=== PATIENT | female | born 1985 | race Caucasian/White ===

== ENCOUNTER 2016-07-15 11:30 | Emergency (ER) | payer SELFPAY ==
[2016-07-15 12:57] VITALS: RESP 16
[2016-07-15] MEDS ORDERED: HYDROcodone/APAP 5-325MG 1 EACH TAB PO STA (14:14)
--- NOTE | 2016-07-15 14:15 | ED ---
ENT HPI - General Chief complaint: ENT Stated complaint: face swelling Time Seen by Provider: 07/15/16 12:42 Source: patient, RN notes reviewed Mode of arrival: ambulatory Limitations: no limitations - History of Present Illness Initial comments: Patient is a 31-year-old female presents to the emergency room for evaluation of facial pain. Patient states yesterday she began having left ear pain. Patient states she woke up this morning with pain on the left side of her face that radiates into her jaw. Patient states she's never had pain like this before. Patient denies, fevers, chills weakness. Patient denies any changes in vision. Patient states she's having severe pain. Patient states her face feels sensitive to touch. Patient ringing in her ears or changes in hearing. Patient states she took ibuprofen for symptoms with no relief. Patient does admit that she cleans her ears out all the time, after getting out of the shower. Patient is not sure if she accidentally scratched the inside of her ear. - Related Data Home Medications Medication Instructions Recorded Confirmed ALPRAZolam [Xanax] 1 mg PO Q8HR PRN 10/11/14 07/15/16 Cyclobenzaprine [Flexeril] 10 mg PO TID 12/09/14 07/15/16 Acetaminophen Tab [Tylenol Tab] 500 - 1,000 mg PO BID PRN 03/11/16 07/15/16 Ibuprofen [Motrin] 400 - 800 mg PO Q6HR PRN 07/15/16 07/15/16 Melatonin 10 mg PO HS 07/15/16 07/15/16 Previous Rx's Medication Instructions Recorded Orphenadrine [Norflex] 100 mg PO Q12H PRN #12 tablet.er 07/15/16 carBAMazepine [carBAMazepine ER] 200 mg PO DAILY PRN #10 07/15/16 Allergies Allergy/AdvReac Type Severity Reaction Status Date / Time lorazepam [From Ativan] AdvReac Severe altered Verified 07/15/16 13:48 mental status diazepam [From Valium] AdvReac paradoxical Verified 07/15/16 13:48 reaction (anxiety) diphenhydramine HCl AdvReac paradoxical Verified 07/15/16 13:48 [From Benadryl] reaction (anxiety) Doles Fruit Cup Allergy Rash/Hives Uncoded 07/15/16 11:38 steroids AdvReac Severe Hallucinati Uncoded 07/15/16 11:38 ons Review of Systems ROS Statement: Those systems with pertinent positive or pertinent negative responses have been documented in the HPI. ROS Other: All systems not noted in ROS Statement are negative. Past Medical History Past Medical History: Asthma, Fibromyalgia, Seizure Disorder Additional Past Medical History / Comment(s): endometriosis, migraines History of Any Multi-Drug Resistant Organisms: None Reported Additional Past Surgical History / Comment(s): endometrial ablation, sinus surgery, D&C Past Anesthesia/Blood Transfusion Reactions: Postoperative Nausea & Vomiting ( PONV) Past Psychological History: Anxiety, Panic Disorder Smoking Status: Never smoker Past Alcohol Use History: Occasional Past Drug Use History: None Reported General Exam - General Exam Comments Initial Comments: Sitting in exam room in no distress. Limitations: no limitations General appearance: alert, in no apparent distress Head exam: Present: normocephalic Eye exam: Present: normal appearance, PERRL, EOMI Pupils: Present: normal accommodation ENT exam: Present: normal exam, other (Patient complaining of tenderness and pain on palpating over the left side of the face. No rashes or unusual lesions noted.) Expanded TM/Canal exam: Canal Tenderness: Left TM (Small excoriation noted in ear canal, no bleeding noted) Mouth exam: Present: normal external inspection Teeth exam: Present: normal inspection Throat exam: normal inspection Neck exam: Present: normal inspection, full ROM Respiratory exam: Present: normal lung sounds bilaterally. Absent: respiratory distress Cardiovascular Exam: Present: regular rate, normal rhythm, normal heart sounds Extremities exam: Present: normal inspection Back exam: Present: normal inspection Neurological exam: Present: alert, oriented X3, CN II-XII intact, normal gait Psychiatric exam: Present: normal affect, normal mood Skin exam: Present: warm, dry, intact, normal color. Absent: rash Course Vital Signs 07/15/16 07/15/16 07/15/16 11:35 12:43 14:36 Temperature 98.0 F 97.8 F 97.6 F Pulse Rate 102 H 106 H 101 H Respiratory 20 16 16 Rate Blood Pressure 143/106 133/79 125/78 O2 Sat by Pulse 98 99 98 Oximetry Medical Decision Making - Medical Decision Making Patient is a 31-year-old female presents to the emergency room for evaluation of left-sided facial pain. Symptoms appear consistent with trigeminal neuralgia. Will place patient on carbamazepine and have her follow-up with ear, nose and throat specialist. Patient states she understands everything that was discussed with her. Return parameters discussed. Case discussed with Dr. Chandler. Disposition Clinical Impression: Trigeminal neuralgia of left side of face Disposition: HOME SELF-CARE Condition: Good Instructions: Trigeminal Neuralgia (ED) Additional Instructions: Take medications as needed. Follow up with ear, nose and throat specialist. If any new symptom arises or symptoms worsen, return to ER as soon as possible. Prescriptions: Orphenadrine [Norflex] 100 mg PO Q12H PRN #12 tablet.er PRN Reason: Pain carBAMazepine [carBAMazepine ER] 200 mg PO DAILY PRN #10 PRN Reason: Pain Referrals: Paulo Macdonald MD [STAFF PHYSICIAN] - 1-2 days Time of Disposition: 14:11
[2016-07-15 14:37] VITALS: BP 125/78; PULSE 101; TEMP 97.6
== END 2016-07-15 14:37 | disposition home or self-care (01) ==
LOC: EC 11:30
DX: G50.0 Trigeminal neuralgia (principal); G40.909 Epilepsy, unspecified, not intractable, without status epilepticus; M79.7 Fibromyalgia; F41.9 Anxiety disorder, unspecified; F41.0 Panic disorder [episodic paroxysmal anxiety]; Z79.899 Other long term (current) drug therapy
CPT/HCPCS: 99283

== ENCOUNTER 2017-08-14 09:10 | Emergency (ER) | payer OTHER ==
[2017-08-14 09:16] VITALS: BP 164/91; PULSE 98; RESP 17
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
[2017-08-14 10:03] VITALS: TEMP 99.2
== END 2017-08-14 10:02 | disposition home or self-care (01) ==
LOC: EC 09:10
DX: H66.92 Otitis media, unspecified, left ear (principal); R05 Cough; M79.7 Fibromyalgia; Z79.899 Other long term (current) drug therapy; Z88.8 Allergy status to other drugs, medicaments and biological substances; Z91.018 Allergy to other foods
CPT/HCPCS: 99283

== ENCOUNTER 2018-08-03 13:53 | Emergency (ER) | payer BC, OTHER ==
--- NOTE | 2018-08-03 15:40 | ED ---
Female Urogenital HPI - General Chief complaint: Vaginal Bleeding Stated complaint: IUD, abd pain and pressure Time Seen by Provider: 08/03/18 15:02 Source: patient, RN notes reviewed, old records reviewed Mode of arrival: ambulatory Limitations: no limitations - History of Present Illness Initial comments: Patient is a 53-year-old female presents emergency department today with heavy vaginal bleeding for the past month. Patient reports that she's had an IUD, Mirena for the past 10 years. She reports that it's been X Try[place] for the past 2 months. She states that she has had pain over cervix and vagina. She reports a history of cervical dyspasia 8 weeks ago, she has not seen OBGYN. Last Menstrual Period: 07/15/18 - Related Data Home Medications Medication Instructions Recorded Confirmed Naproxen Sodium [Aleve] 220 mg PO DAILY 08/03/18 08/03/18 Previous Rx's Medication Instructions Recorded HYDROcodone/APAP 5-325MG [[place] 1 tab PO Q6HR PRN #10 tab 08/03/18 5-325] Ibuprofen 600 mg PO TID #30 tablet 08/03/18 Allergies Allergy/AdvReac Type Severity Reaction Status Date / Time aspirin Allergy Unknown Verified 08/03/18 15:13 lorazepam [From Ativan] AdvReac Severe altered Verified 08/03/18 15:13 mental status diazepam [From Valium] AdvReac paradoxical Verified 08/03/18 15:13 reaction (anxiety) diphenhydramine HCl AdvReac paradoxical Verified 08/03/18 15:13 [From Benadryl] reaction (anxiety) Doles Fruit Cup Allergy Rash/Hives Uncoded 08/03/18 14:24 steroids AdvReac Severe Hallucinati Uncoded 08/03/18 14:24 ons Review of Systems ROS Statement: Those systems with pertinent positive or pertinent negative responses have been documented in the HPI. ROS Other: All systems not noted in ROS Statement are negative. Past Medical History Past Medical History: Asthma, Fibromyalgia, Seizure Disorder Additional Past Medical History / Comment(s): endometriosis, migraines History of Any Multi-Drug Resistant Organisms: None Reported Additional Past Surgical History / Comment(s): endometrial ablation, sinus surgery, D&C Past Anesthesia/Blood Transfusion Reactions: Postoperative Nausea & Vomiting ( PONV) Past Psychological History: Anxiety, Panic Disorder Smoking Status: Never smoker Past Alcohol Use History: Occasional Past Drug Use History: None Reported General Exam - General Exam Comments Initial Comments: 33 year old female, moderate discomfort. Limitations: no limitations General appearance: alert, in no apparent distress Head exam: Present: atraumatic, normocephalic, normal inspection Eye exam: Present: normal appearance, PERRL, EOMI. Absent: scleral icterus, conjunctival injection, periorbital swelling ENT exam: Present: normal exam, mucous membranes moist Neck exam: Present: normal inspection. Absent: tenderness, meningismus, lymphadenopathy Respiratory exam: Present: normal lung sounds bilaterally. Absent: respiratory distress, wheezes, rales, rhonchi, stridor Cardiovascular Exam: Present: regular rate, normal rhythm, normal heart sounds. Absent: systolic murmur, diastolic murmur, rubs, gallop, clicks GI/Abdominal exam: Present: soft, normal bowel sounds. Absent: distended, tenderness, guarding, rebound, rigid External exam: Present: normal external exam Speculum exam: Present: vaginal bleeding, other (friable erythematous and bulging cervix. Patient IUD strings are intact. ). Absent: normal speculum exam By manual exam: Present: normal by manual exam Extremities exam: Present: normal inspection, full ROM, normal capillary refill. Absent: tenderness, pedal edema, joint swelling, calf tenderness Back exam: Present: normal inspection Neurological exam: Present: alert, oriented X3, CN II-XII intact Psychiatric exam: Present: normal affect, normal mood Course Vital Signs 08/03/18 08/03/18 08/03/18 14:20 16:24 18:26 Temperature 98.5 F 98.1 F Pulse Rate 74 88 60 Respiratory 16 20 18 Rate Blood Pressure 145/77 121/56 124/88 O2 Sat by Pulse 100 99 96 Oximetry Medical Decision Making - Medical Decision Making 33 year old female presents with pelvic pain for one day, and vaginal bleeding for one month. Patient has IUD placed 10 years ago. Pelvic exam shows friable and erythematous cervix. She has a history of dysplasia and no papsmears in 8 years. Concern for possiblitity of cancer. Patient UA was normal, no infection. Patient CBC is normal. Strings of IUD visible. Patient Transvaginal US is normal. Discussed case with Dr. Morales whom agrees to see patient for cervix abnormaltiy and return parameters discussed. - Lab Data Result diagrams: 08/03/18 15:30 Lab Results 08/03/18 08/03/18 08/03/18 Range/Units 15:30 15:30 15:30 WBC 6.6 (3.8-10.6) k/uL RBC 4.51 (3.80-5.40) m/uL Hgb 13.1 (11.4-16.0) gm/dL Hct 40.3 (34.0-46.0) % MCV 89.5 (80.0-100.0) fL MCH 29.0 (25.0-35.0) pg MCHC 32.4 (31.0-37.0) g/dL RDW 12.9 (11.5-15.5) % Plt Count 301 (150-450) k/uL Neutrophils % 71 % Lymphocytes % 22 % Monocytes % 4 % Eosinophils % 1 % Basophils % 1 % Neutrophils # 4.7 (1.3-7.7) k/uL Lymphocytes # 1.4 (1.0-4.8) k/uL Monocytes # 0.3 (0-1.0) k/uL Eosinophils # 0.1 (0-0.7) k/uL Basophils # 0.0 (0-0.2) k/uL Urine Color Colorless Urine Appearance Clear (Clear) Urine pH 6.0 (5.0-8.0) Ur Specific [place] 1.007 (1.001-1.035) Urine Protein Negative (Negative) Urine Glucose (UA) Negative (Negative) Urine Ketones Negative (Negative) Urine Blood Small H (Negative) Urine Nitrite Negative (Negative) Urine Bilirubin Negative (Negative) Urine Urobilinogen <2.0 (<2.0) mg/dL Ur Leukocyte Esterase Negative (Negative) Urine RBC 3 (0-5) /hpf Urine WBC 1 (0-5) /hpf Ur Squamous Epith Cells 3 (0-4) /hpf Amorphous Sediment Rare H (None) /hpf Urine Bacteria Occasional H (None) /hpf Urine Mucus Many H (None) /hpf Urine HCG, Qual Not Detected (Not Detectd) Trichomonas Ag (Rapid) (Negative) 08/03/18 Range/Units 16:00 WBC (3.8-10.6) k/uL RBC (3.80-5.40) m/uL Hgb (11.4-16.0) gm/dL Hct (34.0-46.0) % MCV (80.0-100.0) fL MCH (25.0-35.0) pg MCHC (31.0-37.0) g/dL RDW (11.5-15.5) % Plt Count (150-450) k/uL Neutrophils % % Lymphocytes % % Monocytes % % Eosinophils % % Basophils % % Neutrophils # (1.3-7.7) k/uL Lymphocytes # (1.0-4.8) k/uL Monocytes # (0-1.0) k/uL Eosinophils # (0-0.7) k/uL Basophils # (0-0.2) k/uL Urine Color Urine Appearance (Clear) Urine pH (5.0-8.0) Ur Specific [place] (1.001-1.035) Urine Protein (Negative) Urine Glucose (UA) (Negative) Urine Ketones (Negative) Urine Blood (Negative) Urine Nitrite (Negative) Urine Bilirubin (Negative) Urine Urobilinogen (<2.0) mg/dL Ur Leukocyte Esterase (Negative) Urine RBC (0-5) /hpf Urine WBC (0-5) /hpf Ur Squamous Epith Cells (0-4) /hpf Amorphous Sediment (None) /hpf Urine Bacteria (None) /hpf Urine Mucus (None) /hpf Urine HCG, Qual (Not Detectd) Trichomonas Ag (Rapid) Negative (Negative) - Radiology Data Radiology results: report reviewed IUD appears in good position. Normal uterus and endometrium. No adnexal mass. No evidence of ovarian torsion. Disposition Clinical Impression: Dysmenorrhea, IUD complication, Pain on movement of cervix Disposition: HOME SELF-CARE Condition: Good Instructions (If sedation given, give patient instructions): Pelvic Pain in Women (ED) Additional Instructions: Patient advised and close follow-up with her primary care physician and [employer]. Take medication for pain. Return to the emergency department if any alarming signs or symptoms occur. Prescriptions: HYDROcodone/APAP 5-325MG [[place] 5-325] 1 tab PO Q6HR PRN #10 tab PRN Reason: Pain Ibuprofen 600 mg PO TID #30 tablet Is patient prescribed a controlled substance at d/c from ED?: Yes If prescribed controlled substance>3 days was MAPS reviewed?: Prescribed <3 Days If opioid is for acute pain is fill amount 7 days or less?: Yes If Rx opioid, was Start Talking consent form obtained?: Yes Referrals: None,Stated [Primary Care Provider] - 1-2 days Dipti Morales DO [Doctor of Osteopathic Medicine] - 1-2 days Time of Disposition: 17:54
[2018-08-03 15:54] LABS: Basophils % (A) 1 %; Eosinophils # (A) 0.1 k/uL (0-0.7); Eosinophils % (A) 1 %; HCT 40.3 % (34.0-46.0); HGB 13.1 gm/dL (11.4-16.0); Lymphocytes # (A) 1.4 k/uL (1.0-4.8); Lymphocytes % (A) 22 %; MCHC 32.4 g/dL (31.0-37.0); MCV 89.5 fL (80.0-100.0); Mean Platelet Volume 7.4; Monocytes # (A) 0.3 k/uL (0-1.0); Monocytes % (A) 4 %; Neutrophils # (A) 4.7 k/uL (1.3-7.7); Neutrophils % (A) 71 %; Platelet Count 301 k/uL (150-450); RBC 4.51 m/uL (3.80-5.40); RDW 12.9 % (11.5-15.5); WBC 6.6 k/uL (3.8-10.6)
[2018-08-03] MEDS ORDERED: HYDROcodone/APAP 5-325MG 1 EACH TAB PO STA (15:55)
[2018-08-03 15:58] LABS: Amorphous Sediment,Urine Rare /hpf; Appearance,Urine Clear (Clear); Bacteria,Urine Occasional /hpf; Bilirubin,Urine Negative (Negative); Blood,Urine Small (Negative); Color,Urine Colorless; Glucose,Urine (UA) Negative (Negative); Ketones,Urine Negative (Negative); Leukocyte Esterase,Urine Negative (Negative); Mucus,Urine Many /hpf; Nitrite,Urine Negative (Negative); Protein,Urine Negative (Negative); RBC,Urine 3 /hpf (0-5); Specific Gravity,Urine 1.007 (1.001-1.035); Squamous Epithelial Cell,Urine 3 /hpf (0-4); Urobilinogen,Urine <2.0 mg/dL (<2.0); WBC,Urine 1 /hpf (0-5)
[2018-08-03] MEDS ORDERED: MORPHINE SULFATE 4 MG/ML SYRINGE IM STA (17:25)
--- NOTE | 2018-08-03 17:27 | US ---
EXAMINATION TYPE: US transvaginal DATE OF EXAM: 08/03/2018 COMPARISON: NONE CLINICAL HISTORY: Pain. Pelvic pain, IUD x 10 years ago TECHNIQUE: Transvaginal (TV). Date of LMP: 07/17/2018, EXAM MEASUREMENTS: Uterus: 7.7 x 4.8 x 4.2 cm Endometrial Stripe: 0.4 cm Right Ovary: 2.3 x 1.8 x 1.6 cm Left Ovary: 2.6 x 1.8 x 1.6 cm 1. Uterus: Anteverted wnl 2. Endometrium: wnl, IUD seen 3. Right Ovary: follicles 4. Left Ovary: cystic appearing lesion seen adjacent to ovary- 0.7 x 0.7 x 0.8 cm Spectral, color and waveform doppler imaging shows good arterial and venous flow within the ovaries ; there is no evidence for ovarian torsion. 5. Bilateral Adnexa: wnl 6. Posterior cul-de-sac: no free fluid Cervix- wnl IMPRESSION: IUD appears in good position. Normal uterus and endometrium. No adnexal mass. No evidence of ovarian torsion.
[2018-08-03 18:28] VITALS: BP 124/88; PULSE 60; RESP 18; TEMP 98.1
[2018-08-04 13:41] LABS: N. gonorrhoeae,PCR Negative (Neg,Equiv); Neisseria Source Vagina
[2018-08-04 13:43] LABS: C. trachomatis,PCR Negative (Neg,Equiv); Chlamydia trachomatis Source Vagina
== END 2018-08-03 18:10 | disposition home or self-care (01) ==
LOC: EC 13:53
DX: T83.9XXA Unspecified complication of genitourinary prosthetic device, implant and graft, initial encounter (principal); N94.6 Dysmenorrhea, unspecified; M79.7 Fibromyalgia; Z87.42 Personal history of other diseases of the female genital tract; Z98.890 Other specified postprocedural states; Z79.1 Long term (current) use of non-steroidal anti-inflammatories (NSAID); Z88.6 Allergy status to analgesic agent; Z88.8 Allergy status to other drugs, medicaments and biological substances; Z91.018 Allergy to other foods
CPT/HCPCS: 36415; 85025; 81001; 81025; 87808; 87491; 87591; 87070; 87205; 93975; 76830; 99285; 96372; J2270

== ENCOUNTER 2018-08-04 17:40 | Inpatient (IN) | payer BC ==
[2018-08-04] MEDS ORDERED: MORPHINE SULFATE 4 MG/ML SYRINGE IM STA (18:34)
[2018-08-04] MEDS ORDERED: MORPHINE SULFATE 2 MG/ML SYRINGE IM STA (19:00)
--- NOTE | 2018-08-04 19:01 | ED ---
Female Urogenital HPI - General Chief complaint: Vaginal Bleeding Stated complaint: abdominal pain, bleeding Time Seen by Provider: 08/04/18 17:54 Source: patient Mode of arrival: ambulatory Limitations: no limitations - History of Present Illness Initial comments: 33-year-old female presented today for chief complaint of pelvic pain 2 days. Patient states that she was evaluated on Wednesday by practitioner in the emergency department where laboratory studies as well as ultrasound and pelvic exam are performed. Physical examination was concerning for possible cervical abnormality. Patient also states she had an IUD and states she is unsure if this is the cause of the pain. Patient states that she has been bleeding consistently for the past 3 weeks, she states it varies from bright red to darker brown. Patient states this is irregular for her. Juanita Ferro spoke with Dr. Morales to ensure patient follow-up. Patient called office upon discharge, however was told she could not make an appointment and presented to the ER when pain persisted/intensified this evening. Upon arrival patient appears uncomfortable. Remaining ROS (-), patient denies any recent fever, chills, shortness of breath, chest pain, back pain, upper abdominal pain, nausea or vomiting, numbness or tingling, dysuria or hematuria, constipation or diarrhea, headaches or visual changes, or any other complaints. Pt states she has had multiple abnormal paps in the past with 3 cryo therapy treatments, but states her insurance lapsed and patient was unable to f/u in the last 10 years. P. - Related Data Previous Rx's Medication Instructions Recorded HYDROcodone/APAP 5-325MG [[place] 1 tab PO Q6HR PRN #10 tab 08/03/18 5-325] Ibuprofen 600 mg PO TID #30 tablet 08/03/18 Allergies Allergy/AdvReac Type Severity Reaction Status Date / Time aspirin Allergy Unknown Verified 08/04/18 18:26 lorazepam [From Ativan] AdvReac Severe altered Verified 08/04/18 18:26 mental status diazepam [From Valium] AdvReac paradoxical Verified 08/04/18 18:26 reaction (anxiety) diphenhydramine HCl AdvReac paradoxical Verified 08/04/18 18:26 [From Benadryl] reaction (anxiety) Doles Fruit Cup Allergy Rash/Hives Uncoded 08/03/18 14:24 steroids AdvReac Severe Hallucinati Uncoded 08/03/18 14:24 ons Review of Systems ROS Statement: Those systems with pertinent positive or pertinent negative responses have been documented in the HPI. ROS Other: All systems not noted in ROS Statement are negative. Past Medical History Past Medical History: Asthma, Fibromyalgia, Seizure Disorder Additional Past Medical History / Comment(s): endometriosis, migraines History of Any Multi-Drug Resistant Organisms: None Reported Additional Past Surgical History / Comment(s): endometrial ablation, sinus surgery, D&C Past Anesthesia/Blood Transfusion Reactions: Postoperative Nausea & Vomiting (PONV) Past Psychological History: Anxiety, Panic Disorder Smoking Status: Never smoker Past Alcohol Use History: Occasional Past Drug Use History: None Reported - Past Family History Mother Family Medical History: Cancer Additional Family Medical History / Comment(s): cervical, uterine, and ovarian CA. Complete hysterectomy. Father Family Medical History: Hypertension General Exam - General Exam Comments Initial Comments: General: The patient is awake and alert, in no distress, and does not appear acutely ill. Eye: Pupils are equal, round and reactive to light, extra-ocular movements are intact. No nystagmus. There is normal conjunctiva bilaterally. No signs of icterus. Ears, nose, mouth and throat: There are moist mucous membranes and no oral lesions. Neck: The neck is supple, there is no tenderness or JVD. Cardiovascular: There is a regular rate and rhythm. No murmur, rub or gallop is appreciated. Respiratory: Lungs are clear to auscultation, respirations are non-labored, breath sounds are equal. No wheezes, stridor, rales, or rhonchi. Gastrointestinal: Soft, non-distended, non-tender abdomen without masses or organomegaly noted. There is no rebound or guarding present. No CVA tenderness. Bowel sounds are unremarkable. Pelvic exam: No external lesions. Vaginal mucosa pink moist well rugated. Cervix is enlarged, eyes open, IUD strings in place--cervix erythematous, abnormal cervix with tissue that appears to be coming out of os (possible fungating). Cervical motion and adnexal tenderness. Musculoskeletal: Normal ROM, no tenderness. Strength 5/5. Sensation intact. Radial pulses equal bilaterally 2+. Neurological: A&O x 3. CN II-XII intact, There are no obvious motor or sensory deficits. Coordination appears grossly intact. Speech is normal. Skin: Skin is warm and dry and no rashes or lesions are noted. Psychiatric: Cooperative, appropriate mood & affect, normal judgment. Limitations: no limitations Course Vital Signs 08/04/18 08/04/18 08/04/18 17:49 19:53 20:00 Temperature 98.2 F 98.4 F Pulse Rate 75 77 Pulse Rate [ 72 Left] Respiratory 18 16 14 Rate Blood Pressure 160/90 145/81 Blood Pressure 122/91 [Left Arm] O2 Sat by Pulse 100 98 98 Oximetry Medical Decision Making - Medical Decision Making US the day prior no abnormalities. Laboratory studies unremarkable. Chlamydia and gonorrhea testing negative that was obtained by Juanita Ferro. Exam revealed an abnormal cervix, concerning for possible cancer/precancerous cells--discussed concern with patient. IUD was removed after case is discussed in detail with Dr. De Jesus, who recommended removal. Patient has cervical motion tenderness. No discharge. Small amount of red/brown blood in vault. Patient admitted for intractable pain to Dr. De Jesus. No further orders at this time. Patient transferred to the floor in stable condition after receiving pain medications emergency department. Continue provider Dr. Sweet spoke with Dr. De Jesus prior to patient admission. Pt agreeable with admission denies questions at this time. - Lab Data Result diagrams: 08/05/18 09:29 Disposition Clinical Impression: Intractable pain, Pelvic pain, Abnormal vaginal bleeding, Abnormal cervix finding Disposition: ADMITTED IP TO THIS [facility] Condition: Stable Is patient prescribed a controlled substance at d/c from ED?: No Time of Disposition: 19:05 Decision to Admit Reason: Admit from EC Decision Date: 08/04/18 Decision Time: 19:05
[2018-08-04] MEDS ORDERED: ONDANSETRON 4 MG/2 ML VIAL IVP PRN (19:02)
[2018-08-04] MEDS ORDERED: NALOXONE 0.4 MG/ML 1 ML VIAL IV PRN (19:02)
[2018-08-04] MEDS: SODIUM CHLORIDE 0.9% 1,000 ML IV SCH (19:52)
[2018-08-04] MEDS: MORPHINE SULFATE 4 MG/ML SYRINGE IV PRN (23:07)
[2018-08-05] MEDS: MELATONIN 5 MG TABLET PO SCH ×2 (00:51→21:43)
[2018-08-05] MEDS: IBUPROFEN 400 MG TAB PO PRN ×2 (02:36→08:05)
[2018-08-05] MEDS: MORPHINE SULFATE 4 MG/ML SYRINGE IV PRN ×5 (04:08→20:18)
[2018-08-05] MEDS ORDERED: SENNOSIDES-DOCUSATE SODIUM 1 EACH TAB PO PRN (08:37)
[2018-08-05] MEDS ORDERED: IBUPROFEN 600 MG TAB PO PRN ×2 (08:37→08:49)
[2018-08-05] MEDS ORDERED: ZOLPIDEM 5 MG TAB PO PRN (08:37)
--- NOTE | 2018-08-05 08:59 | P.HPOB ---
History of Present Illness H&P Date: 08/05/18 Chief Complaint: Pelvic pain This is a 33-year-old female 3 para 2011 who presented to the emergency room with complaints of severe pelvic pain for the last 2 days. She was seen in the emergency room on Wednesday night and lab work and pelvic ultrasound were performed. Pelvic ultrasound showed a IUD in position with no other abnormalities noted. Her white count was normal and her gonorrhea and chlamydia cultures were negative. She states the IUD has been in for approximate 10 years and at that time had told the emergency room doctor that it was a Mirena IUD. She was advised to follow up with Dr. Morales when the ER doctor talk to Dr. Morales on Wednesday night. When she called the office on , Dr. Morales was out of the office until Wednesday. She returned to the emergency room when her pain continued and did not improve with the Motrin and [place] that she was given from the emergency room. She states she has been having regular periods occurring monthly lasting 6-7 days. Her last normal period was on July 08 and lasted for about a week. She then stopped for a few days and started having spotting for about a week and then started into a heavy period-like flow after that. The patient states she does have a history of endometriosis and this did not feel like any of the endometriosis pain that she has had in the past. She is still bleeding but it is slowing down at this time. The IUD was removed by Dr. Sweet in the ER last night per my request since it could be the source of her pain. Her pain has not improved significantly since removing the IUD and therefore she was admitted for observation and pain control last night. This morning her pain is about the same and it lies in the left lower quadrant and suprapubic area. She states it also goes down into her vaginal area. The pain is so significant that she has to lay on one side or another and keep her legs bent. She states she has always had a history with bowel issues including constipation since she was born. She stated her last bowel movement was yesterday and she did feel like it was harder to expel through the rectal area. She felt like she had to push on her vaginal area to get the rectum to evacuate her stool. Her last gynecologic exam was at least [address] Covarrubias. She states she does have histories of colposcopies and cryocautery surgery. Her genital vaginal culture from the ER on 36 is still pending at this time. In light of her severe pain despite removing the IUD, I am presumptively admitting her for treatment of pelvic inflammatory disease even though she does not meet all the normal criteria. Past obstetrical history: . History of 2 vaginal deliveries and 1 miscarriage. Gynecologic history: No history of sexual transmitted diseases. She does have a history of abnormal Pap smears in the past. Review of Systems Constitutional: Denies chills, Denies fever Eyes: denies blurred vision, denies pain Ears, nose, mouth and throat: Denies headache, Denies sore throat Cardiovascular: Denies chest pain, Denies shortness of breath Respiratory: Denies cough Gastrointestinal: Reports abdominal pain (Suprapubic and left lower quadrant), Reports constipation Genitourinary: Reports abnormal vaginal bleeding, Reports pelvic pain Menstruation: Reports menses 1-7 days Musculoskeletal: Denies myalgias Integumentary: Denies pruritus, Denies rash Neurological: Denies numbness, Denies weakness Psychiatric: Reports anxiety Endocrine: Denies fatigue, Denies weight change Past Medical History Past Medical History: Asthma, Fibromyalgia, Seizure Disorder Additional Past Medical History / Comment(s): endometriosis, migraines History of Any Multi-Drug Resistant Organisms: None Reported Additional Past Surgical History / Comment(s): Ablation of endometriosis via lap aroscopy at age 14, sinus surgery, D&C Past Anesthesia/Blood Transfusion Reactions: Postoperative Nausea & Vomiting (PONV) Past Psychological History: Anxiety, Panic Disorder Smoking Status: Never smoker Past Alcohol Use History: Occasional Past Drug Use History: None Reported - Past Family History Mother Family Medical History: Cancer Additional Family Medical History / Comment(s): cervical, uterine, and ovarian CA. Complete hysterectomy. Father Family Medical History: Hypertension Medications and Allergies Home Medications Medication Instructions Recorded Confirmed Type HYDROcodone/APAP 5-325MG [[place] 1 tab PO Q6HR PRN #10 tab 08/03/18 08/04/18 Rx 5-325] Ibuprofen 600 mg PO TID #30 tablet 08/03/18 08/04/18 Rx Allergies Allergy/AdvReac Type Severity Reaction Status Date / Time aspirin Allergy Unknown Verified 08/04/18 18:26 lorazepam [From Ativan] AdvReac Severe altered Verified 08/04/18 18:26 mental status diazepam [From Valium] AdvReac paradoxical Verified 08/04/18 18:26 reaction (anxiety) diphenhydramine HCl AdvReac paradoxical Verified 08/04/18 18:26 [From Benadryl] reaction (anxiety) Doles Fruit Cup Allergy Rash/Hives Uncoded 08/03/18 14:24 steroids AdvReac Severe Hallucinati Uncoded 08/03/18 14:24 ons Exam Osteopathic Statement: *. No significant issues noted on an osteopathic structural exam other than those noted in the History and Physical/Consult. Vital Signs Temp Pulse Pulse Pulse Resp BP BP 08/05/18 08:00 18 08/05/18 07:21 97.7 F 63 18 112/69 08/05/18 03:40 75 16 08/04/18 23:51 75 16 08/04/18 23:13 97.9 F 75 16 125/78 08/04/18 20:00 98.4 F 72 14 122/91 08/04/18 19:53 77 16 145/81 08/04/18 17:49 98.2 F 75 18 160/90 Pulse Ox 08/05/18 08:00 08/05/18 07:21 97 08/05/18 03:40 08/04/18 23:51 08/04/18 23:13 98 08/04/18 20:00 98 08/04/18 19:53 98 08/04/18 17:49 100 Intake and Output 08/04/18 08/05/18 08/05/18 22:59 06:59 14:59 Intake Total 240 Balance 240 Intake: Oral 240 Other: Voiding Method Toilet Toilet Toilet # Voids 1 2 Weight 65.771 kg Gen.: Well-developed well-nourished female in mild distress HEENT: Within normal limits Heart: Regular rate and rhythm Lungs: Clear to auscultation bilaterally Abdomen: Soft, tender suprapubically and in the left lower quadrant with some guarding but no rebound. Pelvic exam: Cervix is palpated smooth with no palpable lesions. Positive cervical motion tenderness is noted and significant guarding is noted on pelvic exam to the point that I cannot feel the uterus or ovaries on either side. The tenderness is located more midline into the left, but I'm unable to fully palpate the uterus or ovaries due to the patient guarding. Minimal vaginal bleeding is noted on the glove. Extremities: Negative Homans Assessment and Plan (1) Pelvic inflammatory disease, acute Current Visit: Yes Status: Acute Code(s): N73.0 - ACUTE PARAMETRITIS AND PELVIC CELLULITIS SNOMED Code(s): 352937768 (2) Intractable pain Current Visit: Yes Status: Acute Code(s): R52 - PAIN, UNSPECIFIED SNOMED Code(s): 40822720 Plan: I am presumptively admitting and treating for pelvic inflammatory disease since the patient does have severe pelvic pain along with cervical motion tenderness and abnormal vaginal bleeding despite removal of IUD. I will presumptively treat with cefoxitin and doxycycline. We'll repeat CBC today and tomorrow. If no improvement in 24-48 hours, possible consultation with general surgery to rule out any other causes of her pain. If she does improve, Dr. Morales will be able to see her in the office on Wednesday. I am not here this weekend, therefore Dr. Wilson will be covering this weekend.
[2018-08-05] MEDS ORDERED: DOXYCYCLINE 100 MG CAP PO SCH (09:00)
[2018-08-05 09:51] LABS: Basophils % (A) 0 %; Eosinophils # (A) 0.1 k/uL (0-0.7); Eosinophils % (A) 2 %; HCT 40.9 % (34.0-46.0); HGB 12.6 gm/dL (11.4-16.0); Lymphocytes # (A) 1.7 k/uL (1.0-4.8); Lymphocytes % (A) 26 %; MCH 28.1 pg (25.0-35.0); MCHC 30.8 g/dL (31.0-37.0); MCV 91.2 fL (80.0-100.0); Mean Platelet Volume 7.1; Monocytes # (A) 0.3 k/uL (0-1.0); Monocytes % (A) 5 %; Neutrophils # (A) 4.2 k/uL (1.3-7.7); Neutrophils % (A) 65 %; Platelet Count 271 k/uL (150-450); RBC 4.48 m/uL (3.80-5.40); RDW 12.9 % (11.5-15.5); WBC 6.4 k/uL (3.8-10.6)
[2018-08-05] MEDS: SODIUM CHLORIDE 0.9% 1,000 ML IV SCH ×2 (13:37→22:29)
[2018-08-05] MEDS ORDERED: metroNIDAZOLE-NS PMX 500 MG in SALINE 1 100ML.BAG IVPB SCH (16:00)
--- NOTE | 2018-08-05 21:18 | CT ---
EXAMINATION TYPE: CT abdomen pelvis wo con DATE OF EXAM: 08/05/2018 COMPARISON: None HISTORY: 33-year-old patient with lower abdominal pain. CT DLP: 361.5 mGycm Automated exposure control for dose reduction was used. TECHNIQUE: Helical acquisition of images was performed from the lung bases through the pelvis. FINDINGS: Within the limits of noncontrast CT the following observations are made. LUNG BASES: No significant abnormality is appreciated. LIVER/GB: No significant abnormality is appreciated. PANCREAS: No significant abnormality is seen. SPLEEN: No significant abnormality is seen. Multifocal calcifications are noted, consistent with heal ed granulomatous process. ADRENALS: No significant abnormality is seen. KIDNEYS: No significant abnormality is seen. FREE AIR: No free air is visualized RETROPERITONEAL ADENOPATHY: None visualized REPRODUCTIVE ORGANS: No significant abnormality is seen URINARY BLADDER: No significant abnormality is seen. PELVIC ADENOPATHY: None visualized. OSSEOUS STRUCTURES: No significant abnormality is seen. BOWEL: No significant abnormality is seen. However, prominent stool is seen throughout the colon. IMPRESSION: CONSTIPATION PATTERN.
[2018-08-05] MEDS ORDERED: BISACODYL 5 MG TABLET.DR PO PRN (21:38)
--- NOTE | 2018-08-05 21:52 | P.PN ---
Progress Note - Text Progress Note Date: 08/05/18 Patient seen and evaluated this evening. I did see her on multiple occasions through the evening to try and better assess her symptoms and pain. She was transferred from os unit to labor and delivery at my request that I could perform a pelvic exam and do more thorough examination. In discussing patient symptomatology, she relates that she has had initiation of the pain starting on Wednesday morning and it started is very crampy pain and had progressed to more of a stabbing pain. The pain seems to gotten worse over the last 2 days and despite a normal ultrasound there was concern that she could have some type of gynecologic pathology. It is also noted that Dr. Desir saw her and felt that based on her symptoms and cervical motion tenderness and pain in her vagina that she could have PID. Antibiotics were initiated for PID. Review of cultures that have returned were all negative and she has no fever or white count. I did spend at least 30-45 minutes in the initial evaluation with her during that time she related that she has always had constipation due to some type of intestinal issues since she was a baby. She does state that she did have a bowel movement yesterday but it was small and very hard. She denies any urinary complaints, however there was some small blood in her urine and some bacteria based on a UA from 2 days ago. We did discuss her other symptoms that had been occurring earlier, she had a normal period about 3 weeks ago and then some intermittent spotting and bleeding over the last 3 weeks. On physical exam her vital signs were stable and afebrile. I did perform another pelvic exam with some darkish brownish discharge and a small amount of blood in the vagina on speculum exam. Otherwise cervix appeared normal. With bimanual exam there was a nabothian cyst noted on her cervix. Also she has a slightly angled uterus to the left-hand side with palpable nodular tissues anterior to the uterus and lateral to the uterus that are very tender and most likely represented bowel. Once this exam was done due to the significant discomfort she had with the exam I did order a stat CAT scan please see CAT scan results from radiology, however the only abnormal finding was significant stool. Unfortunately I suspect that her symptomatology may be relat ed to severe constipation and we are only making matters worse by providing narcotics which will further slow down her capacity to have a bowel movement. During the course of my interview with her she related very little to no pain and she was not acutely in any distress her abdomen was otherwise soft but it was globally tender across all quadrants. Assessment suspect significant constipation Plan discontinue narcotics, trial of laxative and increase fluids through IV for the next few hours to see if we can't get her stool softened and passing to see if that will resolve her symptoms.
[2018-08-05] MEDS: KETOROLAC 30 MG/ML 1 ML VIAL IVP SCH (23:58)
[2018-08-06] MEDS: KETOROLAC 30 MG/ML 1 ML VIAL IVP SCH ×2 (06:04→12:29)
[2018-08-06 07:05] LABS: Basophils % (A) 1 %; Eosinophils # (A) 0.2 k/uL (0-0.7); Eosinophils % (A) 3 %; HCT 38.1 % (34.0-46.0); HGB 12.1 gm/dL (11.4-16.0); Lymphocytes # (A) 1.3 k/uL (1.0-4.8); Lymphocytes % (A) 28 %; MCH 28.9 pg (25.0-35.0); MCHC 31.7 g/dL (31.0-37.0); MCV 91.4 fL (80.0-100.0); Mean Platelet Volume 7.5; Monocytes # (A) 0.3 k/uL (0-1.0); Monocytes % (A) 6 %; Neutrophils # (A) 2.9 k/uL (1.3-7.7); Neutrophils % (A) 61 %; Platelet Count 242 k/uL (150-450); RBC 4.17 m/uL (3.80-5.40); RDW 12.9 % (11.5-15.5); WBC 4.7 k/uL (3.8-10.6)
[2018-08-06 08:08] VITALS: RESP 17
--- NOTE | 2018-08-06 10:56 | P.PN ---
Progress Note - Text Progress Note Date: 08/06/18 Overall patient is doing better this morning. She does relate she still has some burning but is much improved over even yesterday. She is did bowel sounds and does feel her stomach rumbling. However, she is not passing flatus and has not had a bowel movement. We'll plan to change to MiraLAX to try and increase the fluid into her colon to try and help her have a bowel movement she may shower and we'll try hopefully some coffee or other caffeine product to hopefully get her to have little more motility and have a bowel movement this morning. Her vital signs are stable and afebrile. She is laying in bed overall very comfortable. Her pain does not seem to be nearly as much as it has been the last day or 2 and there are no other signs or symptoms or issues that I can elicit from her. We will make these minor changes and hopefully try and discharge her later today should she continue to improve.
[2018-08-06] MEDS ORDERED: POLYETHYLENE GLYCOL 3350 17 GM POWD.PACK PO SCH (11:00)
[2018-08-06] MEDS ORDERED: ACETAMINOPHEN TAB 325 MG TAB PO STA (11:16)
--- NOTE | 2018-08-06 13:14 | P.PN ---
Progress Note - Text Progress Note Date: 08/06/18 Patient has again began spotting. This procedure and she had had 2-3 weeks of irregular bleeding prior to her at [place] to the hospital. However she is again spotting and there is unclear etiology. We'll check female hormones including FSH, LH, prolactin, estradiol, and TSH. These labs can be obtained and reviewed with her on her appointment with Dr. Morales in 2 days. Otherwise she is stable but having an increase in her cramping most likely due to additional MiraLAX and likely getting ready to have a bowel movement
--- NOTE | 2018-08-06 14:39 | P.DS ---
Providers Date of admission: 08/05/18 08:38 Expected date of discharge: 08/06/18 Attending physician: Tigist De Jesus Primary care physician: Stated None Hospital Course: Patient seen and evaluated again this afternoon. Her pain is much more tolerable and labs are pending for female hormones and distal uterine bleeding. She did have a small bowel movement earlier and we'll therefore discharged patient home with instructions to follow up with Dr. Morales on Wednesday and return to the emergency room should she have recurrence of severe pain. At this time the only source for her pain that I been able to elucidate is her constipation and will therefore treat as same. All the questions were answered for her at this time and she will again follow up with our office next week. Patient Condition at Discharge: Good Plan - Discharge Summary Discharge Rx Participant: Yes New Discharge Prescriptions: New Cephalexin [Keflex] 500 mg PO Q6HR #20 cap No Action Ibuprofen 600 mg PO TID #30 tablet HYDROcodone/APAP 5-325MG [[place] 5-325] 1 tab PO Q6HR PRN #10 tab PRN Reason: Pain Discharge Medication List HYDROcodone/APAP 5-325MG [[place] 5-325] 1 tab PO Q6HR PRN #10 tab 08/03/18 [Rx] Ibuprofen 600 mg PO TID #30 tablet 08/03/18 [Rx] Cephalexin [Keflex] 500 mg PO Q6HR #20 cap 08/06/18 [Rx] Follow up Appointment(s)/Referral(s): None,Stated [Primary Care Provider] - 1-2 days Dipti Morales DO [Doctor of Osteopathic Medicine] - 08/08/18 Activity/Diet/Wound Care/Special Instructions: Return to the emergency room if symptoms recur Discharge Disposition: HOME SELF-CARE
[2018-08-06 15:45] VITALS: BP 100/62; PULSE 68; TEMP 98.3
== END 2018-08-06 16:03 | disposition home or self-care (01) | DRG 759 ==
LOC: EC 17:40 → 1SOBS 19:05 → OBSVTOIN 08-05 08:38 → 4FBP 08-05 19:38
PROVIDERS: ADMIT Obstetrics & Gynecology; ATTEND Obstetrics & Gynecology
DX: N73.9 Female pelvic inflammatory disease, unspecified (principal); K59.09 Other constipation; N93.8 Other specified abnormal uterine and vaginal bleeding; F41.0 Panic disorder [episodic paroxysmal anxiety]; G40.909 Epilepsy, unspecified, not intractable, without status epilepticus; J45.909 Unspecified asthma, uncomplicated; M79.7 Fibromyalgia; N88.8 Other specified noninflammatory disorders of cervix uteri; G43.909 Migraine, unspecified, not intractable, without status migrainosus; N80.9 Endometriosis, unspecified; Z30.432 Encounter for removal of intrauterine contraceptive device; Z80.41 Family history of malignant neoplasm of ovary; Z82.49 Family history of ischemic heart disease and other diseases of the circulatory system; Z80.49 Family history of malignant neoplasm of other genital organs; Z88.6 Allergy status to analgesic agent; Z88.8 Allergy status to other drugs, medicaments and biological substances
CPT/HCPCS: 58301; 74176; 82670; 83001; 83002; 84146; 84443; 85025; 96372; 99285

== ENCOUNTER → 2018-09-29 | Outpatient (CLI) | payer OTHER ==
--- NOTE | 2018-09-29 08:08 | US ---
EXAMINATION TYPE: Transabdominal DATE OF EXAM: 09/29/2018 7:20 AM COMPARISON: NONE CLINICAL HISTORY: Z36 confirm dates. confirm dates EXAM PERFORMED: Transabdominal (TA) EXAM MEASUREMENTS: GESTATIONAL AGE / DATING Physician Established: Not yet established Dates by LMP: (9 weeks/1 days) EDC: 05/03/19 Dates by First Scan: no prior Dates by Current Scan for: ( 8 weeks/6 days) EDC: 05/05/19 MATERNAL ANATOMY Uterus: 12.0 x 6.7 x 8.5cm Right Ovary: 3.2 x 2.6 x 2.7cm Left Ovary: 3.0 x 1.4 x 2.9cm Post CDS / Adnexa: trace amount of free fluid posterior cul-de-sac Presence of free fluid: yes GESTATION / SURVEY CRL: 2.1cm (8 weeks/6 days) Yolk Sac (normal less than 6mm): 0.4cm Heart Rate: 165 bpm Rhythm: Normal IUP: Live IUP Date of LMP: 07/27/18 Beta HcG (if available): Not available at this time Single live intrauterine with LENCHO of 05/05/19 IMPRESSION: Single live intrauterine with a sonographic age of 8 weeks and 6 days, concordant with mens trual age. Estimated date of delivery of 05/05/2019.
== END ==
LOC: RADUSWWP 07:02
PROVIDERS: ATTEND Obstetrics & Gynecology
DX: Z36.9 Encounter for antenatal screening, unspecified (principal); Z3A.08 8 weeks gestation of pregnancy
CPT/HCPCS: 76801

== ENCOUNTER → 2019-02-27 | Outpatient (CLI) | payer OTHER | LOC: LABWHC1 15:48 | PROVIDERS: ATTEND Obstetrics & Gynecology | DX: Z34.83 Encounter for supervision of other normal pregnancy, third trimester (principal); Z98.82 Breast implant status | CPT/HCPCS: 36415; 82175; 82570; 83655; 83825 ==

== ENCOUNTER 2019-12-06 18:29 | Emergency (ER) | payer BC, OTHER ==
--- NOTE | 2019-12-06 20:00 | XR ---
EXAMINATION TYPE: XR chest 2V DATE OF EXAM: 12/06/2019 COMPARISON: 12/09/2014 HISTORY: Weakness TECHNIQUE: 2 views FINDINGS: Heart and mediastinum are normal. Lungs are clear. Diaphragm is normal. Bony thorax appears normal. IMPRESSION: Normal chest. No change.
[2019-12-06 20:21] LABS: Basophils # (A) 0.1 k/uL (0-0.2); Basophils % (A) 1 %; Eosinophils # (A) 0.1 k/uL (0-0.7); Eosinophils % (A) 2 %; HCT 45.1 % (34.0-46.0); HGB 14.5 gm/dL (11.4-16.0); Lymphocytes # (A) 1.4 k/uL (1.0-4.8); Lymphocytes % (A) 19 %; MCH 28.2 pg (25.0-35.0); MCHC 32.1 g/dL (31.0-37.0); MCV 87.9 fL (80.0-100.0); Mean Platelet Volume 8.1; Monocytes # (A) 0.3 k/uL (0-1.0); Monocytes % (A) 4 %; Neutrophils # (A) 5.4 k/uL (1.3-7.7); Neutrophils % (A) 73 %; Platelet Count 267 k/uL (150-450); RBC 5.13 m/uL (3.80-5.40); RDW 12.4 % (11.5-15.5); WBC 7.4 k/uL (3.8-10.6)
[2019-12-06 20:29] LABS: ALT 18 U/L (4-34); AST 25 U/L (14-36); African American GFR (CKD) >90 (>60 ml/min/1.73 sqM); Albumin 4.7 g/dL (3.5-5.0); Alkaline Phosphatase 115 U/L (38-126); Anion Gap 10 mmol/L; Blood Urea Nitrogen 21 mg/dL (7-17); Calcium 10.1 mg/dL (8.4-10.2); Carbon Dioxide 23 mmol/L (22-30); Chloride 104 mmol/L (98-107); Glucose 95 mg/dL (74-99); Magnesium 1.8 mg/dL (1.6-2.3); Non-African American GFR(CKD) >90 (>60 ml/min/1.73 sqM); Potassium 4.4 mmol/L (3.5-5.1); Sodium 137 mmol/L (137-145); Total Bilirubin 0.5 mg/dL (0.2-1.3); Total Protein 7.6 g/dL (6.3-8.2)
[2019-12-06 20:31] LABS: INR 0.9 (<1.2); Partial Thromboplastin Time 22.7 sec (22.0-30.0); Prothrombin Time 9.8 sec (9.0-12.0)
[2019-12-06] MEDS ORDERED: SODIUM CHLORIDE 0.9% 1,500 ML IV STA (20:59)
[2019-12-06] MEDS ORDERED: SODIUM CHLORIDE 0.9% 500 ML 500 ML IV ONE (21:01)
[2019-12-06] MEDS ORDERED: SODIUM CHLORIDE 0.9% 1,000 ML IV ONE (21:01)
[2019-12-06] MEDS ORDERED: SODIUM CHLORIDE 0.9% 1,000 ML IV SCH (21:15)
[2019-12-06] MEDS ORDERED: ACETAMINOPHEN TAB 325 MG TAB PO STA (21:16)
--- NOTE | 2019-12-06 21:31 | CT ---
EXAMINATION TYPE: CT brain wo con DATE OF EXAM: 12/06/2019 COMPARISON: 05/14/2014 HISTORY: [place]KE[place], dehydration CT DLP: 1074.4 mGycm Automated exposure control for dose reduction was used. Ventricles and sulci appear normal. There is no mass effect nor midline shift. There is no sign of in tracranial hemorrhage. The calvarium is intact. There is no evidence of cerebral edema. Skull base is intact. IMPRESSION: Negative CT scan of the brain. No change.
[2019-12-06 22:27] LABS: Appearance,Urine Clear (Clear); Bilirubin,Urine Negative (Negative); Blood,Urine Negative (Negative); Color,Urine Colorless; Glucose,Urine (UA) Negative (Negative); Ketones,Urine Negative (Negative); Leukocyte Esterase,Urine Negative (Negative); Nitrite,Urine Negative (Negative); Protein,Urine Negative (Negative); Specific Gravity,Urine 1.007 (1.001-1.035); Urobilinogen,Urine <2.0 mg/dL (<2.0)
--- NOTE | 2019-12-06 22:36 | ED ---
Chest Pain HPI - General Chief Complaint: Dizziness Stated Complaint: lightheaded Time Seen by Provider: 12/06/19 19:23 Source: patient Mode of arrival: wheelchair Limitations: no limitations - History of Present Illness Initial Comments: 34-year-old female presenting for lightheadedness. Patient states that yesterday she was working in her garden in the hot weather when it was over 90 she states she was out there for 3 hours when she came in she states that she felt lightheaded as if she was going to pass out she states that she felt dizzy and lightheaded. Patient states that she was slight headache shortly after. She states she has history of chronic migraines as a vision loss which is the upper or lower extremities she denies being off balance. Patient states that today she will sign the warm weather again developed a lightheaded sensation and had a slight discomfort in the chest she states it is difficult to describe her heart felt like she was racing at that time. Denies any crushing chest pressure or pain denies any ripping tearing sensation she states that she was more so worried about the presyncope. Patient states she has been drinking water but is breast feeding. Denies shortness of breath, leg swelling history of DVT/PE, denies calf or leg swelling, denies surgeries recently, denies . Patient denies pain with deep inspiration or hemoptysis. Patient upon arrival appears well no signs of acute distress. - Related Data Previous Rx's Medication Instructions Recorded HYDROcodone/APAP 5-325MG [[place] 1 tab PO Q6HR PRN #10 tab 08/03/18 5-325] Ibuprofen 600 mg PO TID #30 tablet 08/03/18 Cephalexin [Keflex] 500 mg PO Q6HR #20 cap 08/06/18 Allergies Allergy/AdvReac Type Severity Reaction Status Date / Time aspirin Allergy Unknown Verified 12/06/19 18:37 lorazepam [From Ativan] AdvReac Severe altered Verified 12/06/19 18:37 mental status diazepam [From Valium] AdvReac paradoxical Verified 12/06/19 18:37 reaction (anxiety) diphenhydramine HCl AdvReac paradoxical Verified 12/06/19 18:37 [From Benadryl] reaction (anxiety) Doles Fruit Cup Allergy Rash/Hives Uncoded 12/06/19 18:37 steroids AdvReac Severe Hallucinati Uncoded 12/06/19 18:37 ons Review of Systems ROS Statement: Those systems with pertinent positive or pertinent negative responses have been documented in the HPI. ROS Other: All systems not noted in ROS Statement are negative. EKG Findings - EKG Comments: EKG Findings:: Ventricular rate 70 bpm, UT interval 164 ms, QRS duration 96 ms, QT/QTC 390/427 ms. This is normal sinus there is no ST elevation or depression no significant findings appreciated. Past Medical History Past Medical History: Asthma, Fibromyalgia, Seizure Disorder Additional Past Medical History / Comment(s): endometriosis, migraines History of Any Multi-Drug Resistant Organisms: None Reported Additional Past Surgical History / Comment(s): endometrial ablation, sinus surgery, D&C Past Anesthesia/Blood Transfusion Reactions: Postoperative Nausea & Vomiting (PONV) Past Psychological History: Anxiety, Panic Disorder Smoking Status: Never smoker Past Alcohol Use History: Occasional Past Drug Use History: None Reported - Past Family History Mother Family Medical History: Cancer Additional Family Medical History / Comment(s): cervical, uterine, and ovarian CA. Complete hysterectomy. Father Family Medical History: Hypertension General Exam - General Exam Comments Initial Comments: General: The patient is awake and alert, in no distress Eye: +3 mm pupils are equal, round and reactive to light, extra-ocular movements are intact. No nystagmus. There is normal conjunctiva bilaterally. No signs of icterus. Ears, nose, mouth and throat: There are moist mucous membranes and no oral lesions. Neck: The neck is supple, there is no tenderness or JVD. Cardiovascular: There is a regular rate and rhythm. No murmur, rub or gallop is appreciated. Respiratory: Lungs are clear to auscultation, respirations are non-labored, breath sounds are equal. No wheezes, stridor, rales, or rhonchi. Gastrointestinal: Soft, non-distended, non-tender abdomen without masses or organomegaly noted. There is no rebound or guarding present. Musculoskeletal: Normal ROM, no tenderness. Strength 5/5 of the UE and LE b/l. Sensation intact of the UE and LE b/l. Radial pulses equal bilaterally 2+. Neurological: A&O x 3. CN II-XII intact, There are no obvious motor or sensory deficits. Coordination appears grossly intact. Speech is normal. Finger to nose, heel to henry smooth and coordinated. Patient gait without ataxia. No nuchal rigidity Skin: Skin is warm and dry and no rashes or lesions are noted. No LE swelling, no edema or calf tenderness. Psychiatric: Cooperative, appropriate mood & affect, normal judgment. Limitations: no limitations Course Vital Signs 12/06/19 12/06/19 12/06/19 18:34 19:07 20:16 Temperature 98.0 F Pulse Rate 77 84 Respiratory 16 16 16 Rate Blood Pressure 144/83 124/74 O2 Sat by Pulse 100 97 Oximetry 12/06/19 12/06/19 12/06/19 21:20 22:21 23:03 Temperature 98.0 F Pulse Rate 79 68 68 Respiratory 18 18 18 Rate Blood Pressure 105/59 123/66 123/66 O2 Sat by Pulse 98 97 97 Oximetry Chest Pain MDM - MDM 34-year-old female presented for lightheadedness BEGAN after working outside in hot conditions. Occurred when standing up and walking. No syncopal episode. Chest x-ray clear. No peripheral findings. Denies shortness of breath. Vital signs within acceptable limits. Patient appears dry she is breast-feeding. Temperature outside has been the 90s for the past week. Troponin (-). No chest pain/pressure at this time. CT brain obtained due to 'dizziness' however is more so felt to be described as a presyncope. (-) orthostatics. NO ataxia. or focal neurological findings. Pt BUN elevated. I feel patient is dehydrated and may be cause of symptoms. Patient case discsussed with Dr. Allan who is agreeable to discharge with PCP f/u. Return for worsening symptoms Patient is to increase fluids. Discussed case with him provider Dr. Allan was agreeable with my impression care plan to discharge Patient is agreeable to discharge with timely f/u and return parameters. Disposition Clinical Impression: Lightheaded, Dehydration Disposition: HOME SELF-CARE Condition: Good Instructions (If sedation given, give patient instructions): Dehydration (ED), Near Syncope (ED) Additional Instructions: Please use medication as discussed. Please follow-up with family doctor in the next 2 days. Please return to emergency room if the symptoms increase or worsen or for any other concerns. Is patient prescribed a controlled substance at d/c from ED?: No Referrals: None,Stated [Primary Care Provider] - 1-2 days Time of Disposition: 22:36
[2019-12-08 09:39] VITALS: BP 123/66; PULSE 68; RESP 18; TEMP 98
== END 2019-12-06 23:04 | disposition home or self-care (01) ==
LOC: EC 18:29
DX: E86.0 Dehydration (principal); R42 Dizziness and giddiness; Z88.6 Allergy status to analgesic agent; Z88.8 Allergy status to other drugs, medicaments and biological substances; Z91.018 Allergy to other foods
CPT/HCPCS: 36415; 70450; 71046; 80053; 81003; 81025; 83735; 84484; 85025; 85610; 85730; 93005; 99284

== ENCOUNTER 2020-02-07 10:56 | Emergency (ER) | payer OTHER ==
[2020-02-07 11:15] VITALS: RESP 18
[2020-02-07] MEDS ORDERED: SODIUM CHLORIDE 0.9% 1,000 ML IV STA (11:25)
[2020-02-07] MEDS ORDERED: ONDANSETRON 4 MG/2 ML VIAL IVP STA (11:25)
--- NOTE | 2020-02-07 11:36 | ED ---
General Adult HPI - General Chief complaint: Dizziness Stated complaint: Dehydration [facility] Time Seen by Provider: 02/07/20 11:16 Source: patient Mode of arrival: ambulatory Limitations: no limitations - History of Present Illness Initial comments: 34-year-old female patient presents to the emergency department today for evaluation of nausea and dizziness. Patient states she's been feeling this way since waking up this morning. Patient states that she was quite busy yesterday and didn't drink as much water as usual. Sensation is currently following a ketogenic diet and breast-feeding. Patient states that she has been able to drink water today and had some fruit but she is unable to eat anything more substantial. She denies any abdominal pain, chest pain, shortness of breath, headache, blurred vision, double vision. Patient states that she has felt similar in the past when she has been dehydrated. [facility] and was instructed to come here for IV fluids. She denies any current chance of . Patient denies any recent rash, cough, diarrhea, constipation, back pain, numbness, tingling, dizziness, weakness, hematuria, dysuria, urinary urgency, urinary frequency, or any other complaints. - Related Data Previous Rx's Medication Instructions Recorded HYDROcodone/APAP 5-325MG [[place] 1 tab PO Q6HR PRN #10 tab 08/03/18 5-325] Ibuprofen 600 mg PO TID #30 tablet 08/03/18 Cephalexin [Keflex] 500 mg PO Q6HR #20 cap 08/06/18 Allergies Allergy/AdvReac Type Severity Reaction Status Date / Time aspirin Allergy Unknown Verified 02/07/20 11:10 lorazepam [From Ativan] AdvReac Severe altered Verified 02/07/20 11:10 mental status diazepam [From Valium] AdvReac paradoxical Verified 02/07/20 11:10 reaction (anxiety) diphenhydramine HCl AdvReac paradoxical Verified 02/07/20 11:10 [From Benadryl] reaction (anxiety) Doles Fruit Cup Allergy Rash/Hives Uncoded 12/06/19 18:37 steroids AdvReac Severe Hallucinati Uncoded 12/06/19 18:37 ons Review of Systems ROS Statement: Those systems with pertinent positive or pertinent negative responses have been documented in the HPI. ROS Other: All systems not noted in ROS Statement are negative. Past Medical History Past Medical History: Asthma, Fibromyalgia, Seizure Disorder Additional Past Medical History / Comment(s): endometriosis, migraines History of Any Multi-Drug Resistant Organisms: None Reported Additional Past Surgical History / Comment(s): endometrial ablation, sinus surgery, D&C Past Anesthesia/Blood Transfusion Reactions: Postoperative Nausea & Vomiting (PONV) Past Psychological History: Anxiety, Panic Disorder Smoking Status: Never smoker Past Alcohol Use History: Occasional Past Drug Use History: None Reported - Past Family History Mother Family Medical History: Cancer Additional Family Medical History / Comment(s): cervical, uterine, and ovarian CA. Complete hysterectomy. Father Family Medical History: Hypertension General Exam Limitations: no limitations General appearance: alert, in no apparent distress, other (This is a well- developed, well-nourished adult female patient in no acute distress. Vital signs upon presentation are pulse 78, respirations 18, blood pressure 136/89, pulse ox 96% on room air.) Eye exam: Present: normal appearance, PERRL, EOMI. Absent: scleral icterus, c onjunctival injection, nystagmus, periorbital swelling ENT exam: Present: normal exam, normal oropharynx, mucous membranes moist Respiratory exam: Present: normal lung sounds bilaterally. Absent: respiratory distress, wheezes, rales, rhonchi, stridor Cardiovascular Exam: Present: regular rate, normal rhythm, normal heart sounds. Absent: systolic murmur, diastolic murmur, rubs, gallop, clicks GI/Abdominal exam: Present: soft, normal bowel sounds. Absent: distended, tenderness, guarding, rebound, rigid Neurological exam: Present: alert, oriented X3, CN II-XII intact, other (Strength in all 4 extremities is 5/5.) Psychiatric exam: Present: normal affect, normal mood Skin exam: Present: warm, dry, intact, normal color. Absent: rash Course Vital Signs 02/07/20 02/07/20 11:10 12:32 Pulse Rate 78 70 Respiratory 18 18 Rate Blood Pressure 136/89 101/67 O2 Sat by Pulse 96 96 Oximetry EKG Findings - EKG Comments: EKG Findings:: EKG obtained at 11:30 shows normal sinus rhythm with a low voltage QRS. Ventricular 76, OH interval 166, QRS duration 78, QT 358, QTC 402. No evidence of ST elevation or depression. Medical Decision Making - Medical Decision Making 34-year-old female patient presents to the emergency department today for evaluation of dizziness and nausea. Patient believes she is dehydrated. Physical examination is unremarkable. She is neurologically intact no deficits. Abdomen soft and nontender. She is afebrile normal vital signs. EKG shows normal sinus rhythm. Patient is currently doing a ketogenic diet and breast- feeding. Labs reviewed and did reveal mildly elevated potassium of 5.4. She also had low blood sugar is 72. She is given IV fluids and nausea medication. Upon reevaluation shows report improvement in symptoms or we did give her food. She will be discharged. The primary care physician for recheck in 1-2 days. Return parameters were discussed in detail. She verbalizes understanding and agrees with this plan. - Lab Data Result diagrams: 02/07/20 11:37 02/07/20 11:37 Lab Results 02/07/20 02/07/20 02/07/20 Range/Units 11:37 11:37 11:37 WBC 5.7 (3.8-10.6) k/uL RBC 5.45 H (3.80-5.40) m/uL Hgb 15.1 (11.4-16.0) gm/dL Hct 47.4 H (34.0-46.0) % MCV 86.8 (80.0-100.0) fL MCH 27.7 (25.0-35.0) pg MCHC 31.9 (31.0-37.0) g/dL RDW 12.9 (11.5-15.5) % Plt Count 245 (150-450) k/uL Neutrophils % 71 % Lymphocytes % 22 % Monocytes % 4 % Eosinophils % 1 % Basophils % 1 % Neutrophils # 4.0 (1.3-7.7) k/uL Lymphocytes # 1.2 (1.0-4.8) k/uL Monocytes # 0.2 (0-1.0) k/uL Eosinophils # 0.1 (0-0.7) k/uL Basophils # 0.1 (0-0.2) k/uL Sodium 139 (137-145) mmol/L Potassium 5.4 H (3.5-5.1) mmol/L Chloride 102 (98-107) mmol/L Carbon Dioxide 22 (22-30) mmol/L Anion Gap 15 mmol/L BUN 13 (7-17) mg/dL Creatinine 0.51 L (0.52-1.04) mg/dL Est GFR (CKD-EPI)AfAm >90 (>60 ml/min/1.73 sqM) Est GFR (CKD-EPI)NonAf >90 (>60 ml/min/1.73 sqM) Glucose 72 L (74-99) mg/dL Calcium 10.2 (8.4-10.2) mg/dL Total Bilirubin 0.9 (0.2-1.3) mg/dL AST 35 (14-36) U/L ALT 17 (4-34) U/L Alkaline Phosphatase 99 (38-126) U/L Total Protein 8.2 (6.3-8.2) g/dL Albumin 5.0 (3.5-5.0) g/dL Urine Color Colorless Urine Appearance Clear (Clear) Urine pH 5.5 (5.0-8.0) Ur Specific [place] 1.002 (1.001-1.035) Urine Protein Negative (Negative) Urine Glucose (UA) Negative (Negative) Urine Ketones 2+ H (Negative) Urine Blood Negative (Negative) Urine Nitrite Negative (Negative) Urine Bilirubin Negative (Negative) Urine Urobilinogen <2.0 (<2.0) mg/dL Ur Leukocyte Esterase Negative (Negative) Urine HCG, Qual (Not Detectd) 02/07/20 Range/Units 11:37 WBC (3.8-10.6) k/uL RBC (3.80-5.40) m/uL Hgb (11.4-16.0) gm/dL Hct (34.0-46.0) % MCV (80.0-100.0) fL MCH (25.0-35.0) pg MCHC (31.0-37.0) g/dL RDW (11.5-15.5) % Plt Count (150-450) k/uL Neutrophils % % Lymphocytes % % Monocytes % % Eosinophils % % Basophils % % Neutrophils # (1.3-7.7) k/uL Lymphocytes # (1.0-4.8) k/uL Monocytes # (0-1.0) k/uL Eosinophils # (0-0.7) k/uL Basophils # (0-0.2) k/uL Sodium (137-145) mmol/L Potassium (3.5-5.1) mmol/L Chloride (98-107) mmol/L Carbon Dioxide (22-30) mmol/L Anion Gap mmol/L BUN (7-17) mg/dL Creatinine (0.52-1.04) mg/dL Est GFR (CKD-EPI)AfAm (>60 ml/min/1.73 sqM) Est GFR (CKD-EPI)NonAf (>60 ml/min/1.73 sqM) Glucose (74-99) mg/dL Calcium (8.4-10.2) mg/dL Total Bilirubin (0.2-1.3) mg/dL AST (14-36) U/L ALT (4-34) U/L Alkaline Phosphatase (38-126) U/L Total Protein (6.3-8.2) g/dL Albumin (3.5-5.0) g/dL Urine Color Urine Appearance (Clear) Urine pH (5.0-8.0) Ur Specific [place] (1.001-1.035) Urine Protein (Negative) Urine Glucose (UA) (Negative) Urine Ketones (Negative) Urine Blood (Negative) Urine Nitrite (Negative) Urine Bilirubin (Negative) Urine Urobilinogen (<2.0) mg/dL Ur Leukocyte Esterase (Negative) Urine HCG, Qual Not Detected (Not Detectd) Disposition Clinical Impression: Dizziness, Hypoglycemia Disposition: HOME SELF-CARE Condition: Good Instructions (If sedation given, give patient instructions): Dehydration (ED), Non-diabetic Hypoglycemia (ED), Dizziness (ED) Additional Instructions: Rest. Increase fluids. Follow-up with the primary care physician for recheck in 1-2 days. Return to the emergency department immediately for any new, worsening, or concerning symptoms. Is patient prescribed a controlled substance at d/c from ED?: No Referrals: None,Stated [Primary Care Provider] - 1-2 days Time of Disposition: 12:53
[2020-02-07 12:04] LABS: Basophils # (A) 0.1 k/uL (0-0.2); Basophils % (A) 1 %; Eosinophils # (A) 0.1 k/uL (0-0.7); Eosinophils % (A) 1 %; HCT 47.4 % (34.0-46.0); HGB 15.1 gm/dL (11.4-16.0); Lymphocytes # (A) 1.2 k/uL (1.0-4.8); Lymphocytes % (A) 22 %; MCH 27.7 pg (25.0-35.0); MCHC 31.9 g/dL (31.0-37.0); MCV 86.8 fL (80.0-100.0); Mean Platelet Volume 7.9; Monocytes # (A) 0.2 k/uL (0-1.0); Monocytes % (A) 4 %; Neutrophils % (A) 71 %; Platelet Count 245 k/uL (150-450); RBC 5.45 m/uL (3.80-5.40); RDW 12.9 % (11.5-15.5); WBC 5.7 k/uL (3.8-10.6)
[2020-02-07 12:15] LABS: ALT 17 U/L (4-34); AST 35 U/L (14-36); African American GFR (CKD) >90 (>60 ml/min/1.73 sqM); Alkaline Phosphatase 99 U/L (38-126); Anion Gap 15 mmol/L; Blood Urea Nitrogen 13 mg/dL (7-17); Calcium 10.2 mg/dL (8.4-10.2); Carbon Dioxide 22 mmol/L (22-30); Chloride 102 mmol/L (98-107); Glucose 72 mg/dL (74-99); Non-African American GFR(CKD) >90 (>60 ml/min/1.73 sqM); Sodium 139 mmol/L (137-145); Total Bilirubin 0.9 mg/dL (0.2-1.3); Total Protein 8.2 g/dL (6.3-8.2)
[2020-02-07 12:24] LABS: Appearance,Urine Clear (Clear); Bilirubin,Urine Negative (Negative); Blood,Urine Negative (Negative); Color,Urine Colorless; Glucose,Urine (UA) Negative (Negative); Ketones,Urine 2+ (Negative); Leukocyte Esterase,Urine Negative (Negative); Nitrite,Urine Negative (Negative); PH, Urine 5.5 (5.0-8.0); Protein,Urine Negative (Negative); Specific Gravity,Urine 1.002 (1.001-1.035); Urobilinogen,Urine <2.0 mg/dL (<2.0)
[2020-02-07 12:25] LABS: Potassium 5.4 mmol/L (3.5-5.1)
[2020-02-07 12:33] VITALS: BP 101/67; PULSE 70
== END 2020-02-07 13:39 | disposition home or self-care (01) ==
LOC: EC 10:56
DX: R42 Dizziness and giddiness (principal); E16.2 Hypoglycemia, unspecified; Z88.6 Allergy status to analgesic agent; Z88.7 Allergy status to serum and vaccine; Z88.8 Allergy status to other drugs, medicaments and biological substances; Z91.018 Allergy to other foods
CPT/HCPCS: 36415; 93005; 80053; 85025; 81003; 81025; 99284; 96374; 96361 ×2; J2405

== ENCOUNTER 2020-07-02 11:53 | Emergency (ER) | payer OTHER ==
[2020-07-02 12:16] VITALS: RESP 18
[2020-07-02] MEDS ORDERED: SODIUM CHLORIDE 0.9% 1,000 ML IV STA (12:27)
[2020-07-02] MEDS ORDERED: ONDANSETRON 4 MG/2 ML VIAL IVP STA (12:27)
[2020-07-02 13:09] LABS: Basophils # (A) 0.1 k/uL (0-0.2); Basophils % (A) 1 %; Eosinophils # (A) 0.2 k/uL (0-0.7); Eosinophils % (A) 2 %; HGB 15.2 gm/dL (11.4-16.0); Lymphocytes # (A) 1.6 k/uL (1.0-4.8); Lymphocytes % (A) 19 %; MCH 29.3 pg (25.0-35.0); MCHC 33.7 g/dL (31.0-37.0); Mean Platelet Volume 7.6; Monocytes # (A) 0.3 k/uL (0-1.0); Monocytes % (A) 4 %; Neutrophils # (A) 6.1 k/uL (1.3-7.7); Neutrophils % (A) 73 %; Platelet Count 289 k/uL (150-450); RBC 5.17 m/uL (3.80-5.40); RDW 12.8 % (11.5-15.5); WBC 8.4 k/uL (3.8-10.6)
[2020-07-02 13:13] LABS: Appearance,Urine Clear (Clear); Bilirubin,Urine Negative (Negative); Blood,Urine Negative (Negative); Color,Urine Colorless; Glucose,Urine (UA) Negative (Negative); Ketones,Urine Negative (Negative); Leukocyte Esterase,Urine Negative (Negative); Nitrite,Urine Negative (Negative); PH, Urine 6.5 (5.0-8.0); Protein,Urine Negative (Negative); Specific Gravity,Urine 1.002 (1.001-1.035); Urobilinogen,Urine <2.0 mg/dL (<2.0)
[2020-07-02 13:31] LABS: ALT 18 U/L (4-34); AST 22 U/L (14-36); African American GFR (CKD) >90 (>60 ml/min/1.73 sqM); Albumin 4.8 g/dL (3.5-5.0); Alkaline Phosphatase 92 U/L (38-126); Anion Gap 10 mmol/L; Blood Urea Nitrogen 18 mg/dL (7-17); Calcium 9.6 mg/dL (8.4-10.2); Carbon Dioxide 25 mmol/L (22-30); Chloride 105 mmol/L (98-107); Glucose 85 mg/dL (74-99); Non-African American GFR(CKD) >90 (>60 ml/min/1.73 sqM); Potassium 4.6 mmol/L (3.5-5.1); Sodium 140 mmol/L (137-145); Total Bilirubin 0.5 mg/dL (0.2-1.3)
[2020-07-02] MEDS ORDERED: ACETAMINOPHEN TAB 325 MG TAB PO STA (13:34)
[2020-07-02] MEDS ORDERED: ONDANSETRON 4 MG ODT STARTER PACK 2 TAB BTL PO STA (14:19)
--- NOTE | 2020-07-02 14:20 | ED ---
General Adult HPI - General Chief complaint: Dizziness Stated complaint: dehydration Time Seen by Provider: 07/02/20 12:17 Source: patient Mode of arrival: ambulatory Limitations: no limitations - History of Present Illness Initial comments: Patient is a 35-year-old female presenting to the emergency Department with complaints of feeling dehydrated. States she's been here in the ER before for the same thing. She is currently breast-feeding and feels like that is contributing. Patient is complaining of some lightheadedness, intermittent heart racing and a mild headache. She states she try to drink a lot of water today however still feeling the same symptoms. She states over the last few days she does not drink a lot of water and has been drinking on a coffee instead. She denies any abdominal pain, nausea or vomiting, no fever or chills. She denies history of blood clots, no chest pain or shortness of breath. She is no further complaints. Upon arrival to the ER, her vitals are stable. - Related Data Home Medications Medication Instructions Recorded Confirmed No Known Home Medications 07/02/20 07/02/20 Allergies Allergy/AdvReac Type Severity Reaction Status Date / Time aspirin Allergy Unknown Verified 07/02/20 13:01 lorazepam [From Ativan] AdvReac Severe altered Verified 07/02/20 13:01 mental status diazepam [From Valium] AdvReac paradoxical Verified 07/02/20 13:01 reaction (anxiety) diphenhydramine HCl AdvReac paradoxical Verified 07/02/20 13:01 [From Benadryl] reaction (anxiety) Doles Fruit Cup Allergy Rash/Hives Uncoded 07/02/20 12:15 steroids AdvReac Severe Hallucinati Uncoded 07/02/20 12:15 ons Review of Systems ROS Statement: Those systems with pertinent positive or pertinent negative responses have been documented in the HPI. ROS Other: All systems not noted in ROS Statement are negative. Past Medical History Past Medical History: Asthma, Fibromyalgia, Seizure Disorder Additional Past Medical History / Comment(s): endometriosis, migraines History of Any Multi-Drug Resistant Organisms: None Reported Additional Past Surgical History / Comment(s): endometrial ablation, sinus surgery, D&C Past Anesthesia/Blood Transfusion Reactions: Postoperative Nausea & Vomiting (PONV) Past Psychological History: Anxiety, Panic Disorder Smoking Status: Never smoker Past Alcohol Use History: Occasional Past Drug Use History: None Reported - Past Family History Mother Family Medical History: Cancer Additional Family Medical History / Comment(s): cervical, uterine, and ovarian CA. Complete hysterectomy. Father Family Medical History: Hypertension General Exam - General Exam Comments Initial Comments: GENERAL: Patient is well-developed and well-nourished. Patient is nontoxic and in no acute distress. HEAD: Atraumatic, normocephalic. EYES: Pupils equal round and reactive to light, extraocular movements intact, sclera anicteric, conjunctiva are normal. Eyelids were unremarkable. ENT: TMs normal, nares patent, oropharynx clear without exudates. Moist mucous membranes. NECK: Normal range of motion, supple without lymphadenopathy or JVD. LUNGS: Unlabored respirations. Breath sounds clear to auscultation bilaterally and equal. No wheezes rales or rhonchi. HEART: Regular rate and rhythm without murmurs, rubs or gallops. ABDOMEN: Soft, nontender, normoactive bowel sounds. No guarding, no rebound. No masses appreciated. : Deferred MUSCULOSKELETAL: Normal extremities with adequate strength and normal range of motion, no pitting or edema. No clubbing or cyanosis. NEUROLOGICAL: Patient is alert and oriented x 3. Motor and sensory are also intact. Cranial nerves II through XII grossly intact. Symmetrical smile. Normal speech, normal gait. PSYCH: Normal mood, normal affect. SKIN: Warm, Dry, normal turgor, no rashes or lesions noted. Limitations: no limitations Course Vital Signs 07/02/20 07/02/20 12:12 14:30 Temperature 98.5 F 98.0 F Pulse Rate 81 79 Respiratory 18 18 Rate Blood Pressure 119/78 136/78 O2 Sat by Pulse 98 99 Oximetry EKG Findings - EKG Comments: EKG Findings:: Normal sinus rhythm, normal ECG, similar to previous EKG a . Ventricular rate 71, OR interval 160, QT 384. Medical Decision Making - Medical Decision Making Patient is a 35-year-old female here for feeling of dehydration. Feeling lightheaded, intermittent palpitations. His EKG shows no acute process. Labs are unremarkable including a normal THS. Urine shows no acute process, and urine hCG is not detected. She was given fluids, she reports improvement in his symptoms. Patient is stable for discharge. Patient is in agreement with this plan of care. Return parameters were discussed with the patient and they verbalized understanding. Case discussed with Dr. guzman. - Lab Data Result diagrams: 07/02/20 12:44 07/02/20 12:44 Lab Results 07/02/20 07/02/20 07/02/20 Range/Units 12:44 12:44 12:44 WBC 8.4 (3.8-10.6) k/uL RBC 5.17 (3.80-5.40) m/uL Hgb 15.2 (11.4-16.0) gm/dL Hct 45.0 (34.0-46.0) % MCV 87.0 (80.0-100.0) fL MCH 29.3 (25.0-35.0) pg MCHC 33.7 (31.0-37.0) g/dL RDW 12.8 (11.5-15.5) % Plt Count 289 (150-450) k/uL MPV 7.6 Neutrophils % 73 % Lymphocytes % 19 % Monocytes % 4 % Eosinophils % 2 % Basophils % 1 % Neutrophils # 6.1 (1.3-7.7) k/uL Lymphocytes # 1.6 (1.0-4.8) k/uL Monocytes # 0.3 (0-1.0) k/uL Eosinophils # 0.2 (0-0.7) k/uL Basophils # 0.1 (0-0.2) k/uL Sodium (137-145) mmol/L Potassium (3.5-5.1) mmol/L Chloride (98-107) mmol/L Carbon Dioxide (22-30) mmol/L Anion Gap mmol/L BUN (7-17) mg/dL Creatinine (0.52-1.04) mg/dL Est GFR (CKD-EPI)AfAm (>60 ml/min/1.73 sqM) Est GFR (CKD-EPI)NonAf (>60 ml/min/1.73 sqM) Glucose (74-99) mg/dL Calcium (8.4-10.2) mg/dL Total Bilirubin (0.2-1.3) mg/dL AST (14-36) U/L ALT (4-34) U/L Alkaline Phosphatase (38-126) U/L Total Protein (6.3-8.2) g/dL Albumin (3.5-5.0) g/dL TSH (0.465-4.680) mIU/L Urine Color Colorless Urine Appearance Clear (Clear) Urine pH 6.5 (5.0-8.0) Ur Specific [place] 1.002 (1.001-1.035) Urine Protein Negative (Negative) Urine Glucose (UA) Negative (Negative) Urine Ketones Negative (Negative) Urine Blood Negative (Negative) Urine Nitrite Negative (Negative) Urine Bilirubin Negative (Negative) Urine Urobilinogen <2.0 (<2.0) mg/dL Ur Leukocyte Esterase Negative (Negative) Urine HCG, Qual Not Detected (Not Detectd) 07/02/20 Range/Units 12:44 WBC (3.8-10.6) k/uL RBC (3.80-5.40) m/uL Hgb (11.4-16.0) gm/dL Hct (34.0-46.0) % MCV (80.0-100.0) fL MCH (25.0-35.0) pg MCHC (31.0-37.0) g/dL RDW (11.5-15.5) % Plt Count (150-450) k/uL MPV Neutrophils % % Lymphocytes % % Monocytes % % Eosinophils % % Basophils % % Neutrophils # (1.3-7.7) k/uL Lymphocytes # (1.0-4.8) k/uL Monocytes # (0-1.0) k/uL Eosinophils # (0-0.7) k/uL Basophils # (0-0.2) k/uL Sodium 140 (137-145) mmol/L Potassium 4.6 (3.5-5.1) mmol/L Chloride 105 (98-107) mmol/L Carbon Dioxide 25 (22-30) mmol/L Anion Gap 10 mmol/L BUN 18 H (7-17) mg/dL Creatinine 0.63 (0.52-1.04) mg/dL Est GFR (CKD-EPI)AfAm >90 (>60 ml/min/1.73 sqM) Est GFR (CKD-EPI)NonAf >90 (>60 ml/min/1.73 sqM) Glucose 85 (74-99) mg/dL Calcium 9.6 (8.4-10.2) mg/dL Total Bilirubin 0.5 (0.2-1.3) mg/dL AST 22 (14-36) U/L ALT 18 (4-34) U/L Alkaline Phosphatase 92 (38-126) U/L Total Protein 8.0 (6.3-8.2) g/dL Albumin 4.8 (3.5-5.0) g/dL TSH 1.650 (0.465-4.680) mIU/L Urine Color Urine Appearance (Clear) Urine pH (5.0-8.0) Ur Specific [place] (1.001-1.035) Urine Protein (Negative) Urine Glucose (UA) (Negative) Urine Ketones (Negative) Urine Blood (Negative) Urine Nitrite (Negative) Urine Bilirubin (Negative) Urine Urobilinogen (<2.0) mg/dL Ur Leukocyte Esterase (Negative) Urine HCG, Qual (Not Detectd) Disposition Clinical Impression: Dehydration, Lightheadedness Disposition: HOME SELF-CARE Condition: Stable Instructions (If sedation given, give patient instructions): Dizziness (ED) Additional Instructions: Please return to the Emergency Department if symptoms worsen or any other concerns. Use Zofran for additional nausea. Please follow-up with your regular doctor. Is patient prescribed a controlled substance at d/c from ED?: No Referrals: None,Stated [Primary Care Provider] - 1-2 days
[2020-07-02 14:32] VITALS: BP 136/78; PULSE 79; TEMP 98
== END 2020-07-02 14:31 | disposition home or self-care (01) ==
LOC: EC 11:53
DX: E86.0 Dehydration (principal); R00.2 Palpitations; R51.9 Headache, unspecified; Z88.6 Allergy status to analgesic agent; Z88.8 Allergy status to other drugs, medicaments and biological substances; Z91.018 Allergy to other foods
CPT/HCPCS: 99284 ×2; 96374 ×2; 96361 ×2; 96376; 96375; 99283; 36415; 93005; 80053; 84443; 85025; 81003; 81025; J2360; J2405; S0119; J1170

== ENCOUNTER 2020-07-02 21:13 | Emergency (ER) | payer OTHER ==
[2020-07-02 21:17] VITALS: BP 121/78; PULSE 82; RESP 16; TEMP 98.8
[2020-07-02] MEDS ORDERED: SODIUM CHLORIDE 0.9% 1,000 ML IV STA (21:36)
[2020-07-02] MEDS ORDERED: ORPHENADRINE 30 MG/ML 2 ML VIAL IVP STA (21:36)
[2020-07-02] MEDS ORDERED: HYDROmorphone 0.5 MG/0.5 ML SYRINGE IVP STA ×2 (21:36→22:41)
--- NOTE | 2020-07-02 21:42 | ED ---
General Adult HPI - General Chief complaint: Headache Stated complaint: dehydration Source: patient Mode of arrival: ambulatory Limitations: no limitations - History of Present Illness Initial comments: 35-year-old female with a past medical history of fibromyalgia, seizure disorder, endometriosis, migraines presents to the emergency room for a chief complaint of headache. Patient was previously in the emergency room for dehydration today. After she went home she developed a migraine. Patient states this is directly consistent with previous migraines. She admits to naus ea and light sensitivity. She states it starts in her forehead and goes down through the back of her head to her neck. Patient denies any thunderclap or sudden onset pain. Gradually came on for the afternoon after she was seen in the ER. This is not the worst [place] of her life. Patient reports when he gets like this she needs IV pain medication. Patient reports that Toradol and Benadryl make her anxious and causes a panic attack. She cannot take steroids. She states she is normally given a muscle relaxer and a pain medication.Patient has no other complaints at this time including shortness of breath, chest pain, abdominal pain, vomiting, or visual changes. - Related Data Home Medications Medication Instructions Recorded Confirmed No Known Home Medications 07/02/20 07/02/20 Allergies Allergy/AdvReac Type Severity Reaction Status Date / Time aspirin Allergy Unknown Verified 07/02/20 22:47 lorazepam [From Ativan] AdvReac Severe altered Verified 07/02/20 22:47 mental status diazepam [From Valium] AdvReac paradoxical Verified 07/02/20 22:47 reaction (anxiety) diphenhydramine HCl AdvReac paradoxical Verified 07/02/20 22:47 [From Benadryl] reaction (anxiety) steroids AdvReac Severe Hallucinati Uncoded 07/02/20 22:47 ons Doles Fruit Cup AdvReac Rash/Hives Uncoded 07/02/20 22:47 Review of Systems ROS Statement: Those systems with pertinent positive or pertinent negative responses have been documented in the HPI. ROS Other: All systems not noted in ROS Statement are negative. Past Medical History Past Medical History: Asthma, Fibromyalgia, Seizure Disorder Additional Past Medical History / Comment(s): endometriosis, migraines, History of Any Multi-Drug Resistant Organisms: None Reported Additional Past Surgical History / Comment(s): endometrial ablation, sinus surgery, D&C Past Anesthesia/Blood Transfusion Reactions: Postoperative Nausea & Vomiting (PONV) Past Psychological History: Anxiety, Panic Disorder Smoking Status: Never smoker Past Alcohol Use History: Occasional Past Drug Use History: None Reported - Past Family History Mother Family Medical History: Cancer Additional Family Medical History / Comment(s): cervical, uterine, and ovarian CA. Complete hysterectomy. Father Family Medical History: Hypertension General Exam Limitations: no limitations General appearance: alert, in no apparent distress Head exam: Present: atraumatic Eye exam: Present: normal appearance, PERRL, EOMI. Absent: scleral icterus, conjunctival injection ENT exam: Present: normal exam, mucous membranes moist Neck exam: Present: normal inspection, full ROM. Absent: tenderness Respiratory exam: Present: normal lung sounds bilaterally. Absent: respiratory distress, wheezes Cardiovascular Exam: Present: regular rate, normal rhythm, normal heart sounds GI/Abdominal exam: Present: soft, normal bowel sounds. Absent: distended, tenderness, guarding, rebound, rigid Neurological exam: Present: alert, oriented X3, normal gait Expanded Patient oriented to: Present: person, place, time Cranial nerves: EOM's Intact: Normal, Nystagmus: Normal, Facial Sensation: Normal Sensory exam: Upper Extremity Light Touch: Normal, Upper Extremity Pin Prick: Normal, Lower Extremity Light Touch: Normal, Lower Extremity Pin Prick: Normal Motor strength exam: RUE: 5, LUE: 5, RLE: 5, LLE: 5 Course Vital Signs 07/02/20 21:14 Temperature 98.8 F Pulse Rate 82 Respiratory 16 Rate Blood Pressure 121/78 O2 Sat by Pulse 99 Oximetry Medical Decision Making - Medical Decision Making Patient well-appearing. No focal neurologic deficits. Patient was given pain medication and had significant improvement in pain. She'll be given an additional dose before she leaves. She'll follow up with her doctor. She'll return for any worsening symptoms. Disposition Clinical Impression: Cephalgia Disposition: HOME SELF-CARE Condition: Good Instructions (If sedation given, give patient instructions): Acute Headache (ED) Additional Instructions: Please follow up with your doctor in one to 2 days. If you develop worsening pain return to the emergency room. Is patient prescribed a controlled substance at d/c from ED?: No Referrals: Sylvia Hopkins MD [REFERRING] - 1-2 days Time of Disposition: 22:49
== END 2020-07-02 23:18 | disposition home or self-care (01) ==
LOC: EC 21:13
DX: R51.9 Headache, unspecified (principal); R11.0 Nausea; Z88.6 Allergy status to analgesic agent; Z88.8 Allergy status to other drugs, medicaments and biological substances; Z91.018 Allergy to other foods
CPT/HCPCS: 99283; 96374; 96375; 96376; 96361; J2360; J1170

== ENCOUNTER 2020-08-08 | Emergency (ER) | payer OTHER ==
[2020-08-08 00:06] VITALS: TEMP 97.8
[2020-08-08] MEDS ORDERED: SODIUM CHLORIDE 0.9% 2,000 ML IV ONE (00:28)
[2020-08-08] MEDS ORDERED: ONDANSETRON 4 MG/2 ML VIAL IVP STA (00:29)
[2020-08-08 00:53] LABS: Basophils % (A) 1 %; Eosinophils # (A) 0.3 k/uL (0-0.7); Eosinophils % (A) 4 %; HCT 39.5 % (34.0-46.0); HGB 13.5 gm/dL (11.4-16.0); Lymphocytes # (A) 1.9 k/uL (1.0-4.8); Lymphocytes % (A) 26 %; MCH 29.1 pg (25.0-35.0); MCHC 34.1 g/dL (31.0-37.0); MCV 85.5 fL (80.0-100.0); Mean Platelet Volume 7.6; Monocytes # (A) 0.3 k/uL (0-1.0); Monocytes % (A) 4 %; Neutrophils # (A) 4.8 k/uL (1.3-7.7); Neutrophils % (A) 65 %; Platelet Count 256 k/uL (150-450); RBC 4.62 m/uL (3.80-5.40); RDW 12.6 % (11.5-15.5); WBC 7.4 k/uL (3.8-10.6)
[2020-08-08] MEDS ORDERED: KETOROLAC 15 MG/ML 1 ML VIAL IVP STA (01:08)
[2020-08-08] MEDS ORDERED: ORPHENADRINE 30 MG/ML 2 ML VIAL IVP STA (01:08)
--- NOTE | 2020-08-08 01:09 | ED ---
General Adult HPI - General Chief complaint: Dizziness Stated complaint: Dehydrated Time Seen by Provider: 08/08/20 00:12 Source: patient, RN notes reviewed Mode of arrival: wheelchair Limitations: no limitations - History of Present Illness Initial comments: This a 35-year-old female presents emergency Department with concerns of possible dehydration. Patient states that she's been having recurrent episodes of dehydration. 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 Patient states though since that she's been increasing her activity states his exercise daily and has been taking some supplements. Patient states that she is more cardio workout than anything. Patient states that she tries he drinks much water she can but states over the last few days she's not drinks much usual. She complains of muscle cramps, aches, lightheadedness, slight nausea. No chest pain or shortness breath no focal weakness. - Related Data Home Medications Medication Instructions Recorded Confirmed No Known Home Medications 07/02/20 07/02/20 Allergies Allergy/AdvReac Type Severity Reaction Status Date / Time aspirin Allergy Unknown Verified 08/08/20 00:06 lorazepam [From Ativan] AdvReac Severe altered Verified 08/08/20 00:06 mental status diazepam [From Valium] AdvReac paradoxical Verified 08/08/20 00:06 reaction (anxiety) diphenhydramine HCl AdvReac paradoxical Verified 08/08/20 00:06 [From Benadryl] reaction (anxiety) steroids AdvReac Severe Hallucinati Uncoded 08/08/20 00:06 ons Doles Fruit Cup AdvReac Rash/Hives Uncoded 08/08/20 00:06 Review of Systems ROS Statement: Those systems with pertinent positive or pertinent negative responses have been documented in the HPI. ROS Other: All systems not noted in ROS Statement are negative. Past Medical History Past Medical History: Asthma, Fibromyalgia, Seizure Disorder Additional Past Medical History / Comment(s): endometriosis, migraines, History of Any Multi-Drug Resistant Organisms: None Reported Additional Past Surgical History / Comment(s): endometrial ablation, sinus surgery, D&C Past Anesthesia/Blood Transfusion Reactions: Postoperative Nausea & Vomiting (PONV) Past Psychological History: Anxiety, Panic Disorder Smoking Status: Never smoker Past Alcohol Use History: Occasional Past Drug Use History: None Reported - Past Family History Mother Family Medical History: Cancer Additional Family Medical History / Comment(s): cervical, uterine, and ovarian CA. Complete hysterectomy. Father Family Medical History: Hypertension General Exam Limitations: no limitations General appearance: alert, in no apparent distress Head exam: Present: atraumatic, normocephalic, normal inspection Eye exam: Present: normal appearance, PERRL, EOMI. Absent: scleral icterus, conjunctival injection, periorbital swelling ENT exam: Present: normal exam, normal oropharynx, mucous membranes moist Neck exam: Present: normal inspection, full ROM. Absent: tenderness, meningismus, lymphadenopathy Respiratory exam: Present: normal lung sounds bilaterally. Absent: respiratory distress, wheezes, rales, rhonchi, stridor Cardiovascular Exam: Present: regular rate, normal rhythm, normal heart sounds. Absent: systolic murmur, diastolic murmur, rubs, gallop, clicks GI/Abdominal exam: Present: soft, normal bowel sounds. Absent: distended, tenderness, guarding, rebound, rigid Extremities exam: Present: normal inspection, full ROM, normal capillary refill. Absent: tenderness, pedal edema, joint swelling, calf tenderness Back exam: Present: normal inspection, full ROM. Absent: tenderness Neurological exam: Present: alert, oriented X3, CN II-XII intact, reflexes normal. Absent: motor sensory deficit Skin exam: Present: warm, dry, intact, normal color. Absent: rash Course Vital Signs 08/08/20 00:02 Temperature 97.8 F Pulse Rate 74 Respiratory 16 Rate Blood Pressure 130/81 O2 Sat by Pulse 96 Oximetry Medical Decision Making - Medical Decision Making Labs were reviewed no acute mallet. Patient states that she went bathroom canno t provide a urine states she has no urinary symptoms. Patient is improved at 2 L of fluids. Patient discharged in stable condition. - Lab Data Result diagrams: 08/08/20 00:46 08/08/20 00:46 Lab Results 08/08/20 08/08/20 08/08/20 Range/Units 00:46 00:46 00:46 WBC 7.4 (3.8-10.6) k/uL RBC 4.62 (3.80-5.40) m/uL Hgb 13.5 (11.4-16.0) gm/dL Hct 39.5 (34.0-46.0) % MCV 85.5 (80.0-100.0) fL MCH 29.1 (25.0-35.0) pg MCHC 34.1 (31.0-37.0) g/dL RDW 12.6 (11.5-15.5) % Plt Count 256 (150-450) k/uL MPV 7.6 Neutrophils % 65 % Lymphocytes % 26 % Monocytes % 4 % Eosinophils % 4 % Basophils % 1 % Neutrophils # 4.8 (1.3-7.7) k/uL Lymphocytes # 1.9 (1.0-4.8) k/uL Monocytes # 0.3 (0-1.0) k/uL Eosinophils # 0.3 (0-0.7) k/uL Basophils # 0.0 (0-0.2) k/uL Sodium 138 (137-145) mmol/L Potassium 3.8 (3.5-5.1) mmol/L Chloride 102 (98-107) mmol/L Carbon Dioxide 25 (22-30) mmol/L Anion Gap 11 mmol/L BUN 18 H (7-17) mg/dL Creatinine 0.62 (0.52-1.04) mg/dL Est GFR (CKD-EPI)AfAm >90 (>60 ml/min/1.73 sqM) Est GFR (CKD-EPI)NonAf >90 (>60 ml/min/1.73 sqM) Glucose 88 (74-99) mg/dL Calcium 9.7 (8.4-10.2) mg/dL Magnesium 1.7 (1.6-2.3) mg/dL Total Bilirubin 0.4 (0.2-1.3) mg/dL AST 26 (14-36) U/L ALT 15 (4-34) U/L Alkaline Phosphatase 77 (38-126) U/L Troponin I <0.012 (0.000-0.034) ng/mL Total Protein 7.2 (6.3-8.2) g/dL Albumin 4.6 (3.5-5.0) g/dL Disposition Clinical Impression: Muscle cramps, Dehydration, Dizziness Disposition: HOME SELF-CARE Condition: Stable Instructions (If sedation given, give patient instructions): Dizziness (ED) Additional Instructions: Please return to the Emergency Department if symptoms worsen or any other concerns. Is patient prescribed a controlled substance at d/c from ED?: No Referrals: None,Stated [Primary Care Provider] - 1-2 days Time of Disposition: 02:18
[2020-08-08 01:13] LABS: ALT 15 U/L (4-34); AST 26 U/L (14-36); African American GFR (CKD) >90 (>60 ml/min/1.73 sqM); Albumin 4.6 g/dL (3.5-5.0); Alkaline Phosphatase 77 U/L (38-126); Anion Gap 11 mmol/L; Blood Urea Nitrogen 18 mg/dL (7-17); Calcium 9.7 mg/dL (8.4-10.2); Carbon Dioxide 25 mmol/L (22-30); Chloride 102 mmol/L (98-107); Glucose 88 mg/dL (74-99); Magnesium 1.7 mg/dL (1.6-2.3); Non-African American GFR(CKD) >90 (>60 ml/min/1.73 sqM); Potassium 3.8 mmol/L (3.5-5.1); Sodium 138 mmol/L (137-145); Total Bilirubin 0.4 mg/dL (0.2-1.3); Total Protein 7.2 g/dL (6.3-8.2)
[2020-08-08 02:29] VITALS: BP 112/70; PULSE 62; RESP 18
== END 2020-08-08 02:27 | disposition home or self-care (01) ==
LOC: EC
DX: E86.0 Dehydration (principal); M79.7 Fibromyalgia; G40.909 Epilepsy, unspecified, not intractable, without status epilepticus; J45.909 Unspecified asthma, uncomplicated; G43.909 Migraine, unspecified, not intractable, without status migrainosus; F41.0 Panic disorder [episodic paroxysmal anxiety]; F41.9 Anxiety disorder, unspecified; Z88.6 Allergy status to analgesic agent; Z88.8 Allergy status to other drugs, medicaments and biological substances; Z91.018 Allergy to other foods; Z80.41 Family history of malignant neoplasm of ovary; Z80.49 Family history of malignant neoplasm of other genital organs; Z82.49 Family history of ischemic heart disease and other diseases of the circulatory system
CPT/HCPCS: 36415; 93005; 80053; 83735; 84484; 85025; J2360; J2405; J1885; 96361; 96374; 96375; 99283

== ENCOUNTER → 2020-09-06 | Outpatient (CLI) | payer OTHER ==
[2020-09-06 23:00] LABS: HCT 44.1 % (37.2-46.3); HGB 14.2 g/dL (12.0-15.0); MCH 28.1 pg (27.0-32.0); MCHC 32.2 g/dL (32.0-37.0); MCV 87.3 fL (80.0-97.0); Mean Platelet Volume 10.7 fL (9.5-12.2); Platelet Count 378 X 10*3/uL (140-440); RBC 5.05 X 10*6/uL (4.10-5.20); RDW 12.3 % (11.5-14.5); WBC 9.75 X 10*3/uL (4.50-10.00)
[2020-09-07 02:32] LABS: African American GFR (CKD) 109.9 (60.0-200.0); Anion Gap 9.9 mmol/L (4.00-12.00); BUN/Creat Ratio 18.75 Ratio (12.00-20.00); Calcium 9.6 mg/dL (8.7-10.3); Carbon Dioxide 26.1 mmol/L (21.6-31.8); Non-African American GFR(CKD) 94.8 (60.0-200.0); Potassium 4.2 mmol/L (3.5-5.5)
== END | disposition home or self-care (01) ==
LOC: LABWHC1 15:05
PROVIDERS: ATTEND Plastic Surgery
DX: Z01.818 Encounter for other preprocedural examination (principal)
CPT/HCPCS: 36415; 80048; 81291; 85027; 93005

== ENCOUNTER 2020-12-26 10:54 | Emergency (ER) | payer OTHER ==
[2020-12-26 11:05] VITALS: RESP 18
[2020-12-26] MEDS ORDERED: SODIUM CHLORIDE 0.9% 1,000 ML IV STA (11:23)
[2020-12-26] MEDS ORDERED: ALPRAZolam 1 MG TAB PO STA (11:24)
--- NOTE | 2020-12-26 11:32 | ED ---
General Adult HPI - General Chief complaint: Recheck/Abnormal Lab/Rx Stated complaint: Dehydration Time Seen by Provider: 12/26/20 11:06 Source: patient, RN notes reviewed Mode of arrival: ambulatory Limitations: no limitations - History of Present Illness Initial comments: 35-year-old female with a past medical history fibromyalgia, asthma presents to the emergency room for chief complaint of dehydration. Patient states her panties and she gets dehydrated. States that she does is not feeling well because of this. This has happened in the past. States it is causing her to have anxiety as well. Patient reports she usually has Xanax at home for anxiety but has not been taken out also did not have any prescription.Patient has no other complaints at this time including shortness of breath, chest pain, abdominal pain, nausea or vomiting, headache, or visual changes. - Related Data Home Medications Medication Instructions Recorded Confirmed Cla 1 tab PO DAILY 12/26/20 12/26/20 L.acidoph,Paracasei, B.lactis 1 cap PO DAILY 12/26/20 12/26/20 [Probiotic] Multivitamins, Thera [Multivitamin 1 tab PO DAILY 12/26/20 12/26/20 (formulary)] Hanna-3 Fatty Acids/Fish Oil [Fish 1 cap PO DAILY 12/26/20 12/26/20 Oil 1,000 mg Softgel] Allergies Allergy/AdvReac Type Severity Reaction Status Date / Time aspirin Allergy Unknown Verified 12/26/20 11:35 lorazepam [From Ativan] AdvReac Severe altered Verified 12/26/20 11:35 mental status diazepam [From Valium] AdvReac paradoxical Verified 12/26/20 11:35 reaction (anxiety) diphenhydramine HCl AdvReac paradoxical Verified 12/26/20 11:35 [From Benadryl] reaction (anxiety) steroids AdvReac Severe Hallucinati Uncoded 12/26/20 11:05 ons Doles Fruit Cup AdvReac Rash/Hives Uncoded 12/26/20 11:05 Review of Systems ROS Statement: Those systems with pertinent positive or pertinent negative responses have been documented in the HPI. ROS Other: All systems not noted in ROS Statement are negative. Past Medical History Past Medical History: Asthma, Fibromyalgia, Seizure Disorder Additional Past Medical History / Comment(s): endometriosis, migraines, History of Any Multi-Drug Resistant Organisms: None Reported Additional Past Surgical History / Comment(s): endometrial ablation, sinus surgery, D&C Past Anesthesia/Blood Transfusion Reactions: Postoperative Nausea & Vomiting (PONV) Past Psychological History: Anxiety, Panic Disorder Smoking Status: Never smoker Past Alcohol Use History: Occasional Past Drug Use History: None Reported - Past Family History Mother Family Medical History: Cancer Additional Family Medical History / Comment(s): cervical, uterine, and ovarian CA. Complete hysterectomy. Father Family Medical History: Hypertension General Exam Limitations: no limitations General appearance: alert, in no apparent distress Head exam: Present: atraumatic, normocephalic, normal inspection Eye exam: Present: normal appearance, PERRL, EOMI. Absent: scleral icterus, conjunctival injection, periorbital swelling ENT exam: Present: normal exam Neck exam: Present: normal inspection, full ROM. Absent: tenderness, meningismus, lymphadenopathy Respiratory exam: Present: normal lung sounds bilaterally. Absent: respiratory distress, wheezes, rales, rhonchi, stridor Cardiovascular Exam: Present: regular rate, normal rhythm, normal heart sounds. Absent: systolic murmur, diastolic murmur, rubs, gallop, clicks GI/Abdominal exam: Present: soft, normal bowel sounds. Absent: distended, t enderness, guarding, rebound, rigid Course Vital Signs 12/26/20 12/26/20 11:01 12:48 Temperature 98 F Pulse Rate 78 78 Respiratory 18 18 Rate Blood Pressure 133/86 117/76 O2 Sat by Pulse 99 98 Oximetry Medical Decision Making - Medical Decision Making vitals stable. CBC CMP unremarkable. Urinalysis does show 2+ ketones, patient was given a liter of fluid. HCG is negative. Patient felt much better after anxiolytic and IV fluids. Patient will be discharged home to follow up with primary care. She'll return here for any worsening symptoms. - Lab Data Result diagrams: 12/26/20 11:48 12/26/20 11:48 Lab Results 12/26/20 12/26/20 12/26/20 Range/Units 11:48 11:48 11:48 WBC 5.3 (3.8-10.6) k/uL RBC 4.90 (3.80-5.40) m/uL Hgb 14.3 (11.4-16.0) gm/dL Hct 42.9 (34.0-46.0) % MCV 87.5 (80.0-100.0) fL MCH 29.3 (25.0-35.0) pg MCHC 33.5 (31.0-37.0) g/dL RDW 12.9 (11.5-15.5) % Plt Count 241 (150-450) k/uL MPV 8.1 Neutrophils % 64 % Lymphocytes % 25 % Monocytes % 5 % Eosinophils % 3 % Basophils % 1 % Neutrophils # 3.4 (1.3-7.7) k/uL Lymphocytes # 1.3 (1.0-4.8) k/uL Monocytes # 0.3 (0-1.0) k/uL Eosinophils # 0.2 (0-0.7) k/uL Basophils # 0.0 (0-0.2) k/uL Sodium 140 (137-145) mmol/L Potassium 4.3 (3.5-5.1) mmol/L Chloride 104 (98-107) mmol/L Carbon Dioxide 24 (22-30) mmol/L Anion Gap 12 mmol/L BUN 11 (7-17) mg/dL Creatinine 0.46 L (0.52-1.04) mg/dL Est GFR (CKD-EPI)AfAm >90 (>60 ml/min/1.73 sqM) Est GFR (CKD-EPI)NonAf >90 (>60 ml/min/1.73 sqM) Glucose 93 (74-99) mg/dL Calcium 10.0 (8.4-10.2) mg/dL Total Bilirubin 0.2 (0.2-1.3) mg/dL AST 21 (14-36) U/L ALT 12 (4-34) U/L Alkaline Phosphatase 81 (38-126) U/L Total Protein 7.2 (6.3-8.2) g/dL Albumin 4.5 (3.5-5.0) g/dL Urine Color Light Yellow Urine Appearance Clear (Clear) Urine pH 6.0 (5.0-8.0) Ur Specific [place] 1.005 (1.001-1.035) Urine Protein Negative (Negative) Urine Glucose (UA) Negative (Negative) Urine Ketones 2+ H (Negative) Urine Blood Negative (Negative) Urine Nitrite Negative (Negative) Urine Bilirubin Negative (Negative) Urine Urobilinogen <2.0 (<2.0) mg/dL Ur Leukocyte Esterase Negative (Negative) Urine HCG, Qual (Not Detectd) 12/26/20 Range/Units 11:48 WBC (3.8-10.6) k/uL RBC (3.80-5.40) m/uL Hgb (11.4-16.0) gm/dL Hct (34.0-46.0) % MCV (80.0-100.0) fL MCH (25.0-35.0) pg MCHC (31.0-37.0) g/dL RDW (11.5-15.5) % Plt Count (150-450) k/uL MPV Neutrophils % % Lymphocytes % % Monocytes % % Eosinophils % % Basophils % % Neutrophils # (1.3-7.7) k/uL Lymphocytes # (1.0-4.8) k/uL Monocytes # (0-1.0) k/uL Eosinophils # (0-0.7) k/uL Basophils # (0-0.2) k/uL Sodium (137-145) mmol/L Potassium (3.5-5.1) mmol/L Chloride (98-107) mmol/L Carbon Dioxide (22-30) mmol/L Anion Gap mmol/L BUN (7-17) mg/dL Creatinine (0.52-1.04) mg/dL Est GFR (CKD-EPI)AfAm (>60 ml/min/1.73 sqM) Est GFR (CKD-EPI)NonAf (>60 ml/min/1.73 sqM) Glucose (74-99) mg/dL Calcium (8.4-10.2) mg/dL Total Bilirubin (0.2-1.3) mg/dL AST (14-36) U/L ALT (4-34) U/L Alkaline Phosphatase (38-126) U/L Total Protein (6.3-8.2) g/dL Albumin (3.5-5.0) g/dL Urine Color Urine Appearance (Clear) Urine pH (5.0-8.0) Ur Specific [place] (1.001-1.035) Urine Protein (Negative) Urine Glucose (UA) (Negative) Urine Ketones (Negative) Urine Blood (Negative) Urine Nitrite (Negative) Urine Bilirubin (Negative) Urine Urobilinogen (<2.0) mg/dL Ur Leukocyte Esterase (Negative) Urine HCG, Qual Not Detected (Not Detectd) Disposition Clinical Impression: Dehydration, Anxiety Disposition: HOME SELF-CARE Condition: Good Instructions (If sedation given, give patient instructions): Dehydration (ED) Additional Instructions: Please follow-up with your doctor in one to 2 days. Return to the emergency room for any worsening symptoms. Is patient prescribed a controlled substance at d/c from ED?: No Referrals: Sylvia Hopkins MD [REFERRING] - 1-2 days Time of Disposition: 13:07
[2020-12-26 12:09] LABS: Basophils % (A) 1 %; Eosinophils # (A) 0.2 k/uL (0-0.7); Eosinophils % (A) 3 %; HCT 42.9 % (34.0-46.0); HGB 14.3 gm/dL (11.4-16.0); Lymphocytes # (A) 1.3 k/uL (1.0-4.8); Lymphocytes % (A) 25 %; MCH 29.3 pg (25.0-35.0); MCHC 33.5 g/dL (31.0-37.0); MCV 87.5 fL (80.0-100.0); Mean Platelet Volume 8.1; Monocytes # (A) 0.3 k/uL (0-1.0); Monocytes % (A) 5 %; Neutrophils # (A) 3.4 k/uL (1.3-7.7); Neutrophils % (A) 64 %; Platelet Count 241 k/uL (150-450); RDW 12.9 % (11.5-15.5); WBC 5.3 k/uL (3.8-10.6)
[2020-12-26 12:12] LABS: Appearance,Urine Clear (Clear); Bilirubin,Urine Negative (Negative); Blood,Urine Negative (Negative); Color,Urine Light Yellow; Glucose,Urine (UA) Negative (Negative); Ketones,Urine 2+ (Negative); Leukocyte Esterase,Urine Negative (Negative); Nitrite,Urine Negative (Negative); Protein,Urine Negative (Negative); Specific Gravity,Urine 1.005 (1.001-1.035); Urobilinogen,Urine <2.0 mg/dL (<2.0)
[2020-12-26 12:21] LABS: ALT 12 U/L (4-34); AST 21 U/L (14-36); African American GFR (CKD) >90 (>60 ml/min/1.73 sqM); Albumin 4.5 g/dL (3.5-5.0); Alkaline Phosphatase 81 U/L (38-126); Anion Gap 12 mmol/L; Blood Urea Nitrogen 11 mg/dL (7-17); Carbon Dioxide 24 mmol/L (22-30); Chloride 104 mmol/L (98-107); Glucose 93 mg/dL (74-99); Non-African American GFR(CKD) >90 (>60 ml/min/1.73 sqM); Potassium 4.3 mmol/L (3.5-5.1); Sodium 140 mmol/L (137-145); Total Bilirubin 0.2 mg/dL (0.2-1.3); Total Protein 7.2 g/dL (6.3-8.2)
[2020-12-26 13:25] VITALS: BP 117/58; PULSE 70; TEMP 98.5
== END 2020-12-26 13:21 | disposition home or self-care (01) ==
LOC: EC 10:54
DX: E86.0 Dehydration (principal); F41.9 Anxiety disorder, unspecified; Z88.6 Allergy status to analgesic agent; Z88.8 Allergy status to other drugs, medicaments and biological substances; Z82.49 Family history of ischemic heart disease and other diseases of the circulatory system
CPT/HCPCS: 36415; 80053; 81003; 81025; 85025; 96360; 99284

== ENCOUNTER 2021-01-05 23:33 | Emergency (ER) | payer OTHER ==
[2021-01-05] MEDS ORDERED: SODIUM CHLORIDE 0.9% 1,000 ML IV STA (23:52)
[2021-01-06 00:22] LABS: Basophils # (A) 0.1 k/uL (0-0.2); Basophils % (A) 1 %; Eosinophils # (A) 0.2 k/uL (0-0.7); Eosinophils % (A) 3 %; HCT 42.2 % (34.0-46.0); Lymphocytes # (A) 2.1 k/uL (1.0-4.8); Lymphocytes % (A) 29 %; MCH 28.9 pg (25.0-35.0); MCV 87.5 fL (80.0-100.0); Mean Platelet Volume 7.4; Monocytes # (A) 0.3 k/uL (0-1.0); Monocytes % (A) 4 %; Neutrophils # (A) 4.5 k/uL (1.3-7.7); Neutrophils % (A) 62 %; Platelet Count 253 k/uL (150-450); RBC 4.83 m/uL (3.80-5.40); RDW 13.2 % (11.5-15.5); WBC 7.2 k/uL (3.8-10.6)
[2021-01-06 00:23] LABS: Appearance,Urine Clear (Clear); Bacteria,Urine Occasional /hpf; Bilirubin,Urine Negative (Negative); Blood,Urine Large (Negative); Color,Urine Colorless; Glucose,Urine (UA) Negative (Negative); Ketones,Urine 1+ (Negative); Leukocyte Esterase,Urine Negative (Negative); Mucus,Urine Rare /hpf; Nitrite,Urine Negative (Negative); PH, Urine 6.5 (5.0-8.0); Protein,Urine Negative (Negative); RBC,Urine 1 /hpf (0-5); Specific Gravity,Urine 1.002 (1.001-1.035); Squamous Epithelial Cell,Urine <1 /hpf (0-4); Urobilinogen,Urine <2.0 mg/dL (<2.0); WBC,Urine 1 /hpf (0-5)
[2021-01-06 00:29] LABS: ALT 13 U/L (4-34); AST 19 U/L (14-36); African American GFR (CKD) >90 (>60 ml/min/1.73 sqM); Albumin 4.5 g/dL (3.5-5.0); Alkaline Phosphatase 84 U/L (38-126); Anion Gap 13 mmol/L; Blood Urea Nitrogen 14 mg/dL (7-17); Carbon Dioxide 22 mmol/L (22-30); Chloride 102 mmol/L (98-107); Glucose 102 mg/dL (74-99); Magnesium 1.7 mg/dL (1.6-2.3); Non-African American GFR(CKD) >90 (>60 ml/min/1.73 sqM); Potassium 4.2 mmol/L (3.5-5.1); Sodium 137 mmol/L (137-145); Total Bilirubin <0.1 mg/dL (0.2-1.3); Total Protein 7.1 g/dL (6.3-8.2)
[2021-01-06] MEDS ORDERED: KETOROLAC 15 MG/ML 1 ML VIAL IVP STA (00:32)
[2021-01-06] MEDS ORDERED: ALPRAZolam 0.5 MG TAB PO STA ×2 (00:32→01:23)
[2021-01-06] MEDS ORDERED: MORPHINE SULFATE 2 MG/ML SYRINGE IVP STA ×2 (00:32→03:17)
[2021-01-06 01:50] VITALS: RESP 18
--- NOTE | 2021-01-06 02:04 | ED ---
General Adult HPI - General Chief complaint: Anxiety Stated complaint: Uncontrolled shaking Time Seen by Provider: 01/05/21 23:45 Source: patient Mode of arrival: wheelchair - History of Present Illness Initial comments: 35 year-old female patient presents to the emergency department for evaluation of generalized shaking and muscle pain. Patient states that she is unable to control the shaking. States she thought maybe it was anxiety so she took a half xanax tablet. States that it started about 30 minutes prior to arrival. She reports mild nausea no vomiting. She reports headache. States she did fast for 24 hours yesterday and broke her fast today. She denies any dizziness, blurred vision, or double vision. She reports numbness to her face bilaterally. States she was breathing heavy when this first started. Did have a similar episode about a week ago but states the shaking was on the inside of her body. She does have history of panic attacks but this feels different. Patient denies any recent rash, fever, chills, cough, shortness of breath, chest pain, abdominal p ain, diarrhea, constipation, back pain, hematuria, dysuria, urinary urgency, urinary frequency, or any other complaints. - Related Data Home Medications Medication Instructions Recorded Confirmed Cla 1 tab PO DAILY 12/26/20 12/26/20 L.acidoph,Paracasei, B.lactis 1 cap PO DAILY 12/26/20 12/26/20 [Probiotic] Multivitamins, Thera [Multivitamin 1 tab PO DAILY 12/26/20 12/26/20 (formulary)] [place]-3 Fatty Acids/Fish Oil [Fish 1 cap PO DAILY 12/26/20 12/26/20 Oil 1,000 mg Softgel] Previous Rx's Medication Instructions Recorded ALPRAZolam [Xanax] 1 mg PO ONCE PRN 1 Days #1 tab 12/26/20 ALPRAZolam [Xanax] 1 mg PO DAILY #3 tab 01/06/21 Allergies Allergy/AdvReac Type Severity Reaction Status Date / Time aspirin Allergy Unknown Verified 01/05/21 23:41 lorazepam [From Ativan] AdvReac Severe altered Verified 01/05/21 23:41 mental status cyclobenzaprine AdvReac Rapid Verified 01/05/21 23:41 [From Flexeril] Heart Rate diazepam [From Valium] AdvReac paradoxical Verified 01/05/21 23:41 reaction (anxiety) diphenhydramine HCl AdvReac paradoxical Verified 01/05/21 23:41 [From Benadryl] reaction (anxiety) steroids AdvReac Severe Hallucinati Uncoded 01/05/21 23:41 ons Doles Fruit Cup AdvReac Rash/Hives Uncoded 01/05/21 23:41 Review of Systems ROS Statement: Those systems with pertinent positive or pertinent negative responses have been documented in the HPI. ROS Other: All systems not noted in ROS Statement are negative. Past Medical History Past Medical History: Asthma, Fibromyalgia, Seizure Disorder Additional Past Medical History / Comment(s): endometriosis, migraines, History of Any Multi-Drug Resistant Organisms: None Reported Additional Past Surgical History / Comment(s): endometrial ablation, sinus surgery, D&C, breast implants removed 9 weeks ago (from 01/05/21) Past Anesthesia/Blood Transfusion Reactions: Postoperative Nausea & Vomiting (PONV) Past Psychological History: Anxiety, Panic Disorder Smoking Status: Never smoker Past Alcohol Use History: Occasional Past Drug Use History: None Reported - Past Family History Mother Family Medical History: Cancer Additional Family Medical History / Comment(s): cervical, uterine, and ovarian CA. Complete hysterectomy. Father Family Medical History: Hypertension General Exam General appearance: alert, in no apparent distress, other (This is a well- developed, well-nourished adult female patient in no acute distress. Vital signs upon presentation are temperature 98.0F, pulse 94, respirations 19, blood pressure 139/84, pulse ox 98% on room air.) Eye exam: Present: normal appearance, PERRL, EOMI. Absent: scleral icterus, conjunctival injection, periorbital swelling ENT exam: Present: normal exam, normal oropharynx, mucous membranes moist Respiratory exam: Present: normal lung sounds bilaterally. Absent: respiratory distress, wheezes, rales, rhonchi, stridor Cardiovascular Exam: Present: regular rate, normal rhythm, normal heart sounds. Absent: systolic murmur, diastolic murmur, rubs, gallop, clicks GI/Abdominal exam: Present: soft, normal bowel sounds. Absent: distended, tenderness, guarding, rebound, rigid Neurological exam: Present: alert, oriented X3, CN II-XII intact Expanded Speech: Present: fluid speech Cranial nerves: EOM's Intact: Normal, Nystagmus: Normal Motor strength exam: RUE: 5, LUE: 5, RLE: 5, LLE: 5 Psychiatric exam: Present: normal affect, normal mood Skin exam: Present: warm, dry, intact, normal color. Absent: rash Course Vital Signs 01/05/21 01/06/21 01/06/21 23:38 01:50 02:36 Temperature 98 F 97.9 F 98.0 F Pulse Rate 94 80 75 Respiratory 19 18 18 Rate Blood Pressure 139/84 114/67 O2 Sat by Pulse 98 97 Oximetry Medical Decision Making - Medical Decision Making 35 old female patient presented to the emergency department today for evaluation of uncontrollable shaking. Patient also reported some facial numbness. Physical examination is unremarkable. She is neurologically intact with no focal deficits. Lungs are clear to auscultation with good air movement. Labs reviewed and are unremarkable. She is given multiple doses of pain medication and Xanax. Upon reevaluation states she is feeling better. She'll be discharged. The primary care physician for recheck in 1-2 days. Return parameters were discussed in detail. She verbalizes understanding and agrees with this plan. Case discussed with my attending Dr. Chandler. - Lab Data Result diagrams: 01/06/21 00:03 01/06/21 00:03 Lab Results 01/06/21 01/06/21 01/06/21 Range/Units 00:03 00:03 00:03 WBC 7.2 (3.8-10.6) k/uL RBC 4.83 (3.80-5.40) m/uL Hgb 14.0 (11.4-16.0) gm/dL Hct 42.2 (34.0-46.0) % MCV 87.5 (80.0-100.0) fL MCH 28.9 (25.0-35.0) pg MCHC 33.0 (31.0-37.0) g/dL RDW 13.2 (11.5-15.5) % Plt Count 253 (150-450) k/uL MPV 7.4 Neutrophils % 62 % Lymphocytes % 29 % Monocytes % 4 % Eosinophils % 3 % Basophils % 1 % Neutrophils # 4.5 (1.3-7.7) k/uL Lymphocytes # 2.1 (1.0-4.8) k/uL Monocytes # 0.3 (0-1.0) k/uL Eosinophils # 0.2 (0-0.7) k/uL Basophils # 0.1 (0-0.2) k/uL Sodium 137 (137-145) mmol/L Potassium 4.2 (3.5-5.1) mmol/L Chloride 102 (98-107) mmol/L Carbon Dioxide 22 (22-30) mmol/L Anion Gap 13 mmol/L BUN 14 (7-17) mg/dL Creatinine 0.60 (0.52-1.04) mg/dL Est GFR (CKD-EPI)AfAm >90 (>60 ml/min/1.73 sqM) Est GFR (CKD-EPI)NonAf >90 (>60 ml/min/1.73 sqM) Glucose 102 H (74-99) mg/dL Calcium 10.0 (8.4-10.2) mg/dL Magnesium 1.7 (1.6-2.3) mg/dL Total Bilirubin <0.1 L (0.2-1.3) mg/dL AST 19 (14-36) U/L ALT 13 (4-34) U/L Alkaline Phosphatase 84 (38-126) U/L Creatine Kinase (30-135) U/L Total Protein 7.1 (6.3-8.2) g/dL Albumin 4.5 (3.5-5.0) g/dL TSH 6.940 H (0.465-4.680) mIU/L Free T4 1.14 (0.78-2.19) ng/dL Urine Color Colorless Urine Appearance Clear (Clear) Urine pH 6.5 (5.0-8.0) Ur Specific [place] 1.002 (1.001-1.035) Urine Protein Negative (Negative) Urine Glucose (UA) Negative (Negative) Urine Ketones 1+ H (Negative) Urine Blood Large H (Negative) Urine Nitrite Negative (Negative) Urine Bilirubin Negative (Negative) Urine Urobilinogen <2.0 (<2.0) mg/dL Ur Leukocyte Esterase Negative (Negative) Urine RBC 1 (0-5) /hpf Urine WBC 1 (0-5) /hpf Ur Squamous Epith Cells <1 (0-4) /hpf Urine Bacteria Occasional H (None) /hpf Urine Mucus Rare H (None) /hpf 08/09/21 Range/Units 00:03 WBC (3.8-10.6) k/uL RBC (3.80-5.40) m/uL Hgb (11.4-16.0) gm/dL Hct (34.0-46.0) % MCV (80.0-100.0) fL MCH (25.0-35.0) pg MCHC (31.0-37.0) g/dL RDW (11.5-15.5) % Plt Count (150-450) k/uL MPV Neutrophils % % Lymphocytes % % Monocytes % % Eosinophils % % Basophils % % Neutrophils # (1.3-7.7) k/uL Lymphocytes # (1.0-4.8) k/uL Monocytes # (0-1.0) k/uL Eosinophils # (0-0.7) k/uL Basophils # (0-0.2) k/uL Sodium (137-145) mmol/L Potassium (3.5-5.1) mmol/L Chloride (98-107) mmol/L Carbon Dioxide (22-30) mmol/L Anion Gap mmol/L BUN (7-17) mg/dL Creatinine (0.52-1.04) mg/dL Est GFR (CKD-EPI)AfAm (>60 ml/min/1.73 sqM) Est GFR (CKD-EPI)NonAf (>60 ml/min/1.73 sqM) Glucose (74-99) mg/dL Calcium (8.4-10.2) mg/dL Magnesium (1.6-2.3) mg/dL Total Bilirubin (0.2-1.3) mg/dL AST (14-36) U/L ALT (4-34) U/L Alkaline Phosphatase (38-126) U/L Creatine Kinase 34 (30-135) U/L Total Protein (6.3-8.2) g/dL Albumin (3.5-5.0) g/dL TSH (0.465-4.680) mIU/L Free T4 (0.78-2.19) ng/dL Urine Color Urine Appearance (Clear) Urine pH (5.0-8.0) Ur Specific [place] (1.001-1.035) Urine Protein (Negative) Urine Glucose (UA) (Negative) Urine Ketones (Negative) Urine Blood (Negative) Urine Nitrite (Negative) Urine Bilirubin (Negative) Urine Urobilinogen (<2.0) mg/dL Ur Leukocyte Esterase (Negative) Urine RBC (0-5) /hpf Urine WBC (0-5) /hpf Ur Squamous Epith Cells (0-4) /hpf Urine Bacteria (None) /hpf Urine Mucus (None) /hpf Disposition Clinical Impression: Shaking, Body aches Disposition: HOME SELF-CARE Condition: Good Instructions (If sedation given, give patient instructions): Pain Management (ED), Tremors (ED) Additional Instructions: Follow-up with the primary care physician for recheck as soon as possible. Return to the emergency department for any new, worsening, or concerning symptoms. Prescriptions: ALPRAZolam [Xanax] 1 mg PO DAILY #3 tab Is patient prescribed a controlled substance at d/c from ED?: No Referrals: None,Stated [Primary Care Provider] - 1-2 days Time of Disposition: 03:17
[2021-01-06 02:11] LABS: T4, Free (Free Thyroxine) 1.14 ng/dL (0.78-2.19)
[2021-01-06 02:37] VITALS: BP 114/67; PULSE 75; TEMP 98
[2021-01-06] MEDS ORDERED: MORPHINE SULFATE 4 MG/ML SYRINGE IVP STA (02:40)
== END 2021-01-06 03:37 | disposition home or self-care (01) ==
LOC: EC 23:33
DX: R25.1 Tremor, unspecified (principal); M79.10 Myalgia, unspecified site; F41.9 Anxiety disorder, unspecified; Z79.899 Other long term (current) drug therapy; Z82.49 Family history of ischemic heart disease and other diseases of the circulatory system; Z88.8 Allergy status to other drugs, medicaments and biological substances
CPT/HCPCS: 36415; 84439; 80053; 84443; 82550; 83735; 85025; 81001; 96374; 96376 ×2; 96361 ×2; 99283; J2270 ×2

== ENCOUNTER 2021-01-21 16:29 | Emergency (ER) | payer OTHER ==
[2021-01-21 16:50] VITALS: BP 167/97; PULSE 87; RESP 18; TEMP 98.5
[2021-01-21 17:44] LABS: Basophils % (A) 1 %; Eosinophils # (A) 0.1 k/uL (0-0.7); Eosinophils % (A) 2 %; HCT 42.2 % (34.0-46.0); HGB 14.1 gm/dL (11.4-16.0); Lymphocytes # (A) 1.5 k/uL (1.0-4.8); Lymphocytes % (A) 26 %; MCH 29.3 pg (25.0-35.0); MCHC 33.4 g/dL (31.0-37.0); MCV 87.7 fL (80.0-100.0); Mean Platelet Volume 7.6; Monocytes # (A) 0.3 k/uL (0-1.0); Monocytes % (A) 5 %; Neutrophils # (A) 3.6 k/uL (1.3-7.7); Neutrophils % (A) 64 %; Platelet Count 261 k/uL (150-450); RBC 4.81 m/uL (3.80-5.40); RDW 13.4 % (11.5-15.5); WBC 5.6 k/uL (3.8-10.6)
[2021-01-21 17:52] LABS: INR 0.9 (<1.2); Partial Thromboplastin Time 22.4 sec (22.0-30.0); Prothrombin Time 9.8 sec (9.0-12.0)
[2021-01-21 17:53] LABS: ALT 14 U/L (4-34); AST 21 U/L (14-36); African American GFR (CKD) >90 (>60 ml/min/1.73 sqM); Albumin 4.7 g/dL (3.5-5.0); Alkaline Phosphatase 80 U/L (38-126); Anion Gap 14 mmol/L; Blood Urea Nitrogen 13 mg/dL (7-17); Calcium 10.3 mg/dL (8.4-10.2); Carbon Dioxide 22 mmol/L (22-30); Chloride 104 mmol/L (98-107); Glucose 96 mg/dL (74-99); Non-African American GFR(CKD) >90 (>60 ml/min/1.73 sqM); Sodium 140 mmol/L (137-145); Total Bilirubin 0.2 mg/dL (0.2-1.3); Total Protein 7.3 g/dL (6.3-8.2)
[2021-01-21] MEDS ORDERED: ALPRAZolam 1 MG TAB PO STA (19:23)
[2021-01-21] MEDS ORDERED: SODIUM CHLORIDE 0.9% 1,000 ML IV STA (19:23)
[2021-01-21] MEDS ORDERED: ACETAMINOPHEN TAB 500 MG TAB PO STA (19:34)
--- NOTE | 2021-01-21 19:44 | ED ---
General Adult HPI - General Chief complaint: Chest Pain Stated complaint: chest & arm pain Time Seen by Provider: 01/21/21 19:05 Source: patient, RN notes reviewed, old records reviewed Mode of arrival: ambulatory Limitations: no limitations - History of Present Illness Initial comments: Patient is a 35 her old female with past medical history remarkable for endometriosis, migraines, asthma, seizure disorder, fibromyalgia, anxiety ,panic attacks who presents emergency Department complaining of intermittent episodes of "whole body shaking" with "muscle cramping". She states the symptoms are similar to prior episodes of anxiety and panic attacks, however she feels these are much more intense at this time. Patient has been seen multiple times this month for this similar complaint. Each time she states that she's been under more stress lately. She is to acute returning. She denies any shortness of breath, nausea, vomiting, abdominal pain. Denies any weakness or numbness. She does endorse some mild lightheadedness when the symptoms are onset. She states that she checks her heart rate under watch when the symptoms started, and her heart rate increases from 80 to 100 bpm. She is not sure what is causing this. She states she is under a lot more stress lately. She states that typically when she comes here she is given a Xanax and she feels better. She denies jarad chest pain, just endorses palpatations. She is no other acute complaint at this time. I evaluated the patient when she was placed in room, after laboratory studies were started by nursing staff.She denies any fevers, chills, cough. She is no other acute complaints at this time. She states she is not . - Related Data Home Medications Medication Instructions Recorded Confirmed Ashaletadha Root Extract 300 mg PO BID 01/21/21 01/21/21 Zer-Ctun-Khwwq Acid 3 cap PO DAILY 01/21/21 01/21/21 [-U Capsule (formulary)] Previous Rx's Medication Instructions Recorded Methocarbamol [Robaxin-750] 1,500 mg PO Q8HR PRN 7 Days #42 01/21/21 tablet Allergies Allergy/AdvReac Type Severity Reaction Status Date / Time aspirin Allergy Unknown Verified 01/21/21 19:56 ketorolac [From Toradol] Allergy Nausea & Verified 01/21/21 19:56 Vomiting lorazepam [From Ativan] AdvReac Severe altered Verified 01/21/21 19:56 mental status cyclobenzaprine AdvReac Rapid Verified 01/21/21 19:56 [From Flexeril] Heart Rate diazepam [From Valium] AdvReac paradoxical Verified 01/21/21 19:56 reaction (anxiety) diphenhydramine HCl AdvReac paradoxical Verified 01/21/21 19:56 [From Benadryl] reaction (anxiety) steroids AdvReac Severe Hallucinati Uncoded 01/21/21 19:56 ons Doles Fruit Cup AdvReac Rash/Hives Uncoded 01/21/21 19:56 Review of Systems ROS Statement: Those systems with pertinent positive or pertinent negative responses have been documented in the HPI. Review of Systems: CONST: Denies fever EYES: Denies blurry vision ENT: Denies nasal congestion C/V: Endorses palpitations RESP: Denies shortness of breath GI: Denies abdominal pain : Denies dysuria SKIN: Denies rash. MSK: Denies joint pain. NEURO: Denies headache ROS Other: All systems not noted in ROS Statement are negative. Past Medical History Past Medical History: Asthma, Fibromyalgia, Seizure Disorder Additional Past Medical History / Comment(s): endometriosis, migraines, History of Any Multi-Drug Resistant Organisms: None Reported Additional Past Surgical History / Comment(s): endometrial ablation, sinus surgery, D&C, breast implants removed 9 weeks ago (from 01/05/21) Past Anesthesia/Blood Transfusion Reactions: Postoperative Nausea & Vomiting (PONV) Past Psychological History: Anxiety, Panic Disorder Smoking Status: Never smoker Past Alcohol Use History: Occasional Past Drug Use History: None Reported - Past Family History Mother Family Medical History: Cancer Additional Family Medical History / Comment(s): cervical, uterine, and ovarian CA. Complete hysterectomy. Father Family Medical History: Hypertension General Exam - General Exam Comments Initial Comments: General: Appears in no acute distress. HEAD: Normal with no signs of head trauma. EYES: PERRLA, EOMI, conjunctiva normal, no discharge. ENT: Hearing grossly intact, normal oropharynx. RESPIRATORY: Clear breath sounds bilaterally. No wheezes, rales, or rhonchi. C/V: Regular rate and rhythm. S1 and S2 auscultated, no edema, peripheral pulses 2+ and intact throughout ABD: Abd is soft, nontender, nondistended EXT: Normal range of motion, no obvious deformity SKIN: No rashes or lesions observed on exposed skin. NEURO: Alert and oriented x 4. Cranial nerves II-XII intact. No focal sensory or strength deficits. Patient is able to ambulate without difficulty. Cerebellar function is normal as evident by normal finger to nose testing. Limitations: no limitations Course Vital Signs 01/21/21 16:47 Temperature 98.5 F Pulse Rate 87 Respiratory 18 Rate Blood Pressure 167/97 O2 Sat by Pulse 98 Oximetry Medical Decision Making - Medical Decision Making Based on the patient's presentation and physical exam, we will obtain a cardiac workup throughout ACS as a potential cause for current symptoms. Is likely anxiety. Laboratory studies were placed by nursing staff. The patient was in triage for a while. EKG was also obtained at that time. She was placed on continuous cardiac monitoring. Patient was in agreement this plan. Patient's lavatory studies returned prior to my evaluation of her. There were unremarkable, including a negative troponin. Patient's calcium is mildly elevated to 10.3. The remainder of her labs are unremarkable. EKG shows no signs of acute ischemia. When I evaluated the patient, she still complaining of some mild palpitations. She states she is under more stress lately. She states exam except typically improve her symptoms. She will be given the no 1 L fluid bolus, Xanax, Tylenol. She'll be reevaluated. She was in agreement this plan. We spoke at length regarding the patient's current symptoms and her history of anxiety. She does believe that anxiety may be playing a role in her symptoms. She is happy to know that her heart is normal. She is requesting Xanax, which I will provide. I do believe that she is follow-up with her PCP or psychiatrist/therapist which she was in agreement. On reevaluation, patient is feeling improved. Muscle spasms and "body shaking" are improved. I do believe it is safe for her to be discharged home at this time. She was in agreement with this plan. Patient had normal vital signs throughout her stay in the emergency department. I instructed the patient to follow up with their PCP in the next 3 days. I provided contact information for follow up with psychiatry, Dr. Leblanc. I explained that the patient should return to the emergency department if they experience any worsening symptoms. Strict return precautions were discussed with the patient. The patient expressed understanding of these instructions. I answered all questions that the patient had. The patient was discharged home in good condition with their prescriptions and follow up information. - Lab Data Result diagrams: 01/21/21 17:35 01/21/21 17:35 Lab Results 01/21/21 01/21/21 01/21/21 Range/Units 17:35 17:35 17:35 WBC 5.6 (3.8-10.6) k/uL RBC 4.81 (3.80-5.40) m/uL Hgb 14.1 (11.4-16.0) gm/dL Hct 42.2 (34.0-46.0) % MCV 87.7 (80.0-100.0) fL MCH 29.3 (25.0-35.0) pg MCHC 33.4 (31.0-37.0) g/dL RDW 13.4 (11.5-15.5) % Plt Count 261 (150-450) k/uL MPV 7.6 Neutrophils % 64 % Lymphocytes % 26 % Monocytes % 5 % Eosinophils % 2 % Basophils % 1 % Neutrophils # 3.6 (1.3-7.7) k/uL Lymphocytes # 1.5 (1.0-4.8) k/uL Monocytes # 0.3 (0-1.0) k/uL Eosinophils # 0.1 (0-0.7) k/uL Basophils # 0.0 (0-0.2) k/uL PT 9.8 (9.0-12.0) sec INR 0.9 (<1.2) APTT 22.4 (22.0-30.0) sec Sodium 140 (137-145) mmol/L Potassium 4.0 (3.5-5.1) mmol/L Chloride 104 (98-107) mmol/L Carbon Dioxide 22 (22-30) mmol/L Anion Gap 14 mmol/L BUN 13 (7-17) mg/dL Creatinine 0.55 (0.52-1.04) mg/dL Est GFR (CKD-EPI)AfAm >90 (>60 ml/min/1.73 sqM) Est GFR (CKD-EPI)NonAf >90 (>60 ml/min/1.73 sqM) Glucose 96 (74-99) mg/dL Calcium 10.3 H (8.4-10.2) mg/dL Total Bilirubin 0.2 (0.2-1.3) mg/dL AST 21 (14-36) U/L ALT 14 (4-34) U/L Alkaline Phosphatase 80 (38-126) U/L Troponin I (0.000-0.034) ng/mL Total Protein 7.3 (6.3-8.2) g/dL Albumin 4.7 (3.5-5.0) g/dL 01/21/21 Range/Units 17:35 WBC (3.8-10.6) k/uL RBC (3.80-5.40) m/uL Hgb (11.4-16.0) gm/dL Hct (34.0-46.0) % MCV (80.0-100.0) fL MCH (25.0-35.0) pg MCHC (31.0-37.0) g/dL RDW (11.5-15.5) % Plt Count (150-450) k/uL MPV Neutrophils % % Lymphocytes % % Monocytes % % Eosinophils % % Basophils % % Neutrophils # (1.3-7.7) k/uL Lymphocytes # (1.0-4.8) k/uL Monocytes # (0-1.0) k/uL Eosinophils # (0-0.7) k/uL Basophils # (0-0.2) k/uL PT (9.0-12.0) sec INR (<1.2) APTT (22.0-30.0) sec Sodium (137-145) mmol/L Potassium (3.5-5.1) mmol/L Chloride (98-107) mmol/L Carbon Dioxide (22-30) mmol/L Anion Gap mmol/L BUN (7-17) mg/dL Creatinine (0.52-1.04) mg/dL Est GFR (CKD-EPI)AfAm (>60 ml/min/1.73 sqM) Est GFR (CKD-EPI)NonAf (>60 ml/min/1.73 sqM) Glucose (74-99) mg/dL Calcium (8.4-10.2) mg/dL Total Bilirubin (0.2-1.3) mg/dL AST (14-36) U/L ALT (4-34) U/L Alkaline Phosphatase (38-126) U/L Troponin I <0.012 (0.000-0.034) ng/mL Total Protein (6.3-8.2) g/dL Albumin (3.5-5.0) g/dL - EKG Data -: EKG Interpreted by Me EKG Comments: 12-lead Electrocardiogram Interpretation Note EKG was reviewed and interpreted by myself. 12-lead ECG performed at 1725 is interpreted by me as revealing normal sinus rhythm at a rate of 83 beats per minute. [place] is normal. CT Intervals 170 ms, QRS duration is 80 ms, QTc is 437 ms.. There were no ST or T wave abnormalities to suggest myocardial ischemia or injury. R wave progression across the precordium was satisfactory. By my interpretation this EKG is non-diagnostic for acute ischemia. Disposition Clinical Impression: Muscle cramps, Anxiety, Heart palpitations Disposition: HOME SELF-CARE Condition: Good Instructions (If sedation given, give patient instructions): Heart Palpitations (ED) Prescriptions: Methocarbamol [Robaxin-750] 1,500 mg PO Q8HR PRN 7 Days #42 tablet PRN Reason: Muscle Spasm Is patient prescribed a controlled substance at d/c from ED?: No Referrals: None,Stated [Primary Care Provider] - 1-2 days Liz Mendez DO [Doctor of Osteopathic Medicine] - 1-2 days Jaren Leblanc MD [Medical Doctor] - 1-2 days
== END 2021-01-21 21:40 | disposition home or self-care (01) ==
LOC: EC 16:29
DX: R25.2 Cramp and spasm (principal); F41.9 Anxiety disorder, unspecified; R00.2 Palpitations; Z88.5 Allergy status to narcotic agent; Z88.1 Allergy status to other antibiotic agents; J45.909 Unspecified asthma, uncomplicated; G40.909 Epilepsy, unspecified, not intractable, without status epilepticus
CPT/HCPCS: 36415; 80053; 84484; 85025; 85610; 85730; 93005; 96360; 99285

== ENCOUNTER 2021-04-26 20:28 | Emergency (ER) | payer OTHER ==
[2021-04-26 21:38] VITALS: RESP 20; TEMP 98.3
[2021-04-26] MEDS ORDERED: HYDROcodone/APAP 5-325MG 1 EACH TAB PO STA (22:27)
[2021-04-26] MEDS ORDERED: ONDANSETRON ODT 4 MG TAB PO STA (22:27)
[2021-04-26 23:02] VITALS: BP 123/73; PULSE 74
--- NOTE | 2021-04-26 23:07 | CT ---
EXAMINATION TYPE: CT facial bones wo con DATE OF EXAM: 04/26/2021 COMPARISON: None HISTORY: Head-butted dog. Laceration to nose. CT DLP: 1348.4 mGycm Automated exposure control for dose reduction was used. Images obtained from the bottom of the mandible to the top of the frontal sinuses without contrast. The mandibular ring is intact. Temporomandibular joints are intact. Zygomatic arches appear normal. M axilla is intact. Nasal bone appears intact. There is fairly normal aeration of the maxillary sinuses . There is no evidence of orbital blowout fracture. Orbital margins are intact. There is no retro-orb ital mass. Frontal and ethmoid sinuses appear normal. There is normal aeration of the mastoid sinuses . IMPRESSION: Negative CT scan of the facial bones. No fracture.
--- NOTE | 2021-04-26 23:09 | CT ---
EXAMINATION TYPE: CT brain wo con DATE OF EXAM: 04/26/2021 COMPARISON: 12/06/2019 HISTORY: Head-butted dog. Laceration to nose. CT DLP: 1348.4 mGycm Automated exposure control for dose reduction was used. Ventricles and sulci appear normal. There is no mass effect nor midline shift. There is no sign of in tracranial hemorrhage. Calvarium is intact. There is normal aeration of the mastoid sinuses. Skull ba se is intact. IMPRESSION: Negative unenhanced head CT scan.
[2021-04-26] MEDS ORDERED: HYDROmorphone 1 MG/ML 1 ML SYRINGE IM STA (23:23)
[2021-04-26] MEDS ORDERED: TOPICAL SKIN ADHESIVE 1 EACH AMP TOPICAL STA (23:23)
[2021-04-27] MEDS ORDERED: ACET/COD 300 MG/30 MG STARTER PACK 6 TAB BTL PO STA
--- NOTE | 2021-04-27 | ED ---
Head Injury HPI - General Chief complaint: Head Injury Stated complaint: Headbutted Dog Time Seen by Provider: 04/26/21 21:44 Source: patient, RN notes reviewed, old records reviewed Mode of arrival: ambulatory Limitations: no limitations - History of Present Illness Initial comments: 36 female to the emergency department today.. Patient presents today for evaluation in regards to head butting her dog. Patient was wearing glasses at the time. She was resting with the dog when the injury occurred. No other is noted the patient currently has significant headache migraine. No nose bleeding no blood thinners no other complaints MD Complaint: head injury, head pain -: hour(s) Mechanism of Injury: animal related injury Location: frontal, face Loss of Consciousness: no Previous Trauma to this Area: No Place: home Radiation: none Severity: mild Severity scale (1-10): 1 Consistency: constant Provoking factors: none known Other Injuries: laceration Associated Symptoms: denies other symptoms - Related Data Home Medications Medication Instructions Recorded Confirmed Neo Root Extract 300 mg PO BID 01/21/21 01/21/21 Aai-Kznt-Gujdr Acid 3 cap PO DAILY 01/21/21 01/21/21 [-U Capsule (formulary)] Previous Rx's Medication Instructions Recorded Methocarbamol [Robaxin-750] 1,500 mg PO Q8HR PRN 7 Days #42 01/21/21 tablet Allergies/Adverse reactions: Allergies Allergy/AdvReac Type Severity Reaction Status Date / Time aspirin Allergy Unknown Verified 04/26/21 21:38 ketorolac [From Toradol] Allergy Nausea & Verified 04/26/21 21:38 Vomiting lorazepam [From Ativan] AdvReac Severe altered Verified 04/26/21 21:38 mental status cyclobenzaprine AdvReac Rapid Verified 04/26/21 21:38 [From Flexeril] Heart Rate diazepam [From Valium] AdvReac paradoxical Verified 04/26/21 21:38 reaction (anxiety) diphenhydramine HCl AdvReac paradoxical Verified 04/26/21 21:38 [From Benadryl] reaction (anxiety) steroids AdvReac Severe Hallucinati Uncoded 04/26/21 21:38 ons Doles Fruit Cup AdvReac Rash/Hives Uncoded 04/26/21 21:38 Review of Systems ROS Statement: Those systems with pertinent positive or pertinent negative responses have been documented in the HPI. ROS Other: All systems not noted in ROS Statement are negative. Past Medical History Past Medical History: Asthma, Fibromyalgia, Seizure Disorder Additional Past Medical History / Comment(s): endometriosis, migraines, History of Any Multi-Drug Resistant Organisms: None Reported Additional Past Surgical History / Comment(s): endometrial ablation, sinus surgery, D&C, breast implants removed 9 weeks ago (from 01/05/21) Past Anesthesia/Blood Transfusion Reactions: Postoperative Nausea & Vomiting (PONV) Past Psychological History: Anxiety, Panic Disorder Smoking Status: Never smoker Past Alcohol Use History: Occasional Past Drug Use History: None Reported - Past Family History Mother Family Medical History: Cancer Additional Family Medical History / Comment(s): cervical, uterine, and ovarian CA. Complete hysterectomy. Father Family Medical History: Hypertension General Exam Limitations: no limitations General appearance: alert, in no apparent distress Head exam: Present: normocephalic, normal inspection. Absent: atraumatic (Small laceration to the bridge of the nose) Eye exam: Present: normal appearance, PERRL, EOMI. Absent: scleral icterus, conjunctival injection, periorbital swelling ENT exam: Present: normal exam, mucous membranes moist Neck exam: Present: normal inspection. Absent: tenderness, meningismus, lymphadenopathy Respiratory exam: Present: normal lung sounds bilaterally. Absent: respiratory distress, wheezes, rales, rhonchi, stridor Cardiovascular Exam: Present: regular rate, normal rhythm, normal heart sounds. Absent: systolic murmur, diastolic murmur, rubs, gallop, clicks GI/Abdominal exam: Present: soft, normal bowel sounds. Absent: distended, tenderness, guarding, rebound, rigid Extremities exam: Present: normal inspection, full ROM, normal capillary refill. Absent: tenderness, pedal edema, joint swelling, calf tenderness Back exam: Present: normal inspection Neurological exam: Present: alert, oriented X3, CN II-XII intact Psychiatric exam: Present: normal affect, normal mood Skin exam: Present: warm, dry, intact, normal color. Absent: rash Course Vital Signs 04/26/21 04/26/21 21:36 23:00 Temperature 98.3 F Pulse Rate 73 74 Respiratory 20 20 Rate Blood Pressure 122/83 123/73 O2 Sat by Pulse 98 97 Oximetry - Reevaluation(s) Reevaluation #1: 04/27/21 04:38 Medical record is reviewed Reevaluation #2: 04/27/21 04:38 Patient informed results and questions answered Reevaluation #3: 04/27/21 04:39 Patient feels improved and can be discharged Procedures - Laceration Laceration #1 Consent Obtained: verbal consent Indication: laceration Site: face (Bridge of nose) Size (cm): 1 Description: linear Pre-repair: wound explored Type of Sutures: other (Dermabond) Patient Tolerated Procedure: well Medical Decision Making - Medical Decision Making 36 female DF for evaluation after headbutting her dog. Patient did sustain injury to her nose from her glasses. There is repaired with Dermabond, imaging is negative and patient can be discharged home - Radiology Data Radiology results: report reviewed (CT brain and facial bones is negative for traumatic injury), image reviewed Disposition Clinical Impression: Nasal laceration, Facial contusion Disposition: HOME SELF-CARE Condition: Good Instructions (If sedation given, give patient instructions): Skin Adhesive Care (ED) Is patient prescribed a controlled substance at d/c from ED?: No Referrals: None,Stated [Primary Care Provider] - 1-2 days
== END 2021-04-27 00:28 | disposition home or self-care (01) ==
LOC: EC 20:28
DX: S01.21XA Laceration without foreign body of nose, initial encounter (principal); S00.93XA Contusion of unspecified part of head, initial encounter; W54.0XXA Bitten by dog, initial encounter; J45.909 Unspecified asthma, uncomplicated; G40.909 Epilepsy, unspecified, not intractable, without status epilepticus; G43.909 Migraine, unspecified, not intractable, without status migrainosus; F41.0 Panic disorder [episodic paroxysmal anxiety]; Z72.89 Other problems related to lifestyle
CPT/HCPCS: 70486; 70450; 99283; 96372; 12011; J1170

== ENCOUNTER 2021-05-07 23:51 | Emergency (ER) | payer OTHER ==
[2021-05-07 23:56] VITALS: RESP 18; TEMP 98.2
[2021-05-08] MEDS ORDERED: SODIUM CHLORIDE 0.9% 1,000 ML IV STA (02:47)
--- NOTE | 2021-05-08 02:52 | ED ---
Headache HPI - General Chief Complaint: Headache Stated Complaint: Headache, heart racing Time Seen by Provider: 05/08/21 02:36 Source: RN notes reviewed, old records reviewed Mode of arrival: ambulatory Limitations: no limitations - History of Present Illness Initial Comments: This is a 36-year-old female to the results are today. Patient presents today for evaluation of headache headache with nausea chills shakes rigors dizziness. Symptoms of been really episodic ever since she had coronavirus. Patient has no other complaints she does not get fevers coronavirus at this time was about 7 months ago. No new medications to change in medications. No significant recent travel history sick contacts patient has no medical history MD Complaint: headache, other (Chills, shaking, dizziness) -: month(s) Onset Description: gradual Location: frontal Severity: mild Severity scale (1-10): 4 Quality: throbbing Consistency: intermittent Improves With: nothing Worsens With: none Context: occurred at rest Associated Symptoms: fever, weakness Other Symptoms: cough, other (Dizziness) Treatments Prior to Arrival: none - Related Data Home Medications Medication Instructions Recorded Confirmed Neo Root Extract 300 mg PO BID 01/21/21 01/21/21 Vpv-Glwz-Cdlob Acid 3 cap PO DAILY 01/21/21 01/21/21 [-U Capsule (formulary)] Previous Rx's Medication Instructions Recorded Methocarbamol [Robaxin-750] 1,500 mg PO Q8HR PRN 7 Days #42 01/21/21 tablet Allergies Allergy/AdvReac Type Severity Reaction Status Date / Time aspirin Allergy Unknown Verified 05/07/21 23:56 ketorolac [From Toradol] Allergy Nausea & Verified 05/07/21 23:56 Vomiting lorazepam [From Ativan] AdvReac Severe altered Verified 05/07/21 23:56 mental status cyclobenzaprine AdvReac Rapid Verified 05/07/21 23:56 [From Flexeril] Heart Rate diazepam [From Valium] AdvReac paradoxical Verified 05/07/21 23:56 reaction (anxiety) diphenhydramine HCl AdvReac paradoxical Verified 05/07/21 23:56 [From Benadryl] reaction (anxiety) steroids AdvReac Severe Hallucinati Uncoded 05/07/21 23:56 ons Doles Fruit Cup AdvReac Rash/Hives Uncoded 05/07/21 23:56 Review of Systems ROS Statement: Those systems with pertinent positive or pertinent negative responses have been documented in the HPI. ROS Other: All systems not noted in ROS Statement are negative. Past Medical History Past Medical History: Asthma, Fibromyalgia, Seizure Disorder Additional Past Medical History / Comment(s): endometriosis, migraines, History of Any Multi-Drug Resistant Organisms: None Reported Additional Past Surgical History / Comment(s): endometrial ablation, sinus surgery, D&C, breast implants removed 9 weeks ago (from 01/05/21) Past Anesthesia/Blood Transfusion Reactions: Postoperative Nausea & Vomiting (PONV) Past Psychological History: Anxiety, Panic Disorder Smoking Status: Never smoker Past Alcohol Use History: Occasional Past Drug Use History: None Reported - Past Family History Mother Family Medical History: Cancer Additional Family Medical History / Comment(s): cervical, uterine, and ovarian CA. Complete hysterectomy. Father Family Medical History: Hypertension General Exam Limitations: no limitations General appearance: alert, in no apparent distress Head exam: Present: atraumatic, normocephalic, normal inspection Eye exam: Present: normal appearance, PERRL, EOMI. Absent: scleral icterus, conjunctival injection, periorbital swelling ENT exam: Present: normal exam, mucous membranes moist Neck exam: Present: normal inspection. Absent: tenderness, meningismus, lymphadenopathy Respiratory exam: Present: normal lung sounds bilaterally. Absent: respiratory distress, wheezes, rales, rhonchi, stridor Cardiovascular Exam: Present: regular rate, normal rhythm, normal heart sounds. Absent: systolic murmur, diastolic murmur, rubs, gallop, clicks GI/Abdominal exam: Present: soft, normal bowel sounds. Absent: distended, tenderness, guarding, rebound, rigid Extremities exam: Present: normal inspection, full ROM, normal capillary refill. Absent: tenderness, pedal edema, joint swelling, calf tenderness Back exam: Present: normal inspection Neurological exam: Present: alert, oriented X3, CN II-XII intact Psychiatric exam: Present: normal affect, normal mood Skin exam: Present: warm, dry, intact, normal color. Absent: rash Course Vital Signs 05/07/21 23:53 Temperature 98.2 F Pulse Rate 80 Respiratory 18 Rate Blood Pressure 134/85 O2 Sat by Pulse 99 Oximetry - Reevaluation(s) Reevaluation #1: 05/08/21 02:51 Medical record is reviewed Reevaluation #2: 05/08/21 02:51 patient symptoms are improved here in the emergency department Reevaluation #3: 05/08/21 04:21 Taken anxiolysis here in the ER feels improved Medical Decision Making - Medical Decision Making 36 female to the emergency department for evaluation. Seizure-type reaction. Rigors and chills. No significant cause found. Patient can be discharged home - Lab Data Result diagrams: 05/08/21 03:21 05/08/21 03:21 Lab Results 05/08/21 1205/08/21 Range/Units 03:21 03:21 03:21 WBC 7.7 (3.8-10.6) k/uL RBC 4.95 (3.80-5.40) m/uL Hgb 14.1 (11.4-16.0) gm/dL Hct 44.2 (34.0-46.0) % MCV 89.2 (80.0-100.0) fL MCH 28.6 (25.0-35.0) pg MCHC 32.0 (31.0-37.0) g/dL RDW 11.8 (11.5-15.5) % Plt Count 296 (150-450) k/uL MPV 7.6 Neutrophils % 62 % Lymphocytes % 29 % Monocytes % 4 % Eosinophils % 3 % Basophils % 1 % Neutrophils # 4.8 (1.3-7.7) k/uL Lymphocytes # 2.3 (1.0-4.8) k/uL Monocytes # 0.3 (0-1.0) k/uL Eosinophils # 0.2 (0-0.7) k/uL Basophils # 0.1 (0-0.2) k/uL PT 10.0 (9.0-12.0) sec INR 0.9 (<1.2) APTT 22.4 (22.0-30.0) sec Sodium 139 (137-145) mmol/L Potassium 4.0 (3.5-5.1) mmol/L Chloride 102 (98-107) mmol/L Carbon Dioxide 24 (22-30) mmol/L Anion Gap 13 mmol/L BUN 20 H (7-17) mg/dL Creatinine 0.74 (0.52-1.04) mg/dL Est GFR (CKD-EPI)AfAm >90 (>60 ml/min/1.73 sqM) Est GFR (CKD-EPI)NonAf >90 (>60 ml/min/1.73 sqM) Glucose 96 (74-99) mg/dL Plasma Lactic Acid Anant (0.7-2.0) mmol/L Calcium 10.2 (8.4-10.2) mg/dL Phosphorus 5.0 H (2.5-4.5) mg/dL Magnesium 1.8 (1.6-2.3) mg/dL Total Bilirubin 0.3 (0.2-1.3) mg/dL AST 152 H (14-36) U/L ALT 49 H (4-34) U/L Alkaline Phosphatase 76 (38-126) U/L Lactate Dehydrogenase 584 (313-618) U/L Troponin I (0.000-0.034) ng/mL C-Reactive Protein <0.5 (<1.0) mg/dL NT-Pro-B Natriuret Pep pg/mL Total Protein 8.3 H (6.3-8.2) g/dL Albumin 4.9 (3.5-5.0) g/dL TSH 2.960 (0.465-4.680) mIU/L Serum Alcohol <10 mg/dL 05/08/21 05/08/21 05/08/21 Range/Units 03:21 03:21 03:21 WBC (3.8-10.6) k/uL RBC (3.80-5.40) m/uL Hgb (11.4-16.0) gm/dL Hct (34.0-46.0) % MCV (80.0-100.0) fL MCH (25.0-35.0) pg MCHC (31.0-37.0) g/dL RDW (11.5-15.5) % Plt Count (150-450) k/uL MPV Neutrophils % % Lymphocytes % % Monocytes % % Eosinophils % % Basophils % % Neutrophils # (1.3-7.7) k/uL Lymphocytes # (1.0-4.8) k/uL Monocytes # (0-1.0) k/uL Eosinophils # (0-0.7) k/uL Basophils # (0-0.2) k/uL PT (9.0-12.0) sec INR (<1.2) APTT (22.0-30.0) sec Sodium (137-145) mmol/L Potassium (3.5-5.1) mmol/L Chloride (98-107) mmol/L Carbon Dioxide (22-30) mmol/L Anion Gap mmol/L BUN (7-17) mg/dL Creatinine (0.52-1.04) mg/dL Est GFR (CKD-EPI)AfAm (>60 ml/min/1.73 sqM) Est GFR (CKD-EPI)NonAf (>60 ml/min/1.73 sqM) Glucose (74-99) mg/dL Plasma Lactic Acid Anant 0.6 L (0.7-2.0) mmol/L Calcium (8.4-10.2) mg/dL Phosphorus (2.5-4.5) mg/dL Magnesium (1.6-2.3) mg/dL Total Bilirubin (0.2-1.3) mg/dL AST (14-36) U/L ALT (4-34) U/L Alkaline Phosphatase (38-126) U/L Lactate Dehydrogenase (313-618) U/L Troponin I 0.015 (0.000-0.034) ng/mL C-Reactive Protein (<1.0) mg/dL NT-Pro-B Natriuret Pep 25 pg/mL Total Protein (6.3-8.2) g/dL Albumin (3.5-5.0) g/dL TSH (0.465-4.680) mIU/L Serum Alcohol mg/dL - EKG Data -: EKG Interpreted by Me (EKG shows sinus rhythm 67 MO 176 QRS 88 QTc 431) Disposition Clinical Impression: Paresthesia, Rigors Disposition: HOME SELF-CARE Condition: Good Instructions (If sedation given, give patient instructions): Paresthesia (ED), Opioid Withdrawal (ED), Tremors (ED) Is patient prescribed a controlled substance at d/c from ED?: No Referrals: None,Stated [Primary Care Provider] - 1-2 days
[2021-05-08 03:31] LABS: Basophils # (A) 0.1 k/uL (0-0.2); Basophils % (A) 1 %; Eosinophils # (A) 0.2 k/uL (0-0.7); Eosinophils % (A) 3 %; HCT 44.2 % (34.0-46.0); HGB 14.1 gm/dL (11.4-16.0); Lymphocytes # (A) 2.3 k/uL (1.0-4.8); Lymphocytes % (A) 29 %; MCH 28.6 pg (25.0-35.0); MCV 89.2 fL (80.0-100.0); Mean Platelet Volume 7.6; Monocytes # (A) 0.3 k/uL (0-1.0); Monocytes % (A) 4 %; Neutrophils # (A) 4.8 k/uL (1.3-7.7); Neutrophils % (A) 62 %; Platelet Count 296 k/uL (150-450); RBC 4.95 m/uL (3.80-5.40); RDW 11.8 % (11.5-15.5); WBC 7.7 k/uL (3.8-10.6)
[2021-05-08 03:48] LABS: INR 0.9 (<1.2); Partial Thromboplastin Time 22.4 sec (22.0-30.0)
[2021-05-08 03:49] LABS: ALT 49 U/L (4-34); AST 152 U/L (14-36); African American GFR (CKD) >90 (>60 ml/min/1.73 sqM); Albumin 4.9 g/dL (3.5-5.0); Alkaline Phosphatase 76 U/L (38-126); Anion Gap 13 mmol/L; Blood Urea Nitrogen 20 mg/dL (7-17); C Reactive Protein <0.5 mg/dL (<1.0); Calcium 10.2 mg/dL (8.4-10.2); Carbon Dioxide 24 mmol/L (22-30); Chloride 102 mmol/L (98-107); Glucose 96 mg/dL (74-99); LDH 584 U/L (313-618); Magnesium 1.8 mg/dL (1.6-2.3); Non-African American GFR(CKD) >90 (>60 ml/min/1.73 sqM); Sodium 139 mmol/L (137-145); Total Bilirubin 0.3 mg/dL (0.2-1.3); Total Protein 8.3 g/dL (6.3-8.2)
[2021-05-08] MEDS ORDERED: ALPRAZolam 1 MG TAB PO STA (03:52)
[2021-05-08 03:56] LABS: Alcohol <10 mg/dL
[2021-05-08 04:52] LABS: Appearance,Urine Clear (Clear); Bilirubin,Urine Negative (Negative); Blood,Urine Negative (Negative); Color,Urine Light Yellow; Glucose,Urine (UA) Negative (Negative); Ketones,Urine Negative (Negative); Leukocyte Esterase,Urine Negative (Negative); Nitrite,Urine Negative (Negative); Protein,Urine Negative (Negative); Specific Gravity,Urine 1.018 (1.001-1.035); Urobilinogen,Urine <2.0 mg/dL (<2.0)
[2021-05-08] MEDS ORDERED: DEXAMETHASONE SOD PHOSPHATE 10 MG/ML 1 ML VIAL IVP STA (04:53)
[2021-05-08 05:24] VITALS: BP 130/84; PULSE 84
== END 2021-05-08 05:24 | disposition home or self-care (01) ==
LOC: EC 23:51
DX: R20.2 Paresthesia of skin (principal); R68.89 Other general symptoms and signs; J45.909 Unspecified asthma, uncomplicated; F41.9 Anxiety disorder, unspecified; Z88.1 Allergy status to other antibiotic agents
CPT/HCPCS: 99284; 96374; 36415; 93005; 85379; 83880; 80053; 84443; 83605; 83615; 83735; 84100; 84484; 85025; 85610; 85730; 86140; 81003; G0480; J1100; 80320

== ENCOUNTER 2021-07-10 19:00 | Emergency (ER) | payer OTHER ==
[2021-07-10 19:21] VITALS: PULSE 75; RESP 19; TEMP 99.1
[2021-07-10 19:41] LABS: Appearance,Urine Clear (Clear); Bilirubin,Urine Negative (Negative); Blood,Urine Negative (Negative); Color,Urine Light Yellow; Glucose,Urine (UA) Negative (Negative); Ketones,Urine Negative (Negative); Leukocyte Esterase,Urine Negative (Negative); Nitrite,Urine Negative (Negative); PH, Urine 6.5 (5.0-8.0); Protein,Urine Negative (Negative); Specific Gravity,Urine 1.002 (1.001-1.035); Urobilinogen,Urine <2.0 mg/dL (<2.0)
[2021-07-10 21:59] LABS: Basophils % (A) 1 %; Eosinophils # (A) 0.2 k/uL (0-0.7); Eosinophils % (A) 2 %; HCT 40.5 % (34.0-46.0); HGB 13.4 gm/dL (11.4-16.0); Lymphocytes # (A) 2.4 k/uL (1.0-4.8); Lymphocytes % (A) 31 %; MCH 29.2 pg (25.0-35.0); MCHC 33.2 g/dL (31.0-37.0); Mean Platelet Volume 7.8; Monocytes # (A) 0.3 k/uL (0-1.0); Monocytes % (A) 4 %; Neutrophils # (A) 4.7 k/uL (1.3-7.7); Neutrophils % (A) 61 %; Platelet Count 252 k/uL (150-450); RDW 12.1 % (11.5-15.5); WBC 7.6 k/uL (3.8-10.6)
[2021-07-10 22:27] LABS: ALT 29 U/L (4-34); AST 21 U/L (14-36); African American GFR (CKD) >90 (>60 ml/min/1.73 sqM); Albumin 4.7 g/dL (3.5-5.0); Alkaline Phosphatase 60 U/L (38-126); Amylase 55 U/L (30-110); Anion Gap 6 mmol/L; Blood Urea Nitrogen 12 mg/dL (7-17); Carbon Dioxide 28 mmol/L (22-30); Chloride 103 mmol/L (98-107); Glucose 97 mg/dL (74-99); Lipase 138 U/L (23-300); Non-African American GFR(CKD) >90 (>60 ml/min/1.73 sqM); Potassium 3.8 mmol/L (3.5-5.1); Sodium 137 mmol/L (137-145); Total Bilirubin 0.4 mg/dL (0.2-1.3)
--- NOTE | 2021-07-10 22:51 | ED ---
Abdominal Pain HPI - General Chief Complaint: Abdominal Pain Stated Complaint: Abd pain-6 weeks preg. Time Seen by Provider: 07/10/21 22:00 Source: patient Mode of arrival: ambulatory - History of Present Illness Initial Comments: 36 year-old female patient presents to the emergency department for evaluation of lower abdominal pain. States she is having a burning sensation from her belly button down to her suprapubic region. She does feel the pain in her back. States it started earlier today. She is 6 weeks 4 days , A1. Denies any abnormal vaginal bleeding or discharge. Denies any hematuria, dysuria, urinary frequency, or urgency. States she does feel constipated. Denies fever or chills. Did have a laparoscopic surgery as a teenager for endometriosis. Patient denies any recent rash, cough, shortness of breath, chest pain, numbness, tingling, dizziness, weakness, headache, visual changes, or any other complaints. - Related Data Home Medications Medication Instructions Recorded Confirmed Neo Root Extract 300 mg PO BID 01/21/21 01/21/21 Ipq-Rhpx-Ybfgm Acid 3 cap PO DAILY 01/21/21 01/21/21 [-U Capsule (formulary)] Previous Rx's Medication Instructions Recorded Methocarbamol [Robaxin-750] 1,500 mg PO Q8HR PRN 7 Days #42 01/21/21 tablet ALPRAZolam [Xanax] 1 mg PO Q8H PRN 3 Days #9 tab 05/08/21 predniSONE 50 mg PO DAILY #5 tab 05/08/21 Allergies Allergy/AdvReac Type Severity Reaction Status Date / Time aspirin Allergy Unknown Verified 07/10/21 19:21 ketorolac [From Toradol] Allergy Nausea & Verified 07/10/21 19:21 Vomiting lorazepam [From Ativan] AdvReac Severe altered Verified 07/10/21 19:21 mental status cyclobenzaprine AdvReac Rapid Verified 07/10/21 19:21 [From Flexeril] Heart Rate diazepam [From Valium] AdvReac paradoxical Verified 07/10/21 19:21 reaction (anxiety) diphenhydramine HCl AdvReac paradoxical Verified 07/10/21 19:21 [From Benadryl] reaction (anxiety) steroids AdvReac Severe Hallucinati Uncoded 07/10/21 19:21 ons Doles Fruit Cup AdvReac Rash/Hives Uncoded 07/10/21 19:21 Review of Systems ROS Statement: Those systems with pertinent positive or pertinent negative responses have been documented in the HPI. ROS Other: All systems not noted in ROS Statement are negative. Past Medical History Past Medical History: Asthma, Fibromyalgia, Seizure Disorder Additional Past Medical History / Comment(s): endometriosis, migraines, History of Any Multi-Drug Resistant Organisms: None Reported Additional Past Surgical History / Comment(s): endometrial ablation, sinus surgery, D&C, breast implants removed 9 weeks ago (from 01/05/21) Past Anesthesia/Blood Transfusion Reactions: Postoperative Nausea & Vomiting (PONV) Past Psychological History: Anxiety, Panic Disorder Smoking Status: Never smoker Past Alcohol Use History: Occasional Past Drug Use History: None Reported - Past Family History Mother Family Medical History: Cancer Additional Family Medical History / Comment(s): cervical, uterine, and ovarian CA. Complete hysterectomy. Father Family Medical History: Hypertension General Exam General appearance: alert, in no apparent distress, other (This is a well- developed, well-nourished adult female in no acute distress.) ENT exam: Present: normal exam, normal oropharynx, mucous membranes moist Respiratory exam: Present: normal lung sounds bilaterally. Absent: respiratory distress, wheezes, rales, rhonchi, stridor Cardiovascular Exam: Present: regular rate, normal rhythm, normal heart sounds. Absent: systolic murmur, diastolic murmur, rubs, gallop, clicks GI/Abdominal exam: Present: soft, tenderness (Suprapubic, left lower quadrant), normal bowel sounds. Absent: distended, guarding, rebound, rigid Back exam: Present: normal inspection. Absent: CVA tenderness (R), CVA tenderness (L) Neurological exam: Present: alert, oriented X3, CN II-XII intact Psychiatric exam: Present: normal affect, normal mood Skin exam: Present: warm, dry, intact, normal color. Absent: rash Course Vital Signs 07/10/21 19:18 Temperature 99.1 F Pulse Rate 75 Respiratory 19 Rate O2 Sat by Pulse 98 Oximetry Medical Decision Making - Medical Decision Making 36-year-old female patient, 6 weeks 4 days , A1, presents for evalua tion of lower abdominal pain. No vaginal bleeding or discharge. Physical examination did reveal suprapubic tenderness. Labs reviewed and were unremarkable. Serum hCG is 42,000. Ultrasound was obtained and did show a viable intrauterine measuring 6 weeks with heart rate of 117, no comp licating process was seen. I did discuss findings and results with the patient. She will be discharged follow up with her PHOTOGRAPH FINISHER/optical glass sawyer for further evaluation as soon as possible. Return parameters were discussed in detail. She verbalizes understanding and is discharged in stable condition. My attending is Dr. Roland. - Lab Data Result diagrams: 07/10/21 21:50 07/10/21 21:50 Lab Results 07/10/21 07/10/21 07/10/21 Range/Units 19:32 19:32 21:50 WBC 7.6 (3.8-10.6) k/uL RBC 4.60 (3.80-5.40) m/uL Hgb 13.4 (11.4-16.0) gm/dL Hct 40.5 (34.0-46.0) % MCV 88.0 (80.0-100.0) fL MCH 29.2 (25.0-35.0) pg MCHC 33.2 (31.0-37.0) g/dL RDW 12.1 (11.5-15.5) % Plt Count 252 (150-450) k/uL MPV 7.8 Neutrophils % 61 % Lymphocytes % 31 % Monocytes % 4 % Eosinophils % 2 % Basophils % 1 % Neutrophils # 4.7 (1.3-7.7) k/uL Lymphocytes # 2.4 (1.0-4.8) k/uL Monocytes # 0.3 (0-1.0) k/uL Eosinophils # 0.2 (0-0.7) k/uL Basophils # 0.0 (0-0.2) k/uL Sodium (137-145) mmol/L Potassium (3.5-5.1) mmol/L Chloride (98-107) mmol/L Carbon Dioxide (22-30) mmol/L Anion Gap mmol/L BUN (7-17) mg/dL Creatinine (0.52-1.04) mg/dL Est GFR (CKD-EPI)AfAm (>60 ml/min/1.73 sqM) Est GFR (CKD-EPI)NonAf (>60 ml/min/1.73 sqM) Glucose (74-99) mg/dL Calcium (8.4-10.2) mg/dL Total Bilirubin (0.2-1.3) mg/dL AST (14-36) U/L ALT (4-34) U/L Alkaline Phosphatase (38-126) U/L Total Protein (6.3-8.2) g/dL Albumin (3.5-5.0) g/dL Amylase (30-110) U/L Lipase (23-300) U/L HCG, Quant mIU/mL Urine Color Light Yellow Urine Appearance Clear (Clear) Urine pH 6.5 (5.0-8.0) Ur Specific [place] 1.002 (1.001-1.035) Urine Protein Negative (Negative) Urine Glucose (UA) Negative (Negative) Urine Ketones Negative (Negative) Urine Blood Negative (Negative) Urine Nitrite Negative (Negative) Urine Bilirubin Negative (Negative) Urine Urobilinogen <2.0 (<2.0) mg/dL Ur Leukocyte Esterase Negative (Negative) Urine HCG, Qual Detected (Not Detectd) 07/10/21 Range/Units 21:50 WBC (3.8-10.6) k/uL RBC (3.80-5.40) m/uL Hgb (11.4-16.0) gm/dL Hct (34.0-46.0) % MCV (80.0-100.0) fL MCH (25.0-35.0) pg MCHC (31.0-37.0) g/dL RDW (11.5-15.5) % Plt Count (150-450) k/uL MPV Neutrophils % % Lymphocytes % % Monocytes % % Eosinophils % % Basophils % % Neutrophils # (1.3-7.7) k/uL Lymphocytes # (1.0-4.8) k/uL Monocytes # (0-1.0) k/uL Eosinophils # (0-0.7) k/uL Basophils # (0-0.2) k/uL Sodium 137 (137-145) mmol/L Potassium 3.8 (3.5-5.1) mmol/L Chloride 103 (98-107) mmol/L Carbon Dioxide 28 (22-30) mmol/L Anion Gap 6 mmol/L BUN 12 (7-17) mg/dL Creatinine 0.65 (0.52-1.04) mg/dL Est GFR (CKD-EPI)AfAm >90 (>60 ml/min/1.73 sqM) Est GFR (CKD-EPI)NonAf >90 (>60 ml/min/1.73 sqM) Glucose 97 (74-99) mg/dL Calcium 10.0 (8.4-10.2) mg/dL Total Bilirubin 0.4 (0.2-1.3) mg/dL AST 21 (14-36) U/L ALT 29 (4-34) U/L Alkaline Phosphatase 60 (38-126) U/L Total Protein 8.0 (6.3-8.2) g/dL Albumin 4.7 (3.5-5.0) g/dL Amylase 55 (30-110) U/L Lipase 138 (23-300) U/L HCG, Quant 23744.6 mIU/mL Urine Color Urine Appearance (Clear) Urine pH (5.0-8.0) Ur Specific [place] (1.001-1.035) Urine Protein (Negative) Urine Glucose (UA) (Negative) Urine Ketones (Negative) Urine Blood (Negative) Urine Nitrite (Negative) Urine Bilirubin (Negative) Urine Urobilinogen (<2.0) mg/dL Ur Leukocyte Esterase (Negative) Urine HCG, Qual (Not Detectd) - Radiology Data Radiology results: report reviewed, image reviewed Ultrasound of the fetus is obtained. Report was reviewed in its entirety. Impression by Dr. Ford shows ultrasound gestational age of 6 weeks and 2 days. No Acute process seen. Heart rate is 117. Disposition Clinical Impression: Abdominal pain Disposition: HOME SELF-CARE Condition: Good Instructions (If sedation given, give patient instructions): Abdominal Pain in (ED) Additional Instructions: Increase fluids. Follow-up with optical glass sawyer/PHOTOGRAPH FINISHER for further evaluation as soon as possible. Return to the emergency department for any new, worsening, or concerning symptoms. Is patient prescribed a controlled substance at d/c from ED?: No Referrals: None,Stated [Primary Care Provider] - 1-2 days Time of Disposition: 00:13
[2021-07-10 23:12] LABS: HCG,Quantitative Serum 42205.6 mIU/mL
--- NOTE | 2021-07-10 23:39 | US ---
EXAMINATION TYPE: Transabdominal DATE OF EXAM: 07/10/2021 11:19 PM COMPARISON: NONE CLINICAL HISTORY: Abd pain; 6 weeks. Patient states feeling a burning sensation below her umbilical r egion. EXAM PERFORMED: Transvaginal (TV) and Transabdominal (TA) EXAM MEASUREMENTS: GESTATIONAL AGE / DATING Physician Established: (6 weeks/3 days) EDC: 03/02/22 Dates by LMP: (6 weeks/3 days) EDC: 05/26/21 Dates by First Scan: No previous this is first scan Dates by Current Scan for: (6 weeks/2 days) EDC: 03/03/22 MATERNAL ANATOMY Uterus: 9.7 x 6.1 x 7.4 cm Right Ovary: 3.9 x 2.3 x 2.9 cm Left Ovary: 2.4 x 1.6 x 2.3 cm Post CDS / Adnexa: wnl Presence of free fluid: no Presence of corpus luteal cyst: right 1.9 x 1.3 x 2.3 cm Presence of subchorionic bleed: no GESTATION / SURVEY CRL: (6 weeks/2 days) MSD: appears wnl Yolk Sac (normal less than 6mm): 0.30 Heart Rate: 117 bpm Rhythm: Normal IUP: Viable IUP Date of LMP: 05/26/21 Beta HcG (if available): 40869.6 IMPRESSION: The ultrasound gestational age is 6 weeks and 2 days. No complicating process seen.
== END 2021-07-11 00:35 | disposition home or self-care (01) ==
LOC: EC 19:00
DX: O26.891 Other specified pregnancy related conditions, first trimester (principal); J45.909 Unspecified asthma, uncomplicated; F41.9 Anxiety disorder, unspecified; Z3A.01 Less than 8 weeks gestation of pregnancy; Z88.1 Allergy status to other antibiotic agents
CPT/HCPCS: 36415; 76801; 76817; 80053; 81003; 81025; 82150; 83690; 84702; 85025; 99284

== ENCOUNTER 2021-07-27 22:11 | Emergency (ER) | payer OTHER ==
[2021-07-27 22:24] VITALS: RESP 18
--- NOTE | 2021-07-27 23:24 | US ---
EXAMINATION TYPE: Transabdominal DATE OF EXAM: 07/27/2021 11:08 PM COMPARISON: US CLINICAL HISTORY: vaginal spotting, 9 weeks . EC patient stated had lifted 2 year old yesterd ay and felt pulling sensation EXAM PERFORMED: Transabdominal (TA) EXAM MEASUREMENTS: GESTATIONAL AGE / DATING Physician Established: Not yet established Dates by LMP: (8 weeks/6 days) EDC: 03/02/2022 Dates by First Scan: (8 weeks/5 days) EDC: 03/03/2022 Dates by Current Scan for: (9 weeks/0 days) EDC: 03/01/2022 MATERNAL ANATOMY Uterus: 12.1 x 8.2 x 6.9cm Right Ovary: 2.5 x 2.6 x 2.2cm Left Ovary: 1.9 x 1.7 x 1.3cm Post CDS / Adnexa: wnl Presence of free fluid: no Presence of corpus luteal cyst: in right ovary = 2.3 x 2.2 x 1.7cm Presence of subchorionic bleed: yes, lateral and inferior to chorion and size = 1.3 x 1.4 x 1.7cm as hypoechoic complex area. GESTATION / SURVEY CRL: 2.3cm (9 weeks/0 days) Yolk Sac (normal less than 6mm): 3.9mm Heart Rate: 159 bpm Rhythm: Normal IUP: single Date of LMP: 05/26/2021 Beta HcG (if available): NA at time of US Single, live IUP, 9 weeks/0 days, EDC 03/01/2022, HR 159bpm; presence of subchorionic hemorrhage late ral and inferior to chorion and size = 1.3 x 1.4 x 1.7cm seen as hypoechoic complex area. IMPRESSION: There is small subchorionic hemorrhage. The ultrasound gestational age is 9 weeks.
[2021-07-28 00:18] LABS: Appearance,Urine Clear (Clear); Bilirubin,Urine Negative (Negative); Blood,Urine Negative (Negative); Color,Urine Colorless; Glucose,Urine (UA) Negative (Negative); Ketones,Urine Negative (Negative); Leukocyte Esterase,Urine Negative (Negative); Nitrite,Urine Negative (Negative); PH, Urine 6.5 (5.0-8.0); Protein,Urine Negative (Negative); Specific Gravity,Urine 1.002 (1.001-1.035); Urobilinogen,Urine <2.0 mg/dL (<2.0)
[2021-07-28 00:39] LABS: HCT 37.2 % (34.0-46.0); HGB 12.5 gm/dL (11.4-16.0); MCH 29.7 pg (25.0-35.0); MCHC 33.6 g/dL (31.0-37.0); MCV 88.2 fL (80.0-100.0); Platelet Count 234 k/uL (150-450); RBC 4.22 m/uL (3.80-5.40); RDW 12.5 % (11.5-15.5); WBC 6.7 k/uL (3.8-10.6)
--- NOTE | 2021-07-28 01:14 | ED ---
General Adult HPI - General Chief complaint: Vaginal Bleeding Stated complaint: Vaginal Bleeding, 9 weeks Time Seen by Provider: 07/27/21 23:08 Source: patient, RN notes reviewed, old records reviewed Mode of arrival: ambulatory - History of Present Illness Initial comments: Patient is a 36-year-old female presents emergency Department complaining of vaginal spotting concerned for possible miscarriage. Patient is who presents emergency Department with prior miscarriage. Was concerned at home and presents for further evaluation. States she had an episode earlier tonight of 1 mucus C red/bloody discharge from her vagina. Denies any further discharge. Denies any abdominal cramping. Denies any urinary complaints. Hasn't chest pain, abdominal pain, shortness of breath. No other acute complaints at this time otherwise. With her history miscarriage, she did want to be evaluated. 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 Is on vitamins. I evaluated patient after ultrasound was completed. Believes she is approximately 9 weeks . - Related Data Home Medications Medication Instructions Recorded Confirmed Andersa Root Extract 300 mg PO BID 01/21/21 01/21/21 [id number] Acid 3 cap PO DAILY 01/21/21 01/21/21 [-U Capsule (formulary)] Previous Rx's Medication Instructions Recorded Methocarbamol [Robaxin-750] 1,500 mg PO Q8HR PRN 7 Days #42 01/21/21 tablet ALPRAZolam [Xanax] 1 mg PO Q8H PRN 3 Days #9 tab 05/08/21 predniSONE 50 mg PO DAILY #5 tab 05/08/21 Allergies Allergy/AdvReac Type Severity Reaction Status Date / Time aspirin Allergy Unknown Verified 07/27/21 22:24 ketorolac [From Toradol] Allergy Nausea & Verified 07/27/21 22:24 Vomiting lorazepam [From Ativan] AdvReac Severe altered Verified 07/27/21 22:24 mental status cyclobenzaprine AdvReac Rapid Verified 07/27/21 22:24 [From Flexeril] Heart Rate diazepam [From Valium] AdvReac paradoxical Verified 07/27/21 22:24 reaction (anxiety) diphenhydramine HCl AdvReac paradoxical Verified 07/27/21 22:24 [From Benadryl] reaction (anxiety) steroids AdvReac Severe Hallucinati Uncoded 07/27/21 22:24 ons Doles Fruit Cup AdvReac Rash/Hives Uncoded 07/27/21 22:24 Review of Systems ROS Statement: Those systems with pertinent positive or pertinent negative responses have been documented in the HPI. Review of Systems: CONST: Denies fever EYES: Denies blurry vision ENT: Denies nasal congestion C/V: Denies Chest pain RESP: Denies shortness of breath GI: Denies abdominal pain : Denies dysuria SKIN: Denies rash. MSK: Denies joint pain. NEURO: Denies headache ROS Other: All systems not noted in ROS Statement are negative. Past Medical History Past Medical History: Asthma, Fibromyalgia, Seizure Disorder Additional Past Medical History / Comment(s): endometriosis, migraines, History of Any Multi-Drug Resistant Organisms: None Reported Additional Past Surgical History / Comment(s): endometrial ablation, sinus surgery, D&C, breast implants removed 9 weeks ago (from 01/05/21) Past Anesthesia/Blood Transfusion Reactions: Postoperative Nausea & Vomiting (PONV) Past Psychological History: Anxiety, Panic Disorder Smoking Status: Never smoker Past Alcohol Use History: Occasional Past Drug Use History: None Reported - Past Family History Mother Family Medical History: Cancer Additional Family Medical History / Comment(s): cervical, uterine, and ovarian CA. Complete hysterectomy. Father Family Medical History: Hypertension General Exam - General Exam Comments Initial Comments: General: Appears in no acute distress. HEAD: Normal with no signs of head trauma. EYES: PERRLA, EOMI, conjunctiva normal, no discharge. ENT: Hearing grossly intact, normal oropharynx. RESPIRATORY: Clear breath sounds bilaterally. No wheezes, rales, or rhonchi. C/V: Regular rate and rhythm. S1 and S2 auscultated, no edema, peripheral pulses 2+ and intact throughout ABD: Abd is soft, nontender, nondistended EXT: Normal range of motion, no obvious deformity SKIN: No rashes or lesions observed on exposed skin. NEURO: Alert and oriented 4. Course Vital Signs 07/27/21 22:21 Temperature 97.7 F Pulse Rate 77 Respiratory 18 Rate Blood Pressure 150/80 O2 Sat by Pulse 98 Oximetry Medical Decision Making - Medical Decision Making Based on the patient's presentation and physical exam, I'm concerned for threatened miscarriage for the patient. I did discuss this with her and she was in agreement. She is on vitamins. She is uncertain what her blood type is. Ultrasound was already obtained and is pending at this time read. We will obtain basic labs including CBC, urinalysis, quantitative beta hCG in jean tion to type and screen. She was in agreement this plan. She does not recall receiving rhogam last time she had a miscarriage. Patient's ultrasound shows a definitive IUP approximately 9 weeks with a heart rate of 159 bpm. There is a small subchorionic hemorrhage present. Laboratory studies are remarkable for a normal CBC and urinalysis. Type and screen was Rh+. On reevaluation, I believe is safe for the patient be discharged home at this time with close follow-up. We did discuss that miscarriage as well as subchorionic hemorrhage. Answered all questions that they had. She already is vitamins at home. She was in agreement this plan. I instructed the patient to follow up with their PCP in the next 3 days. I provided contact information for follow up with [employer] Dr. De Jesus. I explained that the patient should return to the emergency department if they experience any worsening symptoms. Strict return precautions were discussed with the patient. The patient expressed understanding of these instructions. I answered all questions that the patient had. The patient was discharged home in good condition with their prescriptions and follow up information. - Lab Data Result diagrams: 07/28/21 00:11 Lab Results 07/28/21 07/28/21 07/28/21 Range/Units 00:11 00:11 00:23 WBC 6.7 (3.8-10.6) k/uL RBC 4.22 (3.80-5.40) m/uL Hgb 12.5 (11.4-16.0) gm/dL Hct 37.2 (34.0-46.0) % MCV 88.2 (80.0-100.0) fL MCH 29.7 (25.0-35.0) pg MCHC 33.6 (31.0-37.0) g/dL RDW 12.5 (11.5-15.5) % Plt Count 234 (150-450) k/uL MPV 8.0 Urine Color Colorless Urine Appearance Clear (Clear) Urine pH 6.5 (5.0-8.0) Ur Specific [place] 1.002 (1.001-1.035) Urine Protein Negative (Negative) Urine Glucose (UA) Negative (Negative) Urine Ketones Negative (Negative) Urine Blood Negative (Negative) Urine Nitrite Negative (Negative) Urine Bilirubin Negative (Negative) Urine Urobilinogen <2.0 (<2.0) mg/dL Ur Leukocyte Esterase Negative (Negative) Blood Type B Positive Blood Type Recheck B Pos Bld Type Recheck Status No Antibody Screen NEGATIVE Spec Expiration Date 07/30/2021 - 2330 Disposition Clinical Impression: Threatened miscarriage, Subchorionic hematoma Disposition: HOME SELF-CARE Condition: Good Instructions (If sedation given, give patient instructions): Threatened Miscarriage (ED) Is patient prescribed a controlled substance at d/c from ED?: No Referrals: None,Stated [Primary Care Provider] - 1-2 days Tigist De Jesus DO [Doctor of Osteopathic Medicine] - 1-2 days
[2021-07-28 02:02] VITALS: BP 146/78; PULSE 78; TEMP 97.2
== END 2021-07-28 02:01 | disposition home or self-care (01) ==
LOC: EC 22:11
DX: O20.0 Threatened abortion (principal); O09.91 Supervision of high risk pregnancy, unspecified, first trimester; O99.511 Diseases of the respiratory system complicating pregnancy, first trimester; J45.909 Unspecified asthma, uncomplicated; O99.891 Other specified diseases and conditions complicating pregnancy; M79.7 Fibromyalgia; O99.351 Diseases of the nervous system complicating pregnancy, first trimester; G40.909 Epilepsy, unspecified, not intractable, without status epilepticus; O99.341 Other mental disorders complicating pregnancy, first trimester; F41.9 Anxiety disorder, unspecified; Z88.6 Allergy status to analgesic agent; Z88.8 Allergy status to other drugs, medicaments and biological substances; Z79.899 Other long term (current) drug therapy; Z3A.09 9 weeks gestation of pregnancy
CPT/HCPCS: 36415; 76801; 81003; 84702; 85027; 86850; 86900; 86901; 99284

== ENCOUNTER 2021-11-19 10:15 | Emergency (ER) | payer OTHER ==
[2021-11-19 10:41] VITALS: RESP 18; TEMP 97.6
[2021-11-19 11:53] LABS: Basophils % (A) 0 %; Eosinophils # (A) 0.1 k/uL (0-0.7); Eosinophils % (A) 1 %; HCT 36.4 % (34.0-46.0); HGB 12.3 gm/dL (11.4-16.0); Lymphocytes # (A) 1.1 k/uL (1.0-4.8); Lymphocytes % (A) 12 %; MCH 30.4 pg (25.0-35.0); MCHC 33.7 g/dL (31.0-37.0); MCV 90.1 fL (80.0-100.0); Mean Platelet Volume 8.3; Monocytes # (A) 0.4 k/uL (0-1.0); Monocytes % (A) 4 %; Neutrophils # (A) 7.7 k/uL (1.3-7.7); Neutrophils % (A) 82 %; Platelet Count 222 k/uL (150-450); RBC 4.04 m/uL (3.80-5.40); WBC 9.4 k/uL (3.8-10.6)
[2021-11-19 11:54] LABS: Appearance,Urine Clear (Clear); Bilirubin,Urine Negative (Negative); Blood,Urine Negative (Negative); Color,Urine Light Yellow; Glucose,Urine (UA) Negative (Negative); Ketones,Urine Negative (Negative); Leukocyte Esterase,Urine Negative (Negative); Nitrite,Urine Negative (Negative); Protein,Urine Negative (Negative); Specific Gravity,Urine 1.006 (1.001-1.035); Urobilinogen,Urine <2.0 mg/dL (<2.0)
[2021-11-19 12:04] LABS: INR 0.8 (<1.2); Prothrombin Time 9.5 sec (9.0-12.0)
[2021-11-19 12:05] LABS: ALT 10 U/L (4-34); AST 19 U/L (14-36); African American GFR (CKD) >90 (>60 ml/min/1.73 sqM); Albumin 3.7 g/dL (3.5-5.0); Alkaline Phosphatase 81 U/L (38-126); Anion Gap 5 mmol/L; Blood Urea Nitrogen 12 mg/dL (7-17); Calcium 8.8 mg/dL (8.4-10.2); Carbon Dioxide 21 mmol/L (22-30); Chloride 108 mmol/L (98-107); Glucose 84 mg/dL (74-99); Non-African American GFR(CKD) >90 (>60 ml/min/1.73 sqM); Potassium 4.5 mmol/L (3.5-5.1); Sodium 134 mmol/L (137-145); Total Bilirubin 0.2 mg/dL (0.2-1.3); Total Protein 6.8 g/dL (6.3-8.2)
[2021-11-19 12:12] LABS: Partial Thromboplastin Time 21.7 sec (22.0-30.0)
--- NOTE | 2021-11-19 12:35 | ED ---
General Adult HPI - General Chief complaint: Syncope Stated complaint: near syncope Time Seen by Provider: 11/19/21 11:00 Source: patient Mode of arrival: ambulatory Limitations: no limitations - History of Present Illness Initial comments: 36-year-old female who is presents to the emergency room and 25 weeks . States that she was taking a shower this morning when she felt like she was going to pass out. She was able to exit the shower and go sit on a chair in her bedroom. States that it took approximately 15 minutes to start feeling better. She checked her glucose level and vitals which were normal. She called her fuel efficient aircraft designer recommended that she come into the emergency room for evaluation. Denies issues with preeclampsia or hyperglycemia. She denies having any chest pain or shortness of breath. No recent illnesses. Denies any vaginal bleeding or cramping. The patient did not fall. No other alleviating, precipitating or modifying factors - Related Data Home Medications Medication Instructions Recorded Confirmed [id number]-[id number] Acid 1 cap PO DAILY 01/21/21 11/19/21 [-U Capsule (formulary)] Cholecalciferol [Vitamin D3 (25 25 mcg PO DAILY 11/19/21 11/19/21 Mcg = 1000 Iu)] Magnesium 200 mg PO DAILY 11/19/21 11/19/21 Allergies Allergy/AdvReac Type Severity Reaction Status Date / Time aspirin Allergy Unknown Verified 11/19/21 12:12 ketorolac [From Toradol] Allergy Nausea & Verified 11/19/21 12:12 Vomiting lorazepam [From Ativan] AdvReac Severe altered Verified 11/19/21 12:12 mental status cyclobenzaprine AdvReac Rapid Verified 11/19/21 12:12 [From Flexeril] Heart Rate diazepam [From Valium] AdvReac paradoxical Verified 11/19/21 12:12 reaction (anxiety) diphenhydramine HCl AdvReac paradoxical Verified 11/19/21 12:12 [From Benadryl] reaction (anxiety) steroids AdvReac Severe Hallucinati Uncoded 11/19/21 10:41 ons Doles Fruit Cup AdvReac Rash/Hives Uncoded 11/19/21 10:41 Review of Systems ROS Statement: Those systems with pertinent positive or pertinent negative responses have been documented in the HPI. ROS Other: All systems not noted in ROS Statement are negative. Past Medical History Past Medical History: Asthma, Fibromyalgia, Seizure Disorder Additional Past Medical History / Comment(s): endometriosis, migraines, History of Any Multi-Drug Resistant Organisms: None Reported Additional Past Surgical History / Comment(s): endometrial ablation, sinus surgery, D&C, breast implants removed 9 weeks ago (from 01/05/21) Past Anesthesia/Blood Transfusion Reactions: Postoperative Nausea & Vomiting (PONV) Past Psychological History: Anxiety, Panic Disorder Smoking Status: Never smoker Past Alcohol Use History: Occasional Past Drug Use History: None Reported - Past Family History Mother Family Medical History: Cancer Additional Family Medical History / Comment(s): cervical, uterine, and ovarian CA. Complete hysterectomy. Father Family Medical History: Hypertension General Exam Limitations: no limitations General appearance: alert, in no apparent distress Head exam: Present: atraumatic, normocephalic, normal inspection Eye exam: Present: normal appearance, PERRL, EOMI. Absent: scleral icterus, conjunctival injection, periorbital swelling ENT exam: Present: normal exam, mucous membranes moist Neck exam: Present: normal inspection. Absent: tenderness, meningismus, lymphadenopathy Respiratory exam: Present: normal lung sounds bilaterally. Absent: respiratory distress, wheezes, rales, rhonchi, stridor Cardiovascular Exam: Present: regular rate, normal rhythm, normal heart sounds. Absent: systolic murmur, diastolic murmur, rubs, gallop, clicks GI/Abdominal exam: Present: soft, normal bowel sounds. Absent: distended, tenderness, guarding, rebound, rigid Extremities exam: Present: normal inspection, full ROM, normal capillary refill. Absent: tenderness, pedal edema, joint swelling, calf tenderness Back exam: Present: normal inspection Neurological exam: Present: alert, oriented X3, CN II-XII intact Psychiatric exam: Present: normal affect, normal mood Skin exam: Present: warm, dry, intact, normal color. Absent: rash Course Vital Signs 11/19/21 11/19/21 10:36 13:10 Temperature 97.6 F Pulse Rate 87 89 Respiratory 18 18 Rate Blood Pressure 128/79 127/81 O2 Sat by Pulse 97 95 Oximetry EKG Findings - EKG Comments: EKG Findings:: EKG demonstrates sinus rhythm with a rate of 82. IN interval 168. QRS 85. QTC is 366. No acute ST segment elevations or depressions Procedures - Procedures Initial comment: Limited bedside ultrasound performed - transabdominal probe utilized showing an intrauterine with a heart rate of 157. Positive movement. 4 extremities noted. Placenta anterior implantation. No complicating factors Medical Decision Making - Medical Decision Making Upon arrival patient was placed into room 17. A thorough history and physical exam was performed. Bedside ultrasound was performed which demonstrates activity with a heart rate of 157. Labs are obtained and an EKG is performed. Results are discussed with the patient. Patient feels comfortable with discharge home. Recommended follow-up with her primary care doctor. May benefit from an echo for further workup. Increase fluid intake and return for any new or worsening symptoms. Patient agreed to treatment plan and was discharged home in stable condition - Lab Data Result diagrams: 11/19/21 11:34 11/19/21 11:34 Lab Results 11/19/21 11/19/21 11/19/21 Range/Units 11:34 11:34 11:34 WBC 9.4 (3.8-10.6) k/uL RBC 4.04 (3.80-5.40) m/uL Hgb 12.3 (11.4-16.0) gm/dL Hct 36.4 (34.0-46.0) % MCV 90.1 (80.0-100.0) fL MCH 30.4 (25.0-35.0) pg MCHC 33.7 (31.0-37.0) g/dL RDW 13.0 (11.5-15.5) % Plt Count 222 (150-450) k/uL MPV 8.3 Neutrophils % 82 % Lymphocytes % 12 % Monocytes % 4 % Eosinophils % 1 % Basophils % 0 % Neutrophils # 7.7 (1.3-7.7) k/uL Lymphocytes # 1.1 (1.0-4.8) k/uL Monocytes # 0.4 (0-1.0) k/uL Eosinophils # 0.1 (0-0.7) k/uL Basophils # 0.0 (0-0.2) k/uL PT 9.5 (9.0-12.0) sec INR 0.8 (<1.2) APTT 21.7 L (22.0-30.0) sec Sodium (137-145) mmol/L Potassium (3.5-5.1) mmol/L Chloride (98-107) mmol/L Carbon Dioxide (22-30) mmol/L Anion Gap mmol/L BUN (7-17) mg/dL Creatinine (0.52-1.04) mg/dL Est GFR (CKD-EPI)AfAm (>60 ml/min/1.73 sqM) Est GFR (CKD-EPI)NonAf (>60 ml/min/1.73 sqM) Glucose (74-99) mg/dL Calcium (8.4-10.2) mg/dL Total Bilirubin (0.2-1.3) mg/dL AST (14-36) U/L ALT (4-34) U/L Alkaline Phosphatase (38-126) U/L Troponin I (0.000-0.034) ng/mL Total Protein (6.3-8.2) g/dL Albumin (3.5-5.0) g/dL Urine Color Light Yellow Urine Appearance Clear (Clear) Urine pH 7.0 (5.0-8.0) Ur Specific [place] 1.006 (1.001-1.035) Urine Protein Negative (Negative) Urine Glucose (UA) Negative (Negative) Urine Ketones Negative (Negative) Urine Blood Negative (Negative) Urine Nitrite Negative (Negative) Urine Bilirubin Negative (Negative) Urine Urobilinogen <2.0 (<2.0) mg/dL Ur Leukocyte Esterase Negative (Negative) 11/19/21 11/19/21 Range/Units 11:34 11:34 WBC (3.8-10.6) k/uL RBC (3.80-5.40) m/uL Hgb (11.4-16.0) gm/dL Hct (34.0-46.0) % MCV (80.0-100.0) fL MCH (25.0-35.0) pg MCHC (31.0-37.0) g/dL RDW (11.5-15.5) % Plt Count (150-450) k/uL MPV Neutrophils % % Lymphocytes % % Monocytes % % Eosinophils % % Basophils % % Neutrophils # (1.3-7.7) k/uL Lymphocytes # (1.0-4.8) k/uL Monocytes # (0-1.0) k/uL Eosinophils # (0-0.7) k/uL Basophils # (0-0.2) k/uL PT (9.0-12.0) sec INR (<1.2) APTT (22.0-30.0) sec Sodium 134 L (137-145) mmol/L Potassium 4.5 (3.5-5.1) mmol/L Chloride 108 H (98-107) mmol/L Carbon Dioxide 21 L (22-30) mmol/L Anion Gap 5 mmol/L BUN 12 (7-17) mg/dL Creatinine 0.39 L (0.52-1.04) mg/dL Est GFR (CKD-EPI)AfAm >90 (>60 ml/min/1.73 sqM) Est GFR (CKD-EPI)NonAf >90 (>60 ml/min/1.73 sqM) Glucose 84 (74-99) mg/dL Calcium 8.8 (8.4-10.2) mg/dL Total Bilirubin 0.2 (0.2-1.3) mg/dL AST 19 (14-36) U/L ALT 10 (4-34) U/L Alkaline Phosphatase 81 (38-126) U/L Troponin I <0.012 (0.000-0.034) ng/mL Total Protein 6.8 (6.3-8.2) g/dL Albumin 3.7 (3.5-5.0) g/dL Urine Color Urine Appearance (Clear) Urine pH (5.0-8.0) Ur Specific [place] (1.001-1.035) Urine Protein (Negative) Urine Glucose (UA) (Negative) Urine Ketones (Negative) Urine Blood (Negative) Urine Nitrite (Negative) Urine Bilirubin (Negative) Urine Urobilinogen (<2.0) mg/dL Ur Leukocyte Esterase (Negative) Disposition Clinical Impression: Near syncope, Second trimester Disposition: HOME SELF-CARE Condition: Stable Instructions (If sedation given, give patient instructions): Near Syncope (ED) Additional Instructions: Please follow-up with your doctor in 2-4 days and return for any new or worsening symptoms Is patient prescribed a controlled substance at d/c from ED?: No Referrals: None,Stated [Primary Care Provider] - 1-2 days Time of Disposition: 12:41
[2021-11-19 13:10] VITALS: BP 127/81; PULSE 89
== END 2021-11-19 13:10 | disposition home or self-care (01) ==
LOC: EC 10:15
DX: O26.892 Other specified pregnancy related conditions, second trimester (principal); O99.512 Diseases of the respiratory system complicating pregnancy, second trimester; O99.342 Other mental disorders complicating pregnancy, second trimester; J45.909 Unspecified asthma, uncomplicated; Z88.6 Allergy status to analgesic agent; Z88.8 Allergy status to other drugs, medicaments and biological substances; Z88.2 Allergy status to sulfonamides; Z91.018 Allergy to other foods; Z3A.25 25 weeks gestation of pregnancy
CPT/HCPCS: 36415; 80053; 81003; 84484; 85025; 85610; 85730; 93005; 99284

== ENCOUNTER 2021-12-02 22:27 | Outpatient (CLI) | payer OTHER ==
[2021-12-02 23:30] LABS: Basophils # (A) 0.1 k/uL (0-0.2); Basophils % (A) 1 %; Eosinophils # (A) 0.1 k/uL (0-0.7); Eosinophils % (A) 1 %; HCT 36.4 % (34.0-46.0); HGB 12.2 gm/dL (11.4-16.0); Lymphocytes # (A) 1.5 k/uL (1.0-4.8); Lymphocytes % (A) 18 %; MCH 30.1 pg (25.0-35.0); MCHC 33.5 g/dL (31.0-37.0); MCV 89.9 fL (80.0-100.0); Monocytes # (A) 0.3 k/uL (0-1.0); Monocytes % (A) 4 %; Neutrophils # (A) 6.3 k/uL (1.3-7.7); Neutrophils % (A) 75 %; Platelet Count 198 k/uL (150-450); RBC 4.05 m/uL (3.80-5.40); RDW 12.8 % (11.5-15.5); WBC 8.4 k/uL (3.8-10.6)
[2021-12-02 23:31] LABS: Amylase 71 U/L (30-110); Lipase 181 U/L (23-300)
[2021-12-03 00:48] VITALS: BP 138/71; PULSE 89; RESP 16; TEMP 97.2
--- NOTE | 2021-12-19 10:43 | P.MSEPDOC ---
Presenting Problems - Arrival Data Date of Arrival on Unit: 12/02/21 Time of Arrival on Unit: 22:27 Mode of Transport: Wheelchair - Complaint OB-Reason for Admission/Chief Complaint: Pain Comment: Patient arrives to triage with complaints of mid abdominal pain that radiates. to her left side. Pain started a few days ago but has gotten worse today. Eating and. standing up makes the pain worse. Patient states that the pain gets so bad she feels. like "passing out". Patient is seeing air motor repairer Ashanti Pardo who sent her in because she. thinks the patient may have pancreatitis. Patient rates pain 12/07 Medical History - Information : 5 Para: 4 Term: 4 : 0 Abortions: Spontaneous or Elective: 0 Number of Living Children: 4 - Gestational Age Gestational Age by LENCHO (wks/days): 27 Weeks and 6 Days Review of Systems - Review of Systems Constitutional: No problems Breast: No problems ENT: No problems Cardiovascular: No problems Respiratory: No problems Gastrointestinal: Pain Genitourinary: No problems Musculoskeletal: No problems Neurological: No problems Skin: No problems Vital Signs - Temperature Temperature: 97.2 F Temperature Source: Temporal Artery Scan - Pulse Right Brachial Pulse Rate: 89 Pulse Assessment Method: Automatic Cuff - Respirations Respiratory Rate: 16 Oxygen Delivery Method: Room Air O2 Sat by Pulse Oximetry: 98 - Blood Pressure Right Arm Blood Pressure: 138/71 Blood Pressure Mean: 93 Blood Pressure Source: Automatic Cuff Medical Screen Scoring - Cervical Exam Membranes: Intact - Assessment - Baby A Baseline FHR: 135 Heart Rate - NICHD Category: Category I (Normal) Physician Notification - Physician Notified Physician Notified Date: 12/03/21 Physician Notified Time: 22:47 Physician: Teto Flores New Order Received: Yes - Notification Comment Comment: RN spoke with Dr. Flores. Dr. Flores would like for RN to draw a CBC and. amylase and lipase. Dr. Flores states patient could also try pepcid as he believes it. may be gastritis. Patient updated on plan of care. Patient states she would like to see. what labs reveal before taking pepcid. Labs drawn and sent to lab by RN. Labs all normal. Patient discharged. Maternal Triage Index - Maternal Triage Index Presenting for scheduled procedure w/no complaint: No - Stat/Priority 1 Stat Priority 1: No - Urgent/Priority 2 Urgent Priority 2: No - Prompt/Priority 3 Prompt Priority 3: No - Non-Urgent/Priority 4 Non-Urgent Priority 4: Yes Criteria Met for Priority 4: Common discomforts of - epigastric pain radiating to left side worse after eating Disposition - Disposition OB Disposition: Discharge to home Discharge Date: 12/03/21 Discharge Time: 00:00 I agree with the RN Medical Screening Exam: Yes Physician's MSE Comment: I have neither seen nor examined the patient. Case reviewed; plan agreed upon as documented in EMR&OBIX.: Yes Diagnosis: RELATED CONDITIONS, UNSPECIFIED, SECOND TRIMESTER
== END 2021-12-03 | disposition home or self-care (01) ==
LOC: FBPOP 22:27
PROVIDERS: ATTEND Obstetrics & Gynecology
DX: O26.892 Other specified pregnancy related conditions, second trimester (principal); R10.9 Unspecified abdominal pain; Z3A.27 27 weeks gestation of pregnancy; Z88.6 Allergy status to analgesic agent; Z88.5 Allergy status to narcotic agent; Z88.8 Allergy status to other drugs, medicaments and biological substances
CPT/HCPCS: 36415; 82150; 83690; 85025; G0463; 99213

== ENCOUNTER 2022-04-12 14:07 | Inpatient (IN) | payer OTHER ==
--- NOTE | 2022-04-12 14:24 | ED ---
Chest Pain HPI - General Chief Complaint: Chest Pain Stated Complaint: Chest Pain,SOB Time Seen by Provider: 04/12/22 14:13 Source: patient, RN notes reviewed Mode of arrival: ambulatory Limitations: no limitations - History of Present Illness Initial Comments: Patient is a 37-year-old female presents today and to the emergency room via private vehicle with family member with complaints of chest pain which feels as though someone has knocked the wind out of her. She reports the pain is substernal with radiation into her abdomen and posterior between her shoulder blades. She reports that the pain began yesterday and has progressively worsened today. She reports the inability to take in a deep breath. In addition to her chest pain and inability to take in a deep breath she reports some increase in sweating that began today as well. She denies any cough, abdominal pain not related to chest pain radiation, nausea, vomiting, lower extremity edema, headaches, dizziness, fevers or chills. She is 6 weeks and currently breast-feeding. She is a past medical history significant for asthma, endometriosis, migraines, febrile myalgia, seizures, anxiety and panic disorder. She has a family history significant for stroke but denies any family history of CAD less than age of 55. - Related Data Home Medications Medication Instructions Recorded Confirmed Lex-Lhsb-Ftkbt Acid 1 cap PO DAILY 01/21/21 12/20/21 [-U Capsule (formulary)] Cholecalciferol [Vitamin D3 (25 25 mcg PO BID 11/19/21 12/20/21 Mcg = 1000 Iu)] Magnesium 200 mg PO BID 11/19/21 12/20/21 Villard-3 Fatty Acids [Villard-3] 1,000 mg PO BID 12/02/21 12/20/21 Allergies Allergy/AdvReac Type Severity Reaction Status Date / Time aspirin Allergy Unknown Verified 04/12/22 14:12 ketorolac [From Toradol] Allergy Nausea & Verified 04/12/22 14:12 Vomiting lorazepam [From Ativan] AdvReac Severe altered Verified 04/12/22 14:12 mental status cyclobenzaprine AdvReac Rapid Verified 04/12/22 14:12 [From Flexeril] Heart Rate diazepam [From Valium] AdvReac paradoxical Verified 04/12/22 14:12 reaction (anxiety) diphenhydramine HCl AdvReac paradoxical Verified 04/12/22 14:12 [From Benadryl] reaction (anxiety) steroids AdvReac Severe Hallucinati Uncoded 04/12/22 14:12 ons Doles Fruit Cup AdvReac Rash/Hives Uncoded 04/12/22 14:12 Review of Systems ROS Statement: Those systems with pertinent positive or pertinent negative responses have been documented in the HPI. ROS Other: All systems not noted in ROS Statement are negative. EKG Findings - EKG Comments: EKG Findings:: EKG completed at 1418 interpreted by me shows sinus tachycardia, ventricular rate 116 bpm, UT interval 156 ms, QRS duration 97 ms, QT/QTC 301/370 ms, PRT axes 49, 76, 15 Past Medical History Past Medical History: No Reported History, Asthma, Fibromyalgia, Seizure Disorder Additional Past Medical History / Comment(s): endometriosis, migraines, History of Any Multi-Drug Resistant Organisms: None Reported Additional Past Surgical History / Comment(s): endometrial ablation, sinus surgery, D&C, breast implants removed 9 weeks ago (from 01/05/21) Past Anesthesia/Blood Transfusion Reactions: Postoperative Nausea & Vomiting (PONV) Past Psychological History: Anxiety, Panic Disorder Smoking Status: Never smoker Past Alcohol Use History: None Reported Past Drug Use History: None Reported - Past Family History Mother Family Medical History: Cancer Additional Family Medical History / Comment(s): cervical, uterine, and ovarian CA. Complete hysterectomy. Father Family Medical History: Hypertension General Exam Limitations: no limitations General appearance: alert, in no apparent distress Head exam: Present: atraumatic, normocephalic, normal inspection Eye exam: Present: normal appearance, PERRL, EOMI. Absent: scleral icterus, conjunctival injection, periorbital swelling ENT exam: Present: normal exam, mucous membranes moist Neck exam: Present: normal inspection. Absent: tenderness, meningismus, lymphadenopathy Respiratory exam: Present: decreased breath sounds. Absent: respiratory distress, wheezes, rales, rhonchi, stridor, chest wall tenderness, accessory muscle use Cardiovascular Exam: Present: normal rhythm, tachycardia, normal heart sounds. Absent: systolic murmur, diastolic murmur, rubs, gallop, clicks GI/Abdominal exam: Present: soft, normal bowel sounds. Absent: distended, tenderness, guarding, rebound, rigid Rectal exam: Present: deferred Extremities exam: Present: normal inspection. Absent: pedal edema, joint swelling Back exam: Present: normal inspection Neurological exam: Present: alert, oriented X3, CN II-XII intact Psychiatric exam: Present: normal affect, normal mood Skin exam: Present: warm, dry, intact, normal color. Absent: rash Course Vital Signs 04/12/22 04/12/22 14:09 16:42 Temperature 98.6 F Pulse Rate 117 H 101 H Respiratory 22 20 Rate Blood Pressure 130/69 112/72 O2 Sat by Pulse 98 97 Oximetry - Reevaluation(s) Reevaluation #1: Call from Dr. Jimenes current radiologist on notifying of bilateral lower pulmonary emboli without right-sided heart strain at 1620. Notified [facility] provider, vascular Dr. Marcum regarding bilateral pulmonary emboli's and heparin initiation along with echocardiogram order at 1634 with no further orders at this time. Medical team Dr. Hussein contacted regarding need for admission regarding bilateral pulmonary emboli's notification; he was notified regarding heparin order, current pain medication order along with recommendations by consult and vascular provider. He is accepting of admission will place admission orders. CT chest results discussed with Dr. Rodriguez previous attending Dr. Jacinto discussing case with the longer available. Time: 16:56 - Consultations Consultation #1: [facility], vascular Dr Marcum. No further intervention or orders at this time. Time: 16:34 Chest Pain MDM - MDM 37-year-old female presenting with chest pain with radiation posteriorly between the shoulders and inability to take in a deep breath onset 6 weeks high risk for pulmonary emboli and ACS. Will obtain EKG, chest x-ray, CBC, CMP, magnesium, coags, troponin along with Covid and influenza swabs. Once renal function resulted will obtain CT of chest to rule out PE. Patient refused Covid and influenza swabs. Attempted to give morphine for pain along with assistance in breathing and declined medication as she reports she is currently breast-feeding and does not want to inhibit her ability to be able to breast-feed. Encourage medication to help reduce cardiovascular stress however she continues to decline. Patient is currently refusing to have CT contrast dye administered due to her breast-feeding status. Patient was educated regarding the fact that contrast dye is considered safe for lactating mothers and that there is not a contraindication to the contrast dye while breast-feeding. She is also advised that there is no ability to visualize pulmonary emboli or dissections without contrast dye due to the need to visualize vasculature and these are currently high concerning differential diagnosis is that need to be evaluated and failure to evaluate these could result lack of treatment for her condition and possibly result in . Again long discussion with patient regarding CT dye and risks benefits including exposure to radiation and contrast indications for breast-feeding. D-dimer elevated at 9.26. Patient agreeable to proceed forward with computed tomography scan. Will give IV hydration post contrast. Patient agreeable to pain medication as well. Will give IV morphine. Computed tomography scan chest for pulmonary emboli positive. Please see course and consults as above regarding orders and contacts for plan of care. Troponin negative. No electrolyte abnormalities. Hemoglobin and white count normal. Will admit patient to medical team with consult to vascular on high-dose heparin drip with continued pain control. Long discussion with patient regarding treatment plan and typical disease progression for pulmonary emboli. Patient resting comfortably with no further questions at this time. Case discussed with Dr. Jacinto. Disposition Clinical Impression: Pulmonary emboli Disposition: ADMITTED IP TO THIS HOSP Condition: Stable Is patient prescribed a controlled substance at d/c from ED?: No Referrals: None,Stated [Primary Care Provider] - 1-2 days Time of Disposition: 17:04
[2022-04-12 14:50] LABS: Basophils % (A) 0 %; Eosinophils # (A) 0.1 k/uL (0-0.7); Eosinophils % (A) 1 %; HCT 42.3 % (34.0-46.0); HGB 14.4 gm/dL (11.4-16.0); Lymphocytes % (A) 10 %; MCH 29.3 pg (25.0-35.0); MCV 86.4 fL (80.0-100.0); Mean Platelet Volume 7.9; Monocytes # (A) 0.5 k/uL (0-1.0); Monocytes % (A) 5 %; Neutrophils # (A) 8.1 k/uL (1.3-7.7); Neutrophils % (A) 82 %; Platelet Count 234 k/uL (150-450); RDW 12.5 % (11.5-15.5); WBC 9.9 k/uL (3.8-10.6)
[2022-04-12 15:00] LABS: ALT 31 U/L (4-34); AST 30 U/L (14-36); African American GFR (CKD) >90 (>60 ml/min/1.73 sqM); Albumin 4.7 g/dL (3.5-5.0); Alkaline Phosphatase 145 U/L (38-126); Anion Gap 11 mmol/L; Blood Urea Nitrogen 16 mg/dL (7-17); Calcium 9.5 mg/dL (8.4-10.2); Carbon Dioxide 23 mmol/L (22-30); Chloride 105 mmol/L (98-107); Glucose 173 mg/dL (74-99); Magnesium 1.7 mg/dL (1.6-2.3); Non-African American GFR(CKD) >90 (>60 ml/min/1.73 sqM); Potassium 4.3 mmol/L (3.5-5.1); Sodium 139 mmol/L (137-145); Total Bilirubin 0.3 mg/dL (0.2-1.3); Total Protein 7.7 g/dL (6.3-8.2)
--- NOTE | 2022-04-12 15:06 | XR ---
EXAMINATION TYPE: XR chest 2V DATE OF EXAM: 04/12/2022 COMPARISON: 12/06/2019 HISTORY: Chest pain TECHNIQUE: 2 views FINDINGS: There is some mild pleural reaction lateral left lung base. Heart size is normal. There is atelectasis left lung base. No heart failure. There are no hilar masses. IMPRESSION: There is some pleural reaction and atelectasis left lung base which is new compared to ol d exam.
[2022-04-12 15:08] LABS: INR 0.9 (<1.2)
[2022-04-12 15:09] LABS: Partial Thromboplastin Time 24.2 sec (22.0-30.0); Prothrombin Time 9.8 sec (9.0-12.0)
[2022-04-12] MEDS ORDERED: MORPHINE SULFATE 4 MG/ML SYRINGE IVP STA (15:30)
[2022-04-12] MEDS ORDERED: SODIUM CHLORIDE 0.9% 1,000 ML IV STA (16:14)
--- NOTE | 2022-04-12 16:24 | CT ---
EXAMINATION TYPE: CT angio chest DATE OF EXAM: 04/12/2022 COMPARISON: None HISTORY: chest pain and SOB. pt [address] DLP: 604 mGycm Automated exposure control for dose reduction was used. CONTRAST: Performed with IV Contrast, patient injected with 91 mL of Isovue 370. Images obtained from the thoracic inlet to the diaphragm with the IV contrast. There are Three-D post processed images. There is coarse interstitial infiltrate in both lung dyson. There is some atelectasis at the lung ba ses. There are multiple filling defects in the right lower lobe pulmonary artery. There are filling defect s to lesser extent in the posterior left lower lobe pulmonary artery. There is no mediastinal adenopathy. There are no hilar masses. Thoracic aorta is intact. No aneurysm or dissection. The bony thorax is intact. IMPRESSION: Bilateral lower lobe pulmonary emboli. Mild infiltrate and atelectasis at the lung bases. No evidence of right heart strain. Exam was discussed with attending staff at 4:20 PM.
[2022-04-12] MEDS ORDERED: HEPARIN SODIUM 1,000 UN/ML (10ML VL) IV PRN (16:29)
[2022-04-12] MEDS ORDERED: HEPARIN SODIUM 1,000 UN/ML (10ML VL) IV ONE (16:29)
[2022-04-12] MEDS ORDERED: ACETAMINOPHEN TAB 325 MG TAB PO PRN (16:30)
[2022-04-12] MEDS ORDERED: MORPHINE SULFATE 4 MG/ML SYRINGE IV PRN (16:30)
[2022-04-12] MEDS ORDERED: NALOXONE 0.4 MG/ML 1 ML VIAL IV PRN (16:30)
[2022-04-12] MEDS: HEPARIN SOD,PORK IN 0.45% NACL 25,000 UNIT in 0.45% NACL 1 250ML.BAG IV SCH (16:37)
--- NOTE | 2022-04-12 17:42 | P.HPIM ---
History of Present Illness H&P Date: 04/12/22 Patient is a 37-year-old female who is 6 weeks , history of anxiety and panic disorder, fibromyalgia, migraine and endometriosis presents the ED for chest pain. She reports sudden onset chest pain while grocery shopping yesterday. Chest pain is sharp and stabbing in nature radiating to the left shoulder. Pain is 10 out of 10 in severity. Chest pain is associated with shortness of breath. Pain is aggravated with deep inspiration. This constellation of symptoms prompted her to come to the ED. Patient denies smoking. She denies any family history of clotting disorders. She denies any headache, lower extremity edema, nausea or vomiting, fever or chills, cough, palpitations, changes in urination or bowel habits. No changes in appetite or weight. She denies any dizziness, numbness/weakness/tingling of the extremities. In the ED, patient was noted to be tachycardic with heart rate in the 110s. Laboratory analysis was significant for d-dimer of 9.26. CTA chest showed bilateral lower lobe pulmonary embolus with no evidence of right heart strain. Patient was admitted for further management. Pertinent positives and negatives as discussed in HPI, a complete review of sy stems was performed and all other systems are negative. General: non toxic, no distress, appears at stated age Derm: warm, dry Head: atraumatic, normocephalic, symmetric Eyes: EOMI, no lid lag, anicteric sclera Mouth: no lip lesion, mucus membranes moist Cardiovascular: Tachycardic, no murmur Lungs: CTA bilateral, no rhonchi, no rales , no accessory muscle use Abdominal: soft, nontender to palpation, no guarding, no appreciable organomegaly Ext: no gross muscle atrophy, no edema, no contractures Neuro: CN II-XI grossly intact, no focal neuro deficits Psych: Alert, oriented, appropriate affect #Chest pain #Pulmonary embolus # Her symptoms are related to her diagnosis of PE. This is provoked as she is 6 weeks . Patient is placed on a heparin drip. Pain will be controlled with Morphine, Strawberry and Toradol as needed. Patient plans to continue breast feeding so she should not use a NOAC. Coumadin or Lovenox is probably her best choice on discharge. She will be placed on telemetry monitoring. Echocardiogram will be ordered. Vascular surgery has also been consulted by the ED. #Obesity Patient would benefit from a structured weight loss program. DVT prophylaxis: Heparin drip Discussed with: Patient, ED physician, nurse Anticipated discharge: [address]: Home A total of 30 minutes was spent on the care of this complex patient more than 50% of the time was spent in counseling and care coordination. Patient would like to be FULL CODE. Past Medical History Past Medical History: No Reported History, Asthma, Fibromyalgia, Seizure Disorder Additional Past Medical History / Comment(s): endometriosis, migraines, History of Any Multi-Drug Resistant Organisms: None Reported Additional Past Surgical History / Comment(s): endometrial ablation, sinus surgery, D&C, breast implants removed 9 weeks ago (from 01/05/21) Past Anesthesia/Blood Transfusion Reactions: Postoperative Nausea & Vomiting (PONV) Past Psychological History: Anxiety, Panic Disorder Smoking Status: Never smoker Past Alcohol Use History: None Reported Past Drug Use History: None Reported - Past Family History Mother Family Medical History: Cancer Additional Family Medical History / Comment(s): cervical, uterine, and ovarian CA. Complete hysterectomy. Father Family Medical History: Hypertension Medications and Allergies Home Medications Medication Instructions Recorded Confirmed Type Duj-Ytxv-Gkrut Acid 1 cap PO DAILY 01/21/21 04/12/22 History [-U Capsule (formulary)] Magnesium 200 mg PO BID 11/19/21 04/12/22 History Ascorbic Acid [Vitamin C] 500 mg PO BID 04/12/22 04/12/22 History Allergies Allergy/AdvReac Type Severity Reaction Status Date / Time aspirin Allergy Unknown Verified 04/12/22 17:34 ketorolac [From Toradol] Allergy Nausea & Verified 04/12/22 17:34 Vomiting lorazepam [From Ativan] AdvReac Severe altered Verified 04/12/22 17:34 mental status cyclobenzaprine AdvReac Rapid Verified 04/12/22 17:34 [From Flexeril] Heart Rate diazepam [From Valium] AdvReac paradoxical Verified 04/12/22 17:34 reaction (anxiety) diphenhydramine HCl AdvReac paradoxical Verified 04/12/22 17:34 [From Benadryl] reaction (anxiety) steroids AdvReac Severe Hallucinati Uncoded 04/12/22 14:12 ons Doles Fruit Cup AdvReac Rash/Hives Uncoded 04/12/22 14:12 Physical Exam Vitals: Vital Signs Temp Pulse Resp BP Pulse Ox 04/12/22 16:42 101 H 20 112/72 97 04/12/22 14:09 98.6 F 117 H 22 130/69 98 Intake and Output 04/12/22 04/12/22 04/12/22 06:59 14:59 22:59 Other: Weight 99.79 kg Results CBC & Chem 7: 04/12/22 14:18 04/12/22 14:18 Labs: Abnormal Lab Results - Last 24 Hours (Table) 04/12/22 04/12/22 04/12/22 Range/Units 14:18 14:18 14:18 Neutrophils # 8.1 H (1.3-7.7) k/uL D-Dimer 9.26 H (<0.60) mg/L FEU Glucose 173 H (74-99) mg/dL Alkaline Phosphatase 145 H (38-126) U/L
[2022-04-12] MEDS: KETOROLAC 15 MG/ML 1 ML VIAL IVP SCH (18:24)
[2022-04-12] MEDS: HYDROmorphone 1 MG/ML 1 ML SYRINGE IVP PRN ×2 (18:33→21:38)
[2022-04-12] MEDS: ONDANSETRON 4 MG/2 ML VIAL IVP PRN (21:39)
[2022-04-12 23:02] LABS: Basophils % (A) 0 %; Eosinophils % (A) 0 %; HCT 40.6 % (34.0-46.0); HGB 13.6 gm/dL (11.4-16.0); Lymphocytes # (A) 1.5 k/uL (1.0-4.8); Lymphocytes % (A) 13 %; MCHC 33.5 g/dL (31.0-37.0); MCV 86.7 fL (80.0-100.0); Mean Platelet Volume 8.7; Monocytes # (A) 0.5 k/uL (0-1.0); Monocytes % (A) 5 %; Neutrophils # (A) 9.1 k/uL (1.3-7.7); Neutrophils % (A) 80 %; Platelet Count 202 k/uL (150-450); RBC 4.69 m/uL (3.80-5.40); RDW 12.9 % (11.5-15.5); WBC 11.4 k/uL (3.8-10.6)
[2022-04-12 23:15] LABS: INR 0.9 (<1.2); Partial Thromboplastin Time 49.7 sec (22.0-30.0); Prothrombin Time 10.3 sec (9.0-12.0)
[2022-04-13] MEDS: HYDROmorphone 1 MG/ML 1 ML SYRINGE IVP PRN ×6 (00:49→22:00)
[2022-04-13] MEDS: KETOROLAC 15 MG/ML 1 ML VIAL IVP SCH ×2 (03:14→05:02)
[2022-04-13] MEDS ORDERED: ALPRAZolam 0.25 MG TAB PO STA (03:44)
[2022-04-13] MEDS: ONDANSETRON 4 MG/2 ML VIAL IVP PRN ×3 (03:50→19:02)
[2022-04-13] MEDS: HEPARIN SOD,PORK IN 0.45% NACL 25,000 UNIT in 0.45% NACL 1 250ML.BAG IV SCH ×2 (06:41→18:27)
--- NOTE | 2022-04-13 11:31 | US ---
EXAMINATION TYPE: US venous doppler duplex LE DATE OF EXAM: 04/13/2022 11:02 AM COMPARISON: NONE CLINICAL HISTORY: PE. 6 weeks, chest pain, PE's, no leg symptoms SIDE PERFORMED: Bilateral TECHNIQUE: The lower extremity deep venous system is examined utilizing real time linear array sonog marcie with graded compression, doppler sonography and color-flow sonography. VESSELS IMAGED: Common Femoral Vein Deep Femoral Vein Greater Saphenous Vein * Femoral Vein Popliteal Vein Small Saphenous Vein * Proximal Calf Veins (* superficial vessels) Right Leg: Negative for DVT Left Leg: Negative for DVT Grayscale, color doppler, spectral doppler imaging performed of the deep veins of the bilateral lower extremities. There is normal flow, compressibility, vascular waveforms. IMPRESSION: No ultrasound evidence for acute DVT in either lower extremity.
[2022-04-13 11:32] LABS: Basophils % (A) 0 %; Eosinophils # (A) 0.1 k/uL (0-0.7); Eosinophils % (A) 2 %; HCT 37.9 % (34.0-46.0); HGB 12.6 gm/dL (11.4-16.0); Lymphocytes # (A) 1.6 k/uL (1.0-4.8); Lymphocytes % (A) 22 %; MCH 29.3 pg (25.0-35.0); MCHC 33.2 g/dL (31.0-37.0); MCV 88.2 fL (80.0-100.0); Mean Platelet Volume 7.9; Monocytes # (A) 0.4 k/uL (0-1.0); Monocytes % (A) 6 %; Neutrophils # (A) 4.7 k/uL (1.3-7.7); Neutrophils % (A) 68 %; Platelet Count 197 k/uL (150-450); RBC 4.29 m/uL (3.80-5.40); RDW 12.7 % (11.5-15.5); WBC 6.9 k/uL (3.8-10.6)
--- NOTE | 2022-04-13 12:13 | P.GSCN ---
History of Present Illness Consult date: 04/13/22 Reason for Consult: Pulmonary embolism Requesting physician: Cristina Weeks History of present illness: This is a pleasant 29-year-old female who presented to the emergency department with complaints of shortness of breath and chest pain radiating into her back. Patient is 6 weeks from vaginal delivery. Her initial workup showed elevated d-dimer. They did a CT angiogram of the chest that reported bilateral lower lobe pulmonary emboli, mild infiltrate and atelectasis at the lung bases. No evidence of right heart strain. Vascular surgery was consulted for bilateral pulmonary emboli. He shouldn't denies any previous history of DVT or pulmonary embolism. She denies any recent travel or surgery. She did have a vaginal delivery approximately 6 weeks ago. She also states she believes her father has a bleeding disorder, she believes she may have had workup in the past. She states about a week ago she did have some redness and pain in her right lower extremity. She currently denies any significant shortness of breath but still continues to have pain under her left breast and into her back. Oxygen 93-94% on room air. Patient was started on heparin drip. Echocardiogram is pending. Troponins were negative. Review of Systems A 14 point review systems was completed all pertinent positives and negatives as stated in the HPI. Past Medical History Past Medical History: No Reported History, Asthma, Fibromyalgia, Seizure Disorder Additional Past Medical History / Comment(s): endometriosis, migraines, History of Any Multi-Drug Resistant Organisms: None Reported Additional Past Surgical History / Comment(s): endometrial ablation, sinus surgery, D&C, breast implants removed 9 weeks ago (from 01/05/21) Past Anesthesia/Blood Transfusion Reactions: Postoperative Nausea & Vomiting (PONV) Past Psychological History: Anxiety, Panic Disorder Smoking Status: Never smoker Past Alcohol Use History: None Reported Past Drug Use History: None Reported - Past Family History Mother Family Medical History: Cancer Additional Family Medical History / Comment(s): cervical, uterine, and ovarian CA. Complete hysterectomy. Father Family Medical History: Hypertension Medications and Allergies Home Medications Medication Instructions Recorded Confirmed Type Fxb-Ajfe-Dbjvt Acid 1 cap PO DAILY 01/21/21 04/12/22 History [-U Capsule (formulary)] Magnesium 200 mg PO BID 11/19/21 04/12/22 History Ascorbic Acid [Vitamin C] 500 mg PO BID 04/12/22 04/12/22 History Enoxaparin [Lovenox] 100 mg SQ Q12H #60 each 04/13/22 Rx Allergies Allergy/AdvReac Type Severity Reaction Status Date / Time aspirin Allergy Unknown Verified 04/12/22 17:34 ketorolac [From Toradol] Allergy Nausea & Verified 04/12/22 17:34 Vomiting lorazepam [From Ativan] AdvReac Severe altered Verified 04/12/22 17:34 mental status cyclobenzaprine AdvReac Rapid Verified 04/12/22 17:34 [From Flexeril] Heart Rate diazepam [From Valium] AdvReac paradoxical Verified 04/12/22 17:34 reaction (anxiety) diphenhydramine HCl AdvReac paradoxical Verified 04/12/22 17:34 [From Benadryl] reaction (anxiety) steroids AdvReac Severe Hallucinati Uncoded 04/12/22 14:12 ons Doles Fruit Cup AdvReac Rash/Hives Uncoded 04/12/22 14:12 Surgical - Exam Vital Signs Temp Pulse Resp BP Pulse Ox 98.6 F 117 H 22 130/69 98 04/12/22 14:09 04/12/22 14:09 04/12/22 14:09 04/12/22 14:09 04/12/22 14:09 General appearance: The patient is alert, oriented, appears in no acute distress. HET: Head is normocephalic and atraumatic. Pupils are equal and reactive. Neck: Supple without lymphadenopathy. Trachea midline. Heart: Regular. Lungs: Equal expansion, normal respiratory effort. Abdomen: Soft, nontender, nondistended. Extremities: Normal skin color and turgor. No cyanosis, rash, ulceration, clubbing, or edema. Radial and pedal pulses are 2/4 bilaterally. Neurological: No focal deficits. Strength and sensation are grossly intact. Results - Labs 04/13/22 11:11 04/12/22 14:18 Abnormal Lab Results - Last 24 Hours (Table) 04/12/22 04/12/22 04/12/22 Range/Units 14:18 14:18 14:18 WBC (3.8-10.6) k/uL Neutrophils # 8.1 H (1.3-7.7) k/uL APTT (22.0-30.0) sec D-Dimer 9.26 H (<0.60) mg/L FEU Glucose 173 H (74-99) mg/dL Alkaline Phosphatase 145 H (38-126) U/L 04/12/22 04/12/22 Range/Units 22:47 22:47 WBC 11.4 H (3.8-10.6) k/uL Neutrophils # 9.1 H (1.3-7.7) k/uL APTT 49.7 H (22.0-30.0) sec D-Dimer (<0.60) mg/L FEU Glucose (74-99) mg/dL Alkaline Phosphatase (38-126) U/L Diabetes panel 04/12/22 Range/Units 14:18 Sodium 139 (137-145) mmol/L Potassium 4.3 (3.5-5.1) mmol/L Chloride 105 (98-107) mmol/L Carbon Dioxide 23 (22-30) mmol/L BUN 16 (7-17) mg/dL Creatinine 0.52 (0.52-1.04) mg/dL Glucose 173 H (74-99) mg/dL Calcium 9.5 (8.4-10.2) mg/dL AST 30 (14-36) U/L ALT 31 (4-34) U/L Alkaline Phosphatase 145 H (38-126) U/L Total Protein 7.7 (6.3-8.2) g/dL Albumin 4.7 (3.5-5.0) g/dL Calcium panel 04/12/22 Range/Units 14:18 Calcium 9.5 (8.4-10.2) mg/dL Albumin 4.7 (3.5-5.0) g/dL Pituitary panel 04/12/22 Range/Units 14:18 Sodium 139 (137-145) mmol/L Potassium 4.3 (3.5-5.1) mmol/L Chloride 105 (98-107) mmol/L Carbon Dioxide 23 (22-30) mmol/L BUN 16 (7-17) mg/dL Creatinine 0.52 (0.52-1.04) mg/dL Glucose 173 H (74-99) mg/dL Calcium 9.5 (8.4-10.2) mg/dL Adrenal panel 04/12/22 Range/Units 14:18 Sodium 139 (137-145) mmol/L Potassium 4.3 (3.5-5.1) mmol/L Chloride 105 (98-107) mmol/L Carbon Dioxide 23 (22-30) mmol/L BUN 16 (7-17) mg/dL Creatinine 0.52 (0.52-1.04) mg/dL Glucose 173 H (74-99) mg/dL Calcium 9.5 (8.4-10.2) mg/dL Total Bilirubin 0.3 (0.2-1.3) mg/dL AST 30 (14-36) U/L ALT 31 (4-34) U/L Alkaline Phosphatase 145 H (38-126) U/L Total Protein 7.7 (6.3-8.2) g/dL Albumin 4.7 (3.5-5.0) g/dL - Imaging Comments: See HPI for report Assessment and Plan Assessment: 1. Bilateral pulmonary emboli 2. , vaginal delivery 6 weeks ago 3. Possible family history of clotting disorder Plan: 1. Continue with heparin drip 2. Echocardiogram ordered 3. Bilateral lower extremity duplex ordered 4. Further recommendations forthcoming based on clinical course Thank you for this consultation, we will continue to follow. The impression and plan of care has been dictated as directed. Dr. Hutchins I performed a history and examination of this patient, discussed the same with the dictator. I agree with the dictator's note ,documented as a scribe. Any additional findings or plans will be noted. Reviewed imaging- distal emboli noted bilaterally. Await ECHO results- if positive then recommend intervention.
[2022-04-13] MEDS: HYDROcodone/APAP 5-325MG 1 EACH TAB PO PRN ×2 (14:48→21:13)
--- NOTE | 2022-04-13 16:51 | P.PN ---
Subjective Progress Note Date: 04/13/22 Patient is a 37-year-old female who is 6 weeks from her fourth child, with known anxiety and panic disorder, fibromyalgia, migraine headaches, and endometriosis who initially presented to the ER for chest pain. She is on have bilateral lower lobe pulmonary emboli. Started on a heparin drip and arrangements were made for admission. She was seen by vascular surgery who did not recommend any burning urgent intervention at this time. Oncology was consulted. Lower extremity venous Dopplers were negative. Echocardiogram pending Patient seen and examined at bedside. She does report she would like to continue breast-feeding if at all possible. This is her fourth child she was breast-fed all of her others. She has a pumping and dumping. She continues to have some chest pain. She had home childbirth X 4 but states that this pain is so severe she is requiring Dilaudid. General: nontoxic, no distress, appears at stated age Derm: warm, dry Head: atraumatic, normocephalic, symmetric Eyes: EOMI, no lid lag, anicteric sclera Mouth: no lip lesion, mucus membranes moist Cardiovascular: S1S2 reg, no murmur, positive posterior tibial pulse bilateral, Lungs: Decreased breath sounds bilateral, no rhonchi, no rales , no accessory muscle use Abdominal: soft, nontender to palpation, no guarding, no appreciable organomegaly Ext: no gross muscle atrophy, no edema, no contractures Neuro: CN II-XI grossly intact, no focal neuro deficits Psych: Alert, oriented, appropriate affect Assessment/plan: Bilateral lower lobe pulmonary emboli, provoked childbirth -Await Heme/onc recommendations - vascular recs apprecaited -She'll be unable to have DOAC secondary to breast-feeding likely will need Lovenox -Await ECHO Post state - conitnued follow-up with direct entry midwife Chronic: Asthma Fibromyalgia Seizure disorder Endometriosis Migraines Likely home in a.m. once echo available. Objective - Vital Signs Vital signs: Vital Signs Temp 98.1 F 04/13/22 14:45 Pulse 96 04/13/22 14:45 Resp 18 04/13/22 14:45 BP 104/79 04/13/22 14:45 Pulse Ox 94 L 04/13/22 14:45 FiO2 Intake & Output 04/12/22 04/13/22 04/13/22 18:59 06:59 18:59 Intake Total 250.00 Balance 250.00 Weight 99.79 kg Intake: Intake, IV Titration 250.00 Amount Heparin Sod,Pork in 0.45% 250.00 NaCl 25,000 unit In 0.45 % NaCl 1 250ml.bag @ 18 UNITS/KG/HR 17.962 mls/hr IV .[id number] [facility] Rx#: [id number] Other: Voiding Method Toilet - Labs CBC & Chem 7: 04/13/22 11:11 04/12/22 14:18 Labs: Abnormal Lab Results - Last 24 Hours (Table) 04/12/22 04/12/22 04/13/22 Range/Units 22:47 22:47 11:11 WBC 11.4 H (3.8-10.6) k/uL Neutrophils # 9.1 H (1.3-7.7) k/uL APTT 49.7 H 48.0 H (22.0-30.0) sec
--- NOTE | 2022-04-13 21:03 | P.CONS ---
History of Present Illness - Reason for Consult Consult date: 04/13/22 PE Requesting physician: Liz Mendez - Chief Complaint chest pain with inspiration - History of Present Illness Mrs. Hagan is a very pleasant 37 yo female who is post about 6 weeks. She has no other medical Hx, she reports that her father has a genetic disorder of the blood and is on coumdin, mother has Hx of CVA. She states she thinks she was worked up for a blood disorder when she was in her teens. This is her 4 , all babies>10lbs, no history of blood clots previously, she did relay excessive wt gain with this and decreased activity recently. 1 week ago she noted RLE calf pain and swelling with a "knot" and redness, this has dec reased. Over the last several days she noted lt chest pain, radiating through to the back, worse with laying flat, deep inspiration and laying on the lt side. It worsened to the point that she thought she should be seen. Initially she didn't want to have contrast for imaging as she is breast feeding but, she relented. CTA showed bilateral lower lobe PE. She has been started on heparin drip, she is using narcotics for the pain in her chest. VS are stable, she has no other physical c/o. Review of Systems 10 point ROS is neg except as stated in HPI Past Medical History Past Medical History: No Reported History, Asthma, Fibromyalgia, Pulmonary Embolus (PE) (04/13/22), Seizure Disorder Additional Past Medical History / Comment(s): endometriosis, migraines, History of Any Multi-Drug Resistant Organisms: None Reported Additional Past Surgical History / Comment(s): endometrial ablation, sinus surgery, D&C, breast implants removed 9 weeks ago (from 01/05/21) Past Anesthesia/Blood Transfusion Reactions: Postoperative Nausea & Vomiting (PONV) Past Psychological History: Anxiety, Panic Disorder Smoking Status: Never smoker Past Alcohol Use History: None Reported Past Drug Use History: None Reported - Past Family History Mother Family Medical History: Cancer Additional Family Medical History / Comment(s): cervical, uterine, and ovarian CA. Complete hysterectomy. Father Family Medical History: Hypertension Medications and Allergies Home Medications Medication Instructions Recorded Confirmed Type Aao-Uzof-Keuba Acid 1 cap PO DAILY 01/21/21 04/12/22 History [-U Capsule (formulary)] Magnesium 200 mg PO BID 11/19/21 04/12/22 History Ascorbic Acid [Vitamin C] 500 mg PO BID 04/12/22 04/12/22 History Enoxaparin [Lovenox] 100 mg SQ Q12H #60 each 04/13/22 Rx Allergies Allergy/AdvReac Type Severity Reaction Status Date / Time aspirin Allergy Unknown Verified 04/12/22 17:34 ketorolac [From Toradol] Allergy Nausea & Verified 04/12/22 17:34 Vomiting lorazepam [From Ativan] AdvReac Severe altered Verified 04/12/22 17:34 mental status cyclobenzaprine AdvReac Rapid Verified 04/12/22 17:34 [From Flexeril] Heart Rate diazepam [From Valium] AdvReac paradoxical Verified 04/12/22 17:34 reaction (anxiety) diphenhydramine HCl AdvReac paradoxical Verified 04/12/22 17:34 [From Benadryl] reaction (anxiety) steroids AdvReac Severe Hallucinati Uncoded 04/12/22 14:12 ons Doles Fruit Cup AdvReac Rash/Hives Uncoded 04/12/22 14:12 Physical Exam Vitals: Vital Signs Temp Pulse Pulse Resp BP BP Pulse Ox 04/13/22 09:00 18 04/13/22 08:12 98.0 F 92 18 101/60 94 L 04/13/22 05:13 16 04/13/22 02:00 90 04/12/22 21:30 98.6 F 91 18 119/68 93 L 04/12/22 20:20 97.9 F 99 16 117/71 95 04/12/22 16:42 101 H 20 112/72 97 04/12/22 14:09 98.6 F 117 H 22 130/69 98 Intake and Output 04/12/22 04/13/22 04/13/22 22:59 06:59 14:59 Intake Total 250.00 Balance 250.00 Intake: Intake, IV Titration 250.00 Amount Heparin Sod,Pork in 0.45% 250.00 NaCl 25,000 unit In 0.45 % NaCl 1 250ml.bag @ 18 UNITS/KG/HR 17.962 mls/hr IV .[id number] [facility] Rx#: [id number] Other: Voiding Method Toilet Toilet - Constitutional General appearance: cooperative, no acute distress, obese - EENT Eyes: anicteric sclerae, EOMI ENT: hearing grossly normal, normal oropharynx - Neck Neck: no lymphadenopathy - Respiratory Respiratory: bilateral: CTA, other (restricted inspiration 2/2 pain) - Cardiovascular Rhythm: regular Heart sounds: normal: S1, S2 Abnormal Heart Sounds: no systolic murmur, no diastolic murmur, no rub, no S3 Gallop, no S4 Gallop, no click, no other leg Peripheral Edema: right: Trace, left: None - Gastrointestinal General gastrointestinal: no absent bowel sounds, no decreased bowel sounds, no distended, no hepatomegaly, no hyperactive bowel sounds, normal bowel sounds, no organomegaly, no rigid, no scaphoid, soft, no splenomegaly, no tenderness, no umbilical hernia, no ventral hernia - Integumentary Integumentary: normal - Neurologic Neurologic: CNII-XII intact - Musculoskeletal Musculoskeletal: strength equal bilaterally - Psychiatric Psychiatric: A&O x's 3, appropriate affect, intact judgment & insight Results CBC & Chem 7: 04/13/22 11:11 04/12/22 14:18 Labs: Abnormal Lab Results - Last 24 Hours (Table) 04/12/22 04/12/22 04/12/22 Range/Units 14:18 14:18 14:18 WBC (3.8-10.6) k/uL Neutrophils # 8.1 H (1.3-7.7) k/uL APTT (22.0-30.0) sec D-Dimer 9.26 H (<0.60) mg/L FEU Glucose 173 H (74-99) mg/dL Alkaline Phosphatase 145 H (38-126) U/L 04/12/22 04/12/22 Range/Units 22:47 22:47 WBC 11.4 H (3.8-10.6) k/uL Neutrophils # 9.1 H (1.3-7.7) k/uL APTT 49.7 H (22.0-30.0) sec D-Dimer (<0.60) mg/L FEU Glucose (74-99) mg/dL Alkaline Phosphatase (38-126) U/L Chest x-ray: report reviewed CT scan - chest: report reviewed Assessment and Plan (1) Pulmonary emboli Current Visit: Yes Status: Acute Priority: High Code(s): I26.99 - OTHER PULMONARY EMBOLISM WITHOUT ACUTE COR PULMONALE SNOMED Code(s): 33910674 Plan: 37 yo female with provoked crystal PE 6 weeks with rt calf pain 1 week ago, chest pain last several days that has been persistent and progressive. Doppler of BLE for baseline and c/o rt calf pain 1 week ago Pt is breast feeding. Lovenox is able to be used during . Lovenox Rx sent. Edu of pt. Consult Case Mgmt for copay verification. Provoked blood clot. With pt family Hx, would be reasonable to consider hypercoagulable work up outpt. Being this is first clot and provoked, duration of anticoagulation 3-6 mo. Agree with continuing heparin drip for at least 24 hours as pt is symptomatic ECHO was ordered Dr. Monacoests: I have seen and examined pt, performed H&P, developed impression and plan of care. Discussed with dictator. STEPHANIEgree with documentation, dictated as a scribe.
[2022-04-14] MEDS: HYDROmorphone 1 MG/ML 1 ML SYRINGE IVP PRN ×3 (03:01→14:11)
[2022-04-14] MEDS: ONDANSETRON 4 MG/2 ML VIAL IVP PRN ×3 (03:04→14:11)
[2022-04-14] MEDS: HYDROcodone/APAP 5-325MG 1 EACH TAB PO PRN ×2 (06:30→11:16)
[2022-04-14 07:36] LABS: HCT 38.7 % (34.0-46.0); HGB 12.7 gm/dL (11.4-16.0); MCH 29.2 pg (25.0-35.0); MCHC 32.7 g/dL (31.0-37.0); MCV 89.2 fL (80.0-100.0); Mean Platelet Volume 8.2; Platelet Count 187 k/uL (150-450); RBC 4.34 m/uL (3.80-5.40); RDW 12.6 % (11.5-15.5); WBC 5.7 k/uL (3.8-10.6)
[2022-04-14 07:53] LABS: ALT 32 U/L (4-34); AST 27 U/L (14-36); African American GFR (CKD) >90 (>60 ml/min/1.73 sqM); Albumin 3.9 g/dL (3.5-5.0); Alkaline Phosphatase 130 U/L (38-126); Anion Gap 5 mmol/L; Blood Urea Nitrogen 13 mg/dL (7-17); Calcium 8.6 mg/dL (8.4-10.2); Carbon Dioxide 28 mmol/L (22-30); Chloride 106 mmol/L (98-107); Glucose 99 mg/dL (74-99); Non-African American GFR(CKD) >90 (>60 ml/min/1.73 sqM); Potassium 4.7 mmol/L (3.5-5.1); Sodium 139 mmol/L (137-145); Total Bilirubin 0.4 mg/dL (0.2-1.3); Total Protein 6.4 g/dL (6.3-8.2)
[2022-04-14] MEDS: HEPARIN SOD,PORK IN 0.45% NACL 25,000 UNIT in 0.45% NACL 1 250ML.BAG IV SCH (08:20)
--- NOTE | 2022-04-14 09:04 | P.PN ---
Subjective Progress Note Date: 04/14/22 Principal diagnosis: Bilateral pulmonary emboli The patient is seen and examined at the bedside. States she was up and showered she did have some dyspnea with exertion and still complains of pain especially with deep breathing. She is still using pain medication regularly around the clock. She's been afebrile.on admission patient also had a chest x-ray that showed pleural reaction and atelectasis at the left lung base.oxygen saturation 96% on room air. echocardiogram completed yesterday evening according to patient however results are pending. Venous duplex bilateral lower extremities negative for DVT. Hematology has seen patient and recommends Lovenox due to patient breast-feeding Objective - Vital Signs Vital signs: Vital Signs Temp 98.1 F 04/14/22 08:26 Pulse 80 04/14/22 08:26 Resp 17 04/14/22 08:26 BP 124/84 04/14/22 08:26 Pulse Ox 96 04/14/22 08:26 FiO2 Intake & Output 04/13/22 04/14/22 04/14/22 18:59 06:59 18:59 Intake Total 211.353 249.805 Balance 211.353 249.805 Weight 99.79 kg Intake: Intake, IV Titration 211.353 249.805 Amount Heparin Sod,Pork in 0.45% 211.353 249.805 NaCl 25,000 unit In 0.45 % NaCl 1 250ml.bag @ 18 UNITS/KG/HR 17.962 mls/hr IV .[id number] [facility] Rx#: [id number] Other: Voiding Method Toilet # Voids 2 1 - Exam General appearance: The patient is alert, oriented, appears in no acute distress. HET: Head is normocephalic and atraumatic. Pupils are equal and reactive. Neck: Supple without lymphadenopathy. Trachea midline. Heart: S1 S2. Regular rate and rhythm. Lungs: : Equal entry, normal expansion. Abdomen: Soft, nontender, nondistended. Extremities: Normal skin color and turgor. No cyanosis, rash, ulceration, clubbing, or edema. Neurological: No focal deficits. Strength and sensation are grossly intact. - Labs CBC & Chem 7: 04/14/22 06:57 04/14/22 06:57 Labs: Abnormal Lab Results - Last 24 Hours (Table) 11/04/14/22 04/14/22 Range/Units 11:11 06:57 06:57 APTT 48.0 H 40.1 H (22.0-30.0) sec Alkaline Phosphatase 130 H (38-126) U/L Assessment and Plan Assessment: 1. Bilateral pulmonary emboli 2. , vaginal delivery 6 weeks ago 3. Possible family history of clotting disorder 4. Atelectasis left lung base per Plan: 1. Continue with heparin drip until echocardiogram resulted 2. Echocardiogram ordered, results pending 3. Bilateral lower extremity duplex ordered and reviewed. Negative for DVT 4. Further recommendations forthcoming based on clinical course Thank you for this consultation, we will continue to follow. The impression and plan of care has been dictated as directed. Dr. Hutchins I performed a history and examination of this patient, discussed the same with the dictator. I agree with the dictator's note ,documented as a scribe. Any additional findings or plans will be noted.
--- NOTE | 2022-04-14 12:28 | P.PN ---
Subjective Progress Note Date: 04/14/22 Principal diagnosis: Acute pulmonary embolism Patient states that she spoke with a physician this morning she does not know the name who told her that she is not ready to go home. Patient states that she still having chest pain. She states that she believes in holistic medicine however due to severe the pain she has to take Dilaudid to control pain. Objective - Vital Signs Vital signs: Vital Signs Temp 98.1 F 04/14/22 08:26 Pulse 80 04/14/22 08:26 Resp 17 04/14/22 08:26 BP 124/84 04/14/22 08:26 Pulse Ox 96 04/14/22 11:15 FiO2 Intake & Output 04/13/22 04/14/22 04/14/22 18:59 06:59 18:59 Intake Total 211.353 249.805 Balance 211.353 249.805 Weight 99.79 kg Intake: Intake, IV Titration 211.353 249.805 Amount Heparin Sod,Pork in 0.45% 211.353 249.805 NaCl 25,000 unit In 0.45 % NaCl 1 250ml.bag @ 18 UNITS/KG/HR 17.962 mls/hr IV .[id number] [facility] Rx#: [id number] Oral 0 Other: Voiding Method Toilet Toilet # Voids 2 1 - Exam General examination - Alert and Oriented 3 in NAD Heart - + S1S2 no murmurs Lungs - Clear to auscultation Abdomen soft NT ND +ve BS Extremities - No edema PORTRAIT ARTIST - Moving all 4 extremities spontaneously Psych - Calm and cooperative - Labs CBC & Chem 7: 04/14/22 06:57 04/14/22 06:57 Labs: Abnormal Lab Results - Last 24 Hours (Table) 04/14/22 04/14/22 Range/Units 06:57 06:57 APTT 40.1 H (22.0-30.0) sec Alkaline Phosphatase 130 H (38-126) U/L Assessment and Plan Assessment: Bilateral lower lobe pulmonary emboli, provoked childbirth -Await Heme/onc recommendations - vascular recs apprecaited - She'll be unable to have DOAC secondary to breast-feeding - Hematology recommending Lovenox. I checked with case loader operator who said that it is covered by her insurance. - Echocardiogram pending Post state - conitnued follow-up with senior water/wastewater engineer Chronic: Asthma Fibromyalgia Seizure disorder Endometriosis Migraines Once patient cleared by all consults and services she'll be deemed stable for discharge
--- NOTE | 2022-04-14 12:30 | CA ---
Transthoracic Echo Report Name: Ghazal Hagan Age: 37 Gender: F : 1985 Exam Date: 04/13/2022 16:21 Exam Location: [facility] Ht (in): 64 Wt (lb): 220 Ordering Physician: Cristina Weeks Attending/Referring Phys: Environmental Services Aide Lisa Mckoy RDCS Procedure CPT: Indications: PE Cardiac Hx: Technical Quality: Fair Contrast 1: Total Dose (mL): Contrast 2: Total Dose (mL): MEASUREMENTS (Male / Female) Normal Values 2D ECHO LV Diastolic Diameter PLAX 4.5 cm 4.2 - 5.9 / 3.9 - 5.3 cm LV Systolic Diameter PLAX 3.0 cm IVS Diastolic Thickness 1.2 cm 0.6 - 1.0 / 0.6 - 0.9 cm LVPW Diastolic Thickness 1.4 cm 0.6 - 1.0 / 0.6 - 0.9 cm LV Relative Wall Thickness 0.6 RV Internal Dim ED PLAX 3.2 cm LA Volume 57.6 cm??? 18 - 58 / 22 - 52 cm??? M-MODE Aortic Root Diameter MM 3.2 cm LA Systolic Diameter MM 3.6 cm LA Ao Ratio MM 1.1 AV Cusp Separation MM 1.9 cm DOPPLER AV Peak Velocity 133.2 cm/s AV Peak Gradient 7.1 mmHg AV Mean Velocity 99.8 cm/s AV Mean Gradient 4.3 mmHg AV Velocity Time Integral 30.9 cm LVOT Peak Velocity 107.8 cm/s LVOT Peak Gradient 4.7 mmHg MV Area PHT 4.4 cm??? Mitral E Point Velocity 69.3 cm/s Mitral A Point Velocity 51.9 cm/s Mitral E to A Ratio 1.3 MV Deceleration Time 172.9 ms MV E' Velocity 9.5 cm/s Mitral E to MV E' Ratio 7.3 TR Peak Velocity 239.5 cm/s TR Peak Gradient 22.9 mmHg Right Ventricular Systolic Press 27.9 mmHg FINDINGS Left Ventricle Mildly increased left ventricular wall thickness. Left ventricular ejection fraction is estimated at 55-60 %. Normal left ventricular diastolic filling pattern. Right Ventricle Normal right ventricular size. Right ventricular systolic pressure within normal limits. No RV strain noted. TAPSE is 27mm. Right Atrium Normal right atrial size. Left Atrium Mildly increased left atrial volume. Mildly increased left atrial area. Mitral Valve Structurally normal mitral valve. No mitral stenosis. Mild mitral regurgitation. Aortic Valve Trileaflet aortic valve. No aortic valve stenosis or regurgitation. Tricuspid Valve Structurally normal tricuspid valve. Mild tricuspid regurgitation. Pulmonic Valve Structurally normal pulmonic valve.Trace pulmonic regurgitation. Pericardium No pericardial effusion. Aorta Normal size aortic root and proximal ascending aorta. CONCLUSIONS 1. Normal left ventricle size and systolic function 2. Mild mitral and tricuspid regurgitation 3. Normal right ventricular systolic function and no evidence of pulmonary hypertension. Previewed by: Dr. Rhonda Pennington MD (Electronically Signed) Final Date: 14 April 2022 12:29
[2022-04-14] MEDS: HYDROcodone/APAP 7.5-325MG 1 EACH TAB PO PRN ×2 (15:45→20:58)
--- NOTE | 2022-04-14 18:09 | P.PN ---
Subjective Progress Note Date: 04/14/22 Principal diagnosis: PE In f/u today pt cont on heparin drip, no unusual bleeding. It still hurts the lungs to take a deep breath. No DVT Objective - Vital Signs Vital signs: Vital Signs Temp 98.8 F 04/14/22 16:00 Pulse 85 04/14/22 16:00 Resp 17 04/14/22 16:00 BP 121/77 04/14/22 16:00 Pulse Ox 99 04/14/22 16:00 FiO2 Intake & Output 04/13/22 04/14/22 04/14/22 18:59 06:59 18:59 Intake Total 211.353 249.805 Balance 211.353 249.805 Weight 99.79 kg Intake: Intake, IV Titration 211.353 249.805 Amount Heparin Sod,Pork in 0.45% 211.353 249.805 NaCl 25,000 unit In 0.45 % NaCl 1 250ml.bag @ 18 UNITS/KG/HR 17.962 mls/hr IV .[id number] [facility] Rx#: [id number] Oral 0 Other: Voiding Method Toilet Toilet # Voids 2 1 3 # Bowel Movements 1 - Constitutional General appearance: Present: cooperative, no acute distress, obese - EENT Eyes: Present: anicteric sclerae, EOMI ENT: Present: hearing grossly normal - Respiratory Respiratory: bilateral: CTA (pain with deep inspiration) - Cardiovascular Rhythm: regular Heart sounds: normal: S1, S2 Abnormal Heart Sounds: Absent: systolic murmur, diastolic murmur, rub, S3 Gallop, S4 Gallop, click, other - Peripheral edema leg Peripheral Edema: bilateral: None - Gastrointestinal General gastrointestinal: Present: normal bowel sounds, soft - Integumentary Integumentary: Present: normal - Neurologic Neurologic: Present: CNII-XII intact - Musculoskeletal Musculoskeletal: Present: strength equal bilaterally - Psychiatric Psychiatric: Present: A&O x's 3, appropriate affect, intact judgment & insight - Labs CBC & Chem 7: 04/14/22 06:57 04/14/22 06:57 Labs: Abnormal Lab Results - Last 24 Hours (Table) 04/14/22 04/14/22 04/14/22 Range/Units 06:57 06:57 14:13 APTT 40.1 H 49.6 H (22.0-30.0) sec Alkaline Phosphatase 130 H (38-126) U/L - Imaging and Cardiology Venous US: report reviewed Assessment and Plan (1) Pulmonary emboli Current Visit: Yes Status: Acute Priority: High Code(s): I26.99 - OTHER PULMONARY EMBOLISM WITHOUT ACUTE COR PULMONALE SNOMED Code(s): 26092441 Plan: 37 yo female with provoked crystal PE 6 weeks with rt calf pain 1 week ago, chest pain last several days that has been persistent and progressive. Doppler of BLE for baseline neg for DVT Pt is breast feeding. Lovenox is able to be used during . Lovenox Rx sent, copay $1. Provoked blood clot. With pt family Hx, would be reasonable to consider hypercoagulable work up outpt. Being this is first clot and provoked, duration of anticoagulation 3-6 mo. Agree with continuing heparin drip for at least 24 hours as pt is symptomatic. IM is working on pain control ECHO complete, no unusual findings
[2022-04-15] MEDS: HYDROcodone/APAP 7.5-325MG 1 EACH TAB PO PRN ×2 (02:04→08:01)
[2022-04-15] MEDS: HEPARIN SOD,PORK IN 0.45% NACL 25,000 UNIT in 0.45% NACL 1 250ML.BAG IV SCH ×2 (02:04→06:45)
[2022-04-15] MEDS ORDERED: MORPHINE SULFATE 2 MG/ML SYRINGE IVP STA (06:23)
[2022-04-15] MEDS: ONDANSETRON 4 MG/2 ML VIAL IVP PRN (06:44)
[2022-04-15 08:06] LABS: HCT 38.7 % (34.0-46.0); HGB 12.9 gm/dL (11.4-16.0); MCH 29.3 pg (25.0-35.0); MCHC 33.2 g/dL (31.0-37.0); MCV 88.1 fL (80.0-100.0); Mean Platelet Volume 8.2; Platelet Count 187 k/uL (150-450); RDW 12.7 % (11.5-15.5); WBC 4.5 k/uL (3.8-10.6)
[2022-04-15 08:20] LABS: African American GFR (CKD) >90 (>60 ml/min/1.73 sqM); Anion Gap 3 mmol/L; Blood Urea Nitrogen 14 mg/dL (7-17); Calcium 9.1 mg/dL (8.4-10.2); Carbon Dioxide 32 mmol/L (22-30); Chloride 104 mmol/L (98-107); Glucose 90 mg/dL (74-99); Non-African American GFR(CKD) >90 (>60 ml/min/1.73 sqM); Potassium 4.7 mmol/L (3.5-5.1); Sodium 139 mmol/L (137-145)
[2022-04-15] MEDS ORDERED: ENOXAPARIN 100 MG/ML SYRINGE SQ SCH (09:00)
[2022-04-15 10:19] VITALS: BP 126/75; RESP 17; TEMP 98
--- NOTE | 2022-04-15 11:26 | P.PN ---
Subjective Progress Note Date: 04/15/22 Principal diagnosis: Bilateral pulmonary emboli Patient was seen and examined resting comfortably in bed. She has been transitioned to Lovenox. Echocardiogram resulted with no evidence of right heart strain. Patient's symptoms improving. She's been afebrile, oxygen saturation 97-98% on room air. Objective - Vital Signs Vital signs: Vital Signs Temp 97.8 F 04/15/22 03:00 Pulse 82 04/15/22 06:18 Resp 18 04/15/22 03:00 BP 107/69 04/15/22 03:00 Pulse Ox 98 04/15/22 06:18 FiO2 Intake & Output 04/14/22 04/15/22 04/15/22 18:59 06:59 18:59 Intake Total 249.805 343.47 Balance 249.805 343.47 Intake: Intake, IV Titration 249.805 343.47 Amount Heparin Sod,Pork in 0.45% 249.805 343.47 NaCl 25,000 unit In 0.45 % NaCl 1 250ml.bag @ 18 UNITS/KG/HR 17.962 mls/hr IV .[id number] [facility] Rx#: [id number] Oral 0 Other: Voiding Method Toilet Toilet # Voids 3 1 # Bowel Movements 1 - Exam General appearance: The patient is alert, oriented, appears in no acute distress. Resting at this time. HET: Head is normocephalic and atraumatic. Neck: Supple. Heart: Regular. Lungs: : Equal entry, normal expansion. Extremities: Normal skin color and turgor. No cyanosis, rash, ulceration, clubbing, or edema. Neurological: No focal deficits. - Labs CBC & Chem 7: 04/15/22 07:12 04/15/22 07:12 Labs: Abnormal Lab Results - Last 24 Hours (Table) 04/14/22 04/15/22 04/15/22 Range/Units 14:13 07:12 07:12 APTT 49.6 H 44.6 H (22.0-30.0) sec Carbon Dioxide 32 H (22-30) mmol/L Assessment and Plan Assessment: 1. Bilateral pulmonary emboli 2. , vaginal delivery 6 weeks ago 3. Possible family history of clotting disorder 4. Atelectasis left lung base per Plan: 1. Patient has been transposition to Lovenox per recommendations from hematology 2. Echocardiogram reviewed 3. Bilateral lower extremity duplex ordered and reviewed. Negative for DVT 4. Patient is cleared from vascular surgery for discharge Thank you for this consultation, we'll sign off at this time. The impression and plan of care has been dictated as directed. Dr. Marcum. I performed a history and examination of this patient, discussed the same with the dictator. I agree with the dictator's note ,documented as a scribe. Any additional findings or plans will be noted.
[2022-04-15 12:05] VITALS: PULSE 70
== END 2022-04-15 12:24 | disposition home or self-care (01) | DRG 776 ==
LOC: EC 14:07 → 3SCARD 17:19
PROVIDERS: ADMIT Family Medicine; ATTEND Family Medicine
DX: O88.23 Thromboembolism in the puerperium (principal); I26.99 Other pulmonary embolism without acute cor pulmonale; J98.11 Atelectasis; Z28.310 Unvaccinated for COVID-19; E66.9 Obesity, unspecified; Z68.37 Body mass index [BMI] 37.0-37.9, adult; O99.215 Obesity complicating the puerperium; O99.53 Diseases of the respiratory system complicating the puerperium; J45.909 Unspecified asthma, uncomplicated; O99.345 Other mental disorders complicating the puerperium; F41.0 Panic disorder [episodic paroxysmal anxiety]; M79.7 Fibromyalgia; N80.9 Endometriosis, unspecified; Z79.899 Other long term (current) drug therapy; Z88.6 Allergy status to analgesic agent; Z88.8 Allergy status to other drugs, medicaments and biological substances; Z91.018 Allergy to other foods; Z83.2 Family history of diseases of the blood and blood-forming organs and certain disorders involving the immune mechanism
CPT/HCPCS: 36415; 71046; 71275; 80048; 80053; 83735; 84484; 85025; 85027; 85379; 85610; 85730; 93005; 93306; 93970; 94760; 96365; 96366; 96375; 96376; 99285

== ENCOUNTER 2022-04-16 22:15 | Emergency (ER) | payer OTHER ==
[2022-04-16 22:20] VITALS: TEMP 97.4
[2022-04-16] MEDS ORDERED: SODIUM CHLORIDE 0.9% 1,000 ML IV STA (22:33)
[2022-04-16] MEDS ORDERED: HYDROmorphone 1 MG/ML 1 ML SYRINGE IVP STA ×2 (22:33→23:41)
[2022-04-16] MEDS ORDERED: ONDANSETRON 4 MG/2 ML VIAL IVP STA (22:33)
--- NOTE | 2022-04-16 22:46 | ED ---
SOB HPI - General Chief Complaint: Shortness of Breath Stated Complaint: Chest pain,bilateral arm numbness Time Seen by Provider: 04/16/22 22:21 Source: patient, RN notes reviewed Mode of arrival: wheelchair Limitations: no limitations - History of Present Illness Initial Comments: This is a pleasant 37-year-old female presents to emergency department with chest discomfort, shortness of breath, bilateral arm numbness. Patient had similar symptoms on April 12 when she was admitted and subsequently diagnosed with bilateral pulmonary emboli. Patient was discharged yesterday after being started on anticoagulant medication. Patient is 6 weeks . Patient was started on Lovenox which she is injecting twice daily. She did take her evening dose already. Patient was evaluated by vascular surgery and hematology during her stay. No headache, no fever or chills, no changes in vision or hearing, no sore throat or difficulty with speech, no neck pain, no abdominal pain, no nausea or vomiting, no changes in urination or bowel movements, no extremity pain, no skin rashes or lesions. Past medical, surgical, social, and family history reviewed. - Related Data Home Medications Medication Instructions Recorded Confirmed Qoe-Ngcb-Teokm Acid 1 cap PO DAILY 01/21/21 04/12/22 [-U Capsule (formulary)] Magnesium 200 mg PO BID 11/19/21 04/12/22 Ascorbic Acid [Vitamin C] 500 mg PO BID 04/12/22 04/12/22 Previous Rx's Medication Instructions Recorded Enoxaparin [Lovenox] 100 mg SQ Q12H #60 each 04/13/22 HYDROcodone/APAP 7.5-325MG [Ogden 1 each PO Q6HR PRN 3 Days #12 tab 04/15/22 7.5-325] Allergies Allergy/AdvReac Type Severity Reaction Status Date / Time aspirin Allergy Unknown Verified 04/16/22 22:17 ketorolac [From Toradol] Allergy Nausea & Verified 04/16/22 22:17 Vomiting lorazepam [From Ativan] AdvReac Severe altered Verified 04/16/22 22:17 mental status cyclobenzaprine AdvReac Rapid Verified 04/16/22 22:17 [From Flexeril] Heart Rate diazepam [From Valium] AdvReac paradoxical Verified 04/16/22 22:17 reaction (anxiety) diphenhydramine HCl AdvReac paradoxical Verified 04/16/22 22:17 [From Benadryl] reaction (anxiety) steroids AdvReac Severe Hallucinati Uncoded 04/16/22 22:17 ons Doles Fruit Cup AdvReac Rash/Hives Uncoded 04/16/22 22:17 Review of Systems ROS Statement: Those systems with pertinent positive or pertinent negative responses have been documented in the HPI. ROS Other: All systems not noted in ROS Statement are negative. Past Medical History Past Medical History: No Reported History, Asthma, Fibromyalgia, Pulmonary Embolus (PE), Seizure Disorder Additional Past Medical History / Comment(s): endometriosis, migraines, History of Any Multi-Drug Resistant Organisms: None Reported Past Surgical History: Breast Surgery Additional Past Surgical History / Comment(s): endometrial ablation, sinus surgery, D&C, breast implants removed 9 weeks ago (from 01/05/21) Past Anesthesia/Blood Transfusion Reactions: Postoperative Nausea & Vomiting (PONV) Past Psychological History: Anxiety, Panic Disorder Smoking Status: Never smoker Past Alcohol Use History: None Reported Past Drug Use History: None Reported - Past Family History Mother Family Medical History: Cancer Additional Family Medical History / Comment(s): cervical, uterine, and ovarian CA. Complete hysterectomy. Father Family Medical History: Hypertension General Exam - General Exam Comments Initial Comments: Patient really in no distress. Vital signs stable, patient afebrile. Note that the patient hasn't oxygen saturation 99% on room air when I'm in the room. Limitations: no limitations General appearance: alert, in no apparent distress Head exam: Present: atraumatic, normocephalic, normal inspection Eye exam: Present: normal appearance, PERRL, EOMI. Absent: scleral icterus, conjunctival injection, periorbital swelling ENT exam: Present: normal exam, mucous membranes moist Neck exam: Present: normal inspection. Absent: tenderness, meningismus, lymphadenopathy Respiratory exam: Present: normal lung sounds bilaterally. Absent: respiratory distress, wheezes, rales, rhonchi, stridor Cardiovascular Exam: Present: regular rate, normal rhythm, normal heart sounds. Absent: systolic murmur, diastolic murmur, rubs, gallop, clicks GI/Abdominal exam: Present: soft, normal bowel sounds. Absent: distended, tenderness, guarding, rebound, rigid Extremities exam: Present: normal inspection, full ROM, normal capillary refill. Absent: tenderness, pedal edema, joint swelling, calf tenderness Back exam: Present: normal inspection Neurological exam: Present: alert, oriented X3, CN II-XII intact Psychiatric exam: Present: normal affect, normal mood Skin exam: Present: warm, dry, intact, normal color. Absent: rash Course Vital Signs 04/16/22 04/16/22 04/17/22 22:17 23:00 00:00 Temperature 97.4 F L Pulse Rate 85 88 77 Respiratory 18 16 14 Rate Blood Pressure 133/86 136/90 126/55 O2 Sat by Pulse 98 92 L 96 Oximetry - Reevaluation(s) Reevaluation #1: 04/17/22 01:14 Medical record is reviewed Symptoms are improved here in the emergency department Patient is informed of results and questions answered Patient in no distress Patient still complaining of pain. I will give 1 more dose of pain medication. Patient has [place] at home. I reemphasized the importance of continuing the Lovenox. Patient's troponin and BNP were negative. The case was discussed in detail with ED attending physician. Presentation, findings, treatment plan discussed in detail. Tawer Dr. Chandler Reevaluation #2: 04/17/22 01:24 Patient in no distress at discharge. Oxygen saturation 99% on room air. No tachypnea. Medical Decision Making - Medical Decision Making Patient has a known pulmonary embolism. It started being treated with Lovenox. We'll repeat the laboratory work, including troponin and BNP. Patient in no significant distress. I did interpret the chest x-ray myself. There is no significant change when compared to the previous study. Patient does have atelectasis and infiltrate without any significant change as read by the radiologist. I suspect this is not related to pneumonia this patient has had no fever. There is no change in appearance. A likely related to the bilateral lower lobe pulmonary emboli. Patient hemodynamically stable and in no distress at discharge. Patient is complaining of painful breathing. I did agree to give 1 more dose of hydromorphone. Patient has [place] at home. I did tell the patient that she can come back if any symptoms worsen at any time. The case was discussed in detail with ED attending physician. Presentation, findings, treatment plan discussed in detail. Tawer Dr. Chandler - Lab Data Result diagrams: 04/16/22 22:51 04/16/22 22:51 Lab Results 04/16/22 04/16/22 04/16/22 Range/Units 22:51 22:51 22:51 WBC 5.1 (3.8-10.6) k/uL RBC 4.87 (3.80-5.40) m/uL Hgb 14.2 (11.4-16.0) gm/dL Hct 42.0 (34.0-46.0) % MCV 86.1 (80.0-100.0) fL MCH 29.1 (25.0-35.0) pg MCHC 33.8 (31.0-37.0) g/dL RDW 12.4 (11.5-15.5) % Plt Count 281 (150-450) k/uL MPV 8.0 Neutrophils % 59 % Lymphocytes % 28 % Monocytes % 6 % Eosinophils % 4 % Basophils % 1 % Neutrophils # 3.0 (1.3-7.7) k/uL Lymphocytes # 1.4 (1.0-4.8) k/uL Monocytes # 0.3 (0-1.0) k/uL Eosinophils # 0.2 (0-0.7) k/uL Basophils # 0.0 (0-0.2) k/uL Sodium 140 (137-145) mmol/L Potassium 4.9 (3.5-5.1) mmol/L Chloride 101 (98-107) mmol/L Carbon Dioxide 31 H (22-30) mmol/L Anion Gap 8 mmol/L BUN 17 (7-17) mg/dL Creatinine 0.76 (0.52-1.04) mg/dL Est GFR (CKD-EPI)AfAm >90 (>60 ml/min/1.73 sqM) Est GFR (CKD-EPI)NonAf >90 (>60 ml/min/1.73 sqM) Glucose 91 (74-99) mg/dL Calcium 9.9 (8.4-10.2) mg/dL Magnesium 1.8 (1.6-2.3) mg/dL Total Bilirubin 0.3 (0.2-1.3) mg/dL AST 44 H (14-36) U/L ALT 56 H (4-34) U/L Alkaline Phosphatase 155 H (38-126) U/L Troponin I <0.012 (0.000-0.034) ng/mL NT-Pro-B Natriuret Pep pg/mL Total Protein 7.8 (6.3-8.2) g/dL Albumin 4.7 (3.5-5.0) g/dL Lipase 136 (23-300) U/L 04/16/22 Range/Units 22:51 WBC (3.8-10.6) k/uL RBC (3.80-5.40) m/uL Hgb (11.4-16.0) gm/dL Hct (34.0-46.0) % MCV (80.0-100.0) fL MCH (25.0-35.0) pg MCHC (31.0-37.0) g/dL RDW (11.5-15.5) % Plt Count (150-450) k/uL MPV Neutrophils % % Lymphocytes % % Monocytes % % Eosinophils % % Basophils % % Neutrophils # (1.3-7.7) k/uL Lymphocytes # (1.0-4.8) k/uL Monocytes # (0-1.0) k/uL Eosinophils # (0-0.7) k/uL Basophils # (0-0.2) k/uL Sodium (137-145) mmol/L Potassium (3.5-5.1) mmol/L Chloride (98-107) mmol/L Carbon Dioxide (22-30) mmol/L Anion Gap mmol/L BUN (7-17) mg/dL Creatinine (0.52-1.04) mg/dL Est GFR (CKD-EPI)AfAm (>60 ml/min/1.73 sqM) Est GFR (CKD-EPI)NonAf (>60 ml/min/1.73 sqM) Glucose (74-99) mg/dL Calcium (8.4-10.2) mg/dL Magnesium (1.6-2.3) mg/dL Total Bilirubin (0.2-1.3) mg/dL AST (14-36) U/L ALT (4-34) U/L Alkaline Phosphatase (38-126) U/L Troponin I (0.000-0.034) ng/mL NT-Pro-B Natriuret Pep 28 pg/mL Total Protein (6.3-8.2) g/dL Albumin (3.5-5.0) g/dL Lipase (23-300) U/L - EKG Data EKG Comments: EKG done at 2237 and reviewed by the ED attending physician reveals sinus rhythm with a rate of 81. Normal axis. No evidence of acute ST or T-wave changes. Patient does have a Q-wave noted in lead 3 with slight inversion of T-wave. This is somewhat improved from the previous EKG on April 12. Patient also has some poor R-wave progression noted. No evidence of acute changes otherwise. Normal intervals. - Radiology Data Radiology results: report reviewed, image reviewed Disposition Clinical Impression: Acute chest wall pain, Pulmonary embolism Narrative: Chest wall pain secondary to pulmonary embolibilateral lower lobe Disposition: HOME SELF-CARE Condition: Good Instructions (If sedation given, give patient instructions): Pulmonary Embolism (ED) Additional Instructions: Continue the Lovenox as instructed. Follow-up with your regular physician as directed. Return to the ER immediately if any symptoms worsen, new symptoms arise, or any other problems develop. Call or a gamma the morning to schedule a follow-up appointment with the provided primary care physician or a primary care doctor of your choice. Is patient prescribed a controlled substance at d/c from ED?: No Referrals: Rajendra Vaughn MD [REFERRING] - 1-2 days Time of Disposition: 01:16
[2022-04-16 22:58] LABS: Basophils % (A) 1 %; Eosinophils # (A) 0.2 k/uL (0-0.7); Eosinophils % (A) 4 %; HGB 14.2 gm/dL (11.4-16.0); Lymphocytes # (A) 1.4 k/uL (1.0-4.8); Lymphocytes % (A) 28 %; MCH 29.1 pg (25.0-35.0); MCHC 33.8 g/dL (31.0-37.0); MCV 86.1 fL (80.0-100.0); Monocytes # (A) 0.3 k/uL (0-1.0); Monocytes % (A) 6 %; Neutrophils % (A) 59 %; Platelet Count 281 k/uL (150-450); RBC 4.87 m/uL (3.80-5.40); RDW 12.4 % (11.5-15.5); WBC 5.1 k/uL (3.8-10.6)
[2022-04-16 23:25] LABS: ALT 56 U/L (4-34); AST 44 U/L (14-36); African American GFR (CKD) >90 (>60 ml/min/1.73 sqM); Albumin 4.7 g/dL (3.5-5.0); Alkaline Phosphatase 155 U/L (38-126); Anion Gap 8 mmol/L; Blood Urea Nitrogen 17 mg/dL (7-17); Calcium 9.9 mg/dL (8.4-10.2); Carbon Dioxide 31 mmol/L (22-30); Chloride 101 mmol/L (98-107); Glucose 91 mg/dL (74-99); Lipase 136 U/L (23-300); Magnesium 1.8 mg/dL (1.6-2.3); Non-African American GFR(CKD) >90 (>60 ml/min/1.73 sqM); Sodium 140 mmol/L (137-145); Total Bilirubin 0.3 mg/dL (0.2-1.3); Total Protein 7.8 g/dL (6.3-8.2)
--- NOTE | 2022-04-16 23:26 | XR ---
EXAMINATION TYPE: XR chest 2V DATE OF EXAM: 04/16/2022 COMPARISON: 04/12/2022 HISTORY: Chest pain TECHNIQUE: FINDINGS: There is mild blunting left cosmetic angle. No heart failure. Heart size is normal. There i s mild infiltrate left lung base. There are chest leads. IMPRESSION: There is some mild infiltrate and atelectasis and pleural reaction left lung base which i s unchanged compared to old exam.
[2022-04-16 23:48] LABS: Potassium 4.9 mmol/L (3.5-5.1)
[2022-04-17 00:10] VITALS: BP 126/55; PULSE 77; RESP 14
[2022-04-17] MEDS ORDERED: HYDROmorphone 1 MG/ML 1 ML SYRINGE IVP STA (01:15)
== END 2022-04-17 01:35 | disposition home or self-care (01) ==
LOC: EC 22:15
DX: R07.89 Other chest pain (principal); I26.99 Other pulmonary embolism without acute cor pulmonale; J45.909 Unspecified asthma, uncomplicated; Z88.6 Allergy status to analgesic agent; Z88.8 Allergy status to other drugs, medicaments and biological substances; Z91.018 Allergy to other foods
CPT/HCPCS: 99285; 96374; 96375 ×3; 96361 ×2; 36415; 93005; 83880; 80053; 83690; 83735; 84484; 85025; 71046; J2405; J1170

== ENCOUNTER 2022-06-08 03:17 | Emergency (ER) | payer OTHER ==
[2022-06-08] MEDS ORDERED: MORPHINE SULFATE 2 MG/ML SYRINGE IVP STA ×2 (03:52→06:52)
[2022-06-08] MEDS ORDERED: ONDANSETRON 4 MG/2 ML VIAL IVP STA (04:06)
[2022-06-08 04:11] LABS: Basophils % (A) 1 %; Eosinophils # (A) 0.2 k/uL (0-0.7); Eosinophils % (A) 3 %; HCT 41.9 % (34.0-46.0); Lymphocytes # (A) 1.8 k/uL (1.0-4.8); Lymphocytes % (A) 29 %; MCHC 33.5 g/dL (31.0-37.0); MCV 86.5 fL (80.0-100.0); Mean Platelet Volume 8.4; Monocytes # (A) 0.3 k/uL (0-1.0); Monocytes % (A) 5 %; Neutrophils # (A) 3.8 k/uL (1.3-7.7); Neutrophils % (A) 61 %; Platelet Count 228 k/uL (150-450); RBC 4.84 m/uL (3.80-5.40); RDW 12.9 % (11.5-15.5); WBC 6.2 k/uL (3.8-10.6)
--- NOTE | 2022-06-08 04:16 | ED ---
General Adult HPI - General Source: patient Mode of arrival: ambulatory Limitations: no limitations <Donald Dorado - Last Filed: 06/08/22 06:52> <Dallin Tovar - Last Filed: 06/08/22 07:55> - General Chief complaint: Arrhythmia/Palpitations Stated complaint: heart racing Time Seen by Provider: 06/08/22 03:32 - History of Present Illness Initial comments: This is a 37-year-old female with a past medical history including previous PE presented to the emergency department because she woke up from sleep and noted that she had a heart rate of 105 as well as some mild shortness of breath and pain all over her body. The patient stated that she also had pain in her right leg over the last 2 weeks and stated that she feels the same as when she had a PE previously. The patient has been seen 2 other times for the same complaints in the last several months. The patient on evaluation stated that she had some mild shortness of breath but could take a full deep breath without any pain or discomfort. The patient did state that she was in a significant amount of stress with her father who is an ICU after suffering from cardiac arrest as well as taking care of her children the same home. The patient however was resting in bed comfortable my evaluation and denied any fevers and chills. (Donald Dorado) - Related Data Home Medications Medication Instructions Recorded Confirmed No Known Home Medications 06/08/22 06/08/22 Allergies Allergy/AdvReac Type Severity Reaction Status Date / Time aspirin Allergy Unknown Verified 06/08/22 07:06 lorazepam [From Ativan] AdvReac Severe altered Verified 06/08/22 07:06 mental status cyclobenzaprine AdvReac Rapid Verified 06/08/22 07:06 [From Flexeril] Heart Rate diazepam [From Valium] AdvReac paradoxical Verified 06/08/22 07:06 reaction (anxiety) diphenhydramine HCl AdvReac paradoxical Verified 06/08/22 07:06 [From Benadryl] reaction (anxiety) ketorolac [From Toradol] AdvReac Nausea & Verified 06/08/22 07:06 Vomiting steroids AdvReac Severe Hallucinati Uncoded 06/08/22 03:23 ons Doles Fruit Cup AdvReac Rash/Hives Uncoded 06/08/22 03:23 Review of Systems ROS Other: All systems not noted in ROS Statement are negative. <Donald Dorado - Last Filed: 06/08/22 06:52> ROS Other: All systems not noted in ROS Statement are negative. <Dallin Tovar - Last Filed: 06/08/22 07:55> ROS Statement: Those systems with pertinent positive or pertinent negative responses have been documented in the HPI. Past Medical History Past Medical History: No Reported History, Asthma, Fibromyalgia, Pulmonary Embolus (PE), Seizure Disorder Additional Past Medical History / Comment(s): endometriosis, migraines, History of Any Multi-Drug Resistant Organisms: None Reported Past Surgical History: Breast Surgery Additional Past Surgical History / Comment(s): endometrial ablation, sinus surgery, D&C, breast implants removed 9 weeks ago (from 01/05/21) Past Anesthesia/Blood Transfusion Reactions: Postoperative Nausea & Vomiting (PONV) Past Psychological History: Anxiety, Panic Disorder Smoking Status: Never smoker Past Alcohol Use History: None Reported Past Drug Use History: None Reported - Past Family History Mother Family Medical History: Cancer Additional Family Medical History / Comment(s): cervical, uterine, and ovarian CA. Complete hysterectomy. Father Family Medical History: Hypertension <Donald Dorado - Last Filed: 06/08/22 06:52> General Exam Limitations: no limitations General appearance: alert, in no apparent distress, obese Head exam: Present: atraumatic, normocephalic Eye exam: Present: normal appearance, PERRL Pupils: Present: normal accommodation ENT exam: Present: normal exam, normal oropharynx, mucous membranes moist Neck exam: Present: normal inspection, full ROM Respiratory exam: Present: normal lung sounds bilaterally Cardiovascular Exam: Present: regular rate, normal rhythm, normal heart sounds GI/Abdominal exam: Present: soft, normal bowel sounds Extremities exam: Present: normal inspection, full ROM Back exam: Present: normal inspection, full ROM Neurological exam: Present: alert, oriented X3, CN II-XII intact Psychiatric exam: Present: normal affect, normal mood Skin exam: Present: warm, dry <Donald Dorado - Last Filed: 06/08/22 06:52> Course Vital Signs 06/08/22 06/08/22 03:23 07:49 Temperature 97.7 F Pulse Rate 75 54 L Respiratory 16 18 Rate Blood Pressure 162/80 132/75 O2 Sat by Pulse 98 95 Oximetry EKG Findings - EKG Comments: EKG Findings:: An EKG was obtained and was interpreted by myself showing a rate of 63, [place] interval of 182, QRS duration 93 and QTC of 402. This EKG showed a normal sinus rhythm with no ST segment elevation or depression noted. <Donald Dorado - Last Filed: 06/08/22 06:52> Medical Decision Making - Lab Data Result diagrams: 06/08/22 04:00 06/08/22 04:00 <Donald Dorado - Last Filed: 06/08/22 06:52> - Lab Data Result diagrams: 06/08/22 04:00 06/08/22 04:00 <Dallin Tovar - Last Filed: 06/08/22 07:55> - Medical Decision Making Was pt. sent in by a medical professional or institution (, PA, SALES PROMOTION REPRESENTATIVE, urgent care, hospital, or retirement...) When possible be specific @ -No Did you speak to anyone other than the patient for history (EMS, parent, family, police, friend...)? What history was obtained from this source @ -No Did you review nursing and triage notes (agree or disagree)? Why? @ -I reviewed and agree with nursing and triage notes Were old charts reviewed (outside hosp., previous admission, EMS record, old EKG, old radiological studies, urgent care reports/EKG's, retirement records)? Report findings @ -Yes, previous hospital admission was reviewed Differential Diagnosis (chest pain, altered mental status, abdominal pain women, abdominal pain men, vaginal bleeding, weakness, fever, dyspnea, syncope, headache, dizziness, GI bleed, back pain, seizure, CVA, palpatations, mental health)? @ -ACS, PE, right lower extremity DVT EKG interpreted by me (3pts min.). @ -As above X-rays interpreted by me (1pt min.). @ -Chest x-ray was obtained and was interpreted by myself showing no active cardiopulmonary disease. There was clearing of the mild infiltrate and pleural reaction of the left lung base compared to the old exam. CT interpreted by me (1pt min.). @ -CT of the chest was obtained and was interpreted by myself showing suboptimal study however there was no convincing CT evidence for acute PE. There is evidence of old granulomatous disease with deep and atelectasis. There was no suspicious acute coronary process. U/S interpreted by me (1pt. min.). @ -None done What testing was considered but not performed or refused? (CT, X-rays, U/S, lab s)? Why? @ -None What meds were considered but not given or refused? Why? @ -None Did you discuss the management of the patient with other professionals (professionals i.e. , PA, SALES PROMOTION REPRESENTATIVE, lab, RT, psych nurse, social problems specialist, crew mess attendant, teacher, immigration services officer, case packer)? Give summary @ -No Was smoking cessation discussed for >3mins.? @ -No Was critical care preformed (if so, how long)? @ -No Were there social determinants of health that impacted care today? How? (Homelessness, low income, unemployed, alcoholism, drug addiction, transportation, low edu. Level, literacy, decrease access to med. care, shelter, rehab)? @ -No Was there de-escalation of care discussed even if they declined (Discuss DNR or withdrawal of care, Hospice)? DNR status @ -No What co-morbidities impacted this encounter? (DM, HTN, Smoking, COPD, CAD, Cancer, CVA, ARF, Chemo, Hep., AIDS, mental health diagnosis, sleep apnea, morbid obesity)? @ -Previous pulmonary embolism Was patient admitted / discharged? Hospital course, mention meds given and route, prescriptions, significant lab abnormalities, going to OR and other pertinent info. @ -The patient was seen and evaluated emergency department. Physical exam, the patient was resting in bed complaining of mild shortness of breath associated wi th right lower leg pain. Laboratory workup was obtained and d-dimer was slightly elevated at 1.5 therefore a CTA of the chest was obtained however did not show a PE. The patient did receive morphine for pain and I reevaluation stated that it did help however the pain was recurring. When I told the patient that she had no PE, the patient stated that she had continued pain and soreness in the right lower extremity and was requesting an ultrasound to rule out a blood clot. The patient did have a duplex ultrasound of the right lower extremity ordered and will be signed out to Dr. Tovar pending these results. The patient did receive a second dose of 2 mg of morphine for pain. Undiagnosed new problem with uncertain prognosis? @ -No Drug Therapy requiring intensive monitoring for toxicity (Heparin, Nitro, Insulin, Cardizem)? @ -No Were any procedures done? @ -No Diagnosis/symptom? @ -Shortness of breath, NOS Acute, or Chronic, or Acute on Chronic? @ -Acute Uncomplicated (without systemic symptoms) or Complicated (systemic symptoms)? @ -Uncomplicated Side effects of treatment? @ -No Exacerbation, Progression, or Severe Exacerbation? @ -No Poses a threat to life or bodily function? How? (Chest pain, [place], [place], pneumonia, PE, COPD, DKA, ARF, appy, cholecystitis, CVA, Diverticulitis, Homicidal, Suicidal, threat to staff... and all critical care pts) @ -No Diagnosis/symptom? @ -Right lower extremity pain, swelling, rule out DVT Acute, or Chronic, or Acute on Chronic? @ -Acute Uncomplicated (without systemic symptoms) or Complicated (systemic symptoms)? @ -Uncomplicated Side effects of treatment? @ -none Exacerbation, Progression, or Severe Exacerbation] @ -no Poses a threat to life or bodily function? @ -no (Donald Dorado) Patient care sent out to me by previous shift physician, Dr. Dorado. Briefly, patient is a 37-year-old female past medical history of pulmonary embolism pre sents to the ER for palpitations and shortness of breath. Patient with stable medical condition. Laboratory evaluation is unremarkable. Imaging of the chest prior to sign out unremarkable for any acute processes. Sign out was to follow up with pending venous duplex ultrasound of the right lower extremity. Ultrasound was completed. No evidence of DVT in the right lower extremity. Patient reevaluated bedside at 7:55 AM found to be in stable medical condition. Patient is well-appearing and in no acute distress. Point patient be discharged. Advised to follow-up with primary care doctor. (Dallin Tovar) - Lab Data Lab Results 06/08/22 06/08/22 06/08/22 Range/Units 04:00 04:00 04:00 WBC 6.2 (3.8-10.6) k/uL RBC 4.84 (3.80-5.40) m/uL Hgb 14.0 (11.4-16.0) gm/dL Hct 41.9 (34.0-46.0) % MCV 86.5 (80.0-100.0) fL MCH 29.0 (25.0-35.0) pg MCHC 33.5 (31.0-37.0) g/dL RDW 12.9 (11.5-15.5) % Plt Count 228 (150-450) k/uL MPV 8.4 Neutrophils % 61 % Lymphocytes % 29 % Monocytes % 5 % Eosinophils % 3 % Basophils % 1 % Neutrophils # 3.8 (1.3-7.7) k/uL Lymphocytes # 1.8 (1.0-4.8) k/uL Monocytes # 0.3 (0-1.0) k/uL Eosinophils # 0.2 (0-0.7) k/uL Basophils # 0.0 (0-0.2) k/uL PT (9.0-12.0) sec INR (<1.2) APTT (22.0-30.0) sec D-Dimer (<0.60) mg/L FEU Sodium 140 (137-145) mmol/L Potassium 4.2 (3.5-5.1) mmol/L Chloride 105 (98-107) mmol/L Carbon Dioxide 27 (22-30) mmol/L Anion Gap 8 mmol/L BUN 14 (7-17) mg/dL Creatinine 0.69 (0.52-1.04) mg/dL Est GFR (CKD-EPI)AfAm >90 (>60 ml/min/1.73 sqM) Est GFR (CKD-EPI)NonAf >90 (>60 ml/min/1.73 sqM) Glucose 107 H (74-99) mg/dL Calcium 9.5 (8.4-10.2) mg/dL Magnesium 1.7 (1.6-2.3) mg/dL Total Bilirubin 0.3 (0.2-1.3) mg/dL AST 23 (14-36) U/L ALT 24 (4-34) U/L Alkaline Phosphatase 81 (38-126) U/L Troponin I <0.012 (0.000-0.034) ng/mL Total Protein 7.2 (6.3-8.2) g/dL Albumin 4.5 (3.5-5.0) g/dL 06/08/22 Range/Units 04:00 WBC (3.8-10.6) k/uL RBC (3.80-5.40) m/uL Hgb (11.4-16.0) gm/dL Hct (34.0-46.0) % MCV (80.0-100.0) fL MCH (25.0-35.0) pg MCHC (31.0-37.0) g/dL RDW (11.5-15.5) % Plt Count (150-450) k/uL MPV Neutrophils % % Lymphocytes % % Monocytes % % Eosinophils % % Basophils % % Neutrophils # (1.3-7.7) k/uL Lymphocytes # (1.0-4.8) k/uL Monocytes # (0-1.0) k/uL Eosinophils # (0-0.7) k/uL Basophils # (0-0.2) k/uL PT 11.1 (9.0-12.0) sec INR 1.1 (<1.2) APTT 25.0 (22.0-30.0) sec D-Dimer 1.58 H (<0.60) mg/L FEU Sodium (137-145) mmol/L Potassium (3.5-5.1) mmol/L Chloride (98-107) mmol/L Carbon Dioxide (22-30) mmol/L Anion Gap mmol/L BUN (7-17) mg/dL Creatinine (0.52-1.04) mg/dL Est GFR (CKD-EPI)AfAm (>60 ml/min/1.73 sqM) Est GFR (CKD-EPI)NonAf (>60 ml/min/1.73 sqM) Glucose (74-99) mg/dL Calcium (8.4-10.2) mg/dL Magnesium (1.6-2.3) mg/dL Total Bilirubin (0.2-1.3) mg/dL AST (14-36) U/L ALT (4-34) U/L Alkaline Phosphatase (38-126) U/L Troponin I (0.000-0.034) ng/mL Total Protein (6.3-8.2) g/dL Albumin (3.5-5.0) g/dL Disposition <Donald Dorado - Last Filed: 06/08/22 06:52> Is patient prescribed a controlled substance at d/c from ED?: No Time of Disposition: 07:55 <Dallin Tovar - Last Filed: 06/08/22 07:55> Clinical Impression: Dyspnea Disposition: HOME SELF-CARE Condition: Good Instructions (If sedation given, give patient instructions): Heart Palpitations (ED) Referrals: None,Stated [Primary Care Provider] - 1-2 days
--- NOTE | 2022-06-08 04:17 | XR ---
EXAMINATION TYPE: XR chest 2V DATE OF EXAM: 06/08/2022 COMPARISON: 04/16/2022 HISTORY: Short of breath TECHNIQUE: FINDINGS: Heart is normal. Lungs are clear. Diaphragm is normal. There are no hilar masses. IMPRESSION: No active cardiopulmonary disease. There is clearing of the mild infiltrate and pleural r eaction left lung base compared to the old exam.
[2022-06-08 04:27] LABS: ALT 24 U/L (4-34); AST 23 U/L (14-36); African American GFR (CKD) >90 (>60 ml/min/1.73 sqM); Albumin 4.5 g/dL (3.5-5.0); Alkaline Phosphatase 81 U/L (38-126); Anion Gap 8 mmol/L; Blood Urea Nitrogen 14 mg/dL (7-17); Calcium 9.5 mg/dL (8.4-10.2); Carbon Dioxide 27 mmol/L (22-30); Chloride 105 mmol/L (98-107); Glucose 107 mg/dL (74-99); Magnesium 1.7 mg/dL (1.6-2.3); Non-African American GFR(CKD) >90 (>60 ml/min/1.73 sqM); Potassium 4.2 mmol/L (3.5-5.1); Sodium 140 mmol/L (137-145); Total Bilirubin 0.3 mg/dL (0.2-1.3); Total Protein 7.2 g/dL (6.3-8.2)
[2022-06-08 04:59] LABS: INR 1.1 (<1.2); Prothrombin Time 11.1 sec (9.0-12.0)
--- NOTE | 2022-06-08 06:34 | CT ---
EXAMINATION TYPE: CT angio chest DATE OF EXAM: 06/08/2022 COMPARISON: Chest x-ray earlier today. CTA chest April 12, 2022 HISTORY: Shortness of breath CT DLP: 495.8 mGycm. Automated Exposure Control for Dose Reduction was Utilized. CONTRAST: CTA scan of the thorax is performed with IV Contrast, patient injected with 83 mL of Isovue 370, pulm onary embolism protocol. MIP Images are created on CT scanner and reviewed. FINDINGS: LUNGS: Dependent groundglass opacity bilaterally favors atelectatic change. No suspicious focal con solidation. No greater than 5 mm parenchymal nodules or masses. There is no pleural effusion or pneum othorax seen. The tracheobronchial tree is patent. MEDIASTINUM: There is a suboptimal study with most dense contrast in the SVC. There is contrast opaci fication of the aorta without aneurysm or dissection. There is no central pulmonary embolism. Heterog eneity in the periphery makes evaluation of segmental and subsegmental vessels suboptimal. No obvious pulmonary embolism. There are prominent but subcentimeter noncalcified bilateral hilar lymph nodes. No greater than 1 cm mediastinal lymph nodes. No cardiomegaly or pericardial effusion is seen. OTHER: Scattered punctate calcifications throughout the slightly enlarged spleen measuring 14.2 cm lo ng axis axial image 119. Finding on basis of old granulomatous disease. IMPRESSION: Suboptimal study, no convincing CT evidence for acute pulmonary embolism. Evidence of old granulomatous disease with dependent atelectasis. No suspicious acute pulmonary process.
--- NOTE | 2022-06-08 07:34 | US ---
EXAMINATION TYPE: US venous doppler duplex LE RT DATE OF EXAM: 06/08/2022 7:28 AM COMPARISON: US bilateral April 13, 2022 CLINICAL HISTORY: R/o DVT. Pt states right leg pain, h/o PE. SIDE PERFORMED: Right TECHNIQUE: The lower extremity deep venous system is examined utilizing real time linear array sonog marcie with graded compression, doppler sonography and color-flow sonography. VESSELS IMAGED: Common Femoral Vein Deep Femoral Vein Greater Saphenous Vein * Femoral Vein Popliteal Vein Small Saphenous Vein * Proximal Calf Veins (* superficial vessels) Right Leg: Negative for DVT Grayscale, color doppler, spectral doppler imaging performed of the deep veins of the right lower ext remity. There is normal flow, compressibility, vascular waveforms. IMPRESSION: No ultrasound evidence for acute DVT in the right lower extremity. No significant sutton e from prior.
[2022-06-08 07:50] VITALS: PULSE 54
[2022-06-08 08:12] VITALS: TEMP 98.2
[2022-06-08 08:32] VITALS: BP 102/59; RESP 20
== END 2022-06-08 08:32 | disposition home or self-care (01) ==
LOC: EC 03:17
DX: R06.00 Dyspnea, unspecified (principal); J45.909 Unspecified asthma, uncomplicated; I26.99 Other pulmonary embolism without acute cor pulmonale; F41.9 Anxiety disorder, unspecified; Z88.6 Allergy status to analgesic agent; Z88.8 Allergy status to other drugs, medicaments and biological substances; Z91.018 Allergy to other foods
CPT/HCPCS: 36415; 93005; 85379; 80053; 83735; 84484; 85025; 85610; 85730; 71046; 93971; 71275; 99285; 96374; 96375; 96376; J2405; J2270; Q9967

== ENCOUNTER 2022-06-30 16:42 | Observation (INO) | payer OTHER ==
[2022-06-30] MEDS ORDERED: SODIUM CHLORIDE 0.9% 1,000 ML IV STA (17:45)
--- NOTE | 2022-06-30 18:14 | XR ---
EXAMINATION TYPE: XR chest 2V DATE OF EXAM: 06/30/2022 COMPARISON: 06/08/2022 HISTORY: Chest pain TECHNIQUE: Frontal and lateral views of the chest are obtained. FINDINGS: There is no focal air space opacity. No evidence for pneumothorax. No pleural effusion. The cardiac silhouette size is within normal limits. The osseous structures are grossly intact. IMPRESSION: 1. No acute cardiopulmonary process.
[2022-06-30 18:29] LABS: Basophils % (A) 0 %; Eosinophils # (A) 0.1 k/uL (0-0.7); Eosinophils % (A) 2 %; HCT 45.7 % (34.0-46.0); HGB 14.9 gm/dL (11.4-16.0); Lymphocytes # (A) 1.4 k/uL (1.0-4.8); Lymphocytes % (A) 24 %; MCH 27.9 pg (25.0-35.0); MCHC 32.7 g/dL (31.0-37.0); MCV 85.2 fL (80.0-100.0); Mean Platelet Volume 9.6; Monocytes # (A) 0.3 k/uL (0-1.0); Monocytes % (A) 5 %; Neutrophils % (A) 67 %; Platelet Count 268 k/uL (150-450); RBC 5.36 m/uL (3.80-5.40); RDW 13.1 % (11.5-15.5)
[2022-06-30] MEDS ORDERED: ALPRAZolam 0.5 MG TAB PO STA (19:00)
[2022-06-30 19:10] LABS: ALT 21 U/L (4-34); AST 20 U/L (14-36); African American GFR (CKD) >90 (>60 ml/min/1.73 sqM); Albumin 4.4 g/dL (3.5-5.0); Alkaline Phosphatase 84 U/L (38-126); Anion Gap 6 mmol/L; Blood Urea Nitrogen 23 mg/dL (7-17); Calcium 9.1 mg/dL (8.4-10.2); Carbon Dioxide 27 mmol/L (22-30); Chloride 108 mmol/L (98-107); Glucose 101 mg/dL (74-99); Non-African American GFR(CKD) 88 (>60 ml/min/1.73 sqM); Potassium 3.9 mmol/L (3.5-5.1); Sodium 141 mmol/L (137-145); Total Bilirubin 0.2 mg/dL (0.2-1.3); Total Protein 7.3 g/dL (6.3-8.2)
[2022-06-30 19:31] LABS: INR 0.9 (<1.2); Partial Thromboplastin Time 22.9 sec (22.0-30.0); Prothrombin Time 9.7 sec (9.0-12.0)
[2022-06-30 20:45] LABS: Appearance,Urine Clear (Clear); Bilirubin,Urine Negative (Negative); Blood,Urine Negative (Negative); Color,Urine Colorless; Glucose,Urine (UA) Negative (Negative); Ketones,Urine Negative (Negative); Leukocyte Esterase,Urine Negative (Negative); Nitrite,Urine Negative (Negative); PH, Urine 6.5 (5.0-8.0); Protein,Urine Negative (Negative); Specific Gravity,Urine 1.007 (1.001-1.035); Urobilinogen,Urine <2.0 mg/dL (<2.0)
[2022-06-30] MEDS ORDERED: HYDROmorphone 1 MG/ML 1 ML SYRINGE IVP STA (20:59)
--- NOTE | 2022-06-30 21:25 | US ---
EXAMINATION TYPE: US venous doppler duplex LE BI DATE OF EXAM: 06/30/2022 9:08 PM COMPARISON: 04/13/22 CLINICAL HISTORY: hx dvt. hx of PE in March. Took blood thinners, and just got off. SIDE PERFORMED: Bilateral TECHNIQUE: The lower extremity deep venous system is examined utilizing real time linear array sonog marcie with graded compression, doppler sonography and color-flow sonography. VESSELS IMAGED: Common Femoral Vein Deep Femoral Vein Greater Saphenous Vein * Femoral Vein Popliteal Vein Small Saphenous Vein * Proximal Calf Veins (* superficial vessels) Right Leg: Negative for DVT Left Leg: Negative for DVT IMPRESSION: No evidence for DVT
--- NOTE | 2022-06-30 23:37 | ED ---
Arrhythmia/Palpitations HPI - General Chief Complaint: Arrhythmia/Palpitations Stated Complaint: palpitations, SOB Source: patient Mode of arrival: ambulatory Limitations: no limitations - History of Present Illness Initial Comments: 37-year-old female past history of provoked DVT, PE after who presents to the emergency department reporting chest pain and shortness of breath. Patient has been seen twice for similar complaint in the emergency department after her diagnosis of PE which was in March. She was on anticoagulation for 3 months before they took her off of anticoagulation. Reports that she will have intermittent episodes of heart racing with chest pain. The patient has had 2 CTs since her diagnosis, the last of which was on the ninth of this month for a similar complaints. Patient was negative for DVT and PE. She denies any fevers or chills. Admits nausea without vomiting. No ripping or tearing sensation to her back. States that her symptoms started while she was in class. She noted that her apple watch read high heart rate and she promptly left class to come to the emergency department. States that her father has significant cardiac history. Patient denies concern for . No alleviating, precipitating or modifying factors - Related Data Home Medications Medication Instructions Recorded Confirmed No Known Home Medications 06/08/22 06/30/22 Allergies Allergy/AdvReac Type Severity Reaction Status Date / Time aspirin Allergy Unknown Verified 06/30/22 19:26 lorazepam [From Ativan] AdvReac Severe altered Verified 06/30/22 19:26 mental status cyclobenzaprine AdvReac Rapid Verified 06/30/22 19:26 [From Flexeril] Heart Rate diazepam [From Valium] AdvReac paradoxical Verified 06/30/22 19:26 reaction (anxiety) diphenhydramine HCl AdvReac paradoxical Verified 06/30/22 19:26 [From Benadryl] reaction (anxiety) ketorolac [From Toradol] AdvReac Nausea & Verified 06/30/22 19:26 Vomiting steroids AdvReac Severe Hallucinati Uncoded 06/30/22 16:52 ons Doles Fruit Cup AdvReac Rash/Hives Uncoded 06/30/22 16:52 Review of Systems ROS Statement: Those systems with pertinent positive or pertinent negative responses have been documented in the HPI. ROS Other: All systems not noted in ROS Statement are negative. Past Medical History Past Medical History: No Reported History, Asthma, Fibromyalgia, Pulmonary Embolus (PE), Seizure Disorder Additional Past Medical History / Comment(s): endometriosis, migraines, History of Any Multi-Drug Resistant Organisms: None Reported Past Surgical History: Breast Surgery Additional Past Surgical History / Comment(s): endometrial ablation, sinus surgery, D&C, breast implants removed 9 weeks ago (from 01/05/21) Past Anesthesia/Blood Transfusion Reactions: Postoperative Nausea & Vomiting (PONV) Past Psychological History: Anxiety, Panic Disorder Smoking Status: Never smoker Past Alcohol Use History: None Reported Past Drug Use History: None Reported - Past Family History Mother Family Medical History: Cancer Additional Family Medical History / Comment(s): cervical, uterine, and ovarian CA. Complete hysterectomy. Father Family Medical History: Hypertension General Exam Limitations: no limitations Course Vital Signs 06/30/22 06/30/22 16:50 21:00 Temperature 97.9 F Pulse Rate 120 H 84 Respiratory 20 18 Rate Blood Pressure 126/73 O2 Sat by Pulse 100 100 Oximetry EKG Findings - EKG Comments: EKG Findings:: EKG demonstrates sinus rhythm with a rate of 85. WA interval 194. QRS 105. QTC is 374. No acute ST segment elevations or depressions Medical Decision Making - Medical Decision Making Was pt. sent in by a medical professional or institution (, PA, TERMITE CONTROL TECHNICIAN, urgent care, hospital, or usp...) When possible be specific @ -[No] Did you speak to anyone other than the patient for history (EMS, parent, family, police, friend...)? What history was obtained from this source @ -[No] Did you review nursing and triage notes (agree or disagree)? Why? @ -[I reviewed and agree with nursing and triage notes] Were old charts reviewed (outside hosp., previous admission, EMS record, old EKG, old radiological studies, urgent care reports/EKG's, usp records)? Report findings @ -[No old charts were reviewed] Differential Diagnosis (chest pain, altered mental status, abdominal pain women, abdominal pain men, vaginal bleeding, weakness, fever, dyspnea, syncope, headache, dizziness, GI bleed, back pain, seizure, CVA, palpatations, mental health)? @ -[not applicable] EKG interpreted by me (3pts min.). @ -[As above] X-rays interpreted by me (1pt min.). @ -[None done] CT interpreted by me (1pt min.). @ -[None done] U/S interpreted by me (1pt. min.). @ -[None done] What testing was considered but not performed or refused? (CT, X-rays, U/S, labs)? Why? @ -[None] What meds were considered but not given or refused? Why? @ -[None] Did you discuss the management of the patient with other professionals (ulises cook i.e. , PA, TERMITE CONTROL TECHNICIAN, lab, RT, psych nurse, web content & social media manager, pretzel cooker, teacher, aoc plans intelligence officer chief, disease case manager)? Give summary @ -[No] Was smoking cessation discussed for >3mins.? @ -[No] Was critical care preformed (if so, how long)? @ -[No] Were there social determinants of health that impacted care today? How? (Homelessness, low income, unemployed, alcoholism, drug addiction, tr ansportation, low edu. Level, literacy, decrease access to med. care, m[facility], rehab)? @ -[No] Was there de-escalation of care discussed even if they declined (Discuss DNR or withdrawal of care, Hospice)? DNR status @ -[No] What co-morbidities impacted this encounter? (DM, HTN, Smoking, COPD, CAD, Cancer, CVA, ARF, Chemo, Hep., AIDS, mental health diagnosis, sleep apnea, morbid obesity)? @ -[None] Was patient admitted / discharged? Hospital course, mention meds given and route, prescriptions, significant lab abnormalities, going to OR and other pertinent info. Upon arrival patient was placed into room 2. A thorough history and physical exam was performed. Patient does have elevated heart rate in triage however when she is hooked up to the pulse ox and cardiac monitoring, her heart rate has normalized. Oxygen is 9200%. Patient has no increased work of breathing. I did discuss the symptoms with the patient. Laboratory studies are obtained. Discussed CT of the chest with the patient as she has had 2 recent CAT scans of the chest. Patient understands the risks of radiation exposure and is not agreeable to CT at this time. D-dimer not ordered as there is suspicion that it will be elevated. I did perform ultrasounds of the lower extremities which demonstrated no DVT. Patient has had no tachycardia or hypoxia while within the emergency department. I did discuss results with the patient. [place] that the patient was stable for outpatient follow-up however she reports that due to recurrent nature of her symptoms that she feels unsafe going home. I did discuss the patient's care with Tyshawn from [facility] was agreeable to overnight overnight. I will consult cardiology for episodes of inappropriate tachycardia. Patient is awaiting a bed on the floor Undiagnosed new problem with uncertain prognosis? @ -[No] Drug Therapy requiring intensive monitoring for toxicity (Heparin, Nitro, Insulin, Cardizem)? @ -[No] Were any procedures done? @ -[No] Diagnosis/symptom? @ -[default] Acute, or Chronic, or Acute on Chronic? @ -[default] Uncomplicated (without systemic symptoms) or Complicated (systemic symptoms)? @ -[default] Side effects of treatment? @ -[No] Exacerbation, Progression, or Severe Exacerbation? @ -[No] Poses a threat to life or bodily function? How? (Chest pain, [place], [place], pneumonia, PE, COPD, DKA, ARF, appy, cholecystitis, CVA, Diverticulitis, Homicidal, Suicidal, threat to staff... and all critical care pts) @ -[No] - Lab Data Result diagrams: 06/30/22 17:35 06/30/22 18:40 Lab Results 06/30/22 06/30/22 06/30/22 Range/Units 17:35 17:35 18:40 WBC 6.0 (3.8-10.6) k/uL RBC 5.36 (3.80-5.40) m/uL Hgb 14.9 (11.4-16.0) gm/dL Hct 45.7 (34.0-46.0) % MCV 85.2 (80.0-100.0) fL MCH 27.9 (25.0-35.0) pg MCHC 32.7 (31.0-37.0) g/dL RDW 13.1 (11.5-15.5) % Plt Count 268 (150-450) k/uL MPV 9.6 Neutrophils % 67 % Lymphocytes % 24 % Monocytes % 5 % Eosinophils % 2 % Basophils % 0 % Neutrophils # 4.0 (1.3-7.7) k/uL Lymphocytes # 1.4 (1.0-4.8) k/uL Monocytes # 0.3 (0-1.0) k/uL Eosinophils # 0.1 (0-0.7) k/uL Basophils # 0.0 (0-0.2) k/uL PT (9.0-12.0) sec INR (<1.2) APTT (22.0-30.0) sec Sodium 141 (137-145) mmol/L Potassium 3.9 (3.5-5.1) mmol/L Chloride 108 H (98-107) mmol/L Carbon Dioxide 27 (22-30) mmol/L Anion Gap 6 mmol/L BUN 23 H (7-17) mg/dL Creatinine 0.85 (0.52-1.04) mg/dL Est GFR (CKD-EPI)AfAm >90 (>60 ml/min/1.73 sqM) Est GFR (CKD-EPI)NonAf 88 (>60 ml/min/1.73 sqM) Glucose 101 H (74-99) mg/dL Calcium 9.1 (8.4-10.2) mg/dL Magnesium 2.0 (1.6-2.3) mg/dL Total Bilirubin 0.2 (0.2-1.3) mg/dL AST 20 (14-36) U/L ALT 21 (4-34) U/L Alkaline Phosphatase 84 (38-126) U/L Troponin I <0.012 (0.000-0.034) ng/mL Total Protein 7.3 (6.3-8.2) g/dL Albumin 4.4 (3.5-5.0) g/dL TSH 2.370 (0.465-4.680) mIU/L Urine Color Urine Appearance (Clear) Urine pH (5.0-8.0) Ur Specific [place] (1.001-1.035) Urine Protein (Negative) Urine Glucose (UA) (Negative) Urine Ketones (Negative) Urine Blood (Negative) Urine Nitrite (Negative) Urine Bilirubin (Negative) Urine Urobilinogen (<2.0) mg/dL Ur Leukocyte Esterase (Negative) Urine HCG, Qual (Not Detectd) 06/30/22 06/30/22 06/30/22 Range/Units 19:15 20:15 20:15 WBC (3.8-10.6) k/uL RBC (3.80-5.40) m/uL Hgb (11.4-16.0) gm/dL Hct (34.0-46.0) % MCV (80.0-100.0) fL MCH (25.0-35.0) pg MCHC (31.0-37.0) g/dL RDW (11.5-15.5) % Plt Count (150-450) k/uL MPV Neutrophils % % Lymphocytes % % Monocytes % % Eosinophils % % Basophils % % Neutrophils # (1.3-7.7) k/uL Lymphocytes # (1.0-4.8) k/uL Monocytes # (0-1.0) k/uL Eosinophils # (0-0.7) k/uL Basophils # (0-0.2) k/uL PT 9.7 (9.0-12.0) sec INR 0.9 (<1.2) APTT 22.9 (22.0-30.0) sec Sodium (137-145) mmol/L Potassium (3.5-5.1) mmol/L Chloride (98-107) mmol/L Carbon Dioxide (22-30) mmol/L Anion Gap mmol/L BUN (7-17) mg/dL Creatinine (0.52-1.04) mg/dL Est GFR (CKD-EPI)AfAm (>60 ml/min/1.73 sqM) Est GFR (CKD-EPI)NonAf (>60 ml/min/1.73 sqM) Glucose (74-99) mg/dL Calcium (8.4-10.2) mg/dL Magnesium (1.6-2.3) mg/dL Total Bilirubin (0.2-1.3) mg/dL AST (14-36) U/L ALT (4-34) U/L Alkaline Phosphatase (38-126) U/L Troponin I (0.000-0.034) ng/mL Total Protein (6.3-8.2) g/dL Albumin (3.5-5.0) g/dL TSH (0.465-4.680) mIU/L Urine Color Colorless Urine Appearance Clear (Clear) Urine pH 6.5 (5.0-8.0) Ur Specific [place] 1.007 (1.001-1.035) Urine Protein Negative (Negative) Urine Glucose (UA) Negative (Negative) Urine Ketones Negative (Negative) Urine Blood Negative (Negative) Urine Nitrite Negative (Negative) Urine Bilirubin Negative (Negative) Urine Urobilinogen <2.0 (<2.0) mg/dL Ur Leukocyte Esterase Negative (Negative) Urine HCG, Qual Not Detected (Not Detectd) Disposition Clinical Impression: Chest pain, Palpitations Disposition: ADMITTED IP TO THIS [facility] Condition: Stable Is patient prescribed a controlled substance at d/c from ED?: No Time of Disposition: 23:39 Decision to Admit Reason: Admit from EC Decision Date: 06/30/22 Decision Time: 23:39
[2022-06-30] MEDS ORDERED: NALOXONE 0.4 MG/ML 1 ML VIAL IV PRN (23:40)
[2022-06-30] MEDS ORDERED: MORPHINE SULFATE 4 MG/ML SYRINGE IVP STA (23:44)
[2022-07-01] MEDS ORDERED: MORPHINE SULFATE 4 MG/ML SYRINGE IVP STA (02:48)
[2022-07-01 05:13] LABS: Basophils % (A) 1 %; Eosinophils # (A) 0.1 k/uL (0-0.7); Eosinophils % (A) 2 %; HCT 38.3 % (34.0-46.0); HGB 12.7 gm/dL (11.4-16.0); Lymphocytes # (A) 1.8 k/uL (1.0-4.8); Lymphocytes % (A) 33 %; MCH 28.5 pg (25.0-35.0); MCHC 33.2 g/dL (31.0-37.0); MCV 85.9 fL (80.0-100.0); Mean Platelet Volume 8.1; Monocytes # (A) 0.3 k/uL (0-1.0); Monocytes % (A) 5 %; Neutrophils # (A) 3.1 k/uL (1.3-7.7); Neutrophils % (A) 58 %; Platelet Count 241 k/uL (150-450); RBC 4.46 m/uL (3.80-5.40); RDW 12.6 % (11.5-15.5); WBC 5.4 k/uL (3.8-10.6)
[2022-07-01 05:20] LABS: African American GFR (CKD) >90 (>60 ml/min/1.73 sqM); Anion Gap 4 mmol/L; Blood Urea Nitrogen 17 mg/dL (7-17); Calcium 8.6 mg/dL (8.4-10.2); Carbon Dioxide 26 mmol/L (22-30); Chloride 109 mmol/L (98-107); Glucose 89 mg/dL (74-99); Non-African American GFR(CKD) >90 (>60 ml/min/1.73 sqM); Sodium 139 mmol/L (137-145)
[2022-07-01 07:30] VITALS: RESP 16
--- NOTE | 2022-07-01 10:10 | P.CRDCN ---
History of Present Illness History of present illness: HISTORY OF PRESENT ILLNESS: This is a 37-year-old female with a past medical history significant for bilateral pulmonary embolism in the phase. Patient does not follow with a desktop administrator. We have been asked to see the patient in consultation for chest pain and palpitations. Patient examined at the bedside. Patient states yesterday she was at school and just sitting in class when she noticed her heart rate on her apple watch ranging from 30-130. She states she was having palpitations at that time. She also reports having pain in the middle of her chest and both shoulder blades. She reports feeling short of breath as well. The patient reports that her dad had a recent cardiac arrest and required pacemaker implantation which concerned her so she came to the emergency room for further evaluation. * EKG reveals sinus mechanism with no signs of acute ischemia * Chest xray negative for acute process * Laboratory data: WBC 5.4. Hemoglobin 12.7. Platelet count 241. Sodium 139. Potassium 4.0. BUN 17. Creatinine 0.60. Troponin negative 3. TSH 2.370. * Current home cardiac medications include none * Most recent echocardiogram obtained in March 2022 revealed ejection fraction 55-60%, mild MR * Patient underwent venous Doppler which was negative for DVT REVIEW OF SYSTEMS: At the time of my exam: CONSTITUTIONAL: Denies fever or chills. HEENT: Denies blurred vision, vision changes, or eye pain. Denies hemoptysis CARDIOVASCULAR: Denies chest pain. Denies orthopnea. Denies PND. Denies palpitations RESPIRATORY: Denies shortness of breath. GASTROINTESTINAL: Denies abdominal pain. Denies nausea or vomiting. HEMATOLOGIC: Denies bleeding disorders. GENITOURINARY: Denies any blood in urine. SKIN: Denies pruitis. Denies rash. PHYSICAL EXAM: VITAL SIGNS: Reviewed. GENERAL: Well-developed in no acute distress. HEENT: Head is normocephalic. Pupils are equal, round. Sclerae anicteric. Mucous membranes of the mouth are moist. Neck supple. No JVD or thyromegaly LUNGS: Respirations even and unlabored. Lungs essentially clear to auscultation bilaterally. HEART: Regular rate and rhythm. S1 and S2 heard. ABDOMEN: Soft. Nondistended. Nontender. EXTREMITIES: Normal range of motion. No clubbing or cyanosis. Peripheral pulses intact. No lower extremity edema NEUROLOGIC: Awake and alert. Oriented x 3. ASSESSMENT: Palpitations Chest pain, troponins negative 3 History of bilateral pulmonary embolism, 6 weeks PLAN: An acute coronary event has been ruled out No need to repeat echocardiogram as this was recently performed in April 2022 Patient to undergo stress echocardiogram today to assess for ischemia Will plan for 30 day event monitor secondary to palpitations Patient to follow up on an outpatient basis with Dr. Darnell Further recommendations pending patient's course Nurse practitioner note has been reviewed by physician. Signing provider agrees with the documented findings, assessment, and plan of care. Past Medical History Past Medical History: No Reported History, Asthma, Fibromyalgia, Pulmonary Embolus (PE), Seizure Disorder Additional Past Medical History / Comment(s): endometriosis, migraines with aura, History of Any Multi-Drug Resistant Organisms: None Reported Past Surgical History: Breast Surgery Additional Past Surgical History / Comment(s): endometrial ablation, sinus surgery, D&C, breast implants removed 08/2019 Past Anesthesia/Blood Transfusion Reactions: Postoperative Nausea & Vomiting (PO [place]) Past Psychological History: Anxiety, Panic Disorder Smoking Status: Never smoker Past Alcohol Use History: None Reported Past Drug Use History: None Reported - Past Family History Mother Family Medical History: Cancer Additional Family Medical History / Comment(s): cervical, uterine, and ovarian CA. Complete hysterectomy. Father Family Medical History: Hypertension Medications and Allergies Home Medications Medication Instructions Recorded Confirmed Type No Known Home Medications 06/08/22 06/30/22 History Allergies Allergy/AdvReac Type Severity Reaction Status Date / Time aspirin Allergy Unknown Verified 06/30/22 19:26 lorazepam [From Ativan] AdvReac Severe altered Verified 06/30/22 19:26 mental status cyclobenzaprine AdvReac Rapid Verified 06/30/22 19:26 [From Flexeril] Heart Rate diazepam [From Valium] AdvReac paradoxical Verified 06/30/22 19:26 reaction (anxiety) diphenhydramine HCl AdvReac paradoxical Verified 06/30/22 19:26 [From Benadryl] reaction (anxiety) ketorolac [From Toradol] AdvReac Nausea & Verified 06/30/22 19:26 Vomiting steroids AdvReac Severe Hallucinati Uncoded 06/30/22 16:52 ons Doles Fruit Cup AdvReac Rash/Hives Uncoded 06/30/22 16:52 Physical Exam Vitals: Vital Signs Temp Pulse Pulse Resp BP BP Pulse Ox 07/01/22 07:29 97.6 F 63 16 101/69 95 07/01/22 00:40 78 12 122/82 97 06/30/22 21:00 84 18 100 06/30/22 16:50 97.9 F 120 H 20 126/73 100 Intake and Output 06/30/22 07/01/22 07/01/22 22:59 06:59 14:59 Other: Weight 100.698 kg 100.698 kg Results 07/01/22 04:47 07/01/22 04:47 Cardiac Enzymes 06/30/22 06/30/22 07/01/22 Range/Units 17:35 18:40 01:13 AST 20 (14-36) U/L Troponin I <0.012 <0.012 (0.000-0.034) ng/mL 07/01/22 Range/Units 04:47 AST (14-36) U/L Troponin I <0.012 (0.000-0.034) ng/mL Coagulation 06/30/22 Range/Units 19:15 PT 9.7 (9.0-12.0) sec APTT 22.9 (22.0-30.0) sec CBC 06/30/22 07/01/22 Range/Units 17:35 04:47 WBC 6.0 5.4 (3.8-10.6) k/uL RBC 5.36 4.46 (3.80-5.40) m/uL Hgb 14.9 12.7 (11.4-16.0) gm/dL Hct 45.7 38.3 (34.0-46.0) % Plt Count 268 241 (150-450) k/uL Comprehensive Metabolic Panel 06/30/22 07/01/22 Range/Units 18:40 04:47 Sodium 141 139 (137-145) mmol/L Potassium 3.9 4.0 (3.5-5.1) mmol/L Chloride 108 H 109 H (98-107) mmol/L Carbon Dioxide 27 26 (22-30) mmol/L BUN 23 H 17 (7-17) mg/dL Creatinine 0.85 0.60 (0.52-1.04) mg/dL Glucose 101 H 89 (74-99) mg/dL Calcium 9.1 8.6 (8.4-10.2) mg/dL AST 20 (14-36) U/L ALT 21 (4-34) U/L Alkaline Phosphatase 84 (38-126) U/L Total Protein 7.3 (6.3-8.2) g/dL Albumin 4.4 (3.5-5.0) g/dL Current Medications Generic Name Dose Route Start Last Admin Trade Name Freq PRN Reason Stop Dose Admin Naloxone HCl 0.2 mg 06/30/22 23:40 Naloxone 0.4 Mg/Ml 1 Ml Vial IV Q2M PRN Opioid Reversal Intake and Output 06/30/22 07/01/22 07/01/22 22:59 06:59 14:59 Other: Weight 100.698 kg 100.698 kg Patient Weight 07/02/22 06:59 Weight 100.698 kg 07/01/22 04:47 07/01/22 04:47
[2022-07-01] MEDS ORDERED: ACETAMINOPHEN TAB 325 MG TAB PO PRN (10:18)
[2022-07-01] MEDS ORDERED: MORPHINE SULFATE 2 MG/ML SYRINGE IVP PRN (10:18)
[2022-07-01] MEDS ORDERED: ONDANSETRON 4 MG/2 ML VIAL IVP PRN (10:19)
[2022-07-01] MEDS ORDERED: traMADol 50 MG TAB PO PRN (10:19)
--- NOTE | 2022-07-01 10:21 | P.HPIM ---
History of Present Illness H&P Date: 07/01/22 This is a pleasant 37 year old female with medical history of MTHFR mutation, pulmonary embolism 2 months ago, seizure disorder, fibromyalgia, migraine with aura, anxiety. Patient is and is currently 3 months post , she is not nursing at this time. Patient was found to have pulmonary embolism back in February of 2022 which was treated with oral anticoagulants. Most recent CTA in 06/08/2022 is negative for acute pulmonary embolism. States she has been seen in the ER 4 times since giving secondary to chest pain and heart racing. Patient presents to the emergency room with 1 day history of sharp midsternal chest pain which had radiated into the left chest, and bilateral shoulders. Patient reports yesterday morning waking up feeling dizzy and lightheaded. Thought maybe it was anxiety as she had an exam. Dizziness and lightheadedness persisted throughout the day. Later that afternoon while on campus, patient experienced nausea, became diaphoretic and developed chest pain. She also reports palpitations and states her heart rate was around 132 on Apple watch and was jumping around. She was sitting down at the time. Denies fever, chills. Denies syncopal episode. Chest xray is negative. Venous doppler negative bilaterally. Troponin level is negative x 2. TSH normal. Urinalysis is negative. Lab work is essentialy unremarkable with slightly elevated chloride at 109. Heart was 120 on admission. EKG showing normal sinus rhythm with no specific ST or T wave changes. Currently patient reports residual bilateral shoulder pain rated a 7/10 and feels like pressure. She received IV morphine which helped. Patient is admitted in observation and is scheduled to undergo stress ec hocardiogram today. Recommending 30 day event monitor on discharge. REVIEW OF SYSTEMS: CONSTITUTIONAL: No fever, no malaise, no fatigue. HEENT: No recent visual problems or hearing problems. Denied any sore throat. CARDIOVASCULAR: Reports chest pain and bilateral shoulder pain, orthopnea, PND, no palpitations, no syncope. PULMONARY: No shortness of breath, no cough, no hemoptysis. GASTROINTESTINAL: No diarrhea, no nausea, no vomiting, no abdominal pain. NEUROLOGICAL: No headaches, no weakness, no numbness. HEMATOLOGICAL: Denies any bleeding or petechiae. GENITOURINARY: Denies any burning micturition, frequency, or urgency. MUSCULOSKELETAL/RHEUMATOLOGICAL: Denies any joint pain, swelling, or any muscle pain. ENDOCRINE: Denies any polyuria or polydipsia. The rest of the 14-point review of systems is negative. PHYSICAL EXAMINATION: GENERAL: The patient is alert and oriented x3, not in any acute distress. Well developed, well nourished. HEENT: Pupils are round and equally reacting to light. EOMI. No scleral icterus. No conjunctival pallor. Normocephalic, atraumatic. No pharyngeal erythema. No thyromegaly. CARDIOVASCULAR: S1 and S2 present. No murmurs, rubs, or gallops. Regualar rate and rhythm. PULMONARY: Chest is clear to auscultation, no wheezing or crackles. ABDOMEN: Soft, nontender, nondistended, normoactive bowel sounds. No palpable organomegaly. MUSCULOSKELETAL: No joint swelling or deformity. EXTREMITIES: No cyanosis, clubbing, or pedal edema. NEUROLOGICAL: Gross neurological examination did not reveal any focal deficits. SKIN: No rashes. Assessment and Plan Assessment Chest pain rule out ACS Palpitations/tachycardia rule out underlying arrhythmia History of pulmonary embolism , off anticoagulation at this time History of migraine with aura takes fioricet at home Reported history of seizure disorder Fibromyalgia 3 months MTHFR gene mutation Anxiety/panic disorder GI prophylaxis DVT prophylaxis early ambulation Full Code Plan Cardiac monitoring Continue supportive care, pain management Avoid fioricet at this time which continues caffeine Echo stress test today Patient will need 30 day event monitor on discharge Pending further cardiac recommendations possible D/C home later today if stress test is negative and cleared by cardiology The impression and plan of care has been dictated by Domitila Childress Nurse Practitioner as directed. Dr. Rodolfo MD I have performed a history and physical examination and medical decision making of this patient, discussed the same with the dictator, and agree with the dictators assessment and plan as written, documented as a scribe. Based on total visit time, I have performed more than 50% of this visit. Past Medical History Past Medical History: No Reported History, Asthma, Fibromyalgia, Pulmonary Embolus (PE), Seizure Disorder Additional Past Medical History / Comment(s): endometriosis, migraines with aura, History of Any Multi-Drug Resistant Organisms: None Reported Past Surgical History: Breast Surgery Additional Past Surgical History / Comment(s): endometrial ablation, sinus marion rgery, D&C, breast implants removed 08/2019 Past Anesthesia/Blood Transfusion Reactions: Postoperative Nausea & Vomiting (PONV) Past Psychological History: Anxiety, Panic Disorder Smoking Status: Never smoker Past Alcohol Use History: None Reported Past Drug Use History: None Reported - Past Family History Mother Family Medical History: Cancer Additional Family Medical History / Comment(s): cervical, uterine, and ovarian CA. Complete hysterectomy. Father Family Medical History: Hypertension Medications and Allergies Home Medications Medication Instructions Recorded Confirmed Type No Known Home Medications 06/08/22 06/30/22 History Allergies Allergy/AdvReac Type Severity Reaction Status Date / Time aspirin Allergy Unknown Verified 06/30/22 19:26 lorazepam [From Ativan] AdvReac Severe altered Verified 06/30/22 19:26 mental status cyclobenzaprine AdvReac Rapid Verified 06/30/22 19:26 [From Flexeril] Heart Rate diazepam [From Valium] AdvReac paradoxical Verified 06/30/22 19:26 reaction (anxiety) diphenhydramine HCl AdvReac paradoxical Verified 06/30/22 19:26 [From Benadryl] reaction (anxiety) ketorolac [From Toradol] AdvReac Nausea & Verified 06/30/22 19:26 Vomiting steroids AdvReac Severe Hallucinati Uncoded 06/30/22 16:52 ons Doles Fruit Cup AdvReac Rash/Hives Uncoded 06/30/22 16:52 Physical Exam Vitals: Vital Signs Temp Pulse Pulse Resp BP BP Pulse Ox 07/01/22 07:29 97.6 F 63 16 101/69 95 07/01/22 00:40 78 12 122/82 97 06/30/22 21:00 84 18 100 06/30/22 16:50 97.9 F 120 H 20 126/73 100 Intake and Output 06/30/22 07/01/22 07/01/22 22:59 06:59 14:59 Other: Weight 100.698 kg 100.698 kg Results CBC & Chem 7: 07/01/22 04:47 07/01/22 04:47 Labs: Abnormal Lab Results - Last 24 Hours (Table) 06/30/22 07/01/22 Range/Units 18:40 04:47 Chloride 108 H 109 H (98-107) mmol/L BUN 23 H (7-17) mg/dL Glucose 101 H (74-99) mg/dL Thrombosis Risk Factor Assmnt - Choose All That Apply Any of the Below Risk Factors Present?: No Assessment and Plan Time with Patient: Less than 30
[2022-07-01] MEDS ORDERED: FAMOTIDINE 20 MG TAB PO SCH (10:30)
--- NOTE | 2022-07-01 13:51 | CA ---
Stress Echo Report Ghazal Hagan Age: 37 Gender: F : 1985 Exam Date: 07/01/2022 10:50 Exam Location: [facility] Ht (in): 64 Wt (lb): 222 Ordering Physician: Dior Orozco Referring Physician: [id number] Audit Control Clerk: REMINGTON Technologist Procedure CPT: Indication: CP ICD-9 Codes: Rhythm: Patient History: Cardiac Medications: Medications in past 24 hours: Contrast: Stress Results Protocol: Audie Total dose(mL): Exercise Duration (min:sec): 9:[address] Depression (mm): Angina Score: Delgado Score: METS: 10.5 Resting HR: 94 Resting BP: 143 / 90 Peak HR: 157 Peak BP: 192 / 68 Max Predicted HR: 182 86 % Max Predicted HR Target HR: 155 Double Product: [id number] Stress Summary: BP Response: Reason for Termination: MAX EXERTION/TARGET HR Cardiac Symptoms: NO SYMPTOMS ECG Analysis Resting ECG: Stress ECG: Arrhythmia: Echo Analysis Resting Echo: Peak Echo Analysis: MEASUREMENTS (Male/Female) Normal Values CONCLUSIONS Excellent exercise tolerance Normal EKG in response to exercise Normal echocardiogram in response to exercise Dr. Barry Darnell MD (Electronically Signed) Final Date: 01 July 2022 13:50
[2022-07-01 14:05] VITALS: BP 112/68; PULSE 65; TEMP 97.9
--- NOTE | 2022-07-04 12:52 | P.DS ---
Providers Date of admission: 06/30/22 23:44 Attending physician: Charissa Osuna Consults: 06/30/22 23:40 Consult Physician Urgent Consulting Provider: [facility] Consult Reason/Comments: acute chest pain, acute palpitations Do you want consulting provider notified?: Yes Primary care physician: Stated None Hospital Course: Final Diagnosis Chest pain rule out ACS Palpitations/tachycardia rule out underlying arrhythmia History of pulmonary embolism , off anticoagulation at this time History of migraine with aura takes fioricet at home Reported history of seizure disorder Fibromyalgia 3 months MTHFR gene mutation Anxiety/panic disorder Full Code Discharge Disposition Patient is stable for discharge home and recommended to establish care with Primary provider. Patient has an appointment with cardiology office today to received 30 day event monitor to rule out underlying cardiac arrhythmia. She will need to follow up with Dr. Darnell on discharge. Hospital Course This is a pleasant 37 year old female with medical history of MTHFR mutation, pulmonary embolism 2 months ago, seizure disorder, fibromyalgia, migraine with aura, anxiety. Patient is and is currently 3 months post , she is not nursing at this time. Patient was found to have pulmonary embolism back in February of 2022 which was treated with oral anticoagulants. Most recent CTA in 06/08/2022 is negative for acute pulmonary embolism. States she has been seen in the ER 4 times since giving secondary to chest pain and heart racing. Patient presents to the emergency room with 1 day history of sharp midsternal chest pain which had radiated into the left chest, and bilateral shoulders. Patient reports yesterday morning waking up feeling dizzy and lightheaded. Thought maybe it was anxiety as she had an exam. Dizziness and lightheadedness persisted throughout the day. Later that afternoon while on campus, patient experienced nausea, became diaphoretic and developed chest pain. She also reports palpitations and states her heart rate was around 132 on Apple watch and was jumping around. She was sitting down at the time. Denies fever, chills. Denies syncopal episode. Chest xray is negative. Venous doppler negative bilaterally. Troponin level is negative x 2. TSH normal. Urinalysis is negative. Lab work is essentialy unremarkable with slightly elevated chloride at 109. Hear t was 120 on admission. EKG showing normal sinus rhythm with no specific ST or T wave changes. Currently patient reports residual bilateral shoulder pain rated a 7/10 and feels like pressure. She received IV morphine which helped. Patient underwent echo stress which reveals excellent exercise tolerance. Normal EKG in response to exercise and normal echocardiogram in response to exercise. She is cleared for discharge by cardiology and will have a 30 day event monitor placed at cardiology office later today. Cleared for discharge. Patient is not on any home medications. Symptoms have improved. Thank you for allowing us to participate in the care of this patient. Please see medical H&P for additional information and full review of systems and physical examination. The impression and plan of care has been dictated by Domitila Childress, Nurse Practitioner as directed. Dr. Rodolfo MD I have performed a history and physical examination and medical decision making of this patient, discussed the same with the dictator, and agree with the dictators assessment and plan as written, documented as a scribe. Based on total visit time, I have performed more than 50% of this visit. Patient Condition at Discharge: Stable Plan - Discharge Summary Discharge Rx Participant: No New Discharge Prescriptions: No Action No Known Home Medications Discharge Medication List No Known Home Medications 06/08/22 [History] Follow up Appointment(s)/Referral(s): Barry Darnell MD [STAFF PHYSICIAN] - 1 Week Bobby Guzman MD [STAFF PHYSICIAN] - 1 Week None,Stated [Primary Care Provider] - 1-2 days Patient Instructions/Handouts: Chest Pain (DC) Activity/Diet/Wound Care/Special Instructions: AFTER YOU ARE DISCHARGED, [facility] AT [facility] THEY WILL GIVE YOU AN EVENT MONITOR (HEART MONITOR) TO WEAR FOR 30 DAYS IF YOU CANT MAKE IT THERE TODAY, CALL THE OFFICE AND LET THEM KNOW. THEY SHOULD BE ABLE TO LET YOU COME PICK IT UP TOMORROW MORNING Follow up with your primary care provider in 1 to 2 days on discharge. Discharge Disposition: HOME SELF-CARE
== END 2022-07-01 15:43 | disposition home or self-care (01) ==
LOC: EC 16:42 → 6NMEDSUR 23:44
PROVIDERS: ADMIT Hospitalist; ATTEND Hospitalist
DX: R07.89 Other chest pain (principal); R00.2 Palpitations; R00.0 Tachycardia, unspecified; M25.511 Pain in right shoulder; M25.512 Pain in left shoulder; J45.909 Unspecified asthma, uncomplicated; E72.12 Methylenetetrahydrofolate reductase deficiency; M79.7 Fibromyalgia; G43.109 Migraine with aura, not intractable, without status migrainosus; G40.909 Epilepsy, unspecified, not intractable, without status epilepticus; N80.9 Endometriosis, unspecified; F41.0 Panic disorder [episodic paroxysmal anxiety]; F41.9 Anxiety disorder, unspecified; Z88.5 Allergy status to narcotic agent; Z88.6 Allergy status to analgesic agent; Z88.8 Allergy status to other drugs, medicaments and biological substances; Z91.018 Allergy to other foods; Z86.711 Personal history of pulmonary embolism; Z86.718 Personal history of other venous thrombosis and embolism; Z82.49 Family history of ischemic heart disease and other diseases of the circulatory system; Z80.41 Family history of malignant neoplasm of ovary; Z80.49 Family history of malignant neoplasm of other genital organs
CPT/HCPCS: 96376 ×2; 96361 ×2; 96374; 96375; 99285; 36415; 93005; 93351; 80053; 80048; 84443; 83735; 84484 ×2; 85025 ×2; 85610; 85730; 81003; 81025; 71046; 93970; G0378; J2270 ×2; J1170

== ENCOUNTER 2022-10-25 16:30 | Emergency (ER) | payer OTHER ==
[2022-10-25 16:43] VITALS: RESP 18; TEMP 98.2
--- NOTE | 2022-10-25 16:52 | ED ---
General Adult HPI - General Chief complaint: Headache Stated complaint: Migraine,vision issues Time Seen by Provider: 10/25/22 16:45 Source: patient Mode of arrival: ambulatory Limitations: no limitations - History of Present Illness Initial comments: Patient presents to the ED complaining of having intermittent "migraine headaches" over the past 4 days. Patient states that she has a history of migraine headaches, but she states that her headaches over the past 4 days have been different in that she has been experiencing visual changes with her head aches. Patient states that she has noticed blurry vision at times, and today she states that she notices a dark spot in her right eye visual field. She states that these visual changes are always associated with headaches. She states that her current headache is 9/10 in severity and left-sided. Patient admits to having associated nausea and light sensitivity. Patient denies head trauma or injury, sudden onset of headache, LOC, neck pain or stiffness, fever or chills, focal numbness/weakness, speech difficulty, chest pain or pressure, dyspnea, palpitations, dizziness, abdominal pain, nausea/vomiting/diarrhea, or any other symptoms or complaints. - Related Data Home Medications Medication Instructions Recorded Confirmed No Known Home Medications 06/08/22 06/30/22 Allergies Allergy/AdvReac Type Severity Reaction Status Date / Time aspirin Allergy Unknown Verified 10/25/22 16:43 tramadol Allergy Rash/Hives Verified 10/25/22 17:54 lorazepam [From Ativan] AdvReac Severe altered Verified 10/25/22 16:43 mental status cyclobenzaprine AdvReac Rapid Verified 10/25/22 16:43 [From Flexeril] Heart Rate diazepam [From Valium] AdvReac paradoxical Verified 10/25/22 16:43 reaction (anxiety) diphenhydramine HCl AdvReac paradoxical Verified 10/25/22 16:43 [From Benadryl] reaction (anxiety) ketorolac [From Toradol] AdvReac Nausea & Verified 10/25/22 16:43 Vomiting steroids AdvReac Severe Hallucinati Uncoded 10/25/22 16:43 ons Doles Fruit Cup AdvReac Rash/Hives Uncoded 10/25/22 16:43 Review of Systems ROS Statement: Those systems with pertinent positive or pertinent negative responses have been documented in the HPI. ROS Other: All systems not noted in ROS Statement are negative. Past Medical History Past Medical History: No Reported History, Asthma, Fibromyalgia, Pulmonary Embolus (PE), Seizure Disorder Additional Past Medical History / Comment(s): endometriosis, migraines, History of Any Multi-Drug Resistant Organisms: None Reported Past Surgical History: Breast Surgery Additional Past Surgical History / Comment(s): endometrial ablation, sinus surgery, D&C, breast implants removed 9 weeks ago (from 01/05/21) Past Anesthesia/Blood Transfusion Reactions: Postoperative Nausea & Vomiting (PONV) Past Psychological History: Anxiety, Panic Disorder Smoking Status: Never smoker Past Alcohol Use History: None Reported Past Drug Use History: None Reported - Past Family History Mother Family Medical History: Cancer Additional Family Medical History / Comment(s): cervical, uterine, and ovarian CA. Complete hysterectomy. Father Family Medical History: Hypertension General Exam Limitations: no limitations General appearance: alert, in no apparent distress Head exam: Present: atraumatic, normocephalic, other (No temporal swelling or tenderness) Eye exam: Present: normal appearance, PERRL, EOMI ENT exam: Present: mucous membranes moist Neck exam: Present: other (No nuchal rigidity or meningeal signs are present on exam). Absent: tenderness, meningismus Respiratory exam: Present: normal lung sounds bilaterally. Absent: respiratory distress, wheezes, rales, rhonchi, stridor Cardiovascular Exam: Present: regular rate, normal rhythm, normal heart sounds, other (Normal radial pulses bilaterally) GI/Abdominal exam: Present: soft. Absent: distended, tenderness, guarding Extremities exam: Absent: pedal edema Neurological exam: Present: alert, oriented X3, CN II-XII intact. Absent: motor sensory deficit Psychiatric exam: Present: anxious, other (Patient is tearful at times) Skin exam: Present: warm, dry, intact, normal color Course Vital Signs 10/25/22 10/25/22 16:38 16:46 Temperature 98.2 F Pulse Rate 85 70 Respiratory 18 18 Rate Blood Pressure 159/82 164/93 O2 Sat by Pulse 100 97 Oximetry Medical Decision Making - Medical Decision Making Was pt. sent in by a medical professional or institution (, PA, STEEL ERECTOR, urgent care, hospital, or group home...) When possible be specific @ -No Did you speak to anyone other than the patient for history (EMS, parent, family, police, friend...)? What history was obtained from this source @ -No Did you review nursing and triage notes (agree or disagree)? Why? @ -I reviewed and agree with nursing and triage notes Were old charts reviewed (outside hosp., previous admission, EMS record, old EKG, old radiological studies, urgent care reports/EKG's, group home records)? Report findings @ -No old charts were reviewed Differential Diagnosis (chest pain, altered mental status, abdominal pain women, abdominal pain men, vaginal bleeding, weakness, fever, dyspnea, syncope, headache, dizziness, GI bleed, back pain, seizure, CVA, palpatations, mental health, musculoskeletal)? @ -Headache, cluster headache, tension headache, migraine headache, temporal arteritis, intracranial hemorrhage, intracranial mass, anxiety, visual changes EKG interpreted by me (3pts min.). @ -None done X-rays interpreted by me (1pt min.). @ -None done CT interpreted by me (1pt min.). @ -Noncontrast head CT was reviewed myself and shows no acute abnormality. I agree with the radiologist's interpretation as above. U/S interpreted by me (1pt. min.). @ -None done What testing was considered but not performed or refused? (CT, X-rays, U/S, labs)? Why? @ -None What meds were considered but not given or refused? Why? @ -None Did you discuss the management of the patient with other professionals (professionals i.e. , PA, STEEL ERECTOR, lab, RT, psych nurse, social service liaison, manager battery, teacher, chemistry technical officer, case management coordinator)? Give summary @ -No Was smoking cessation discussed for >3mins.? @ -No Was critical care preformed (if so, how long)? @ -No Were there social determinants of health that impacted care today? How? (Homelessness, low income, unemployed, alcoholism, drug addiction, transportation, low edu. Level, literacy, decrease access to med. care, intermediate, rehab)? @ -No Was there de-escalation of care discussed even if they declined (Discuss DNR or withdrawal of care, Hospice)? DNR status @ -No What co-morbidities impacted this encounter? (DM, HTN, Smoking, COPD, CAD, Cancer, CVA, ARF, Chemo, Hep., AIDS, mental health diagnosis, sleep apnea, morbid obesity)? @ -Migraine headaches Was patient admitted / discharged? Hospital course, mention meds given and route, prescriptions, significant lab abnormalities, going to OR and other pertinent info. @ -Patient reports improvement in her headache/symptoms with ED treatment. Patient has a normal/nonfocal neurological exam. Patient denies head trauma injury or sudden onset of headache. Patient is afebrile and without leukocytosis or meningeal signs on exam. Patient's head CT is negative. Patient's labs are fairly unremarkable. Patient reports that her visual changes are associated with her headaches, and I suspect that they're likely due to migraine headaches. I do not suspect an emergent medical condition at this time. Will discharge patient home at this time. Patient feels comfortable with this plan. Patient was counseled about migraine headaches, and she was clearly explained return and follow-up instructions. Patient was instructed to follow up closely with her primary care provider. Undiagnosed new problem with uncertain prognosis? @ -No Drug Therapy requiring intensive monitoring for toxicity (Heparin, Nitro, Insulin, Cardizem)? @ -No Were any procedures done? @ -No Diagnosis/symptom? @ -Migraine headache Acute, or Chronic, or Acute on Chronic? @ -Acute Uncomplicated (without systemic symptoms) or Complicated (systemic symptoms)? @ -default Side effects of treatment? @ -No Exacerbation, Progression, or Severe Exacerbation? @ -No Poses a threat to life or bodily function? How? (Chest pain, USA, SC, pneumonia, PE, COPD, DKA, ARF, appy, cholecystitis, CVA, Diverticulitis, Homicidal, Suicid al, threat to staff... and all critical care pts) @ -No - Lab Data Result diagrams: 10/25/22 17:10 10/25/22 17:10 Lab Results 10/25/22 10/25/22 Range/Units 17:10 17:10 WBC 5.9 (3.8-10.6) k/uL RBC 5.04 (3.80-5.40) m/uL Hgb 14.4 (11.4-16.0) gm/dL Hct 43.4 (34.0-46.0) % MCV 86.1 (80.0-100.0) fL MCH 28.5 (25.0-35.0) pg MCHC 33.1 (31.0-37.0) g/dL RDW 12.8 (11.5-15.5) % Plt Count 262 (150-450) k/uL MPV 7.7 Neutrophils % 63 % Lymphocytes % 27 % Monocytes % 4 % Eosinophils % 4 % Basophils % 1 % Neutrophils # 3.7 (1.3-7.7) k/uL Lymphocytes # 1.6 (1.0-4.8) k/uL Monocytes # 0.3 (0-1.0) k/uL Eosinophils # 0.2 (0-0.7) k/uL Basophils # 0.0 (0-0.2) k/uL Sodium 141 (137-145) mmol/L Potassium 3.6 (3.5-5.1) mmol/L Chloride 104 (98-107) mmol/L Carbon Dioxide 28 (22-30) mmol/L Anion Gap 9 mmol/L BUN 13 (7-17) mg/dL Creatinine 0.62 (0.52-1.04) mg/dL Est GFR (CKD-EPI)AfAm >90 (>60 ml/min/1.73 sqM) Est GFR (CKD-EPI)NonAf >90 (>60 ml/min/1.73 sqM) Glucose 108 H (74-99) mg/dL Calcium 9.8 (8.4-10.2) mg/dL - Radiology Data Noncontrast head CT: No acute intracranial process. Disposition Clinical Impression: Migraine headache Disposition: HOME SELF-CARE Condition: Stable Instructions (If sedation given, give patient instructions): Migraine Headache (ED), Acute Headache (ED) Additional Instructions: Return to the ER immediately should you develop new or worsening pain, a fever, neck pain or stiffness, numbness or weakness, worsening visual changes, persistent vomiting, feeling dizzy or faint, shortness of breath, or new or worsening symptoms. Follow up closely with your primary care provider. Is patient prescribed a controlled substance at d/c from ED?: No Referrals: None,Stated [Primary Care Provider] - 1-2 days Brandon Kelley MD [STAFF PHYSICIAN] - 1-2 days Time of Disposition: 19:12
[2022-10-25] MEDS ORDERED: LORazepam 2 MG/ML INJ IV STA (16:59)
[2022-10-25] MEDS ORDERED: SODIUM CHLORIDE 0.9% 1,000 ML IV ONE (16:59)
[2022-10-25] MEDS ORDERED: METOCLOPRAMIDE 5 MG/ML 2 ML VIAL IVP STA (17:00)
[2022-10-25 17:24] LABS: Basophils % (A) 1 %; Eosinophils # (A) 0.2 k/uL (0-0.7); Eosinophils % (A) 4 %; HCT 43.4 % (34.0-46.0); HGB 14.4 gm/dL (11.4-16.0); Lymphocytes # (A) 1.6 k/uL (1.0-4.8); Lymphocytes % (A) 27 %; MCH 28.5 pg (25.0-35.0); MCHC 33.1 g/dL (31.0-37.0); MCV 86.1 fL (80.0-100.0); Mean Platelet Volume 7.7; Monocytes # (A) 0.3 k/uL (0-1.0); Monocytes % (A) 4 %; Neutrophils # (A) 3.7 k/uL (1.3-7.7); Neutrophils % (A) 63 %; Platelet Count 262 k/uL (150-450); RBC 5.04 m/uL (3.80-5.40); RDW 12.8 % (11.5-15.5); WBC 5.9 k/uL (3.8-10.6)
--- NOTE | 2022-10-25 17:35 | CT ---
EXAMINATION TYPE: CT brain wo con CT DLP: 1099.4 mGycm, Automated exposure control for dose reduction was used. DATE OF EXAM: 10/25/2022 5:30 PM COMPARISON: CT brain 04/26/2021. CLINICAL INDICATION:Female, 37 years old with history of headache, visual changes, Chronic Migraines TECHNIQUE: Brain: Axial CT images of the brain were obtained with coronal and sagittal reformats created and rev iewed. Contrast used: None. Oral contrast used: None. FINDINGS: Brain: Extra-axial spaces: No abnormal extra-axial fluid collections. Ventricular system: Within normal limits Cerebral parenchyma: No acute intraparenchymal hemorrhage or mass effect. The watts-white junction is well differentiated. Cerebellum: Unremarkable. Mass effect: No evidence of midline shift. Intracranial vasculature: unremarkable Soft tissues: Normal. Calvarium/osseous structures: No depressed skull fracture. Paranasal sinuses and mastoid air cells: Clear. Mastoid air cells are Clear Visualized orbits: Orbital contents are intact. IMPRESSION: No acute intracranial process.
[2022-10-25] MEDS ORDERED: traMADol 50 MG TAB PO STA (17:45)
[2022-10-25] MEDS ORDERED: CYCLOBENZAPRINE 10 MG TAB PO STA (17:53)
[2022-10-25 18:09] LABS: African American GFR (CKD) >90 (>60 ml/min/1.73 sqM); Anion Gap 9 mmol/L; Blood Urea Nitrogen 13 mg/dL (7-17); Calcium 9.8 mg/dL (8.4-10.2); Carbon Dioxide 28 mmol/L (22-30); Chloride 104 mmol/L (98-107); Glucose 108 mg/dL (74-99); Non-African American GFR(CKD) >90 (>60 ml/min/1.73 sqM); Potassium 3.6 mmol/L (3.5-5.1); Sodium 141 mmol/L (137-145)
[2022-10-25] MEDS ORDERED: SUMAtriptan succinate 6 MG/0.5 ML VIAL SQ STA (18:55)
[2022-10-25 19:23] VITALS: BP 135/91; PULSE 63
== END 2022-10-25 19:23 | disposition home or self-care (01) ==
LOC: EC 16:30
DX: G43.909 Migraine, unspecified, not intractable, without status migrainosus (principal); J45.909 Unspecified asthma, uncomplicated; Z88.5 Allergy status to narcotic agent; Z88.6 Allergy status to analgesic agent; Z88.8 Allergy status to other drugs, medicaments and biological substances
CPT/HCPCS: 36415; 80048; 85025; 70450; 99284; 96374; 96361; 96372; J3030; J2765

== ENCOUNTER 2023-09-07 17:58 | Emergency (ER) | payer OTHER ==
--- NOTE | 2023-09-07 18:31 | ED ---
ENT HPI - General Chief complaint: ENT Stated complaint: L ear pain Time Seen by Provider: 09/07/23 18:15 Source: patient, RN notes reviewed Mode of arrival: ambulatory Limitations: no limitations - History of Present Illness Initial comments: 38-year-old female presents the with chief complaint of left ear pain and tinnitus the last half of a week. Denies any obvious trauma to the ear, no discharge, fevers, nausea or vomiting, cough, runny nose congestion, mastoid tenderness. Patient states that she was in [place] last week when she began experiencing the severe left-sided earache prompting her to go to the emergency department. Patient was diagnosed with otitis media and discharged home on Augmentin, Percocet, naproxen. - Related Data Previous Rx's Medication Instructions Recorded Fluticasone Nasal [place] [Flonase 1 spray EA NOSTRIL DAILY #16 gm 09/07/23 Nasal [place]] Levofloxacin [Levaquin] 500 mg PO DAILY #10 tab 09/07/23 Allergies Allergy/AdvReac Type Severity Reaction Status Date / Time aspirin Allergy Unknown Verified 09/07/23 18:15 tramadol Allergy Rash/Hives Verified 09/07/23 18:15 lorazepam [From Ativan] AdvReac Severe altered Verified 09/07/23 18:15 mental status cyclobenzaprine AdvReac Rapid Verified 09/07/23 18:15 [From Flexeril] Heart Rate diazepam [From Valium] AdvReac paradoxical Verified 09/07/23 18:15 reaction (anxiety) diphenhydramine HCl AdvReac paradoxical Verified 09/07/23 18:15 [From Benadryl] reaction (anxiety) ketorolac [From Toradol] AdvReac Nausea & Verified 09/07/23 18:15 Vomiting steroids AdvReac Severe Hallucinati Uncoded 09/07/23 18:15 ons Doles Fruit Cup AdvReac Rash/Hives Uncoded 09/07/23 18:15 Review of Systems ROS Statement: Those systems with pertinent positive or pertinent negative responses have been documented in the HPI. ROS Other: All systems not noted in ROS Statement are negative. Past Medical History Past Medical History: No Reported History, Asthma, Fibromyalgia, Pulmonary Embolus (PE), Seizure Disorder Additional Past Medical History / Comment(s): endometriosis, migraines, History of Any Multi-Drug Resistant Organisms: None Reported Past Surgical History: Breast Surgery Additional Past Surgical History / Comment(s): endometrial ablation, sinus surgery, D&C, breast implants removed 9 weeks ago (from 01/05/21) Past Anesthesia/Blood Transfusion Reactions: Postoperative Nausea & Vomiting (PONV) Past Psychological History: Anxiety, Panic Disorder Smoking Status: Never smoker Past Alcohol Use History: None Reported Past Drug Use History: None Reported - Past Family History Mother Family Medical History: Cancer Additional Family Medical History / Comment(s): cervical, uterine, and ovarian CA. Complete hysterectomy. Father Family Medical History: Hypertension General Exam Limitations: no limitations General appearance: alert, in no apparent distress Head exam: Present: atraumatic, normocephalic, normal inspection Eye exam: Present: normal appearance, PERRL, EOMI. Absent: scleral icterus, conjunctival injection, periorbital swelling ENT exam: Present: normal exam, mucous membranes moist Expanded TM/Canal exam: Erythema: Right TM, Bulging: Right TM, Effusion: Right TM, Loss of Landmarks: Right TM Mouth exam: Present: normal external inspection Neck exam: Present: normal inspection. Absent: tenderness, meningismus, lymphadenopathy Respiratory exam: Present: normal lung sounds bilaterally. Absent: respiratory distress, wheezes, rales, rhonchi, stridor Cardiovascular Exam: Present: regular rate, normal rhythm, normal heart sounds. Absent: systolic murmur, diastolic murmur, rubs, gallop, clicks GI/Abdominal exam: Present: soft, normal bowel sounds. Absent: distended, tenderness, guarding, rebound, rigid Extremities exam: Present: normal inspection, full ROM, normal capillary refill. Absent: tenderness, pedal edema, joint swelling, calf tenderness Back exam: Present: normal inspection Neurological exam: Present: alert, oriented X3, CN II-XII intact Psychiatric exam: Present: normal affect, normal mood Skin exam: Present: warm, dry, intact, normal color. Absent: rash Course Vital Signs 09/07/23 09/07/23 18:08 19:33 Temperature 98.7 F 98.6 F Pulse Rate 80 91 Respiratory 18 20 Rate Blood Pressure 151/85 145/85 O2 Sat by Pulse 100 99 Oximetry Medical Decision Making - Medical Decision Making Was pt. sent in by a medical professional or institution (, PA, RADIAL DRILL PRESS SET UP OPERATOR, urgent care, hospital, or fdc...) When possible be specific @ -No Did you speak to anyone other than the patient for history (EMS, parent, family, police, friend...)? What history was obtained from this source @ -No Did you review nursing and triage notes (agree or disagree)? Why? @ -I reviewed and agree with nursing and triage notes Were old charts reviewed (outside hosp., previous admission, EMS record, old EKG , old radiological studies, urgent care reports/EKG's, fdc records)? Report findings @ -No old charts were reviewed Differential Diagnosis (chest pain, altered mental status, abdominal pain women, abdominal pain men, vaginal bleeding, weakness, fever, dyspnea, syncope, headache, dizziness, GI bleed, back pain, seizure, CVA, palpatations, mental health, musculoskeletal)? @ -otitis media, otitis externa, otaliga, EKG interpreted by me (3pts min.). @ none X-rays interpreted by me (1pt min.). @ -None done CT interpreted by me (1pt min.). @ -None done U/S interpreted by me (1pt. min.). @ -None done What testing was considered but not performed or refused? (CT, X-rays, U/S, labs)? Why? @ -None What meds were considered but not given or refused? Why? @ -None Did you discuss the management of the patient with other professionals (professionals i.e. , PA, RADIAL DRILL PRESS SET UP OPERATOR, lab, RT, psych nurse, social service agency director, postmaster, teacher, chief digital media officer, insurance case manager)? Give summary @ -No Was smoking cessation discussed for >3mins.? @ -No Was critical care preformed (if so, how long)? @ -No Were there social determinants of health that impacted care today? How? (Homelessness, low income, unemployed, alcoholism, drug addiction, transportation, low edu. Level, literacy, decrease access to med. care, retirement, rehab)? @ -No Was there de-escalation of care discussed even if they declined (Discuss DNR or withdrawal of care, Hospice)? DNR status @ -No What co-morbidities impacted this encounter? (DM, HTN, Smoking, COPD, CAD, Cancer, CVA, ARF, Chemo, Hep., AIDS, mental health diagnosis, sleep apnea, morbid obesity)? @ -None Was patient admitted / discharged? Hospital course, mention meds given and route, prescriptions, significant lab abnormalities, going to OR and other pertinent info. @ -Discharged. 38-year-old female complaining of left ear pain associated tinnitus. On physical examination patient was found to have no acute findings on inspection of the external left ear canal. Due to the tympanic membrane remarkable for signs of pus. TM bulging. At this time additional lab work was not ordered. Patient will be discharged home on Levaquin for pseudomonal coverage due to her being prescribed Augmentin from previous visit with emergency department in [place], advised to continue on abx. Patient was given dose of Percocet in the ED pain being rated as a 9 out of 10 on examination, pat ient was prescribed from previous provider. Patient will also be given topical antibiotic drops to use over the next week. Return parameters discussed with the patient. Discussed with Dr. Chandler Undiagnosed new problem with uncertain prognosis? @ -No Drug Therapy requiring intensive monitoring for toxicity (Heparin, Nitro, Insulin, Cardizem)? @ -No Were any procedures done? @ -No Diagnosis/symptom? @ -otitis media with effusion Acute, or Chronic, or Acute on Chronic? @ -acute Uncomplicated (without systemic symptoms) or Complicated (systemic symptoms)? @ -uncomplicated Side effects of treatment? @ -No Exacerbation, Progression, or Severe Exacerbation? @ -No Poses a threat to life or bodily function? How? (Chest pain, [place], [place], pneumonia, PE, COPD, DKA, ARF, appy, cholecystitis, CVA, Diverticulitis, Homicidal, Suicidal, threat to staff... and all critical care pts) @ -No Disposition Clinical Impression: Otitis media Narrative: Please return to the Emergency Department if symptoms worsen or any other concerns. Complete full course of antibiotic as prescribed and continue Augmentin for full course. use otic drops 2 drops in the left ear 4 times a day for 10 days. Disposition: HOME SELF-CARE Condition: Good Instructions (If sedation given, give patient instructions): Ear Infection (ED), Earache (ED) Prescriptions: Fluticasone Nasal [place] [Flonase Nasal [place]] 1 spray EA NOSTRIL DAILY #16 gm Levofloxacin [Levaquin] 500 mg PO DAILY #10 tab Is patient prescribed a controlled substance at d/c from ED?: No Referrals: None,Stated [Primary Care Provider] - 1-2 days Time of Disposition: 19:19
[2023-09-07] MEDS: oxyCODONE-APAP 5-325MG 1 EACH TAB PO STA (19:28)
[2023-09-07] MEDS: CIPROFLOXACIN-DEXAMETH 0.3-0.1% DROPS 7.5 ML BTL LEFT EAR STA (19:29)
[2023-09-07 20:00] VITALS: BP 145/85; PULSE 91; RESP 20; TEMP 98.6
== END 2023-09-07 19:35 | disposition home or self-care (01) ==
LOC: EC 17:58
DX: H65.92 Unspecified nonsuppurative otitis media, left ear (principal); Z88.8 Allergy status to other drugs, medicaments and biological substances; Z88.5 Allergy status to narcotic agent
CPT/HCPCS: 99282

== ENCOUNTER 2023-09-10 12:50 | Emergency (ER) | payer OTHER ==
[2023-09-10 13:38] VITALS: RESP 18
[2023-09-10] MEDS: HYDROmorphone 1 MG/ML 1 ML SYRINGE IM STA ×3 (13:54→16:10)
[2023-09-10] MEDS: cefTRIAXone 1,000 MG VIAL (IM USE) IM STA (13:54)
[2023-09-10] MEDS: METOCLOPRAMIDE 10 MG TAB PO STA (14:14)
[2023-09-10] MEDS: LORATADINE 10 MG TAB PO STA (14:14)
--- NOTE | 2023-09-10 14:45 | ED ---
ENT HPI - General Chief complaint: ENT Stated complaint: L ear problems Time Seen by Provider: 09/10/23 13:04 Source: patient, RN notes reviewed Mode of arrival: ambulatory Limitations: no limitations - History of Present Illness Initial comments: This is a 38-year-old female who presents to the emergency department for left ear pain. Patient was evaluated here on 09/06 for the symptoms as well. Prior to that she had finished a week course of Augmentin for a left otitis media. She presented on 09/06 with concerns that her symptoms were not getting any better. She was then started on Levaquin and Flonase nasal spray, which she states she has been taking. Now states that she has a lot of pressure in her ear, she is having difficulty hearing, she has ringing in her ear, and mild nausea. Denies any fever/chills. Denies any drainage from the ear. States that she is struggling to get her insurance back and has not been able to follow-up with an ENT. MD complaint: ear pain - Related Data Previous Rx's Medication Instructions Recorded Fluticasone Nasal [place] [Flonase 1 spray EA NOSTRIL DAILY #16 gm 09/07/23 Nasal [place]] Levofloxacin [Levaquin] 500 mg PO DAILY #10 tab 09/07/23 Cetirizine HCl/Pseudoephedrine 1 tab PO Q12H #30 tab 09/10/23 [Zyrtec-D ER 5 mg-120 mg Tablet] Ondansetron Odt [Zofran Odt] 4 mg PO Q8HR PRN #15 tab 09/10/23 Allergies Allergy/AdvReac Type Severity Reaction Status Date / Time aspirin Allergy Unknown Verified 09/10/23 13:01 tramadol Allergy Rash/Hives Verified 09/10/23 13:01 lorazepam [From Ativan] AdvReac Severe altered Verified 09/10/23 13:01 mental status cyclobenzaprine AdvReac Rapid Verified 09/10/23 13:01 [From Flexeril] Heart Rate diazepam [From Valium] AdvReac paradoxical Verified 09/10/23 13:01 reaction (anxiety) diphenhydramine HCl AdvReac paradoxical Verified 09/10/23 13:01 [From Benadryl] reaction (anxiety) ketorolac [From Toradol] AdvReac Nausea & Verified 09/10/23 13:01 Vomiting steroids AdvReac Severe Hallucinati Uncoded 09/10/23 13:01 ons Doles Fruit Cup AdvReac Rash/Hives Uncoded 09/10/23 13:01 Review of Systems ROS Statement: Those systems with pertinent positive or pertinent negative responses have been documented in the HPI. ROS Other: All systems not noted in ROS Statement are negative. Past Medical History Past Medical History: No Reported History, Asthma, Fibromyalgia, Pulmonary Embolus (PE), Seizure Disorder Additional Past Medical History / Comment(s): endometriosis, migraines, History of Any Multi-Drug Resistant Organisms: None Reported Past Surgical History: Breast Surgery Additional Past Surgical History / Comment(s): endometrial ablation, sinus surgery, D&C, breast implants removed 9 weeks ago (from 01/05/21) Past Anesthesia/Blood Transfusion Reactions: Postoperative Nausea & Vomiting (PONV) Past Psychological History: Anxiety, Panic Disorder Smoking Status: Never smoker Past Alcohol Use History: None Reported Past Drug Use History: None Reported - Past Family History Mother Family Medical History: Cancer Additional Family Medical History / Comment(s): cervical, uterine, and ovarian CA. Complete hysterectomy. Father Family Medical History: Hypertension General Exam Limitations: no limitations General appearance: alert, in no apparent distress Head exam: Present: atraumatic, normocephalic, normal inspection ENT exam: Present: other (Fluid behind the left TM, no erythema or bulging. No erythema of the canal. Minor tenderness with movement of the pinna and tragus. No mastoid tenderness, swelling, or erythema.) Respiratory exam: Present: normal lung sounds bilaterally. Absent: respiratory distress, wheezes, rales, rhonchi, stridor Cardiovascular Exam: Present: regular rate, normal rhythm, normal heart sounds. Absent: systolic murmur, diastolic murmur, rubs, gallop, clicks Neurological exam: Present: alert, oriented X3, CN II-XII intact Psychiatric exam: Present: normal affect, normal mood Skin exam: Present: warm, dry, intact, normal color. Absent: rash Course Vital Signs 09/10/23 09/10/23 12:58 16:11 Temperature 98.1 F 98.6 F Pulse Rate 77 73 Respiratory 18 18 Rate Blood Pressure 133/72 133/82 O2 Sat by Pulse 99 98 Oximetry Medical Decision Making - Medical Decision Making This is a 38 year old female who presents to the emergency department for left ear pain. Was pt. sent in by a medical professional or institution? @ -No Did you speak to anyone other than the patient for history? @ -No Did you review nursing and triage notes? @ -Yes, and I agree, it is accurate with regards to the patient's symptoms. Were old charts reviewed? @ -No Differential Diagnosis? @ -Differential Ear Pain: Otitis media, otitis externa, eustachian tube dysfunction, allergic rhinitis, barotrauma, bullous myringitis, this is not meant to be an all-inclusive list. EKG interpreted by me (3pts min.)? @ -Not obtained X-rays interpreted by me (1pt min.)? @ -Not obtained CT interpreted by me (1pt min.)? @ -Not obtained U/S interpreted by me (1pt. min.)? @ -Not obtained What testing was considered but not performed? (CT, X-rays, U/S, labs)? Why? @ -None What meds were considered but not given? Why? @ -None Did you discuss the management of the patient with other professionals? @ -No Did you reconcile home meds? @ -No Was smoking cessation discussed for >3mins.? @ -No Was critical care preformed (if so, how long)? @ -No Were there social determinants of health that impacted care today? How? (Homelessness, low income, unemployed, alcoholism, drug addiction, transportation, low edu. Level, literacy, decrease access to med. care, [facility], rehab)? @ -No Was there de-escalation of care discussed even if they declined? (Discuss DNR or withdrawal of care, Hospice)? @ -No What co-morbidities impacted this encounter? (DM, HTN, Smoking, COPD, CAD, Cancer, CVA, Hep., AIDS, mental health diagnosis, sleep apnea, morbid obesity)? @ -None Was patient admitted / discharged? @ -Discharged. Physical examination demonstrates some fluid behind the TM, however there was no erythema of the canal or TM or any obvious bulging. She had minor tenderness with movement of the tragus and pinna. There was no mastoid tenderness, swelling, or erythema. Patient also has no fever/chills to suggest worsening infection. Discussed that with the muffled hearing, dizziness, and ongoing pain, this may be related to eustachian tube dysfunction. Also advised that she has been on 2 very strong antibiotics that should have treated an otitis media if it were still present. We discussed antihistamines and decongestants, as well as Flonase nasal spray. She is advised to continue using the Flonase nasal spray. She has an allergy to Benadryl, in that it gives her a paradoxical reaction. She was given a second-generation antihistamine in the emergency department which she felt like she was able to tolerate. Prescription for Zyrtec-D provided with dosing instructions reviewed. Information for ENT follow-up provided as well. Advised ibuprofen and Tylenol as needed for pain relief. Undiagnosed new problem with uncertain prognosis? @ -None Drug Therapy requiring intensive monitoring for toxicity (Heparin, Nitro, Insulin, Cardizem)? @ -None Were any procedures done? @ -None Diagnosis/symptom? @ -Eustachian tube dysfunction, left ear pain Acute, or Chronic, or Acute on Chronic? @ -Acute Uncomplicated (without systemic symptoms) or Complicated (systemic symptoms)? @ -Uncomplicated Side effects of treatment? @ -None Exacerbation, Progression, or Severe Exacerbation] @ -Not applicable Poses a threat to life or bodily function? @ -No Return precautions reviewed in depth, the patient is instructed to return to the emergency department with any new, worsening, or concerning symptoms. Patient verbalized understanding. This case was discussed in detail with the attending ED physician, Dr. Sweet. Presentation, findings, and treatment plan discussed in detail as well. Disposition Clinical Impression: Eustachian tube dysfunction Disposition: HOME SELF-CARE Instructions (If sedation given, give patient instructions): Earache (ED) Additional Instructions: Return to the emergency department with any new, worsening, or concerning symptoms. Alternate with ibuprofen and Tylenol as needed for pain relief. Take the Zyrtec-D twice daily. Use the Flonase nasal spray as 2 sprays in each n ostril daily. You can take the Zofran up to every 8 hours as needed for nausea and vomiting. Contact the ENT offices listed below for a follow up appointment. Follow up with your primary care provider in 1-2 days. Prescriptions: Ondansetron Odt [Zofran Odt] 4 mg PO Q8HR PRN #15 tab PRN Reason: Nausea And Vomiting Cetirizine HCl/Pseudoephedrine [Zyrtec-D ER 5 mg-120 mg Tablet] 1 tab PO Q12H #30 tab Is patient prescribed a controlled substance at d/c from ED?: No Referrals: None,Stated [Primary Care Provider] - 1-2 days Paulo Macdonald MD [STAFF PHYSICIAN] - 1-2 days Waldemar Zambrano DO [Doctor of Osteopathic Medicine] - 1-2 days Time of Disposition: 14:44
[2023-09-10 16:22] VITALS: BP 133/82; PULSE 73; TEMP 98.6
== END 2023-09-10 16:11 | disposition home or self-care (01) ==
LOC: EC 12:50
DX: H69.82 Other specified disorders of Eustachian tube, left ear (principal); Z88.5 Allergy status to narcotic agent; Z88.8 Allergy status to other drugs, medicaments and biological substances
CPT/HCPCS: 99283; 96372 ×3; J0696; J1170

== ENCOUNTER 2024-01-22 16:43 | Emergency (ER) | payer OTHER ==
[2024-01-22] MEDS ORDERED: ONDANSETRON 4 MG/2 ML VIAL ONE ×2 (17:13→19:29)
[2024-01-22] MEDS ORDERED: ACETAMINOPHEN TAB 500 MG TAB ONE (17:13)
[2024-01-22] MEDS ORDERED: SODIUM CHLORIDE 0.9% 1,000 ML BAG ONE (17:38)
[2024-01-22] MEDS ORDERED: CYCLOBENZAPRINE 10 MG TAB ONE (19:09)
[2024-01-22] MEDS ORDERED: ONDANSETRON 4 MG ODT STARTER PACK 2 TAB BTL ONE (21:48)
[2024-01-22] MEDS ORDERED: CYCLOBENZAPRINE 10MG STARTER 3 TAB BTL ONE (21:48)
--- NOTE | 2024-02-16 16:18 | US ---
Report Patient: Ghazal Bryson Ordering Physician: Unknown, Unknown ID: [id number] Phone, Pager: Phone: N/A Pager: N/A : [phone] Age/Gender: 38Y, F Primary Location: N/A Procedure: US venous doppler duplex LE BI Study Date: 01/22/2024 6:34:00 PM EXAMINATION TYPE: US venous doppler duplex LE BI DATE OF EXAM: 01/22/2024 7:26 PM COMPARISON: 06/30/2022 CLINICAL INDICATION: 38-year-old female pain and edema for 2 days after calf exercise. SIDE PERFORMED: Bilateral TECHNIQUE: The lower extremity deep venous system is examined utilizing real time linear array sonog marcie with graded compression, doppler sonography and color-flow sonography. VESSELS IMAGED: Common Femoral Vein Deep Femoral Vein Greater Saphenous Vein * Femoral Vein Popliteal Vein Small Saphenous Vein * Proximal Calf Veins Posterior tibial veins Peroneal veins (* superficial vessels) Grayscale, color doppler, spectral doppler imaging performed of the deep veins of the lower extremiti es. There is normal flow, compressibility, vascular waveforms. Right Leg: Negative for DVT Left Leg: Negative for DVT IMPRESSION: No evidence for DVT within the bilateral lower extremities.
== END 2024-01-22 21:58 | disposition home or self-care (01) ==
LOC: EC 16:43
DX: M62.82 Rhabdomyolysis (principal)
CPT/HCPCS: 93970; 96361; 96374; 96375; 99284

== ENCOUNTER 2024-02-14 08:21 | Emergency (ER) | payer OTHER ==
[2024-02-14 08:28] VITALS: TEMP 97.7
[2024-02-14] MEDS: SODIUM CHLORIDE 0.9% 1,000 ML IV STA (08:47)
[2024-02-14] MEDS: LORazepam 2 MG/ML INJ IV STA (08:47)
--- NOTE | 2024-02-14 08:47 | ED ---
General Adult HPI - General Chief complaint: Arrhythmia/Palpitations Stated complaint: Abd pain,dizziness Time Seen by Provider: 02/14/24 08:25 Source: patient, RN notes reviewed, old records reviewed Mode of arrival: ambulatory Limitations: no limitations - History of Present Illness Initial comments: This is a 38-year-old female who presents to the emergency department the past medical history significant for anxiety. Patient comes in today stating that she has been having palpitations all night and has been keeping her up. Patient states he could be anxiety but she also thinks she might be dehydrated because she has been nauseous lately and not taking any fluids in. Patient denies any fever chills or cough. Patient Nuys chest pain. Patient Nuys any difficulty breathing or shortness of breath. Patient is denies any abdominal pain patient denies any vomiting or diarrhea. Patient denies any dysuria hematuria urinary frequency. - Related Data Previous Rx's Medication Instructions Recorded Fluticasone Nasal [place] [Flonase 1 spray EA NOSTRIL DAILY #16 gm 09/07/23 Nasal [place]] Levofloxacin [Levaquin] 500 mg PO DAILY #10 tab 09/07/23 Cetirizine HCl/Pseudoephedrine 1 tab PO Q12H #30 tab 09/10/23 [Zyrtec-D ER 5 mg-120 mg Tablet] Ondansetron Odt [Zofran Odt] 4 mg PO Q8HR PRN #15 tab 09/10/23 Allergies Allergy/AdvReac Type Severity Reaction Status Date / Time aspirin Allergy Unknown Verified 02/14/24 08:28 tramadol Allergy Rash/Hives Verified 02/14/24 08:28 lorazepam [From Ativan] AdvReac Severe altered Verified 02/14/24 08:28 mental status cyclobenzaprine AdvReac Rapid Verified 02/14/24 08:28 [From Flexeril] Heart Rate diazepam [From Valium] AdvReac paradoxical Verified 02/14/24 08:28 reaction (anxiety) diphenhydramine HCl AdvReac paradoxical Verified 02/14/24 08:28 [From Benadryl] reaction (anxiety) ketorolac [From Toradol] AdvReac Nausea & Verified 02/14/24 08:28 Vomiting steroids AdvReac Severe Hallucinati Uncoded 02/14/24 08:28 ons Doles Fruit Cup AdvReac Rash/Hives Uncoded 02/14/24 08:28 Review of Systems ROS Statement: Those systems with pertinent positive or pertinent negative responses have been documented in the HPI. ROS Other: All systems not noted in ROS Statement are negative. Past Medical History Past Medical History: No Reported History, Asthma, Fibromyalgia, Pulmonary Embolus (PE), Seizure Disorder Additional Past Medical History / Comment(s): endometriosis, migraines, History of Any Multi-Drug Resistant Organisms: None Reported Past Surgical History: Breast Surgery Additional Past Surgical History / Comment(s): endometrial ablation, sinus surgery, D&C, breast implants removed 9 weeks ago (from 01/05/21) Past Anesthesia/Blood Transfusion Reactions: Postoperative Nausea & Vomiting (PONV) Past Psychological History: Anxiety, Panic Disorder Smoking Status: Never smoker Past Alcohol Use History: None Reported Past Drug Use History: None Reported - Past Family History Mother Family Medical History: Cancer Additional Family Medical History / Comment(s): cervical, uterine, and ovarian CA. Complete hysterectomy. Father Family Medical History: Hypertension General Exam - General Exam Comments Initial Comments: GENERAL: Patient is well-developed and well-nourished. Patient is nontoxic and well- hydrated and is in no acute distress. ENT: Neck is soft and supple. No significant lymphadenopathy is noted. Oropharynx is clear. Moist mucous membranes. Neck has full range of motion without eliciting any pain. EYES: The sclera were anicteric and conjunctiva were pink and moist. Extraocular movements were intact and pupils were equal round and reactive to light. Eyelids were unremarkable. PULMONARY: Unlabored respirations. Good breath sounds bilaterally. No audible rales rhonchi or wheezing was noted. CARDIOVASCULAR: There is a regular rate and rhythm without any murmurs gallops or rubs. ABDOMEN: Soft and nontender with normal bowel sounds. SKIN: Skin is clear with no lesions or rashes and otherwise unremarkable. NEUROLOGIC: Patient is alert and oriented x3. Cranial nerves II through XII are grossly intact. Motor and sensory are also intact. Normal speech, volume and content. Symmetrical smile. MUSCULOSKELETAL: Normal extremities with adequate strength and full range of motion. LYMPHATICS: No significant lymphadenopathy is noted PSYCHIATRIC: Patient seems mildly anxious Limitations: no limitations Course Vital Signs 02/14/24 02/14/24 08:25 08:28 Temperature 97.7 F Pulse Rate 85 73 Respiratory 18 16 Rate Blood Pressure 116/68 117/63 O2 Sat by Pulse 99 98 Oximetry Medical Decision Making - Medical Decision Making EKG is interpreted by myself read EKG shows a sinus rhythm at 88 bpm FL interval 272 QRS is 83 QT interval 350 QTc is 395 per patient EKG shows no ST segment elevation or depression. Was pt. sent in by a medical professional or institution (, [facility], SAVINGS COUNSELOR, urgent care, hospital, or fdc...) When possible be specific @ -No Did you speak to anyone other than the patient for history (EMS, parent, family, police, friend...)? What history was obtained from this source @ -No Did you review nursing and triage notes (agree or disagree)? Why? @ -I reviewed and agree with nursing and triage notes Were old charts reviewed (outside hosp., previous admission, EMS record, old EKG, old radiological studies, urgent care reports/EKG's, fdc records)? Report findings @ -No old charts were reviewed Differential Diagnosis? @ -Differential Palpitations Ventricular arrhythmias, atrial arrhythmias, myocardial infarction, anemia, thyrotoxicosis, electrolyte imbalance, hypokalemia, pulmonary embolism, pulmonary disease, drugs, alcohol, anxiety, stress.... This is not meant to be an all-inclusive list. EKG interpreted by me (3pts min.). @ -As above X-rays interpreted by me (1pt min.). @ -Chest x-ray shows no acute abnormality CT interpreted by me (1pt min.). @ -None done U/S interpreted by me (1pt. min.). @ -None done What testing was considered but not performed or refused? (CT, X-rays, U/S, labs)? Why? @ -None What meds were considered but not given or refused? Why? @ -None Did you discuss the management of the patient with other professionals (professionals i.e. , [facility], SAVINGS COUNSELOR, lab, RT, psych nurse, social media director, steel die printer, teacher, senior compliance officer, lead case manager)? Give summary @ -No Was smoking cessation discussed for >3mins.? @ -No Was critical care preformed (if so, how long)? @ -No Were there social determinants of health that impacted care today? How? (Homelessness, low income, unemployed, alcoholism, drug addiction, transportation, low edu. Level, literacy, decrease access to med. care, shelter, rehab)? @ -No Was there de-escalation of care discussed even if they declined (Discuss DNR or withdrawal of care, Hospice)? DNR status @ -No What co-morbidities impacted this encounter? (DM, HTN, Smoking, COPD, CAD, Cancer, CVA, ARF, Chemo, Hep., AIDS, mental health diagnosis, sleep apnea, morbid obesity)? @ -None Was patient admitted / discharged? Hospital course, mention meds given and route, prescriptions, significant lab abnormalities, going to OR and other pertinent info. @ -Patient received fluids in the emergency department and refused the Ativan because she states she was allergic to it. Patient had no palpitations while in the emergency department that were on the monitor Undiagnosed new problem with uncertain prognosis? @ -No Drug Therapy requiring intensive monitoring for toxicity (Heparin, Nitro, Insulin, Cardizem)? @ -No Were any procedures done? @ -No Diagnosis/symptom? @ -Palpitations Acute, or Chronic, or Acute on Chronic? @ -Acute Uncomplicated (without systemic symptoms) or Complicated (systemic symptoms)? @ -Complicated Side effects of treatment? @ -No Exacerbation, Progression, or Severe Exacerbation? @ -No Poses a threat to life or bodily function? How? (Chest pain, [place], [place], pneumonia, PE, COPD, DKA, ARF, appy, cholecystitis, CVA, Diverticulitis, Homicidal, Suicidal, threat to staff... and all critical care pts) @ -No - Lab Data Result diagrams: 02/14/24 08:41 02/14/24 08:41 Lab Results 02/14/24 02/14/24 02/14/24 Range/Units 08:41 08:41 08:41 WBC 4.5 (3.8-10.6) k/uL RBC 4.94 (3.80-5.40) m/uL Hgb 14.0 (11.4-16.0) gm/dL Hct 43.8 (34.0-46.0) % MCV 88.8 (80.0-100.0) fL MCH 28.3 (25.0-35.0) pg MCHC 31.9 (31.0-37.0) g/dL RDW 12.5 (11.5-15.5) % Plt Count 230 (150-450) k/uL MPV 7.7 Neutrophils % 51 % Lymphocytes % 36 % Monocytes % 6 % Eosinophils % 4 % Basophils % 1 % Neutrophils # 2.3 (1.3-7.7) k/uL Lymphocytes # 1.6 (1.0-4.8) k/uL Monocytes # 0.3 (0-1.0) k/uL Eosinophils # 0.2 (0-0.7) k/uL Basophils # 0.0 (0-0.2) k/uL Sodium 141 (137-145) mmol/L Potassium 4.3 (3.5-5.1) mmol/L Chloride 105 (98-107) mmol/L Carbon Dioxide 29 (22-30) mmol/L Anion Gap 7 mmol/L BUN 18 H (7-17) mg/dL Creatinine 0.69 (0.52-1.04) mg/dL Est GFR (CKD-EPI)AfAm >90 (>60 ml/min/1.73 sqM) Est GFR (CKD-EPI)NonAf >90 (>60 ml/min/1.73 sqM) Glucose 103 H (74-99) mg/dL Calcium 9.7 (8.4-10.2) mg/dL Magnesium 1.8 (1.6-2.3) mg/dL Total Bilirubin 0.3 (0.2-1.3) mg/dL AST 43 H (14-36) U/L ALT 51 H (4-34) U/L Alkaline Phosphatase 73 (38-126) U/L Troponin I (0.000-0.034) ng/mL Total Protein 7.4 (6.3-8.2) g/dL Albumin 4.5 (3.5-5.0) g/dL Urine Color Colorless Urine Appearance Clear (Clear) Urine pH 6.5 (5.0-8.0) Ur Specific [place] 1.002 (1.001-1.035) Urine Protein Negative (Negative) Urine Glucose (UA) Negative (Negative) Urine Ketones Negative (Negative) Urine Blood Trace H (Negative) Urine Nitrite Negative (Negative) Urine Bilirubin Negative (Negative) Urine Urobilinogen <2.0 (<2.0) mg/dL Ur Leukocyte Esterase Negative (Negative) Urine RBC <1 (0-5) /hpf Urine WBC <1 (0-5) /hpf Ur Squamous Epith Cells <1 (0-4) /hpf 02/14/24 Range/Units 08:41 WBC (3.8-10.6) k/uL RBC (3.80-5.40) m/uL Hgb (11.4-16.0) gm/dL Hct (34.0-46.0) % MCV (80.0-100.0) fL MCH (25.0-35.0) pg MCHC (31.0-37.0) g/dL RDW (11.5-15.5) % Plt Count (150-450) k/uL MPV Neutrophils % % Lymphocytes % % Monocytes % % Eosinophils % % Basophils % % Neutrophils # (1.3-7.7) k/uL Lymphocytes # (1.0-4.8) k/uL Monocytes # (0-1.0) k/uL Eosinophils # (0-0.7) k/uL Basophils # (0-0.2) k/uL Sodium (137-145) mmol/L Potassium (3.5-5.1) mmol/L Chloride (98-107) mmol/L Carbon Dioxide (22-30) mmol/L Anion Gap mmol/L BUN (7-17) mg/dL Creatinine (0.52-1.04) mg/dL Est GFR (CKD-EPI)AfAm (>60 ml/min/1.73 sqM) Est GFR (CKD-EPI)NonAf (>60 ml/min/1.73 sqM) Glucose (74-99) mg/dL Calcium (8.4-10.2) mg/dL Magnesium (1.6-2.3) mg/dL Total Bilirubin (0.2-1.3) mg/dL AST (14-36) U/L ALT (4-34) U/L Alkaline Phosphatase (38-126) U/L Troponin I <0.012 (0.000-0.034) ng/mL Total Protein (6.3-8.2) g/dL Albumin (3.5-5.0) g/dL Urine Color Urine Appearance (Clear) Urine pH (5.0-8.0) Ur Specific [place] (1.001-1.035) Urine Protein (Negative) Urine Glucose (UA) (Negative) Urine Ketones (Negative) Urine Blood (Negative) Urine Nitrite (Negative) Urine Bilirubin (Negative) Urine Urobilinogen (<2.0) mg/dL Ur Leukocyte Esterase (Negative) Urine RBC (0-5) /hpf Urine WBC (0-5) /hpf Ur Squamous Epith Cells (0-4) /hpf Disposition Clinical Impression: Dehydration, Anxiety Disposition: HOME SELF-CARE Condition: Good Instructions (If sedation given, give patient instructions): Heart Palpitations (ED) Is patient prescribed a controlled substance at d/c from ED?: No Referrals: None,Stated [Primary Care Provider] - 1-2 days Time of Disposition: 09:54
[2024-02-14 08:59] VITALS: RESP 16
[2024-02-14 09:04] LABS: Appearance,Urine Clear (Clear); Bilirubin,Urine Negative (Negative); Blood,Urine Trace (Negative); Color,Urine Colorless; Glucose,Urine (UA) Negative (Negative); Ketones,Urine Negative (Negative); Leukocyte Esterase,Urine Negative (Negative); Nitrite,Urine Negative (Negative); PH, Urine 6.5 (5.0-8.0); Protein,Urine Negative (Negative); RBC,Urine <1 /hpf (0-5); Specific Gravity,Urine 1.002 (1.001-1.035); Squamous Epithelial Cell,Urine <1 /hpf (0-4); Urobilinogen,Urine <2.0 mg/dL (<2.0); WBC,Urine <1 /hpf (0-5)
[2024-02-14 09:09] LABS: Basophils % (A) 1 %; Eosinophils # (A) 0.2 k/uL (0-0.7); Eosinophils % (A) 4 %; HCT 43.8 % (34.0-46.0); Lymphocytes # (A) 1.6 k/uL (1.0-4.8); Lymphocytes % (A) 36 %; MCH 28.3 pg (25.0-35.0); MCHC 31.9 g/dL (31.0-37.0); MCV 88.8 fL (80.0-100.0); Mean Platelet Volume 7.7; Monocytes # (A) 0.3 k/uL (0-1.0); Monocytes % (A) 6 %; Neutrophils # (A) 2.3 k/uL (1.3-7.7); Neutrophils % (A) 51 %; Platelet Count 230 k/uL (150-450); RBC 4.94 m/uL (3.80-5.40); RDW 12.5 % (11.5-15.5); WBC 4.5 k/uL (3.8-10.6)
[2024-02-14 09:19] LABS: ALT 51 U/L (4-34); AST 43 U/L (14-36); African American GFR (CKD) >90 (>60 ml/min/1.73 sqM); Albumin 4.5 g/dL (3.5-5.0); Alkaline Phosphatase 73 U/L (38-126); Anion Gap 7 mmol/L; Blood Urea Nitrogen 18 mg/dL (7-17); Calcium 9.7 mg/dL (8.4-10.2); Carbon Dioxide 29 mmol/L (22-30); Chloride 105 mmol/L (98-107); Glucose 103 mg/dL (74-99); Magnesium 1.8 mg/dL (1.6-2.3); Non-African American GFR(CKD) >90 (>60 ml/min/1.73 sqM); Potassium 4.3 mmol/L (3.5-5.1); Sodium 141 mmol/L (137-145); Total Bilirubin 0.3 mg/dL (0.2-1.3); Total Protein 7.4 g/dL (6.3-8.2)
--- NOTE | 2024-02-14 09:33 | XR ---
EXAMINATION TYPE: XR chest 2V DATE OF EXAM: 02/14/2024 COMPARISON: 06/30/2022 INDICATION: Dysrhythmia and chest pain TECHNIQUE: Frontal and lateral views of the chest are obtained. FINDINGS: The heart size is normal. The pulmonary vasculature is normal. The lungs are clear. IMPRESSION: 1. No acute pulmonary process. [facility], , 02/14/2024 9:30 AM
[2024-02-14] MEDS: LORazepam 1 MG TAB PO STA (10:28)
[2024-02-14 10:35] VITALS: BP 136/86; PULSE 68
== END 2024-02-14 10:35 | disposition home or self-care (01) ==
LOC: EC 08:21
CPT/HCPCS: 36415; 71046; 80053; 81001; 83735; 84484; 85025; 93005; 96361; 96374; 99285

== ENCOUNTER 2024-06-26 21:15 | Emergency (ER) | payer OTHER ==
[2024-06-26 21:28] VITALS: TEMP 98.2
--- NOTE | 2024-06-26 21:34 | ED ---
SOB HPI - General Source: patient, RN notes reviewed Mode of arrival: wheelchair Limitations: no limitations <Luisana Bruno - Last Filed: 06/26/24 21:32> - General Source: patient, RN notes reviewed, old records reviewed Mode of arrival: wheelchair Limitations: no limitations - History of Present Illness MD Complaint: anxiety (Leg pain throat pain) -: days(s) Severity: moderate Severity scale (1-10): 4 Quality: aching Consistency: constant Improves With: nothing Worsens With: nothing Known History Of: COPD, asthma Context: recent illness <Brandon Chandler - Last Filed: 06/27/24 00:24> - General Chief Complaint: Shortness of Breath Stated Complaint: Throat Numbness,L Leg pain Time Seen by Provider: 06/26/24 21:25 - History of Present Illness Initial Comments: Quick Note: This is a 39-year-old female who presents to the emergency department for left leg pain and shortness of breath. Patient states that all day today she has had pain in her left leg up into the thigh. About 15 minutes prior to arrival she started to notice difficulty breathing whenever she would speak. Denies any difficulty breathing if she is sitting still. She is concerned because she feels like she did the last time she had a PE, which was 2 years ago. Not still taking any blood thinners. 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 not on blood thinners currently initial blood clot DVT was provoked from post (Brandon Chandler) - Related Data Previous Rx's Medication Instructions Recorded Fluticasone Nasal [place] [Flonase 1 spray EA NOSTRIL DAILY #16 gm 09/07/23 Nasal [place]] Levofloxacin [Levaquin] 500 mg PO DAILY #10 tab 09/07/23 Cetirizine HCl/Pseudoephedrine 1 tab PO Q12H #30 tab 09/10/23 [Zyrtec-D ER 5 mg-120 mg Tablet] Ondansetron Odt [Zofran Odt] 4 mg PO Q8HR PRN #15 tab 09/10/23 Allergies Allergy/AdvReac Type Severity Reaction Status Date / Time aspirin Allergy Unknown Verified 06/26/24 21:28 tramadol Allergy Rash/Hives Verified 06/26/24 21:28 cyclobenzaprine AdvReac Rapid Verified 06/26/24 21:28 [From Flexeril] Heart Rate diazepam [From Valium] AdvReac paradoxical Verified 06/26/24 21:28 reaction (anxiety) diphenhydramine HCl AdvReac paradoxical Verified 06/26/24 21:28 [From Benadryl] reaction (anxiety) ketorolac [From Toradol] AdvReac Nausea & Verified 06/26/24 21:28 Vomiting steroids AdvReac Severe Hallucinati Uncoded 06/26/24 21:28 ons Doles Fruit Cup AdvReac Rash/Hives Uncoded 06/26/24 21:28 Review of Systems ROS Other: All systems not noted in ROS Statement are negative. <Luisana Bruno - Last Filed: 06/26/24 21:32> ROS Other: All systems not noted in ROS Statement are negative. <Brandon Chandler - Last Filed: 06/27/24 00:24> ROS Statement: Those systems with pertinent positive or pertinent negative responses have been documented in the HPI. Past Medical History Past Medical History: No Reported History, Asthma, Fibromyalgia, Pulmonary Embolus (PE), Seizure Disorder Additional Past Medical History / Comment(s): endometriosis, migraines, History of Any Multi-Drug Resistant Organisms: None Reported Past Surgical History: Breast Surgery Additional Past Surgical History / Comment(s): endometrial ablation, sinus surgery, D&C, breast implants removed 9 weeks ago (from 01/05/21) Past Anesthesia/Blood Transfusion Reactions: Postoperative Nausea & Vomiting ( PONV) Past Psychological History: Anxiety, Panic Disorder Smoking Status: Never smoker Past Alcohol Use History: None Reported Past Drug Use History: None Reported - Past Family History Mother Family Medical History: Cancer Additional Family Medical History / Comment(s): cervical, uterine, and ovarian CA. Complete hysterectomy. Father Family Medical History: Hypertension <Luisana Bruno - Last Filed: 06/26/24 21:32> General Exam Limitations: no limitations <Luisana Bruno - Last Filed: 06/26/24 21:32> General appearance: alert, in no apparent distress Head exam: Present: atraumatic, normocephalic, normal inspection Eye exam: Present: normal appearance, PERRL, EOMI. Absent: scleral icterus, conjunctival injection, periorbital swelling ENT exam: Present: normal exam, mucous membranes moist Neck exam: Present: normal inspection. Absent: tenderness, meningismus, lymphadenopathy Respiratory exam: Present: normal lung sounds bilaterally. Absent: respiratory distress, wheezes, rales, rhonchi, stridor Cardiovascular Exam: Present: regular rate, normal rhythm, normal heart sounds. Absent: systolic murmur, diastolic murmur, rubs, gallop, clicks GI/Abdominal exam: Present: soft, normal bowel sounds. Absent: distended, tenderness, guarding, rebound, rigid Extremities exam: Present: normal inspection, full ROM, normal capillary refill. Absent: tenderness, pedal edema, joint swelling, calf tenderness Back exam: Present: normal inspection Neurological exam: Present: alert, oriented X3, CN II-XII intact Psychiatric exam: Present: normal affect, normal mood Skin exam: Present: warm, dry, intact, normal color. Absent: rash <Brandon Chandler - Last Filed: 06/27/24 00:24> - General Exam Comments Initial Comments: Visual Physical Exam Vital signs reviewed General: Well-appearing, nontoxic, no acute distress. Head: Normocephalic, atraumatic Eyes: PERRLA, EOMI ENT: Airway patent Chest: Nonlabored breathing Skin: No visual rash, normal skin tone Neuro: Alert and oriented 3 Musculoskeletal: No gross abnormalities (VoLuisana rutherford) Course <Brandon Chandler - Last Filed: 06/27/24 00:24> Vital Signs 06/26/24 21:26 Temperature 98.2 F Pulse Rate 77 Respiratory 16 Rate Blood Pressure 139/89 O2 Sat by Pulse 100 Oximetry - Reevaluation(s) Reevaluation #1: 06/27/24 00:23 Medical records reviewed (Brandon Chandler) Reevaluation #2: 06/27/24 00:23 Patient symptoms unchanged (Brandon Chandler) Reevaluation #3: 06/27/24 00:24 Patient informed of results and questions answered (Brandon Chandler) Reevaluation #4: Was pt. sent in by a medical professional or institution (BRYANNA Bain, SINGING MESSENGER, urgent care, hospital, or jail...) When possible be specific @ -no Did you speak to anyone other than the patient for history (EMS, parent, family, police, friend...)? What history was obtained from this source @ -no Did you review nursing and triage notes (agree or disagree)? Why? @ -agree Are old charts reviewed (outside hosp., previous admission, EMS record, old EKG, old radiological studies, urgent care reports/EKG's, jail records)? Report findings @ -yes Differential Diagnosis (chest pain, altered mental status, abdominal pain women, abdominal pain men, vaginal bleeding, weakness, fever, dyspnea, syncope, headache, dizziness, GI bleed, back pain, seizure, CVA, palpatations, mental health, musculoskeletal)? @ -prior EKG interpreted by me (3pts min.). @ -yes X-rays interpreted by me (1pt min.). @ -yes negative for acute disease CT interpreted by me (1pt min.). @ -no U/S interpreted by me (1pt. min.). @ -no What testing was considered but not performed or refused? (CT, X-rays, U/S, labs)? Why? @ -none What meds were considered but not given or refused? Why? @ -none Did you discuss the management of the patient with other professionals (professionals i.e. BRYANNA Bain, SINGING MESSENGER, lab, RT, psych nurse, school social worker, patient care associate, teacher, nuclear medicine officer, case management manager)? Give summary @ -no Was smoking cessation discussed for >3mins.? @ -no Was critical care preformed (if so, how long)? @ -no Were there social determinants of health that impacted care today? How? (Homelessness, low income, unemployed, alcoholism, drug addiction, transportation, low edu. Level, literacy, decrease access to med. care, longterm, rehab)? @ -none Was there de-escalation of care discussed even if they declined (Discuss DNR or withdrawal of care, Hospice)? DNR status @ -no What co-morbidities impacted this encounter? (DM, HTN, Smoking, COPD, CAD, Cancer, CVA, ARF, Chemo, Hep., AIDS, mental health diagnosis, sleep apnea, morbid obesity)? @ -none Was patient admitted / discharged? Hospital course, mention meds given and route, prescriptions, significant lab abnormalities, going to OR and other pertinent info. @ - Undiagnosed new problem with uncertain prognosis? @ -no Drug Therapy requiring intensive monitoring for toxicity (Heparin, Nitro, Insulin, Cardizem)? @ -no Were any procedures done? @ -no Diagnosis/symptom? @ - Acute, or Chronic, or Acute on Chronic? @ -Acute Uncomplicated (without systemic symptoms) or Complicated (systemic symptoms)? @ -Complicated Side effects of treatment? @ -no Exacerbation, Progression, or Severe Exacerbation? @ -exacerbation Poses a threat to life or bodily function? How? (Chest pain, [place], [place], pneumonia, PE, COPD, DKA, ARF, appy, cholecystitis, CVA, Diverticulitis, Homicidal, Suicidal, threat to staff... and all critical care pts) @ -yes (Brandon Chandler) Reevaluation #5: Differential Dyspnea: Coronary syndrome, arrhythmia, tamponade, asthma, COPD, pulmonary embolism, pneumonia, pneumothorax, pulmonary effusion, anaphylaxis, diabetic ketoacidosis, flailed chest, pulmonary contusion, diaphragmatic rupture, anemia, neuromuscular, this is not meant to be an all-inclusive list. (Brandon Chandler) Medical Decision Making <Luisana Bruno - Last Filed: 06/26/24 21:32> - Lab Data Result diagrams: 06/26/24 22:54 06/26/24 22:54 - EKG Data -: EKG Interpreted by Me (EKG is sinus 65 VT 188 QRS 103 QTc 393) - Radiology Data Radiology results: report reviewed (Chest x-ray is negative for acute disease), image reviewed <Brandon Chandler - Last Filed: 06/27/24 00:24> - Medical Decision Making I performed the QuickNote portion of this chart. Signed Luisana Bruno PA-C. (Luisana Bruno) 39 female to the ER with history of DVT left leg pain concern for DVT ultrasound negative for DVT patient is in no distress no shortness of breath given pain control can be discharged home (Brandon Chandler) - Lab Data Lab Results 06/26/24 06/26/24 06/26/24 Range/Units 22:54 22:54 22:54 WBC 6.3 (3.8-10.6) k/uL RBC 4.71 (3.80-5.40) m/uL Hgb 13.4 (11.4-16.0) gm/dL Hct 41.6 (34.0-46.0) % MCV 88.2 (80.0-100.0) fL MCH 28.5 (25.0-35.0) pg MCHC 32.3 (31.0-37.0) g/dL RDW 12.6 (11.5-15.5) % Plt Count 223 (150-450) k/uL MPV 8.0 Neutrophils % 57 % Lymphocytes % 33 % Monocytes % 5 % Eosinophils % 3 % Basophils % 1 % Neutrophils # 3.6 (1.3-7.7) k/uL Lymphocytes # 2.1 (1.0-4.8) k/uL Monocytes # 0.3 (0-1.0) k/uL Eosinophils # 0.2 (0-0.7) k/uL Basophils # 0.0 (0-0.2) k/uL D-Dimer 0.35 (<0.60) mg/L FEU Sodium 137 (137-145) mmol/L Potassium 4.5 (3.5-5.1) mmol/L Chloride 101 (98-107) mmol/L Carbon Dioxide 29 (22-30) mmol/L Anion Gap 7 mmol/L BUN 29 H (7-17) mg/dL Creatinine 0.73 (0.52-1.04) mg/dL Est GFR (CKD-EPI)AfAm >90 (>60 ml/min/1.73 sqM) Est GFR (CKD-EPI)NonAf >90 (>60 ml/min/1.73 sqM) Glucose 96 (74-99) mg/dL Calcium 9.9 (8.4-10.2) mg/dL Total Bilirubin 0.4 (0.2-1.3) mg/dL AST 100 H (14-36) U/L ALT 145 H (4-34) U/L Alkaline Phosphatase 79 (38-126) U/L Troponin I (0.000-0.034) ng/mL Total Protein 7.6 (6.3-8.2) g/dL Albumin 4.6 (3.5-5.0) g/dL Urine Color Urine Appearance (Clear) Urine pH (5.0-8.0) Ur Specific [place] (1.001-1.035) Urine Protein (Negative) Urine Glucose (UA) (Negative) Urine Ketones (Negative) Urine Blood (Negative) Urine Nitrite (Negative) Urine Bilirubin (Negative) Urine Urobilinogen (<2.0) mg/dL Ur Leukocyte Esterase (Negative) 06/26/24 06/26/24 Range/Units 22:54 23:11 WBC (3.8-10.6) k/uL RBC (3.80-5.40) m/uL Hgb (11.4-16.0) gm/dL Hct (34.0-46.0) % MCV (80.0-100.0) fL MCH (25.0-35.0) pg MCHC (31.0-37.0) g/dL RDW (11.5-15.5) % Plt Count (150-450) k/uL MPV Neutrophils % % Lymphocytes % % Monocytes % % Eosinophils % % Basophils % % Neutrophils # (1.3-7.7) k/uL Lymphocytes # (1.0-4.8) k/uL Monocytes # (0-1.0) k/uL Eosinophils # (0-0.7) k/uL Basophils # (0-0.2) k/uL D-Dimer (<0.60) mg/L FEU Sodium (137-145) mmol/L Potassium (3.5-5.1) mmol/L Chloride (98-107) mmol/L Carbon Dioxide (22-30) mmol/L Anion Gap mmol/L BUN (7-17) mg/dL Creatinine (0.52-1.04) mg/dL Est GFR (CKD-EPI)AfAm (>60 ml/min/1.73 sqM) Est GFR (CKD-EPI)NonAf (>60 ml/min/1.73 sqM) Glucose (74-99) mg/dL Calcium (8.4-10.2) mg/dL Total Bilirubin (0.2-1.3) mg/dL AST (14-36) U/L ALT (4-34) U/L Alkaline Phosphatase (38-126) U/L Troponin I <0.012 (0.000-0.034) ng/mL Total Protein (6.3-8.2) g/dL Albumin (3.5-5.0) g/dL Urine Color Colorless Urine Appearance Clear (Clear) Urine pH 6.0 (5.0-8.0) Ur Specific [place] 1.006 (1.001-1.035) Urine Protein Negative (Negative) Urine Glucose (UA) Negative (Negative) Urine Ketones Negative (Negative) Urine Blood Negative (Negative) Urine Nitrite Negative (Negative) Urine Bilirubin Negative (Negative) Urine Urobilinogen <2.0 (<2.0) mg/dL Ur Leukocyte Esterase Negative (Negative) Disposition <Luisana Bruno - Last Filed: 06/26/24 21:32> Is patient prescribed a controlled substance at d/c from ED?: No <Brandon Chandler - Last Filed: 06/27/24 00:24> Clinical Impression: Left leg pain, Left thigh pain Disposition: HOME SELF-CARE Condition: Good Instructions (If sedation given, give patient instructions): Leg Pain (ED) Referrals: Lakesha Dalal MD [Primary Care Provider] - 1-2 days
--- NOTE | 2024-06-26 21:51 | XR ---
EXAMINATION TYPE: XR chest 2V DATE OF EXAM: 06/26/2024 9:38 PM COMPARISON: Chest radiographs from 02/14/2024 CLINICAL INDICATION: Female, 39 years old with history of [facility]; [facility] TECHNIQUE: XR chest 2V Frontal and lateral views of the chest. FINDINGS: Lungs/Pleura: There is no evidence of pleural effusion, focal consolidation, or pneumothorax. Pulmonary vascularity: Unremarkable. Heart/mediastinum: Cardiomediastinal silhouette is unremarkable. Musculoskeletal: No acute osseous pathology. IMPRESSION: No acute cardiopulmonary disease/process. [facility], , 06/26/2024 9:48 PM
--- NOTE | 2024-06-26 23:32 | US ---
EXAM: US Duplex Left Lower Extremity Veins CLINICAL HISTORY: Reason: Leg pain TECHNIQUE: Real-time duplex ultrasound scan of the left lower extremity veins integrating B-mode two-dimensional vascular structure, Doppler spectral analysis, color flow Doppler imaging and compression. COMPARISON: No relevant prior studies available. FINDINGS: Deep veins: Unremarkable. No DVT in the visualized common femoral, femoral, proximal deep femoral or popliteal veins. The veins demonstrate normal color flow, are normally compressible, with normal phasic flow and/or augmentation response. Superficial veins: Unremarkable. No thrombus in the visualized great saphenous vein. Soft tissues: No acute findings. No popliteal cyst. IMPRESSION: Negative left lower extremity duplex venous ultrasound. No evidence of DVT.
[2024-06-26 23:43] LABS: Basophils % (A) 1 %; Eosinophils # (A) 0.2 k/uL (0-0.7); Eosinophils % (A) 3 %; HCT 41.6 % (34.0-46.0); HGB 13.4 gm/dL (11.4-16.0); Lymphocytes # (A) 2.1 k/uL (1.0-4.8); Lymphocytes % (A) 33 %; MCH 28.5 pg (25.0-35.0); MCHC 32.3 g/dL (31.0-37.0); MCV 88.2 fL (80.0-100.0); Monocytes # (A) 0.3 k/uL (0-1.0); Monocytes % (A) 5 %; Neutrophils # (A) 3.6 k/uL (1.3-7.7); Neutrophils % (A) 57 %; Platelet Count 223 k/uL (150-450); RBC 4.71 m/uL (3.80-5.40); RDW 12.6 % (11.5-15.5); WBC 6.3 k/uL (3.8-10.6)
[2024-06-26 23:56] LABS: Appearance,Urine Clear (Clear); Bilirubin,Urine Negative (Negative); Blood,Urine Negative (Negative); Color,Urine Colorless; Glucose,Urine (UA) Negative (Negative); Ketones,Urine Negative (Negative); Leukocyte Esterase,Urine Negative (Negative); Nitrite,Urine Negative (Negative); Protein,Urine Negative (Negative); Specific Gravity,Urine 1.006 (1.001-1.035); Urobilinogen,Urine <2.0 mg/dL (<2.0)
[2024-06-27 00:03] LABS: ALT 145 U/L (4-34); AST 100 U/L (14-36); African American GFR (CKD) >90 (>60 ml/min/1.73 sqM); Albumin 4.6 g/dL (3.5-5.0); Alkaline Phosphatase 79 U/L (38-126); Anion Gap 7 mmol/L; Blood Urea Nitrogen 29 mg/dL (7-17); Calcium 9.9 mg/dL (8.4-10.2); Carbon Dioxide 29 mmol/L (22-30); Chloride 101 mmol/L (98-107); Glucose 96 mg/dL (74-99); Non-African American GFR(CKD) >90 (>60 ml/min/1.73 sqM); Potassium 4.5 mmol/L (3.5-5.1); Sodium 137 mmol/L (137-145); Total Bilirubin 0.4 mg/dL (0.2-1.3); Total Protein 7.6 g/dL (6.3-8.2)
[2024-06-27] MEDS: HYDROmorphone 1 MG/ML 1 ML SYRINGE IVP STA (00:18)
[2024-06-27] MEDS: ACET/COD 300 MG/30 MG STARTER PACK 6 TAB BTL PO STA (00:33)
[2024-06-27 00:34] VITALS: BP 160/79; PULSE 70; RESP 18
== END 2024-06-27 00:34 | disposition home or self-care (01) ==
LOC: EC 21:15
DX: M79.605 Pain in left leg (principal); M79.652 Pain in left thigh; Z88.5 Allergy status to narcotic agent; Z88.6 Allergy status to analgesic agent; Z88.8 Allergy status to other drugs, medicaments and biological substances
CPT/HCPCS: 36415; 71046; 80053; 81003; 84484; 85025; 85379; 93005; 96374; 99285

== ENCOUNTER 2024-11-02 23:24 | Emergency (ER) | payer OTHER ==
[2024-11-02 23:32] VITALS: TEMP 98
--- NOTE | 2024-11-03 00:09 | XR ---
EXAMINATION TYPE: XR chest 2V DATE OF EXAM: 11/02/2024 11:58 PM COMPARISON: Chest radiographs from 06/26/2024 TECHNIQUE: XR chest 2V Frontal and lateral views of the chest. CLINICAL INDICATION:Female, 39 years old with history of dysrhythmia; FINDINGS: Lungs/Pleura: There is no evidence of pleural effusion, focal consolidation, or pneumothorax. Pulmonary vascularity: Unremarkable. Heart/mediastinum: Cardiomediastinal silhouette is unremarkable. Musculoskeletal: No acute osseous pathology. IMPRESSION: No acute cardiopulmonary disease/process. [facility], , 11/03/2024 12:07 AM
[2024-11-03 00:19] LABS: Basophils # (A) 0.03 10*3/uL (0.00-0.10); Basophils % (A) 0.4 %; Eosinophils # (A) 0.17 10*3/uL (0.04-0.35); Eosinophils % (A) 2.3 %; HCT 42.9 % (37.2-46.3); HGB 14.2 g/dL (12.0-15.0); Lymphocytes # (A) 2.38 10*3/uL (0.90-5.00); Lymphocytes % (A) 32.2 %; MCH 28.8 pg (27.0-32.0); MCHC 33.1 g/dL (32.0-37.0); Mean Platelet Volume 11.6 fL (9.5-12.2); Monocytes # (A) 0.45 10*3/uL (0.20-1.00); Monocytes % (A) 6.1 %; Neutrophils # (A) 4.35 10*3/uL (1.80-7.70); Neutrophils % (A) 58.7 %; Platelet Count 229 10*3/uL (140-440); RBC 4.93 10*6/uL (4.10-5.20); RDW 12.6 % (11.5-14.5)
[2024-11-03 01:07] LABS: ALT 36 U/L (4-34); AST 29 U/L (14-36); African American GFR (CKD) >90 (>60 ml/min/1.73 sqM); Albumin 4.7 g/dL (3.5-5.0); Alkaline Phosphatase 75 U/L (38-126); Anion Gap 10 mmol/L; Blood Urea Nitrogen 29 mg/dL (7-17); Calcium 9.8 mg/dL (8.4-10.2); Carbon Dioxide 26 mmol/L (22-30); Chloride 103 mmol/L (98-107); Glucose 93 mg/dL (74-99); Magnesium 1.8 mg/dL (1.6-2.3); Non-African American GFR(CKD) >90 (>60 ml/min/1.73 sqM); Potassium 4.1 mmol/L (3.5-5.1); Sodium 139 mmol/L (137-145); Total Bilirubin 0.4 mg/dL (0.2-1.3); Total Protein 7.7 g/dL (6.3-8.2)
[2024-11-03 01:40] VITALS: RESP 16
--- NOTE | 2024-11-03 01:53 | ED ---
General Adult HPI - General Chief complaint: Arrhythmia/Palpitations Stated complaint: Arrhythmia, Lethargic Time Seen by Provider: 11/03/24 01:15 Source: patient Mode of arrival: ambulatory Limitations: no limitations - History of Present Illness Initial comments: Dictation was produced using [employer] dictation software. please excuse any grammatical, word or spelling errors. Chief Complaint: 39-year-old female with neck strain and palpitations History of Present Illness: Patient is a 39-year-old female presents with palpitations for the last several days. States that the palpitations are intermittent and noticeable. States that she did notice some 1 day history of left shoulder pain. States it hurts at the muscle or trapezius. Rated 7 to the left neck hurts worse when she turns. Patient has any cardiac history. States she has been dealing with URI type symptoms recently. The ROS documented in this emergency department record has been reviewed and confirmed by me. Those systems with pertinent positive or negative responses have been documented in the HPI. All other systems are other negative and/or noncontributory. - Related Data Previous Rx's Medication Instructions Recorded Fluticasone Nasal [place] [Flonase 1 spray EA NOSTRIL DAILY #16 gm 09/07/23 Nasal [place]] Levofloxacin [Levaquin] 500 mg PO DAILY #10 tab 09/07/23 Cetirizine HCl/Pseudoephedrine 1 tab PO Q12H #30 tab 09/10/23 [Zyrtec-D ER 5 mg-120 mg Tablet] Ondansetron Odt [Zofran Odt] 4 mg PO Q8HR PRN #15 tab 09/10/23 Allergies Allergy/AdvReac Type Severity Reaction Status Date / Time aspirin Allergy Unknown Verified 11/02/24 23:28 tramadol Allergy Rash/Hives Verified 11/02/24 23:28 cyclobenzaprine AdvReac Rapid Verified 11/02/24 23:28 [From Flexeril] Heart Rate diazepam [From Valium] AdvReac paradoxical Verified 11/02/24 23:28 reaction (anxiety) diphenhydramine HCl AdvReac paradoxical Verified 11/02/24 23:28 [From Benadryl] reaction (anxiety) ketorolac [From Toradol] AdvReac Nausea & Verified 11/02/24 23:28 Vomiting steroids AdvReac Severe Hallucinati Uncoded 11/02/24 23:28 ons Doles Fruit Cup AdvReac Rash/Hives Uncoded 11/02/24 23:28 Review of Systems ROS Statement: Those systems with pertinent positive or pertinent negative responses have been documented in the HPI. ROS Other: All systems not noted in ROS Statement are negative. Past Medical History Past Medical History: No Reported History, Asthma, Fibromyalgia, Pulmonary Embolus (PE), Seizure Disorder Additional Past Medical History / Comment(s): endometriosis, migraines, History of Any Multi-Drug Resistant Organisms: None Reported Past Surgical History: Breast Surgery Additional Past Surgical History / Comment(s): endometrial ablation, sinus surgery, D&C, breast implants removed 9 weeks ago (from 01/05/21) Past Anesthesia/Blood Transfusion Reactions: Postoperative Nausea & Vomiting (PONV) Past Psychological History: Anxiety, Panic Disorder Smoking Status: Never smoker Past Alcohol Use History: None Reported Past Drug Use History: None Reported - Past Family History Mother Family Medical History: Cancer Additional Family Medical History / Comment(s): cervical, uterine, and ovarian CA. Complete hysterectomy. Father Family Medical History: Hypertension General Exam - General Exam Comments Initial Comments: PHYSICAL EXAM: General Impression: Alert and oriented x3, not in acute distress HEENT: Normocephalic atraumatic, extra-ocular movements intact, pupils equal and reactive to light bilaterally, mucous membranes moist. Cardiovascular: Heart regular rate and rhythm Chest: Able to complete full sentences, no retractions, no tachypnea Abdomen: abdomen soft, non-tender, non-distended, no organomegaly Musculoskeletal: Pulses present and equal in all extremities, no peripheral edema Motor: no focal deficits noted Neurological: CN II-XII grossly intact, no focal motor or sensory deficits noted Skin: Intact with no visualized rashes Psych: Normal affect and mood Limitations: no limitations Course Vital Signs 11/02/24 11/03/24 11/03/24 23:28 01:39 03:09 Temperature 98.0 F Pulse Rate 76 73 56 L Respiratory 18 16 16 Rate Blood Pressure 116/61 131/71 104/61 O2 Sat by Pulse 98 98 98 Oximetry Medical Decision Making - Medical Decision Making Was pt. sent in by a medical professional or institution (, PA, [employer], urgent care, hospital, or assisted...) When possible be specific @ -No Did you speak to anyone other than the patient for history (EMS, parent, family, police, friend...)? What history was obtained from this source @ -No Did you review nursing and triage notes (agree or disagree)? Why? @ -I reviewed and agree with nursing and triage notes Were old charts reviewed (outside hosp., previous admission, EMS record, old EKG, old radiological studies, urgent care reports/EKG's, assisted records)? Report findings @ -No old charts were reviewed Differential Diagnosis (chest pain, altered mental status, abdominal pain women, abdominal pain men, vaginal bleeding, musculoskeletal, weakness, fever, dyspnea, syncope, headache, dizziness, GI bleed, back pain, seizure, CVA, palpatations, mental health)? @ - Differential Palpitations: Ventricular arrhythmias, atrial arrhythmias, myocardial infarction, anemia, thyrotoxicosis, electrolyte imbalance, hypokalemia, pulmonary embolism, pulmonary disease, drugs, alcohol, anxiety, stress.... This is not meant to be an all-inclusive list. EKG interpreted by me (3pts min.). @ -See above X-rays interpreted by me (1pt min.). @ -Chest x-ray nonacute CT interpreted by me (1pt min.). @ -None done U/S interpreted by me (1pt. min.). @ -None done What testing was considered but not performed or refused? (CT, X-rays, U/S, labs)? Why? @ -None What meds were considered but not given or refused? Why? @ -None Was smoking cessation discussed for >3mins.? @ -No Were there social determinants of health that impacted care today? How? (Homelessness, low income, unemployed, alcoholism, drug addiction, transportation, low edu. Level, literacy, decrease access to med. care, long term, rehab)? @ -No Was there de-escalation of care discussed even if they declined (Discuss DNR or withdrawal of care, Hospice)? DNR status @ -No What co-morbidities impacted this encounter? (DM, HTN, Smoking, COPD, CAD, Cancer, CVA, ARF, Chemo, Hep., AIDS, mental health diagnosis, sleep apnea, morbid obesity)? @ -None Was patient admitted / discharged? Hospital course, mention meds given and route, prescriptions, significant lab abnormalities, going to OR and other pertinent info. @ -39-year-old female presents with palpitations and neck strain. Vital signs stable. Labs unremarkable. Patient given fluids and analgesics with improvement of symptoms. Patient feels better wants to be discharged. Advise close follow-up with primary care doctor. Did you discuss the management of the patient with other professionals (professionals i.e. , PA, [employer], lab, RT, psych nurse, marriage and family social worker, cnc machine programmer, teacher, plain clothes police officer, immigration case worker)? Give summary @ -No Was critical care preformed (if so, how long)? @ -No Undiagnosed new problem with uncertain prognosis? @ -No Drug Therapy requiring intensive monitoring for toxicity (Heparin, Nitro, Insulin, Cardizem)? @ -No Were any procedures done? @ -No Diagnosis/symptom? Acute, or Chronic, or Acute on Chronic? Uncomplicated (without systemic symptoms) or Complicated (systemic symptoms)? @ -Palpitations, neck strain Side effects of treatment? @ -No Exacerbation, Progression, or Severe Exacerbation? @ -No Poses a threat to life or bodily function? How? (Chest pain, [place], [place], pneumonia, PE, COPD, DKA, ARF, appy, cholecystitis, CVA, Diverticulitis, Homicidal, Suicidal, threat to staff... and all critical care pts) @ -No - Lab Data Result diagrams: 11/02/24 23:44 11/02/24 23:44 Lab Results 11/02/24 11/02/24 11/02/24 Range/Units 23:44 23:44 23:44 WBC 7.40 (4.50-10.00) 10*3/uL RBC 4.93 (4.10-5.20) 10*6/uL Hgb 14.2 (12.0-15.0) g/dL Hct 42.9 (37.2-46.3) % MCV 87.0 (80.0-97.0) fL MCH 28.8 (27.0-32.0) pg MCHC 33.1 (32.0-37.0) g/dL Plt Count 229 (140-440) 10*3/uL MPV 11.6 (9.5-12.2) fL Immature Gran % (Auto) 0.3 % Neutrophils % 58.7 % Lymphocytes % 32.2 % Monocytes % 6.1 % Eosinophils % 2.3 % Basophils % 0.4 % Immature Gran # 0.02 (0.00-0.04) 10*3/uL Neutrophils # 4.35 (1.80-7.70) 10*3/uL Lymphocytes # 2.38 (0.90-5.00) 10*3/uL Monocytes # 0.45 (0.20-1.00) 10*3/uL Eosinophils # 0.17 (0.04-0.35) 10*3/uL Basophils # 0.03 (0.00-0.10) 10*3/uL PT (10.0-12.5) sec INR (<1.2) APTT (22.0-30.0) sec Sodium 139 (137-145) mmol/L Potassium 4.1 (3.5-5.1) mmol/L Chloride 103 (98-107) mmol/L Carbon Dioxide 26 (22-30) mmol/L Anion Gap 10 mmol/L BUN 29 H (7-17) mg/dL Creatinine 0.66 (0.52-1.04) mg/dL Est GFR (CKD-EPI)AfAm >90 (>60 ml/min/1.73 sqM) Est GFR (CKD-EPI)NonAf >90 (>60 ml/min/1.73 sqM) Glucose 93 (74-99) mg/dL Calcium 9.8 (8.4-10.2) mg/dL Magnesium 1.8 (1.6-2.3) mg/dL Total Bilirubin 0.4 (0.2-1.3) mg/dL AST 29 (14-36) U/L ALT 36 H (4-34) U/L Alkaline Phosphatase 75 (38-126) U/L Troponin I <0.012 (0.000-0.034) ng/mL Total Protein 7.7 (6.3-8.2) g/dL Albumin 4.7 (3.5-5.0) g/dL 11/03/24 Range/Units 01:25 WBC (4.50-10.00) 10*3/uL RBC (4.10-5.20) 10*6/uL Hgb (12.0-15.0) g/dL Hct (37.2-46.3) % MCV (80.0-97.0) fL MCH (27.0-32.0) pg MCHC (32.0-37.0) g/dL Plt Count (140-440) 10*3/uL MPV (9.5-12.2) fL Immature Gran % (Auto) % Neutrophils % % Lymphocytes % % Monocytes % % Eosinophils % % Basophils % % Immature Gran # (0.00-0.04) 10*3/uL Neutrophils # (1.80-7.70) 10*3/uL Lymphocytes # (0.90-5.00) 10*3/uL Monocytes # (0.20-1.00) 10*3/uL Eosinophils # (0.04-0.35) 10*3/uL Basophils # (0.00-0.10) 10*3/uL PT 11.1 (10.0-12.5) sec INR 1.0 (<1.2) APTT 23.2 (22.0-30.0) sec Sodium (137-145) mmol/L Potassium (3.5-5.1) mmol/L Chloride (98-107) mmol/L Carbon Dioxide (22-30) mmol/L Anion Gap mmol/L BUN (7-17) mg/dL Creatinine (0.52-1.04) mg/dL Est GFR (CKD-EPI)AfAm (>60 ml/min/1.73 sqM) Est GFR (CKD-EPI)NonAf (>60 ml/min/1.73 sqM) Glucose (74-99) mg/dL Calcium (8.4-10.2) mg/dL Magnesium (1.6-2.3) mg/dL Total Bilirubin (0.2-1.3) mg/dL AST (14-36) U/L ALT (4-34) U/L Alkaline Phosphatase (38-126) U/L Troponin I (0.000-0.034) ng/mL Total Protein (6.3-8.2) g/dL Albumin (3.5-5.0) g/dL Disposition Clinical Impression: Cervical strain, Palpitations Disposition: HOME SELF-CARE Condition: Fair Instructions (If sedation given, give patient instructions): Heart Palpitations (ED) Is patient prescribed a controlled substance at d/c from ED?: No Referrals: Lakesha Dalal MD [Primary Care Provider] - 1-2 days Time of Disposition: 03:26
[2024-11-03] MEDS: KETOROLAC 15 MG/ML 1 ML VIAL IVP STA (01:54)
[2024-11-03 01:56] LABS: Partial Thromboplastin Time 23.2 sec (22.0-30.0); Prothrombin Time 11.1 sec (10.0-12.5)
[2024-11-03] MEDS: SODIUM CHLORIDE 0.9% 1,000 ML IV STA (02:39)
[2024-11-03] MEDS: MORPHINE SULFATE 4 MG/ML SYRINGE IVP PRN (02:48)
[2024-11-03 03:09] VITALS: BP 104/61
[2024-11-03 03:48] VITALS: PULSE 67
== END 2024-11-03 03:48 | disposition home or self-care (01) ==
LOC: EC 23:24
DX: S16.1XXA Strain of muscle, fascia and tendon at neck level, initial encounter (principal); R00.2 Palpitations; Z88.6 Allergy status to analgesic agent; Z88.8 Allergy status to other drugs, medicaments and biological substances; X58.XXXA Exposure to other specified factors, initial encounter
CPT/HCPCS: 36415; 93005; 80053; 83735; 84484; 85025; 85610; 85730; 71046; 99285; 96374; 96375; 96361; J2270; J1885